=== PATIENT | male | born 1945 | race Hispanic/Latino ===

== ENCOUNTER 2017-01-08 06:14 | Day surgery (SDC) | payer OTHER ==
[2013-12-02 13:08] VITALS: BMI 34.0
[2017-01-08] MEDS ORDERED: Iodixanol 320 mg/ml 150 ml Bottle IV ONE (06:50)
[2017-01-08] MEDS ORDERED: Iohexol 350mgl/ml 50 ML ONE (07:00)
[2017-01-08] MEDS ORDERED: Midazolam 2 MG/2 ML VIAL ONE ×2 (07:29→07:51)
[2017-01-08] MEDS: Lidocaine 2% Inj (20ml) ONE ×2 (07:41→09:14)
[2017-01-08] MEDS ORDERED: Iodixanol 320 MG/ML 100 ML BOTTLE IV ONE (07:55)
[2017-01-08] MEDS: Nitroglycerin 50mg in D5W 50 MG/250 ML BOTTLE IV ONE ×2 (08:04→09:14)
[2017-01-08] MEDS ORDERED: Sodium Chloride 0.9% 1,000 ML IV SCH (08:30)
[2017-01-08 09:04] VITALS: O2SAT 96
--- NOTE | 2017-01-08 10:05 | CARDCATH ---
PROCEDURE DATE: 01/08/2017 CARDIAC CATHETERIZATION INTERVENTION HISTORY OF PRESENT ILLNESS: This is a 71-year-old man with peripheral arterial disease, diabetes, an d hypertension who has had recent exertional chest discomfort. A stress test showed evidence of ante rior ischemia, and cardiac catheterization was advised. PROCEDURES: 1. Selective left and right coronary angiography. 2. Left ventriculography. 3. PCI of mid LAD with drug-eluting stent. 4. Right femoral arteriography. 5. Angio-Seal deployment. FINDINGS: HEMODYNAMICS: The aortic pressure was 160/70 with left ventricular pressure of 160/20. CORONARY ANATOMY: 1. The left main stem was normal. 2. The left anterior descending artery had mild irregularities proximally, and a 70% stenosis in the late mid segment of the vessel. Beyond this, there was a 40% stenosis as well. The diagonal branch es had mild disease. 3. The left circumflex artery had a 40% lesion in its mid portion prior to the takeoff of a large se cond obtuse marginal branch. 4. The obtuse marginal branch had minimal disease. 5. The right coronary artery was large and dominant. There was evidence of distal disease in the po sterolateral branch with minimal disease elsewhere. Coronary circulation was right dominant. LEFT VENTRICULOGRAPHY: Hand injection was performed in the left ventricle revealing normal wall marisabel on with an ejection fraction of 60%. There was no aortic valve gradient noted on the catheter pullba ck. Mitral regurgitation was not assessed. Extensive mitral annular calcification was noted. CORONARY INTERVENTION: Given the above findings, attempted PCI of the LAD lesion was then performed. 5000 units of intravenous heparin was administered, and the ACT was greater than 400 seconds during the procedure. The lesion in the LAD was successfully crossed with the use of a [place] wire. Follo wing this, the lesion was primarily stented with placement of a 2.75 mm x 12 mm Resolute drug-eluting stent. There remained an underexpanded waist in the mid portion of the stent, and the stent balloon was then removed, and a 2.75 mm x 8 mm noncompliant balloon was advanced into the stented segment an d inflated to 14 atmospheres for 45 seconds. This was repeated to 16 atmospheres for 1 minute. Ther e was no significant residual stenosis following intervention. KARIS grade III flow was present befor e and after the intervention as well. RIGHT FEMORAL ARTERIOGRAPHY: Right femoral arteriogram revealed no evidence of significant disease i n the femoral region, and the appropriate level of arterial puncture. The puncture site was then reynaldo sed with deployment of an Angio-Seal device. CONCLUSION: 1. Significant mid LAD stenosis. 2. Mild diffuse 3-vessel coronary artery disease. 3. Normal left ventricular function. 4. Successful PCI of mid LAD. RECOMMENDATIONS: Aspirin and Plavix therapy will be continued for 1 year. Continued risk factor con trol was advised. Eventual evaluation of his recent worsening claudication will be planned as well. Mark Herman MD cc:Ezekiel Kim MD; Jani Hernandez MD 382 TT: 01/08/2017 10:04:18 jn
[2017-01-08 10:50] LABS: BLOOD UREA NITROGEN 14 mg/dL (7-21); CALCIUM 8.6 mg/dL (8.4-10.5); CARBON DIOXIDE 25 mmol/L (21-33); CHLORIDE 104 mmol/L (98-107); GFR AFRICAN-AMERICAN > 60; GLUCOSE,RANDOM 129 mg/dL (70-110); POTASSIUM 4.4 mmol/L (3.6-5.0); SODIUM 137 mmol/L (132-148)
[2017-01-08 13:05] VITALS: TEMP 97.7
[2017-01-08 14:42] VITALS: PULSE 58
[2017-01-08 14:49] VITALS: RESP 18
[2017-01-08 14:53] VITALS: BP 154/86
--- NOTE | 2017-01-08 16:22 | CARD ---
APPROVED REPORT EKG Measurement Heart [id number] <Conclusion> Sinus bradycardia with 1st degree AV block Otherwise normal ECG
== END 2017-01-08 17:05 | disposition home or self-care (01) ==
LOC: CATH 06:14 → 2RSO 09:09 → CATH 17:05
PROVIDERS: ATTEND Internal Medicine Cardiovascular Disease
DX: I25.10 Atherosclerotic heart disease of native coronary artery without angina pectoris (principal); I10 Essential (primary) hypertension; E11.51 Type 2 diabetes mellitus with diabetic peripheral angiopathy without gangrene
CPT/HCPCS: 36415; 80048; 82948; 85175; 86850; 86900; 93005; 93458; 99152; C1725; C1760; C1769 ×2; C1874; C1887; C2629; C9600; J1644 ×2; J2250; J3010; J7040 ×2; Q9967 ×2

== ENCOUNTER 2017-07-06 12:47 | Inpatient (IN) | payer OTHER, MEDICARE ==
--- NOTE | 2017-07-06 12:53 | ED PDOC ---
Arrival/HPI - General Time Seen by Provider: 07/06/17 12:48 Historian: Patient - History of Present Illness Narrative History of Present Illness (Text): 07/06/17 13:01 Patient is a 72 yo male presents with after sudden onset of unsteadiness, left sided weakness and difficulty speaking approximately 12 noon less than one hour prior to arrival. Patient reportedly was his typical self this morning, with no complaints until noon. Patient at this time has difficulty speaking, history supplemented by family. No trauma reported. No chest pain or shortness of breath reported. Patient take aspirin and Plavix, no other blood thinners as per . No recent history of surgery or arterial puncture. No recent trauma. Time/Duration: Prior to Arrival Symptom Onset: Sudden Past Medical History - Provider Review Nursing Documentation Reviewed: Yes - Tetanus Immunization Tetanus Immunization: Unknown - Cardiac Hx Pacemaker: No - Neurological Hx Paralysis: No - Renal Hx Renal Failure: Yes (hx of) - Endocrine/Metabolic Hx Endocrine Disorders: Yes Hx Diabetes Mellitus Type 2: Yes - Hematological/Oncological Hx Blood Transfusions: No Hx Blood Transfusion Reaction: No - Musculoskeletal/Rheumatological Hx Musculoskeletal Disorders: Yes - Gastrointestinal Hx Gastrointestinal Disorders: Yes (COLON CA) - Genitourinary/Gynecological Hx Genitourinary Disorders: Yes (ACUTE RENAL FAILURE) Hx Reproductive Disorders: No - Psychiatric Hx Emotional Abuse: No Hx Physical Abuse: No Hx Substance Use: No - Surgical History Hx Appendectomy: Yes Hx Cholecystectomy: Yes - Anesthesia Hx Anesthesia Reactions: No Hx Malignant Hyperthermia: No - Suicidal Assessment Feels Threatened In Home Enviroment: No Family/Social History - Physician Review Nursing Documentation Reviewed: Yes Family/Social History: Unknown Family HX Smoking Status: Never Smoked Hx Alcohol Use: Yes (SOCIAL) Hx Substance Use: No Hx Substance Use Treatment: No Allergies/Home Meds Allergies/Adverse Reactions: Allergies No Known Allergies Allergy (Verified 04/26/15 12:59) Home Medications: Home Meds Medication Instructions Recorded Confirmed Linagliptin [Tradjenta] 5 mg PO QAM 01/13/13 01/08/17 Bromocriptine Mesylate [Cycloset] 0.8 mg PO QAM 11/30/13 01/08/17 Aspirin [Ecotrin] 81 mg PO DAILY 01/02/17 01/08/17 GlipiZIDE [Glucotrol] 5 mg PO DAILY 01/02/17 01/08/17 Lisinopril [Zestril] 10 mg PO DAILY 01/02/17 01/08/17 Simvastatin 40 mg PO QPM 01/02/17 01/08/17 Clopidogrel [Plavix] 75 mg PO DAILY 01/08/17 01/08/17 Review of Systems - Review of Systems Systems not reviewed;Unavailable: Acuity of Condition Constitutional: absent: Fevers Respiratory: absent: SOB Cardiovascular: absent: Chest Pain Gastrointestinal: absent: Abdominal Pain Genitourinary Male: absent: Dysuria Musculoskeletal: absent: Back Pain Skin: absent: Rash Neurological: Gait Changes, Speech Changes. absent: Headache, Dizziness, Focal Weakness Endocrine: absent: Polyuria Physical Exam - Physical Exam Narrative Physical Exam (Text): 07/06/17 Head: Atraumatic. Normocephalic. Eyes: PERRL. EOMI. Conjunctivae are not pale. ENT: Mucous membranes are moist and intact. Oropharynx is clear and symmetric. Neck: Supple. Full ROM. No JVD. No lymphadenopathy. Cardiovascular: Regular rate. Regular rhythm. No murmurs, rubs, or gallops. Distal pulses are 2+ and symmetric. Pulmonary/Chest: No evidence of respiratory distress. Clear to auscultation bilaterally. No wheezing, rales or rhonchi. Abdominal: Soft and non-distended. There is no tenderness. No rebound, guarding, or rigidity. No organomegaly. Good bowel sounds. Back: No CVA tenderness. Extremities: No edema. No cyanosis. No clubbing. Full range of motion in all extremities. No calf tenderness. Skin: Skin is warm and dry. No petechiae. No purpura. Neurological: Alert, awake, and oriented to person, place, time, and situation. Normal speech. Psychiatric: Good eye contact. Normal interaction, affect, and behavior. Vital Signs Reviewed: Yes Vital Signs Temp Pulse Resp BP Pulse Ox 07/06/17 18:32 88 22 198/71 H 100 07/06/17 18:23 75 18 198/71 H 100 07/06/17 16:34 87 18 184/105 H 100 07/06/17 15:38 72 20 155/94 H 07/06/17 15:03 72 18 155/94 H 97 07/06/17 14:35 95 H 18 114/52 L 98 07/06/17 14:23 95 H 18 181/81 H 98 07/06/17 14:04 74 18 170/79 H 99 07/06/17 13:45 77 18 174/85 H 97 07/06/17 13:28 76 18 182/80 H 98 07/06/17 13:09 98.4 F 82 18 184/96 H 99 Temperature: Afebrile Pulse: Regular Respiratory Rate: Normal Appearance: Positive for: Ill-Appearing Pain Distress: Moderate Medical Decision Making ED Course and Treatment: 07/06/17 Patient seen immediately upon arrival. Patient is present with who witnessed patient's symptoms. She emphasizes patient was well and suddenly developed symptoms at 12 noon. On exam he is noted to have left sided neglect, left arm weakness, facial droop but is alert and answering questions. There is no fever. There is no trauma. CODE STROKE activated upon arrival as patient is noted to have acute onset of symptoms withing one hour of presentation. I discussed case and exam with on-call neurologist Dr. Duval. 07/06/17 13:[address]: Creator : Mervat Chi MD COMPARISON: Comparison is made to the previous CT study 01/30/2012 FINDINGS: HEMORRHAGE: No intracranial hemorrhage. BRAIN: No mass effect or edema. Mild atrophy and mild chronic microvascular white matter ischemic disease are again noted. Focal encephalomalacia at the left coronal radiata is noted new compared to the previous exam. Findings likely represent old lacunar infarct. VENTRICLES: Unremarkable. No hydrocephalus. CALVARIUM: Unremarkable. PARANASAL SINUSES: Unremarkable as visualized. No significant inflammatory changes. MASTOID AIR CELLS: Unremarkable as visualized. No inflammatory changes. OTHER FINDINGS: None. IMPRESSION: No evidence of acute intracranial hemorrhage territorial infarct mass effect or midline shift. Small focal encephalomalacia at the left coronal radiata likely represent old lacunar infarct. Mild atrophy and mild chronic microvascular ischemic disease. On re-exam he remains alert, awake, but no respiratory distress noted. Blood pressure elevated but stable and not over 185/[address] head findings reviewed from radiologist and reviewed with and son Radnall who is present at bedside. Patient exam consistent with CVA. Dr. Duval updated with patient exam and initial head ct. In laymens' terms I discussed indications and reviewed risks of tpa, with patient, and son. They are agreeable to administration of tpa and express understanding of potential serious risks and side effects of tpa. No contraindications noted. No recent surgery. No recent stroke. No active bleeding. BP NOT over 185/110 with serial pressures. No active bleeding. INR and platelet count reviewed. NO hemorrhage noted on head ct. No previous intracranial hemorrhage reported or noted. No recent intracranial or intraspinal surgery. No recent arterial puncture. 07/06/17 14:10 Bolus adminisitered at 14:04 pm. 9mg IV was administered by me over 1 min. 81mg infusion will be given IV over the next hour Risk and benefits of tTPA were discussed with pt, , and son. They were given the opportunity to ask questions and are agreeable to administration of this medication. Dr. Volodymyr Duval has been consulted regarding pts presentation and is agreeable with current treatment plan. The plan is to obtain MRI and MRA of the brain. 07/06/17 14:45 pt is currently complaining of mild sided headache. He is awake and alert, but appears slower to respond. Additionally, pt is nauseous and diaphoretic. Pt denies chest pain, shortness of breath, and abdominal pain. tPA has been discontinued and head ct repeat ordered due to developement of headache. 07/06/17 14:50 Chest X-ray: Creator : Mervat Chi MD COMPARISON: Comparison is made to 06/28/2015 FINDINGS: LUNGS: Clear. PLEURA: No pneumothorax or pleural fluid seen. CARDIOVASCULAR: Normal. OSSEOUS STRUCTURES: No significant abnormalities. VISUALIZED UPPER ABDOMEN: Normal. OTHER FINDINGS: None. IMPRESSION: No active disease. Repeat Head CT reveals no hemorrhage. Dr. Duval updated. Patient admitted to ICU under Dr. Bautista's service, covering for PMD. Patient evaluated by wood veneer taper in ED. Attempt at MRI of brain, patient became agitated in MR as per trace evidence technician unable to lay still. Patient noted to have elevated Creatinine at this time risk for iv contrast given renal insufficiency, risks of iv contrast reviewed with patient family, MRI preferred although stressed urgency of MRI and need to obtain immediately as patient requests "can this be done tomorrow". Indications for MRI reviewed with patient and family, Dr. Cyn Duval updated with current condition. On exam he is alert, conversive, remains with visual deficits, left upper extremity weakness. No respiratory distress noted. Headache improved. NO nausea. Ativan ordered so MRI may be obtained as patient is unable to stay still and attempt to sit up, risks/side effects of MRI reviewed with patient and family. I consulted with neurology prior to administration of Ativan. 07/06/17 18:24 Patient returned from MRI. He is sedated, although will follow commands and answer questions. Saturations 100%. MRI/MRA reviewed by neurology, abnormal findings noted including punctate hemorrhage. This was communicated to patient's family, and ICU team Dr. Pardo. Case was turned over to ICU team at 1830, blood pressure and physical exam directly communicated to ICU staff for reassessment upon arrival to ICU. He is no respiratory distress. There is blood tinged urine in elizalde and minor gingival bleeding noted. Exam and neurology consultation reviewed directly with wood veneer taper team, neurology has also communicated to ICU team. - Lab Interpretations Lab Results: 07/06/17 12:53 07/06/17 12:53 Lab Results 07/06/17 14:45: POC Glucose (mg/dL) 165 H 07/06/17 14:15: pO2 68 H, VBG pH 7.37, VBG pCO2 46.0, VBG HCO3 26.6, VBG Total CO2 28.0, VBG O2 Sat (Calc) 96.5 H, VBG Base Excess 0.8, VBG Potassium 4.1, Glucose 184 H, Lactate 1.6, FiO2 21.0, Sodium 141.0, Chloride 106.0, Venous Blood Potassium 4.1 07/06/17 13:00: PT 11.8, INR 1.07, APTT 27.9 07/06/17 12:53: Blood Type B POSITIVE, Antibody Screen Negative, BBK History Checked Patient has bt 07/06/17 12:53: Sodium 145, Potassium 4.0, Chloride 106, Carbon Dioxide 26, Anion Gap 17, BUN 21, Creatinine 1.7 H, Est GFR ( Amer) 48, Est GFR (Non- Af Amer) 40, Random Glucose 184 H, Calcium 9.9, Total Bilirubin 1.5 H, AST 33, ALT 33, Alkaline Phosphatase 122, Troponin I 0.10 D, Total Protein 7.7, Albumin 4.5, Globulin 3.2, Albumin/Globulin Ratio 1.4, Triglycerides 54, Cholesterol 150, LDL Cholesterol Direct 53, HDL Cholesterol 90 H 07/06/17 12:53: WBC 6.1, RBC 4.39, Hgb 12.9 L, Hct 39.1 L, MCV 89.1, MCH 29.4, MCHC 33.0, RDW 13.8, Plt Count 174, MPV 10.5, Gran % 56.9, Lymph % (Auto) 31.3, [place] % (Auto) 9.5 H, Eos % (Auto) 2.0, Baso % (Auto) 0.3, Gran # 3.46, Lymph # 1.9, [place]ck[place] # 0.6, Eos # 0.1, Baso # 0.02 I have reviewed the lab results: Yes - RAD Interpretation Radiology Orders: 07/06/17 12:50 HEAD W/O (CODE STROKE) [CT] Stat 07/06/17 12:52 CHEST ONE VIEW [RAD] Stat 07/06/17 13:48 BRAIN WITHOUT CONTRAST [MRI] Stat MRA HEAD WITHOUT CONTRAST [MRI] Stat 07/06/17 14:40 HEAD W/O CONTRAST [CT] Stat Disaster Recovery Consultant: Radiologist - EKG Interpretation Interpreted by ED Physician: Yes Type: 12 lead EKG - Medication Orders Current Medication Orders: Discontinued Medications Alteplase, Recombinant (Activase 100 Mg Inj) 81 mg IV ONCE ONE Stop: 07/06/17 13:24 Last Admin: 07/06/17 14:08 Dose: 81 mg eMAR Start Stop Document 07/06/17 14:08 EWO (Rec: 07/06/17 14:08 BONITAO [id number]) Intravenous Solution Start Date 07/06/17 Start Time 14:08 End Date 07/06/17 End time 15:08 Total Infusion Time 60 Alteplase, Recombinant (Activase 100 Mg Inj) 9 mg IV ONCE ONE Stop: 07/06/17 13:24 Last Admin: 07/06/17 14:05 Dose: 9 mg eMAR Start Stop Document 07/06/17 14:05 EWO (Rec: 07/06/17 14:05 EW [id number]) Intravenous Solution Start Date 07/06/17 Start Time 14:05 End Date 07/06/17 End time 14:06 Total Infusion Time 1 Sodium Chloride (Sodium Chloride 0.9%) 1,000 mls @ 1,000 mls/hr IV .Q1H STA Stop: 07/06/17 15:40 Last Admin: 07/06/17 15:10 Dose: 1,000 mls/hr eMAR Start Stop Document 07/06/17 15:10 EWO (Rec: 07/06/17 15:11 EWO [id number]) Intravenous Solution Start Date 07/06/17 Start Time 14:50 End Date 07/06/17 End time 15:50 Total Infusion Time 60 Lorazepam (Ativan) 0.5 mg IVP ONCE ONE PRN Reason: Protocol Stop: 07/06/17 16:37 Last Admin: 07/06/17 18:22 Dose: 0.5 mg IVP Administration Document 07/06/17 18:22 EWO (Rec: 07/06/17 18:22 EWO [id number]) Charges for Administration # of IVP Administrations 1 Lorazepam (Ativan) 0.5 mg IVP ONCE ONE PRN Reason: Protocol Stop: 07/06/17 17:17 Last Admin: 07/06/17 17:17 Dose: 0.5 mg Lorazepam (Ativan) 1 mg IVP ONCE ONE Stop: 07/06/17 17:47 Last Admin: 07/06/17 18:24 Dose: 1 mg IVP Administration Document 07/06/17 18:24 EWO (Rec: 07/06/17 18:24 O [id number]) Charges for Administration # of IVP Administrations 2 NIHSS Scale ([place]) Time Performed: 12:50 - How Severe is the Stoke Baseline Level of Consciousness: 1=Drowsy LOC to Questions: 0=Both comments correct LOC to commands: 0=Obeys both correctly Best Gaze: 1=Partial gaze palsy Visual: 1=Partial hemianopia Facial: 1=Minor asymmetry Motor Arm - Left: 2=Falls before 10 sec Motor Arm - Right: 0=No drift Motor Leg - Left: 0=No drift Motor Leg - Right: 0=No drift Limb Ataxia: 1=Present Upper or Lower Sensory: 0=Normal Best Language: 0=No aphasia Dysarthia: 1=Mild to moderate slurring Extinction & Inattention (Neglect): 1=Partial neglect (mild kaylie-attention) Score: 9 Risk Level: Mod Stroke Risk NIHSS Scale([place]) 2 Time Performed: 14:40 - How Severe is the Stoke Baseline Level of Consciousness: 1=Drowsy LOC to Questions: 0=Both comments correct LOC to commands: 0=Obeys both correctly Best Gaze: 0=Normal Visual: 1=Partial hemianopia Facial: 1=Minor asymmetry Motor Arm - Left: 3=No effort against gravity (falls immediately) Motor Arm - Right: 0=No drift Motor Leg - Left: 0=No drift Motor Leg - Right: 0=No drift Limb Ataxia: 1=Present Upper or Lower Sensory: 0=Normal Best Language: 0=No aphasia Dysarthia: 1=Mild to moderate slurring Extinction & Inattention (Neglect): 1=Partial neglect (mild kaylie-attention) Score: 9 Risk Level: Mod Stroke Risk rTPA Inclusion/Exclusion - Refusal of Treatment Patient Refused Treatment: No - Inclusion Criteria for Altepase Patient is 18 years or Older: Yes The Clinical Diagnosis of Ischemic Stroke That is Causing a Potentially Disabling Neurological Deficit: Yes Time of Onset is Well Established to be Less Than 270 Minute Before Treatment Would Begin: Yes Risk/Benefit Discussed With Patient/Family Member Present: Yes - Exclusion Criteria for Altepase Uncontrolled Hypertension at Time of Treatment (Systolic BP above 185 or Diastolic BP above 110 mmHg): No Active Internal Bleeding: No Known Bleeding Diathesis Including but Not Limited to: Platelets Below 100,000/ mm,PTT Above 40 sec After Heparin Use, Current Use of Oral Anitcoagulant With INR Greater Than 1.7 or PT Greater Than 15 secs: No Evidence of an Intracranial Hemorrhage: No Evidence of Major Acute Infarct With Signs Greater Than 1/3 MCA Territory: No Suspicion of Subarachnoid Hemorrhage on Pretreatment Evaluation Even if CT Head Negative For Hemorrhage: No - Warning to TPA With Conditions Following Conditions Weighed Against Anticipated Benefit: No - Scribe Statement The provider has reviewed the documentation as recorded by the Elías Elmore Provider Scribe Attestation: All medical record entries made by the Elías were at my direction and personally dictated by me. I have reviewed the chart and agree that the record accurately reflects my personal performance of the history, physical exam, medical decision making, and the department course for this patient. I have also personally directed, reviewed, and agree with the discharge instructions and disposition. Disposition/Present on Arrival - Present on Arrival Any Indicators Present on Arrival: Yes History of DVT/PE: No History of Uncontrolled Diabetes: No Urinary Catheter: Yes History Surgical Site Infection Following: None - Disposition Have Diagnosis and Disposition been Completed?: Yes Diagnosis: CVA (cerebral vascular accident) Disposition: HOSPITALIZED Disposition Time: 15:00 Patient Plan: Admission Condition: CRITICAL
[2017-07-06 13:05] LABS: BASO # 0.02 K/mm3 (0.0-2.0); BASO % 0.3 % (0.0-3.0); EOS # 0.1 (0.0-0.7); GRAN # 3.46 (1.4-6.5); GRAN % 56.9 % (50.0-68.0); HEMATOCRIT 39.1 % (42.0-52.0); LYMPH # 1.9 (1.2-3.4); LYMPH % 31.3 % (22.0-35.0); MEAN CELL VOLUME 89.1 fl (80.0-105.0); MEAN CORPUSCULAR HEMOGLOBIN 29.4 pg (25.0-35.0); MEAN PLATELET VOLUME 10.5 fl (7.0-11.0); MONO # 0.6 (0.1-0.6); MONO % 9.5 % (1.0-6.0); RED CELL DISTRIBUTION WIDTH 13.8 % (11.5-14.5); WHITE BLOOD COUNT 6.1 10^3/ul (4.5-11.0)
--- NOTE | 2017-07-06 13:17 | CT ---
PROCEDURE: CT HEAD WITHOUT CONTRAST. HISTORY: code stroke COMPARISON: Comparison is made to the previous CT study 01/30/2012 TECHNIQUE: Axial computed tomography images were obtained through the head/brain without intravenous contrast. Radiation dose: Total exam DLP = 814.48 mGy-cm. This CT exam was performed using one or more of the following dose reduction techniques: Automated exposure control, adjustment of the mA and/or kV according to patient size, and/or use of iterative reconstruction technique. FINDINGS: HEMORRHAGE: No intracranial hemorrhage. BRAIN: No mass effect or edema. Mild atrophy and mild chronic microvascular white matter ischemic disease are again noted. Focal encephalomalacia at the left coronal radiata is noted new compared to the previous exam. Findings likely represent old lacunar infarct. VENTRICLES: Unremarkable. No hydrocephalus. CALVARIUM: Unremarkable. PARANASAL SINUSES: Unremarkable as visualized. No significant inflammatory changes. MASTOID AIR CELLS: Unremarkable as visualized. No inflammatory changes. OTHER FINDINGS: None. IMPRESSION: No evidence of acute intracranial hemorrhage territorial infarct mass effect or midline shift. Small focal encephalomalacia at the left coronal radiata likely represent old lacunar infarct. Mild atrophy and mild chronic microvascular ischemic disease.
[2017-07-06 13:23] LABS: ALB/GLOB RATIO 1.4 (1.1-1.8); BILIRUBIN,TOTAL 1.5 mg/dL (0.2-1.3); CALCIUM 9.9 mg/dL (8.4-10.5); TOTAL PROTEIN 7.7 g/dL (5.8-8.3)
[2017-07-06 13:26] LABS: INR 1.07 (0.93-1.08); PARTIAL THROMBOPLASTIN TIME 27.9 Seconds (25.1-36.5)
[2017-07-06 13:36] LABS: TROPONIN I 0.1 ng/mL
[2017-07-06 14:30] LABS: VENOUS BLOOD GAS BASE EXCESS 0.8 mmol/L (0.0-2.0); VENOUS BLOOD PH 7.37 (7.32-7.43)
[2017-07-06] MEDS ORDERED: Sodium Chloride 0.9% 1,000 ML IV STA (14:41)
--- NOTE | 2017-07-06 14:42 | RAD ---
PROCEDURE: CHEST RADIOGRAPH, 1 VIEW HISTORY: code stroke COMPARISON: Comparison is made to 06/28/2015 FINDINGS: LUNGS: Clear. PLEURA: No pneumothorax or pleural fluid seen. CARDIOVASCULAR: Normal. OSSEOUS STRUCTURES: No significant abnormalities. VISUALIZED UPPER ABDOMEN: Normal. OTHER FINDINGS: None. IMPRESSION: No active disease.
--- NOTE | 2017-07-06 15:07 | CT ---
PROCEDURE: CT HEAD WITHOUT CONTRAST. HISTORY: headache on tpa COMPARISON: None available. TECHNIQUE: Axial computed tomography images were obtained through the head/brain without intravenous contrast. Radiation dose: Total exam DLP = 823.45 mGy-cm. This CT exam was performed using one or more of the following dose reduction techniques: Automated exposure control, adjustment of the mA and/or kV according to patient size, and/or use of iterative reconstruction technique. FINDINGS: HEMORRHAGE: No intracranial hemorrhage. BRAIN: Again seen is small old infarct at the left coronal radiata. No evidence of mass lesion mass effect or midline shift. Mild atrophy and chronic microvascular ischemic disease are again noted VENTRICLES: Unremarkable. No hydrocephalus. CALVARIUM: Unremarkable. PARANASAL SINUSES: Unremarkable as visualized. No significant inflammatory changes. MASTOID AIR CELLS: Unremarkable as visualized. No inflammatory changes. OTHER FINDINGS: None. IMPRESSION: No evidence of acute intracranial hemorrhage no significant interval change noted since the previous exam.
[2017-07-06 15:45] VITALS: BMI 32.7
--- NOTE | 2017-07-06 18:07 | MRI ---
PROCEDURE: MRI BRAIN WITHOUT CONTRAST HISTORY: left upper extremity weakness, left sided neglect COMPARISON: Comparison is made to the previous same-day CT of the head without contrast TECHNIQUE: Multiplanar, multisequence MR images of the brain were obtained without intravenous contrast enhancement. FINDINGS: This study is limited due to the patient's motion. HEMORRHAGE: There are foci of hypointense T2 GRE signal noted at the right posterior parietal occipital lobe. The possibility of small foci of hemorrhage cannot be totally excluded DWI: Diffusion restriction noted at the right frontal temporal parietal lobe extending to the peripheral right occipital lobe suggestive of large right MCA infarct. Foci of diffusion restriction are also noted at the right coronal radiata. . There is a focal hyperintense DW at the left coronal radiata likely represent T2 shine through. BRAIN PARENCHYMA: No mass effect or edema. Mild atrophy and [id number] chronic microvascular ischemic disease. VENTRICLES: Unremarkable. No hydrocephalus. CRANIUM: Unremarkable. ORBITS: Grossly unremarkable. PARANASAL SINUSES/MASTOIDS: Clear VASCULAR SYSTEM: Skull base flow voids intact. OTHER FINDINGS: None. IMPRESSION: Limited study due to patient's motion. Foci of diffuse restriction noted at the right supratentorial brain suggestive of right MCA infarct. Small foci of hyperintense T2 GRE signal noted at the right posterior parietal occipital lobe may represent punctate hemorrhage. Follow-up reassessment by CT is recommended.
--- NOTE | 2017-07-06 18:12 | MRI ---
PROCEDURE: MR Angiography of the neck without contrast HISTORY: left sided weakness COMPARISON: None available. TECHNIQUE: 3D [id number] angiography of the neck was performed. Rotating maximum intensity projection images of the cervical carotid and vertebral arteries were generated. The origins of the common carotid arteries were not visualized, which is a limitation inherent to the non-contrast time of flight technique. FINDINGS: Limited study due to patient's motion. RIGHT CAROTID ARTERIES: Common Carotid Artery: No evidence of significant stenosis Carotid Bifurcation: No evidence of significant stenosis P Internal Carotid Artery:No evidence of significant stenosis External Carotid Artery (proximal branches): Normal. LEFT CAROTID ARTERIES: Common Carotid Artery: No evidence of significant stenosis Carotid Bifurcation: Normal. Internal Carotid Artery:Normal. External Carotid Artery (proximal branches): Normal. VERTEBRAL ARTERIES: Right Vertebral Artery: The right vertebral artery is small in size contains foci of stenosis. Left Vertebral Artery: Normal. OTHER FINDINGS: None. IMPRESSION: Limited study due to patient's motion. No evidence of significant stenosis in the carotid arteries at the neck. Small size of right vertebral artery contains foci of moderate stenosis.
[2017-07-06] MEDS ORDERED: Labetalol 5 mg/ml Inj 20ML IV PRN (20:21)
--- NOTE | 2017-07-06 20:47 | MRI ---
EXAM: MR Angiography Head Without Intravenous Contrast EXAM DATE/TIME: 07/06/2017 1:48 PM CLINICAL HISTORY: The patient age is 72 years old and is male; Signs and symptoms; Syncope and collapse; Additional info: Left sided weakness, left sided neglect Facility exam id and description: Mri mra heads mra head without contrast TECHNIQUE: Magnetic resonance angiography images of the head without intravenous contrast. COMPARISON: CT - HEAD W/O CONTRAST 2017-07-06 14:49 FINDINGS: Artifacts: This MRA of the head is nondiagnostic due to significant motion artifact. Right internal carotid artery: The petrous internal carotid arteries are patent bilaterally. Evaluation of the remaining internal carotid arteries is nondiagnostic due to artifact. Right anterior cerebral artery: Nondiagnostic due to artifact. Right middle cerebral artery: Nondiagnostic due to artifact. Right posterior cerebral artery: Nondiagnostic due to artifact. Right vertebral artery: Nondiagnostic. Left internal carotid artery: See above. Left anterior cerebral artery: Nondiagnostic due to artifact. Left middle cerebral artery: Nondiagnostic due to artifact. Left posterior cerebral artery: Nondiagnostic due to artifact. Left vertebral artery: Nondiagnostic. Basilar artery: Nondiagnostic due to artifact. IMPRESSION: 1. This MRA of the head is nondiagnostic due to significant motion artifact. A repeat MRA or CTA is recommended.
--- NOTE | 2017-07-07 00:45 | CON ---
DATE: 07/06/2017 [employer] REQUESTING PHYSICIAN: Dr. Bautista. CHIEF COMPLAINT: The patient presented with left-sided weakness, felt to have had an acute CVA. HISTORY OF PRESENT ILLNESS: Mr. Villafana is a 72-year-old male that was witnessed to have at home unsteadiness, left-sided weakness, and difficulty speaking. The patient was brought directly to the emergency room and CVA was diagnosed. The patient had TPA. On exam, the patient was awake and alert, speaking in full sentences, very weak on his left upper and lower extremity. No fever, chills. No nausea, vomiting. No diarrhea. No abdominal pain. No chest pain. No headaches. No blurred vision. The patient had MRI that showed right MCA infarct with questionable small hemorrhoids in the right posteroparietal occipital lobe. The patient has past history of coronary artery disease and stents, also acute renal insufficiency, as well as colon CA. PAST MEDICAL HISTORY: As above. ALLERGIES: HE HAS NO KNOWN ALLERGIES. CURRENT MEDICATIONS: Can be evaluated as per the nurses' intake form. SOCIAL HISTORY: He is an occasional ETOH user, nonsmoker. No drug abuse. FAMILY HISTORY: Noncontributory. REVIEW OF SYSTEMS: CONSTITUTIONAL: No fever, chills. RESPIRATORY: All negative. CARDIOVASCULAR: All negative. GASTROINTESTINAL: All negative. GENITOURINARY: All negative. MUSCULOSKELETAL: The patient has weakness in the left upper and lower extremity. SKIN: All negative. NEUROLOGIC: The patient has gait change, speech change, weakness in the upper and lower extremity. ENDOCRINE: All negative. HEMATOLOGIC: All negative. IMMUNOLOGIC: All negative. PHYSICAL EXAM VITAL SIGNS: Temperature is 98.4, pulse is 82, respirations are 18, and blood pressure is 184/96. SKIN: Warm and dry. HEENT: Head is atraumatic, normocephalic. Eyes; reactive to light. Ears, nose, and throat seemed to be within normal limits. NECK: Supple. No JVD. No thyroid enlargement. No lymph nodes. HEART: Regular rate and rhythm. Normal S1, S2. LUNGS: Reveal good breath sounds bilaterally. ABDOMEN: Soft, nontender. Normal bowel sounds. No organomegaly noted. GENITALIA: Deferred. RECTAL: Deferred. MUSCULOSKELETAL: No joint deformities. EXTREMITIES: Reveal no edema. NEUROLOGICAL: He has slight slurred speech with extreme weakness in the left upper and lower extremities. LABORATORY DATA: As far as his laboratories; white count is 6.1, hemoglobin is 12.9, hematocrit 39.1, platelets of 174,000. His sodium is 145, potassium 4.0, chloride 106, CO2 of 26, BUN of 21, creatinine of 1.7, and glucose of 184. As far as the patient's MRI of the brain, head reveals foci of diffuse restriction noted at the right supratentorial brain suggestive of right MRI infarct, small foci of hyperintense T2-GRE signal noted at the right posteroparietal occipital lobe, may represent a punctate hemorrhage. Followup reassessment by CAT scan is recommended. Chest x-ray is negative. IMPRESSION: This patient has an acute right middle cerebral artery infarct, has a questionable small hemorrhagic area at the right posterior parietooccipital lobe. The patient has significant weakness in the left upper and lower extremities. The patient has a history of colon cancer, is noted to have acute renal insufficiency and has a history of coronary artery disease and stents. PLAN: Neurology consult has been called. The patient is recommended for systolic between 175 to 190 and a diastolic between 80 and 90. The patient has neuro checks as per protocol and BP checks as per protocol as well. We will follow his electrolytes and correct as needed. The patient has a consult with neuro and we will follow closely and treat aggressively along with the other consultants and the primary care doctor. Darvin Pardo MD
[2017-07-07] MEDS ORDERED: Nicardipine 20 MG/200 ML 20 MG/200 ML BAG IV PRN ×2 (10:01→14:35)
--- NOTE | 2017-07-07 10:14 | CARD ---
APPROVED REPORT EKG Measurement Heart [id number] <Conclusion> Normal sinus rhythm Cannot rule out Anterior infarct, age undetermined Abnormal ECG
[2017-07-07 10:28] LABS: ARTERIAL BLOOD GAS HCO3 24.3 mmol/L (21-28); ARTERIAL BLOOD GAS PH 7.45 (7.35-7.45)
[2017-07-07 10:33] LABS: BASO # 0.01 K/mm3 (0.0-2.0); BASO % 0.1 % (0.0-3.0); GRAN # 6.07 (1.4-6.5); GRAN % 76.6 % (50.0-68.0); HEMATOCRIT 35.7 % (42.0-52.0); LYMPH # 0.8 (1.2-3.4); LYMPH % 10.3 % (22.0-35.0); MEAN CELL VOLUME 88.1 fl (80.0-105.0); MEAN CORPUSCULAR HEMOGLOBIN 29.1 pg (25.0-35.0); MEAN CORPUSCULAR HGB CONC 33.1 g/dl (31.0-37.0); MEAN PLATELET VOLUME 10.2 fl (7.0-11.0); PH,URINE 5.5 (4.7-8.0); URINE BILIRUBIN NEGATIVE (NEGATIVE); URINE BLOOD LARGE (NEGATIVE); URINE GLUCOSE (UA) 500 mg/dL (NEGATIVE); URINE KETONE NEGATIVE (NEGATIVE); URINE LEUKOCYTE ESTERASE NEGATIVE Leu/uL (NEGATIVE); URINE PROTEIN 100 mg/dL (<30 mg/dL); URINE UROBILINOGEN 0.2 E.U./dL (<1 E.U./dL); WHITE BLOOD COUNT 7.9 10^3/ul (4.5-11.0)
--- NOTE | 2017-07-07 10:34 | CP.PCM.CON ---
<Dom Del Toro - Last Filed: 07/07/17 13:53> History of Present Illness - History of Present Illness History of Present Illness: Neurology consult note for Dr. Duval's service - Gaurang Del Toro PGY2 Reason for consult: Acute CVA HPI: Patient is a 72 year-old male with past medical history of hypertension, hyperlipidemia, CAD s/p stent placement, colon ca s/p partial colectomy that presented to [facility] accompanied by his with complaints of left-sided weakness and difficulty speaking. Per patient's , the symptoms had started at approximately 12pm the day of arrival (one hour prior to arrival) . In the ED, a code stroke was called and a head CT revealed no evidence of acute intracranial hemorrhage, territorial infarct, mass effect or midline shift. The risks, benefits and alternatives to administering tPA were discussed with the patient and his at bedside and decided to proceed with IV tPA administration at approximately 2:04pm. Shortly thereafter, patient began to complain of headache and tPA was discontinued and further imaging was ordered. Neurology consulted for acute CVA. He denied chest pain, pain, palpitations, SOB , abdominal pain, nausea, vomiting. 12point ROS as per HPI above otherwise negative PMH: as stated above PSH: partial colectomy, PCI with stent placement Allergies: NKDA Social Hx: Lives with his ; no illicit drugs or alcohol use Family Hx: Non-contributory Past Patient History - Infectious Disease Hx of Infectious Diseases: None - Tetanus Immunizations Tetanus Immunization: Unknown - Past Social History Smoking Status: Never Smoked - CARDIAC Hx Pacemaker: No - NEUROLOGICAL Hx Paralysis: No - RENAL Hx Renal Failure: Yes (hx of) - ENDOCRINE/METABOLIC Hx Endocrine Disorders: Yes Hx Diabetes Mellitus Type 2: Yes - HEMATOLOGICAL/ONCOLOGICAL Hx Blood Transfusions: No Hx Blood Transfusion Reaction: No - MUSCULOSKELETAL/RHEUMATOLOGICAL Hx Musculoskeletal Disorders: Yes - GASTROINTESTINAL Hx Gastrointestinal Disorders: Yes (COLON CA) - GENITOURINARY/GYNECOLOGICAL Hx Genitourinary Disorders: Yes (ACUTE RENAL FAILURE) Hx Reproductive Disorders: No - PSYCHIATRIC Hx Emotional Abuse: No Hx Physical Abuse: No Hx Substance Use: No - SURGICAL HISTORY Hx Appendectomy: Yes Hx Cholecystectomy: Yes - ANESTHESIA Hx Anesthesia Reactions: No Hx Malignant Hyperthermia: No Meds Allergies/Adverse Reactions: Allergies Allergy/AdvReac Type Severity Reaction Status Date / Time No Known Allergies Allergy Verified 04/26/15 12:59 - Medications Medications: Current Medications Acetaminophen (Ofirmev) 1,000 mg in 100 mls @ 400 mls/hr IVPB Q6H PRN PRN Reason: fever >100.4 Stop: 07/09/17 00:15 Last Admin: 07/07/17 07:12 Dose: 400 mls/hr Labetalol HCl (Trandate) 10 mg IV Q4H PRN PRN Reason: SBP>195, DBP >95 Last Admin: 07/06/17 20:33 Dose: 10 mg Ondansetron HCl (Zofran Inj) 4 mg IVP Q6H PRN PRN Reason: Nausea/Vomiting Last Admin: 07/06/17 21:55 Dose: 4 mg Physical Exam - Constitutional Appears: No Acute Distress - Head Exam Head Exam: ATRAUMATIC, NORMOCEPHALIC - Eye Exam Eye Exam: EOMI, PERRL - ENT Exam ENT Exam: Mucous Membranes Moist - Neck Exam Neck exam: Positive for: Normal Inspection. Negative for: Lymphadenopathy, Tenderness, Thyromegaly - Respiratory Exam Respiratory Exam: Decreased Breath Sounds. absent: Rales, Rhonchi, Wheezes - Cardiovascular Exam Cardiovascular Exam: RRR, +S1, +S2. absent: Gallop, JVD, Rubs - GI/Abdominal Exam GI & Abdominal Exam: Soft. absent: Distended, Firm, Rebound, Tenderness - Extremities Exam Extremities exam: Positive for: normal inspection. Negative for: pedal edema, tenderness - Neurological Exam Additional comments: awake, alert EOMI PERRL left-sided facial droop left-sided upper extremity weakness left-sided neglect RUE, RLE and LLE motor function grossly intact sensory appears intact throughout gait deferred - Skin Skin Exam: Dry, Intact, Normal Color, Warm Results - Vital Signs Recent Vital Signs: Last Vital Signs Temp 101.7 F H 07/07/17 04:00 Pulse 78 07/07/17 08:30 Resp 25 H 07/07/17 08:30 BP 156/58 H 07/07/17 08:30 Pulse Ox 98 07/07/17 08:30 - Labs Result Diagrams: 07/07/17 10:20 07/07/17 10:20 Labs: Laboratory Results - last 24 hr 07/06/17 07/07/17 07/07/17 21:00 04:42 10:26 pCO2 35 pO2 64.0 L HCO3 24.3 ABG pH 7.45 ABG Total CO2 25.4 ABG O2 Saturation 96.3 ABG Base Excess 0.7 ABG Potassium 3.8 Sodium 141.0 Chloride 109.0 H Glucose 212 H Lactate 1.2 FiO2 34.0 POC Glucose (mg/dL) 197 H 180 H Arterial Blood Potassium 3.8 Assessment & Plan - Assessment and Plan (Free Text) Plan: 72yo male with history of colon ca s/p partial colectomy, hypertension and hyperlipidemia presents to [facility] with acute cerebrovascular accident secondary to right MCA infarct 1. Acute CVA 2. Hypertension 3. Hyperlipidemia 4. CAD s/p stent placement 5. Hx of colon ca s/p partial colectomy -Acute CVA secondary to right middle cerebral artery infarct due to diffuse atherosclerotic disease; Drowsiness may be commonly seen post R. MCA infarct -Agree with repeat Head CT which has already been ordered to evaluate for hemorrhage post tPA administration -Brain MRI reviewed; revealed R. MCA infarct and punctate hemorrhage in the right posterior parietal occipital lobe; -Depending on results of repeat head CT, may restart aspirin 81mg PO daily for stroke prevention; recommend cardiology eval for resuming plavix given recent history of coronary stent placement -Monitor blood pressure post tPA administration and keep SBP < 185 -Fever in the setting of acute stroke is correlated with worse outcome, therefore maintain normothermia; continue with IV ofirmev -Monitor closely for signs of increasing ICP -Physical therapy/Occupational therapy evaluation -Speech/Swallow evaluation -Neurochecks q1h -Continue present medical management as per ICU team Patient seen and case discussed/reviewed with attending, Dr. Duval - Date & Time Date: 07/07/17 Time: 11:01 <Volodymyr Duval - Last Filed: 07/07/17 15:43> Meds - Medications Medications: Current Medications Acetaminophen (Ofirmev) 1,000 mg in 100 mls @ 400 mls/hr IVPB Q6H PRN PRN Reason: fever >100.4 Stop: 07/09/17 00:15 Last Admin: 07/07/17 07:12 Dose: 400 mls/hr Levetiracetam 500 mg/ Sodium (Chloride) 105 mls @ 460 mls/hr IV Q12 ANNALEE Nicardipine HCl (Cardene Iv Premix) 20 mg in 200 mls @ 50 mls/hr IV .Q4H PRN; Protocol; 5 MG/HR PRN Reason: TITRATE PER MD ORDER Labetalol HCl (Trandate) 10 mg IV Q4H PRN PRN Reason: SBP>195, DBP >95 Last Admin: 07/06/17 20:33 Dose: 10 mg Ondansetron HCl (Zofran Inj) 4 mg IVP Q6H PRN PRN Reason: Nausea/Vomiting Last Admin: 07/06/17 21:55 Dose: 4 mg Pantoprazole Sodium (Protonix Inj) 40 mg IVP DAILY ANNALEE Last Admin: 07/07/17 15:33 Dose: 40 mg Results - Vital Signs Recent Vital Signs: Last Vital Signs Temp 101.7 F H 07/07/17 04:00 Pulse 85 07/07/17 15:33 Resp 25 H 07/07/17 08:30 BP 156/58 H 07/07/17 08:30 Pulse Ox 98 07/07/17 08:30 - Labs Result Diagrams: 07/07/17 10:20 07/07/17 10:20 Labs: Laboratory Results - last 24 hr 07/06/17 07/07/17 07/07/17 21:00 04:42 07:19 WBC RBC Hgb Hct MCV MCH MCHC RDW Plt Count MPV Gran % Lymph % (Auto) [place] % (Auto) Eos % (Auto) Baso % (Auto) Gran # Lymph # [place] # Eos # Baso # pCO2 pO2 HCO3 ABG pH ABG Total CO2 ABG O2 Saturation ABG Base Excess ABG Potassium Glucose Lactate FiO2 Sodium Potassium Chloride Carbon Dioxide Anion Gap BUN Creatinine Est GFR ( Amer) Est GFR (Non-Af Amer) POC Glucose (mg/dL) 197 H 180 H 210 H Random Glucose Calcium Phosphorus Magnesium Total Bilirubin AST ALT Alkaline Phosphatase Total Protein Albumin Globulin Albumin/Globulin Ratio Arterial Blood Potassium Urine Color Urine Appearance Urine pH Ur Specific [place] Urine Protein Urine Glucose (UA) Urine Ketones Urine Blood Urine Nitrate Urine Bilirubin Urine Urobilinogen Ur Leukocyte Esterase Urine RBC Urine WBC Ur Epithelial Cells Urine Bacteria Influenza Typ A,B (EIA) 07/07/17 07/07/17 07/07/17 10:20 10:20 10:20 WBC 7.9 D RBC 4.05 Hgb 11.8 L Hct 35.7 L MCV 88.1 MCH 29.1 MCHC 33.1 RDW 14.0 Plt Count 145 MPV 10.2 Gran % 76.6 H Lymph % (Auto) 10.3 L [place] % (Auto) 13.0 H Eos % (Auto) 0.0 L Baso % (Auto) 0.1 Gran # 6.07 Lymph # 0.8 L [place] # 1.0 H Eos # 0.0 Baso # 0.01 pCO2 pO2 HCO3 ABG pH ABG Total CO2 ABG O2 Saturation ABG Base Excess ABG Potassium Glucose Lactate FiO2 Sodium 142 Potassium 4.1 Chloride 106 Carbon Dioxide 25 Anion Gap 15 BUN 27 H Creatinine 2.0 H Est GFR ( Amer) 40 Est GFR (Non-Af Amer) 33 POC Glucose (mg/dL) Random Glucose 209 H Calcium 9.5 Phosphorus 3.6 Magnesium 1.8 Total Bilirubin 1.9 H AST 32 ALT 36 Alkaline Phosphatase 96 Total Protein 7.7 Albumin 4.3 Globulin 3.5 Albumin/Globulin Ratio 1.2 Arterial Blood Potassium Urine Color Yellow Urine Appearance Clear Urine pH 5.5 Ur Specific [place] >= 1.030 Urine Protein 100 H Urine Glucose (UA) 500 H Urine Ketones Negative Urine Blood Large H Urine Nitrate Negative Urine Bilirubin Negative Urine Urobilinogen 0.2 Ur Leukocyte Esterase Negative Urine RBC Tntc Urine WBC 0 - 2 Ur Epithelial Cells 0 - 2 Urine Bacteria Small Influenza Typ A,B (EIA) 07/07/17 07/07/17 07/07/17 10:20 10:26 11:19 WBC RBC Hgb Hct MCV MCH MCHC RDW Plt Count MPV Gran % Lymph % (Auto) [place] % (Auto) Eos % (Auto) Baso % (Auto) Gran # Lymph # [place] # Eos # Baso # pCO2 35 pO2 64.0 L HCO3 24.3 ABG pH 7.45 ABG Total CO2 25.4 ABG O2 Saturation 96.3 ABG Base Excess 0.7 ABG Potassium 3.8 Glucose 212 H Lactate 1.2 FiO2 34.0 Sodium 141.0 Potassium Chloride 109.0 H Carbon Dioxide Anion Gap BUN Creatinine Est GFR ( Amer) Est GFR (Non-Af Amer) POC Glucose (mg/dL) 212 H Random Glucose Calcium Phosphorus Magnesium Total Bilirubin AST ALT Alkaline Phosphatase Total Protein Albumin Globulin Albumin/Globulin Ratio Arterial Blood Potassium 3.8 Urine Color Urine Appearance Urine pH Ur Specific [place] Urine Protein Urine Glucose (UA) Urine Ketones Urine Blood Urine Nitrate Urine Bilirubin Urine Urobilinogen Ur Leukocyte Esterase Urine RBC Urine WBC Ur Epithelial Cells Urine Bacteria Influenza Typ A,B (EIA) Negative for flu a/b Attending/Attestation - Attestation I have personally seen and examined this patient.: Yes I have fully participated in the care of the patient.: Yes I have reviewed all pertinent clinical information: Yes Notes (Text): I REVIEWED THE REPEAT CT HEAD WHICH SHOWED HEMORRHAGIC CONVERSION OF THE RIGHT MCA INFARCT SEC TO HYPERTENSIVE DISEASE WITH BOLUS OF TPA GIVEN. RECOMMEND: NO ASA/PLAVIX FOR 3 WEEKS. KEPPRA 500 IV Q12 FOR SEIZURE PROPHYLAXIS. PT/OT/SPEECH THERAPY. ACUTE REHAB EVALUATION ONCE STABLE. THANK YOU. KAREN KASPER. 07/07/17 15:41
[2017-07-07 10:39] LABS: URINE APPEARANCE CLEAR (CLEAR); URINE COLOR YELLOW (YELLOW)
[2017-07-07 10:43] LABS: ALB/GLOB RATIO 1.2 (1.1-1.8); BILIRUBIN,TOTAL 1.9 mg/dL (0.2-1.3); CALCIUM 9.5 mg/dL (8.4-10.5); MAGNESIUM 1.8 mg/dL (1.7-2.2); PHOSPHOROUS 3.6 mg/dL (2.5-4.5); POTASSIUM 4.1 mmol/L (3.6-5.0); TOTAL PROTEIN 7.7 g/dL (5.8-8.3)
--- NOTE | 2017-07-07 10:46 | CP.PCM.CON ---
History of Present Illness - History of Present Illness History of Present Illness: 72 year old male with PMH of DM, chronic renal failure, obesity with BMI 33, history of colon cancer was brought in to [facility] after he was noted to have difficulty speaking (slurred speech), unsteadiness and left sided weakness at around noontime yesterday. He came in within an hour of presentation and was found to have a right MCA infarct and possible small hemorrhages in the right occipital lobe. He was given tPA and is now in the ICU for closer observation. He started developing fevers this morning and Infectious diseases consult is requested to further evaluate and manage. Prior to this, family states he did not have fever or chills, no vomiting, no cough or colds, no diarrhea, no dysuria, was not complaining of abdominal pain, no SOB. Review of Systems - Review of Systems All systems: reviewed and no additional remarkable complaints except (as per HPI ) Past Patient History - Infectious Disease Hx of Infectious Diseases: None - Tetanus Immunizations Tetanus Immunization: Unknown - Past Social History Smoking Status: Never Smoked - CARDIAC Hx Pacemaker: No - NEUROLOGICAL Hx Paralysis: No - RENAL Hx Renal Failure: Yes (hx of) - ENDOCRINE/METABOLIC Hx Endocrine Disorders: Yes Hx Diabetes Mellitus Type 2: Yes - HEMATOLOGICAL/ONCOLOGICAL Hx Blood Transfusions: No Hx Blood Transfusion Reaction: No - MUSCULOSKELETAL/RHEUMATOLOGICAL Hx Musculoskeletal Disorders: Yes - GASTROINTESTINAL Hx Gastrointestinal Disorders: Yes (COLON CA) - GENITOURINARY/GYNECOLOGICAL Hx Genitourinary Disorders: Yes (ACUTE RENAL FAILURE) Hx Reproductive Disorders: No - PSYCHIATRIC Hx Emotional Abuse: No Hx Physical Abuse: No Hx Substance Use: No - SURGICAL HISTORY Hx Appendectomy: Yes Hx Cholecystectomy: Yes - ANESTHESIA Hx Anesthesia Reactions: No Hx Malignant Hyperthermia: No Meds Allergies/Adverse Reactions: Allergies Allergy/AdvReac Type Severity Reaction Status Date / Time No Known Allergies Allergy Verified 04/26/15 12:59 - Medications Medications: Current Medications Acetaminophen (Ofirmev) 1,000 mg in 100 mls @ 400 mls/hr IVPB Q6H PRN PRN Reason: fever >100.4 Stop: 07/09/17 00:15 Last Admin: 07/07/17 07:12 Dose: 400 mls/hr Labetalol HCl (Trandate) 10 mg IV Q4H PRN PRN Reason: SBP>195, DBP >95 Last Admin: 07/06/17 20:33 Dose: 10 mg Ondansetron HCl (Zofran Inj) 4 mg IVP Q6H PRN PRN Reason: Nausea/Vomiting Last Admin: 07/06/17 21:55 Dose: 4 mg Physical Exam - Constitutional Appears: Other (lethargic, slurred speech) - Head Exam Head Exam: NORMAL INSPECTION - ENT Exam ENT Exam: Mucous Membranes Moist - Neck Exam Neck exam: Negative for: Lymphadenopathy, Meningismus - Respiratory Exam Respiratory Exam: Decreased Breath Sounds. absent: Rales - Cardiovascular Exam Cardiovascular Exam: +S1, +S2 - GI/Abdominal Exam GI & Abdominal Exam: Soft. absent: Tenderness - Extremities Exam Extremities exam: Positive for: normal inspection. Negative for: joint swelling , pedal edema Results - Vital Signs Recent Vital Signs: Last Vital Signs Temp 101.7 F H 07/07/17 04:00 Pulse 78 07/07/17 08:30 Resp 25 H 07/07/17 08:30 BP 156/58 H 07/07/17 08:30 Pulse Ox 98 07/07/17 08:30 - Labs Result Diagrams: 07/06/17 12:53 07/06/17 12:53 Labs: Laboratory Results - last 24 hr 07/06/17 07/07/17 21:00 04:42 POC Glucose (mg/dL) 197 H 180 H Assessment & Plan - Assessment and Plan (Free Text) Plan: Assessment Systemic Inflammatory response syndrome (fever and tachycardia), consider due to acute right sided CVA R/O sepsis so far no source of infection identified DM chronic renal failure obesity with BMI 33 history of colon cancer Plan Will get blood cx, urine cx, repeat CXR (CXR from yesterday does not reveal infiltrates); WBC count is normal; will monitor off antibiotics for now and observe
[2017-07-07 10:53] LABS: URINE BACTERIA SMALL (NEG); URINE EPITHELIAL CELLS 0 - 2 /hpf (0-5); URINE RBC TNTC /hpf (0-2); URINE WBC 0 - 2 /hpf (0-6)
--- NOTE | 2017-07-07 10:56 | RAD ---
HISTORY: Shortness of breath COMPARISON: 07/06/2017 FINDINGS: LUNGS: The lungs are well inflated. There is diffuse haziness in the right lung. There is a left retrocardiac opacity. PLEURA: Question of layering right pleural effusion and small left pleural effusion. No pneumothorax. CARDIOVASCULAR: There is mild cardiomegaly. OSSEOUS STRUCTURES: No significant abnormalities. VISUALIZED UPPER ABDOMEN: Normal. OTHER FINDINGS: None. IMPRESSION: Limited portable examination, question of layering right pleural effusion and small left pleural effusion. Left retrocardiac opacity may represent subsegmental atelectasis. Follow-up PA and lateral radiographs are recommended for further evaluation.
--- NOTE | 2017-07-07 10:58 | HP ---
CHIEF COMPLAINT AND HISTORY OF PRESENT ILLNESS: This is a 72-year-old male who is coming into the hospital because of left-sided weakness. The patient had presented because of weakness in the left arm. He was having difficulty in picking up items at home. The patient had left-sided weakness and difficulty speaking. He was brought in by his , who is a telemetry nurse at [facility]. The patient had no issues up until about 12 o'clock yesterday, he had an acute change in his speech and weakness in the left arm. He came in for further evaluation. The patient has been taking aspirin and Plavix for his heart disease. In the emergency room, the patient was within the TPA window and so he had TPA that was started. He started developing bleeding and his blood pressure decreased and so his TPA was not completely given. According to the notes that I reviewed, the patient had been awake and alert. He was speaking full sentences, but very weak on the left arm and leg. The patient had MRI that showed right MCA infarct with questionable small hemorrhage. According to the notes that I reviewed this morning, the patient is not able to give any information. He is sedated because he received sedatives while trying to get an MRI. I did speak to the patient's night nurse as well as the patient's who is at the bedside. REVIEW OF SYMPTOMS: Limited because of the patient's confusion. ALLERGIES: NO KNOWN DRUG ALLERGIES. HOME MEDICATIONS: Linagliptin, bromocriptine, aspirin, glipizide, lisinopril, simvastatin, Plavix. PAST MEDICAL HISTORY: 1. CKD stage III. 2. Diabetes type 2. 3. Hypertension. 4. Dyslipidemia. 5. GERD. 6. Clostridium difficile. 7. Rhabdomyolysis. 8. Colon cancer with partial colectomy. PAST SURGICAL HISTORY: He has colon resection done. SOCIAL HISTORY: The patient had quit smoking yeas ago. He has no history of drug use. PHYSICAL EXAMINATION: VITAL SIGNS: Temperature 101.7, pulse of 78, blood pressure 156/58, respirations 22, O2 saturation 98%. GENERAL: The patient lying in bed, uncomfortable, and in no acute distress. HEENT: Atraumatic and normocephalic. Anicteric sclerae. Moist mucosa. [place] conjunctivae. No oral lesions. NECK: No JVD, anterior and posterior adenopathy, thyromegaly, or bruits. CARDIOVASCULAR: S1 and S2 regular. No murmur, rubs, or gallop. LUNGS: Clear to auscultation bilaterally. No wheezes, rales, or rhonchi. ABDOMEN: Bowel sounds are positive. Soft, nontender and nondistended. No hepatosplenomegaly. No rebound and no guarding. EXTREMITIES: No cyanosis, clubbing, or edema. NEUROLOGIC: There is less facial asymmetry. There is weakness in the left arm grossly and left leg. The patient is not able to move. On observation, he is able to move his right arm and right leg when he gets restless range of motion and flaccid paralysis in the left arm. PSYCHIATRIC: Unable to access because of the patient's underlying illness. GENITOURINARY: No CVA tenderness. VASCULAR: 2+ pulses in the carotid pulses and pedal pulses. SKIN: No erythema or nodules. SPINE: Shows normal curvature. EXTREMITIES: No Cyanosis and clubbing, no edema. LABORATORY DATA: Reviewed. White count of 6.1, hemoglobin 12.9, INR 1.07. ABG shows pH of 7.37, PCO2 46. Chemistry shows creatinine of 1.7, glucose is 165, 197, 180. LDL 53. His MRA done shows no evidence of significant stenosis in the carotid arteries of the neck. There is small size of the right vertebral artery contains foci and moderate stenosis. CT of the head done shows no evidence of acute intracranial hemorrhage. MRA done shows that is nondiagnostic because of the motion artifact. Chest x-ray done shows no active disease. CT head done initially showed small foci, focal encephalomalacia at the left holliday radiata, represents old lacunar infarct. MRI of the brain shows a small foci of hyperintense signaling in the right posterior parietal-occipital lobe. ASSESSMENT: 1. Right middle cerebral artery stroke. 2. Chronic kidney disease stage III. 3. Diabetes type 2. 4. Hypertension. 5. Dyslipidemia. 6. History of colon cancer. 7. Obese with BMI of 32. PLAN: The patient is currently admitted to the ICU. He is going to be on Tylenol for fever. His fevers are most likely essential, but I will need to rule out infection by doing blood cultures, urine cultures. I will get ID consultation. The patient will also need cardiology evaluation. He is on labetalol p.r.n. for hypertension. He is not able to swallow or have swallowing evaluation done. He is currently n.p.o. Dr. Duval will be seeing the patient as well. Overall, prognosis is guarded. He will also need physical therapy. Jani Hernandez MD
--- NOTE | 2017-07-07 11:27 | CP.CCUPN ---
<Flako King - Last Filed: 07/07/17 11:24> CCU Subjective - Physician Review Subjective (Free Text): Patient seen and examined at bedside. Resting comfortably in bed. No acute overnight events. Patient is altered. Family at bedside. 12 point review of systems cannot be ascertained at this time due to altered mental status 07/07/17 11:24 CCU Objective - Vital Signs / Intake & Output Vital Signs (Last 4 hours): Vital Signs Pulse Resp BP Pulse Ox 07/07/17 08:30 78 25 H 156/58 H 98 07/07/17 08:20 75 22 100 07/07/17 08:10 75 22 100 07/07/17 08:00 71 19 162/81 H 100 07/07/17 07:50 72 21 100 07/07/17 07:40 78 27 H 99 07/07/17 07:30 71 26 H 157/67 H 100 Intake and Output (Last 8hrs): Intake & Output 07/06/17 07/07/17 07/07/17 22:59 06:59 14:59 Intake Total 100 Output Total 500 750 Balance -500 -650 Weight 228 lb Intake: IV 100 Right Forearm 100 Oral 0 Output: Urine 500 750 Urethral (Self) 750 Stool 0 - Physical Exam Physical Exam Limitations: Positive for: Altered Mental Status Head: Positive for: Atraumatic, Normocephalic Pupils: Positive for: PERRL Respiratory/Chest: Positive for: Other (bibasilar crackles) Cardiovascular: Positive for: Normal S1, S2 Abdomen: Positive for: Normal Bowel Sounds. Negative for: Distention Upper Extremity: Positive for: Normal Inspection Lower Extremity: Positive for: Normal Inspection Neurological: Positive for: Other (patient is alert, intermittently somnolent, spontaneously moves right upper, right lower, and left upper extremities, does not respond to questions appropriately, does not follow commands) Skin: Positive for: Warm, Dry Psychiatric: Positive for: Alert - Medications Active Medications: Active Medications Generic Name Dose Route Start Last Admin Trade Name Freq PRN Reason Stop Dose Admin Acetaminophen 1,000 mg in 100 mls @ 400 mls/hr 07/07/17 00:14 07/07/17 07:12 Ofirmev IVPB 07/09/17 00:15 400 mls/hr Q6H PRN Administration fever >100.4 Labetalol HCl 10 mg 11/12/17 20:21 07/06/17 20:33 Trandate IV 10 mg Q4H PRN Administration SBP>195, DBP >95 Ondansetron HCl 4 mg 07/06/17 21:36 07/06/17 21:55 Zofran Inj IVP 4 mg Q6H PRN Administration Nausea/Vomiting - Patient Studies Lab Studies: Lab Studies 07/07/17 07/07/17 07/07/17 Range/Units 10:26 10:20 10:20 WBC (4.5-11.0) 10^3/ul RBC (3.5-6.1) 10^6/uL Hgb (14.0-18.0) g/dL Hct (42.0-52.0) % MCV (80.0-105.0) fl MCH (25.0-35.0) pg MCHC (31.0-37.0) g/dl RDW (11.5-14.5) % Plt Count (120.0-450.0) 10^3/uL MPV (7.0-11.0) fl Gran % (50.0-68.0) % Lymph % (Auto) (22.0-35.0) % Sibley % (Auto) (1.0-6.0) % Eos % (Auto) (1.5-5.0) % Baso % (Auto) (0.0-3.0) % Gran # (1.4-6.5) Lymph # (1.2-3.4) Sibley # (0.1-0.6) Eos # (0.0-0.7) Baso # (0.0-2.0) K/mm3 pCO2 35 (35-45) mm/Hg pO2 64.0 L (80-100) mm/Hg HCO3 24.3 (21-28) mmol/L ABG pH 7.45 (7.35-7.45) ABG Total CO2 25.4 (22-28) mmol.L ABG O2 Saturation 96.3 (95-98) % ABG Base Excess 0.7 (-2.0-3.0) mmol/L ABG Potassium 3.8 (3.6-5.2) mmol/L Glucose 212 H (75-110) mg/dl Lactate 1.2 (0.7-2.1) mmol/L FiO2 34.0 % Sodium 141.0 (132-148) mmol/L Potassium (3.6-5.0) mmol/L Chloride 109.0 H (98-107) mmol/L Carbon Dioxide (21-33) mmol/L Anion Gap (10-20) BUN (7-21) mg/dL Creatinine (0.8-1.5) mg/dL Est GFR ( Amer) Est GFR (Non-Af Amer) POC Glucose (mg/dL) (65-110) mg/dL Random Glucose (70-110) mg/dL Calcium (8.4-10.5) mg/dL Phosphorus (2.5-4.5) mg/dL Magnesium (1.7-2.2) mg/dL Total Bilirubin (0.2-1.3) mg/dL AST (17-59) U/L ALT (7-56) U/L Alkaline Phosphatase (38-126) U/L Total Protein (5.8-8.3) g/dL Albumin (3.0-4.8) g/dL Globulin gm/dL Albumin/Globulin Ratio (1.1-1.8) Arterial Blood Potassium 3.8 (3.6-5.2) mmol/L Urine Color Yellow (YELLOW) Urine Appearance Clear (CLEAR) Urine pH 5.5 (4.7-8.0) Ur Specific Miranda >= 1.030 (1.005-1.035) Urine Protein 100 H (<30 mg/dL) mg/dL Urine Glucose (UA) 500 H (NEGATIVE) mg/dL Urine Ketones Negative (NEGATIVE) mg/dL Urine Blood Large H (NEGATIVE) Urine Nitrate Negative (NEGATIVE) Urine Bilirubin Negative (NEGATIVE) Urine Urobilinogen 0.2 (<1 E.U./dL) E.U./dL Ur Leukocyte Esterase Negative (NEGATIVE) Beatriz/uL Urine RBC Tntc (0-2) /hpf Urine WBC 0 - 2 (0-6) /hpf Ur Epithelial Cells 0 - 2 (0-5) /hpf Urine Bacteria Small (NEG) Influenza Typ A,B (EIA) Negative for flu a/b (NEGATIVE) 07/07/17 07/07/17 07/07/17 Range/Units 10:20 10:20 04:42 WBC 7.9 D (4.5-11.0) 10^3/ul RBC 4.05 (3.5-6.1) 10^6/uL Hgb 11.8 L (14.0-18.0) g/dL Hct 35.7 L (42.0-52.0) % MCV 88.1 (80.0-105.0) fl MCH 29.1 (25.0-35.0) pg MCHC 33.1 (31.0-37.0) g/dl RDW 14.0 (11.5-14.5) % Plt Count 145 (120.0-450.0) 10^3/uL MPV 10.2 (7.0-11.0) fl Gran % 76.6 H (50.0-68.0) % Lymph % (Auto) 10.3 L (22.0-35.0) % Sibley % (Auto) 13.0 H (1.0-6.0) % Eos % (Auto) 0.0 L (1.5-5.0) % Baso % (Auto) 0.1 (0.0-3.0) % Gran # 6.07 (1.4-6.5) Lymph # 0.8 L (1.2-3.4) Sibley # 1.0 H (0.1-0.6) Eos # 0.0 (0.0-0.7) Baso # 0.01 (0.0-2.0) K/mm3 pCO2 (35-45) mm/Hg pO2 (80-100) mm/Hg HCO3 (21-28) mmol/L ABG pH (7.35-7.45) ABG Total CO2 (22-28) mmol.L ABG O2 Saturation (95-98) % ABG Base Excess (-2.0-3.0) mmol/L ABG Potassium (3.6-5.2) mmol/L Glucose (75-110) mg/dl Lactate (0.7-2.1) mmol/L FiO2 % Sodium 142 (132-148) mmol/L Potassium 4.1 (3.6-5.0) mmol/L Chloride 106 (98-107) mmol/L Carbon Dioxide 25 (21-33) mmol/L Anion Gap 15 (10-20) BUN 27 H (7-21) mg/dL Creatinine 2.0 H (0.8-1.5) mg/dL Est GFR ( Amer) 40 Est GFR (Non-Af Amer) 33 POC Glucose (mg/dL) 180 H (65-110) mg/dL Random Glucose 209 H (70-110) mg/dL Calcium 9.5 (8.4-10.5) mg/dL Phosphorus 3.6 (2.5-4.5) mg/dL Magnesium 1.8 (1.7-2.2) mg/dL Total Bilirubin 1.9 H (0.2-1.3) mg/dL AST 32 (17-59) U/L ALT 36 (7-56) U/L Alkaline Phosphatase 96 (38-126) U/L Total Protein 7.7 (5.8-8.3) g/dL Albumin 4.3 (3.0-4.8) g/dL Globulin 3.5 gm/dL Albumin/Globulin Ratio 1.2 (1.1-1.8) Arterial Blood Potassium (3.6-5.2) mmol/L Urine Color (YELLOW) Urine Appearance (CLEAR) Urine pH (4.7-8.0) Ur Specific Miranda (1.005-1.035) Urine Protein (<30 mg/dL) mg/dL Urine Glucose (UA) (NEGATIVE) mg/dL Urine Ketones (NEGATIVE) mg/dL Urine Blood (NEGATIVE) Urine Nitrate (NEGATIVE) Urine Bilirubin (NEGATIVE) Urine Urobilinogen (<1 E.U./dL) E.U./dL Ur Leukocyte Esterase (NEGATIVE) Beatriz/uL Urine RBC (0-2) /hpf Urine WBC (0-6) /hpf Ur Epithelial Cells (0-5) /hpf Urine Bacteria (NEG) Influenza Typ A,B (EIA) (NEGATIVE) 07/06/17 Range/Units 21:00 WBC (4.5-11.0) 10^3/ul RBC (3.5-6.1) 10^6/uL Hgb (14.0-18.0) g/dL Hct (42.0-52.0) % MCV (80.0-105.0) fl MCH (25.0-35.0) pg MCHC (31.0-37.0) g/dl RDW (11.5-14.5) % Plt Count (120.0-450.0) 10^3/uL MPV (7.0-11.0) fl Gran % (50.0-68.0) % Lymph % (Auto) (22.0-35.0) % Sibley % (Auto) (1.0-6.0) % Eos % (Auto) (1.5-5.0) % Baso % (Auto) (0.0-3.0) % Gran # (1.4-6.5) Lymph # (1.2-3.4) Sibley # (0.1-0.6) Eos # (0.0-0.7) Baso # (0.0-2.0) K/mm3 pCO2 (35-45) mm/Hg pO2 (80-100) mm/Hg HCO3 (21-28) mmol/L ABG pH (7.35-7.45) ABG Total CO2 (22-28) mmol.L ABG O2 Saturation (95-98) % ABG Base Excess (-2.0-3.0) mmol/L ABG Potassium (3.6-5.2) mmol/L Glucose (75-110) mg/dl Lactate (0.7-2.1) mmol/L FiO2 % Sodium (132-148) mmol/L Potassium (3.6-5.0) mmol/L Chloride (98-107) mmol/L Carbon Dioxide (21-33) mmol/L Anion Gap (10-20) BUN (7-21) mg/dL Creatinine (0.8-1.5) mg/dL Est GFR ( Amer) Est GFR (Non-Af Amer) POC Glucose (mg/dL) 197 H (65-110) mg/dL Random Glucose (70-110) mg/dL Calcium (8.4-10.5) mg/dL Phosphorus (2.5-4.5) mg/dL Magnesium (1.7-2.2) mg/dL Total Bilirubin (0.2-1.3) mg/dL AST (17-59) U/L ALT (7-56) U/L Alkaline Phosphatase (38-126) U/L Total Protein (5.8-8.3) g/dL Albumin (3.0-4.8) g/dL Globulin gm/dL Albumin/Globulin Ratio (1.1-1.8) Arterial Blood Potassium (3.6-5.2) mmol/L Urine Color (YELLOW) Urine Appearance (CLEAR) Urine pH (4.7-8.0) Ur Specific Miranda (1.005-1.035) Urine Protein (<30 mg/dL) mg/dL Urine Glucose (UA) (NEGATIVE) mg/dL Urine Ketones (NEGATIVE) mg/dL Urine Blood (NEGATIVE) Urine Nitrate (NEGATIVE) Urine Bilirubin (NEGATIVE) Urine Urobilinogen (<1 E.U./dL) E.U./dL Ur Leukocyte Esterase (NEGATIVE) Beatriz/uL Urine RBC (0-2) /hpf Urine WBC (0-6) /hpf Ur Epithelial Cells (0-5) /hpf Urine Bacteria (NEG) Influenza Typ A,B (EIA) (NEGATIVE) Laboratory Results - last 24 hr 07/06/17 07/07/17 07/07/17 21:00 04:42 10:20 WBC 7.9 D RBC 4.05 Hgb 11.8 L Hct 35.7 L MCV 88.1 MCH 29.1 MCHC 33.1 RDW 14.0 Plt Count 145 MPV 10.2 Gran % 76.6 H Lymph % (Auto) 10.3 L Sibley % (Auto) 13.0 H Eos % (Auto) 0.0 L Baso % (Auto) 0.1 Gran # 6.07 Lymph # 0.8 L Sibley # 1.0 H Eos # 0.0 Baso # 0.01 pCO2 pO2 HCO3 ABG pH ABG Total CO2 ABG O2 Saturation ABG Base Excess ABG Potassium Glucose Lactate FiO2 Sodium Potassium Chloride Carbon Dioxide Anion Gap BUN Creatinine Est GFR ( Amer) Est GFR (Non-Af Amer) POC Glucose (mg/dL) 197 H 180 H Random Glucose Calcium Phosphorus Magnesium Total Bilirubin AST ALT Alkaline Phosphatase Total Protein Albumin Globulin Albumin/Globulin Ratio Arterial Blood Potassium Urine Color Urine Appearance Urine pH Ur Specific Miranda Urine Protein Urine Glucose (UA) Urine Ketones Urine Blood Urine Nitrate Urine Bilirubin Urine Urobilinogen Ur Leukocyte Esterase Urine RBC Urine WBC Ur Epithelial Cells Urine Bacteria Influenza Typ A,B (EIA) 07/07/17 07/07/17 07/07/17 10:20 10:20 10:20 WBC RBC Hgb Hct MCV MCH MCHC RDW Plt Count MPV Gran % Lymph % (Auto) Sibley % (Auto) Eos % (Auto) Baso % (Auto) Gran # Lymph # Sibley # Eos # Baso # pCO2 pO2 HCO3 ABG pH ABG Total CO2 ABG O2 Saturation ABG Base Excess ABG Potassium Glucose Lactate FiO2 Sodium 142 Potassium 4.1 Chloride 106 Carbon Dioxide 25 Anion Gap 15 BUN 27 H Creatinine 2.0 H Est GFR ( Amer) 40 Est GFR (Non-Af Amer) 33 POC Glucose (mg/dL) Random Glucose 209 H Calcium 9.5 Phosphorus 3.6 Magnesium 1.8 Total Bilirubin 1.9 H AST 32 ALT 36 Alkaline Phosphatase 96 Total Protein 7.7 Albumin 4.3 Globulin 3.5 Albumin/Globulin Ratio 1.2 Arterial Blood Potassium Urine Color Yellow Urine Appearance Clear Urine pH 5.5 Ur Specific Miranda >= 1.030 Urine Protein 100 H Urine Glucose (UA) 500 H Urine Ketones Negative Urine Blood Large H Urine Nitrate Negative Urine Bilirubin Negative Urine Urobilinogen 0.2 Ur Leukocyte Esterase Negative Urine RBC Tntc Urine WBC 0 - 2 Ur Epithelial Cells 0 - 2 Urine Bacteria Small Influenza Typ A,B (EIA) Negative for flu a/b 07/07/17 10:26 WBC RBC Hgb Hct MCV MCH MCHC RDW Plt Count MPV Gran % Lymph % (Auto) Sibley % (Auto) Eos % (Auto) Baso % (Auto) Gran # Lymph # Sibley # Eos # Baso # pCO2 35 pO2 64.0 L HCO3 24.3 ABG pH 7.45 ABG Total CO2 25.4 ABG O2 Saturation 96.3 ABG Base Excess 0.7 ABG Potassium 3.8 Glucose 212 H Lactate 1.2 FiO2 34.0 Sodium 141.0 Potassium Chloride 109.0 H Carbon Dioxide Anion Gap BUN Creatinine Est GFR ( Amer) Est GFR (Non-Af Amer) POC Glucose (mg/dL) Random Glucose Calcium Phosphorus Magnesium Total Bilirubin AST ALT Alkaline Phosphatase Total Protein Albumin Globulin Albumin/Globulin Ratio Arterial Blood Potassium 3.8 Urine Color Urine Appearance Urine pH Ur Specific Miranda Urine Protein Urine Glucose (UA) Urine Ketones Urine Blood Urine Nitrate Urine Bilirubin Urine Urobilinogen Ur Leukocyte Esterase Urine RBC Urine WBC Ur Epithelial Cells Urine Bacteria Influenza Typ A,B (EIA) Fingerstick Blood Sugar Results: 167 Review of Systems - Review of Systems Review of Systems: 12 point review of systems cannot be ascertained at this time due to altered mental status Assessment/Plan - Assessment and Plan (Free Text) Assessment: Patient is a 72 year old male with a pmhx of CAD who was admitted for evaluation and treatment of altered mental status. He was found to have a cerebrovascular accident. Received TPA bolus but infusion was stopped prior to completion due to adverse reaction. Plan: Neuro: - patient is intermittently somnolent but arousable, spontaneously moves right upper, right lower, and left upper extremities, does not respond to questions appropriately, does not follow commands - neurology is consulted- appreciate recommendations - brain MRI- Foci of diffuse restriction noted at the right supratentorial brain suggestive of right MCA infarct; Small foci of hyperintense T2 GRE signal noted at the right posterior parietal occipital lobe may represent punctate hemorrhage - repeat CT of head ordered for 1400- will follow - brain MRA- This MRA of the head is nondiagnostic due to significant motion artifact - neck MRA -Limited study due to patient's motion. No evidence of significant stenosis in the carotid arteries at the neck. Small size of right vertebral artery contains foci of moderate stenosis Cardio: - HR trended, reviewed, and appreciated, will continue to monitor closely - BPs trended, reviewed, and appreciated, will continue to monitor closely- will follow recommended BP control guidelines - continue to monitor vitals - c/w labetolol for blood pressure control - caridiology is consulted- appreciate recommendations Pulm: - keep SaO2 above 92% GI: - prophylaxis with protonix Elevated T. Bili - will monitor closely Renal/Electrolytes: NOÉ - creatinine and BUN trended, reviewed, and appreciated, will continue to monitor closely Endo: - keep patient euglycemic Heme: Anemia - Hgbs trended, reviewed, and appreciated, will continue to monitor closely - DVT prophylaxis via SCDs Patient seen, case discussed with, and plan approved by attending physician, Dr. Garcia. <Issa Garcia - Last Filed: 07/07/17 12:44> CCU Objective - Vital Signs / Intake & Output Intake and Output (Last 8hrs): Intake & Output 07/06/17 07/07/17 07/07/17 22:59 06:59 14:59 Intake Total 100 Output Total 500 750 Balance -500 -650 Weight 228 lb Intake: IV 100 Right Forearm 100 Oral 0 Output: Urine 500 750 Urethral (Self) 750 Stool 0 - Medications Active Medications: Active Medications Generic Name Dose Route Start Last Admin Trade Name Freq PRN Reason Stop Dose Admin Acetaminophen 1,000 mg in 100 mls @ 400 mls/hr 07/07/17 00:14 07/07/17 07:12 Ofirmev IVPB 07/09/17 00:15 400 mls/hr Q6H PRN Administration fever >100.4 Labetalol HCl 10 mg 07/06/17 20:21 07/06/17 20:33 Trandate IV 10 mg Q4H PRN Administration SBP>195, DBP >95 Ondansetron HCl 4 mg 07/06/17 21:36 07/06/17 21:55 Zofran Inj IVP 4 mg Q6H PRN Administration Nausea/Vomiting Pantoprazole Sodium 40 mg 07/07/17 12:00 Protonix Inj IVP DAILY ANNALEE - Patient Studies Lab Studies: Lab Studies 07/07/17 07/07/17 07/07/17 Range/Units 10:26 10:20 10:20 WBC (4.5-11.0) 10^3/ul RBC (3.5-6.1) 10^6/uL Hgb (14.0-18.0) g/dL Hct (42.0-52.0) % MCV (80.0-105.0) fl MCH (25.0-35.0) pg MCHC (31.0-37.0) g/dl RDW (11.5-14.5) % Plt Count (120.0-450.0) 10^3/uL MPV (7.0-11.0) fl Gran % (50.0-68.0) % Lymph % (Auto) (22.0-35.0) % Sibley % (Auto) (1.0-6.0) % Eos % (Auto) (1.5-5.0) % Baso % (Auto) (0.0-3.0) % Gran # (1.4-6.5) Lymph # (1.2-3.4) Sibley # (0.1-0.6) Eos # (0.0-0.7) Baso # (0.0-2.0) K/mm3 pCO2 35 (35-45) mm/Hg pO2 64.0 L (80-100) mm/Hg HCO3 24.3 (21-28) mmol/L ABG pH 7.45 (7.35-7.45) ABG Total CO2 25.4 (22-28) mmol.L ABG O2 Saturation 96.3 (95-98) % ABG Base Excess 0.7 (-2.0-3.0) mmol/L ABG Potassium 3.8 (3.6-5.2) mmol/L Glucose 212 H (75-110) mg/dl Lactate 1.2 (0.7-2.1) mmol/L FiO2 34.0 % Sodium 141.0 (132-148) mmol/L Potassium (3.6-5.0) mmol/L Chloride 109.0 H (98-107) mmol/L Carbon Dioxide (21-33) mmol/L Anion Gap (10-20) BUN (7-21) mg/dL Creatinine (0.8-1.5) mg/dL Est GFR ( Amer) Est GFR (Non-Af Amer) POC Glucose (mg/dL) (65-110) mg/dL Random Glucose (70-110) mg/dL Calcium (8.4-10.5) mg/dL Phosphorus (2.5-4.5) mg/dL Magnesium (1.7-2.2) mg/dL Total Bilirubin (0.2-1.3) mg/dL AST (17-59) U/L ALT (7-56) U/L Alkaline Phosphatase (38-126) U/L Total Protein (5.8-8.3) g/dL Albumin (3.0-4.8) g/dL Globulin gm/dL Albumin/Globulin Ratio (1.1-1.8) Arterial Blood Potassium 3.8 (3.6-5.2) mmol/L Urine Color Yellow (YELLOW) Urine Appearance Clear (CLEAR) Urine pH 5.5 (4.7-8.0) Ur Specific Miranda >= 1.030 (1.005-1.035) Urine Protein 100 H (<30 mg/dL) mg/dL Urine Glucose (UA) 500 H (NEGATIVE) mg/dL Urine Ketones Negative (NEGATIVE) mg/dL Urine Blood Large H (NEGATIVE) Urine Nitrate Negative (NEGATIVE) Urine Bilirubin Negative (NEGATIVE) Urine Urobilinogen 0.2 (<1 E.U./dL) E.U./dL Ur Leukocyte Esterase Negative (NEGATIVE) Beatriz/uL Urine RBC Tntc (0-2) /hpf Urine WBC 0 - 2 (0-6) /hpf Ur Epithelial Cells 0 - 2 (0-5) /hpf Urine Bacteria Small (NEG) Influenza Typ A,B (EIA) Negative for flu a/b (NEGATIVE) 07/07/17 07/07/17 07/07/17 Range/Units 10:20 10:20 04:42 WBC 7.9 D (4.5-11.0) 10^3/ul RBC 4.05 (3.5-6.1) 10^6/uL Hgb 11.8 L (14.0-18.0) g/dL Hct 35.7 L (42.0-52.0) % MCV 88.1 (80.0-105.0) fl MCH 29.1 (25.0-35.0) pg MCHC 33.1 (31.0-37.0) g/dl RDW 14.0 (11.5-14.5) % Plt Count 145 (120.0-450.0) 10^3/uL MPV 10.2 (7.0-11.0) fl Gran % 76.6 H (50.0-68.0) % Lymph % (Auto) 10.3 L (22.0-35.0) % Sibley % (Auto) 13.0 H (1.0-6.0) % Eos % (Auto) 0.0 L (1.5-5.0) % Baso % (Auto) 0.1 (0.0-3.0) % Gran # 6.07 (1.4-6.5) Lymph # 0.8 L (1.2-3.4) Sibley # 1.0 H (0.1-0.6) Eos # 0.0 (0.0-0.7) Baso # 0.01 (0.0-2.0) K/mm3 pCO2 (35-45) mm/Hg pO2 (80-100) mm/Hg HCO3 (21-28) mmol/L ABG pH (7.35-7.45) ABG Total CO2 (22-28) mmol.L ABG O2 Saturation (95-98) % ABG Base Excess (-2.0-3.0) mmol/L ABG Potassium (3.6-5.2) mmol/L Glucose (75-110) mg/dl Lactate (0.7-2.1) mmol/L FiO2 % Sodium 142 (132-148) mmol/L Potassium 4.1 (3.6-5.0) mmol/L Chloride 106 (98-107) mmol/L Carbon Dioxide 25 (21-33) mmol/L Anion Gap 15 (10-20) BUN 27 H (7-21) mg/dL Creatinine 2.0 H (0.8-1.5) mg/dL Est GFR ( Amer) 40 Est GFR (Non-Af Amer) 33 POC Glucose (mg/dL) 180 H (65-110) mg/dL Random Glucose 209 H (70-110) mg/dL Calcium 9.5 (8.4-10.5) mg/dL Phosphorus 3.6 (2.5-4.5) mg/dL Magnesium 1.8 (1.7-2.2) mg/dL Total Bilirubin 1.9 H (0.2-1.3) mg/dL AST 32 (17-59) U/L ALT 36 (7-56) U/L Alkaline Phosphatase 96 (38-126) U/L Total Protein 7.7 (5.8-8.3) g/dL Albumin 4.3 (3.0-4.8) g/dL Globulin 3.5 gm/dL Albumin/Globulin Ratio 1.2 (1.1-1.8) Arterial Blood Potassium (3.6-5.2) mmol/L Urine Color (YELLOW) Urine Appearance (CLEAR) Urine pH (4.7-8.0) Ur Specific Miranda (1.005-1.035) Urine Protein (<30 mg/dL) mg/dL Urine Glucose (UA) (NEGATIVE) mg/dL Urine Ketones (NEGATIVE) mg/dL Urine Blood (NEGATIVE) Urine Nitrate (NEGATIVE) Urine Bilirubin (NEGATIVE) Urine Urobilinogen (<1 E.U./dL) E.U./dL Ur Leukocyte Esterase (NEGATIVE) Beatriz/uL Urine RBC (0-2) /hpf Urine WBC (0-6) /hpf Ur Epithelial Cells (0-5) /hpf Urine Bacteria (NEG) Influenza Typ A,B (EIA) (NEGATIVE) 07/06/17 Range/Units 21:00 WBC (4.5-11.0) 10^3/ul RBC (3.5-6.1) 10^6/uL Hgb (14.0-18.0) g/dL Hct (42.0-52.0) % MCV (80.0-105.0) fl MCH (25.0-35.0) pg MCHC (31.0-37.0) g/dl RDW (11.5-14.5) % Plt Count (120.0-450.0) 10^3/uL MPV (7.0-11.0) fl Gran % (50.0-68.0) % Lymph % (Auto) (22.0-35.0) % Sibley % (Auto) (1.0-6.0) % Eos % (Auto) (1.5-5.0) % Baso % (Auto) (0.0-3.0) % Gran # (1.4-6.5) Lymph # (1.2-3.4) Sibley # (0.1-0.6) Eos # (0.0-0.7) Baso # (0.0-2.0) K/mm3 pCO2 (35-45) mm/Hg pO2 (80-100) mm/Hg HCO3 (21-28) mmol/L ABG pH (7.35-7.45) ABG Total CO2 (22-28) mmol.L ABG O2 Saturation (95-98) % ABG Base Excess (-2.0-3.0) mmol/L ABG Potassium (3.6-5.2) mmol/L Glucose (75-110) mg/dl Lactate (0.7-2.1) mmol/L FiO2 % Sodium (132-148) mmol/L Potassium (3.6-5.0) mmol/L Chloride (98-107) mmol/L Carbon Dioxide (21-33) mmol/L Anion Gap (10-20) BUN (7-21) mg/dL Creatinine (0.8-1.5) mg/dL Est GFR ( Amer) Est GFR (Non-Af Amer) POC Glucose (mg/dL) 197 H (65-110) mg/dL Random Glucose (70-110) mg/dL Calcium (8.4-10.5) mg/dL Phosphorus (2.5-4.5) mg/dL Magnesium (1.7-2.2) mg/dL Total Bilirubin (0.2-1.3) mg/dL AST (17-59) U/L ALT (7-56) U/L Alkaline Phosphatase (38-126) U/L Total Protein (5.8-8.3) g/dL Albumin (3.0-4.8) g/dL Globulin gm/dL Albumin/Globulin Ratio (1.1-1.8) Arterial Blood Potassium (3.6-5.2) mmol/L Urine Color (YELLOW) Urine Appearance (CLEAR) Urine pH (4.7-8.0) Ur Specific Miranda (1.005-1.035) Urine Protein (<30 mg/dL) mg/dL Urine Glucose (UA) (NEGATIVE) mg/dL Urine Ketones (NEGATIVE) mg/dL Urine Blood (NEGATIVE) Urine Nitrate (NEGATIVE) Urine Bilirubin (NEGATIVE) Urine Urobilinogen (<1 E.U./dL) E.U./dL Ur Leukocyte Esterase (NEGATIVE) Beatriz/uL Urine RBC (0-2) /hpf Urine WBC (0-6) /hpf Ur Epithelial Cells (0-5) /hpf Urine Bacteria (NEG) Influenza Typ A,B (EIA) (NEGATIVE) Laboratory Results - last 24 hr 07/06/17 07/07/17 07/07/17 21:00 04:42 10:20 WBC 7.9 D RBC 4.05 Hgb 11.8 L Hct 35.7 L MCV 88.1 MCH 29.1 MCHC 33.1 RDW 14.0 Plt Count 145 MPV 10.2 Gran % 76.6 H Lymph % (Auto) 10.3 L [place] % (Auto) 13.0 H Eos % (Auto) 0.0 L Baso % (Auto) 0.1 Gran # 6.07 Lymph # 0.8 L [place] # 1.0 H Eos # 0.0 Baso # 0.01 pCO2 pO2 HCO3 ABG pH ABG Total CO2 ABG O2 Saturation ABG Base Excess ABG Potassium Glucose Lactate FiO2 Sodium Potassium Chloride Carbon Dioxide Anion Gap BUN Creatinine Est GFR ( Amer) Est GFR (Non-Af Amer) POC Glucose (mg/dL) 197 H 180 H Random Glucose Calcium Phosphorus Magnesium Total Bilirubin AST ALT Alkaline Phosphatase Total Protein Albumin Globulin Albumin/Globulin Ratio Arterial Blood Potassium Urine Color Urine Appearance Urine pH Ur Specific Miranda Urine Protein Urine Glucose (UA) Urine Ketones Urine Blood Urine Nitrate Urine Bilirubin Urine Urobilinogen Ur Leukocyte Esterase Urine RBC Urine WBC Ur Epithelial Cells Urine Bacteria Influenza Typ A,B (EIA) 07/07/17 07/07/17 07/07/17 10:20 10:20 10:20 WBC RBC Hgb Hct MCV MCH MCHC RDW Plt Count MPV Gran % Lymph % (Auto) [place] % (Auto) Eos % (Auto) Baso % (Auto) Gran # Lymph # [place] # Eos # Baso # pCO2 pO2 HCO3 ABG pH ABG Total CO2 ABG O2 Saturation ABG Base Excess ABG Potassium Glucose Lactate FiO2 Sodium 142 Potassium 4.1 Chloride 106 Carbon Dioxide 25 Anion Gap 15 BUN 27 H Creatinine 2.0 H Est GFR ( Amer) 40 Est GFR (Non-Af Amer) 33 POC Glucose (mg/dL) Random Glucose 209 H Calcium 9.5 Phosphorus 3.6 Magnesium 1.8 Total Bilirubin 1.9 H AST 32 ALT 36 Alkaline Phosphatase 96 Total Protein 7.7 Albumin 4.3 Globulin 3.5 Albumin/Globulin Ratio 1.2 Arterial Blood Potassium Urine Color Yellow Urine Appearance Clear Urine pH 5.5 Ur Specific Miranda >= 1.030 Urine Protein 100 H Urine Glucose (UA) 500 H Urine Ketones Negative Urine Blood Large H Urine Nitrate Negative Urine Bilirubin Negative Urine Urobilinogen 0.2 Ur Leukocyte Esterase Negative Urine RBC Tntc Urine WBC 0 - 2 Ur Epithelial Cells 0 - 2 Urine Bacteria Small Influenza Typ A,B (EIA) Negative for flu a/b 07/07/17 10:26 WBC RBC Hgb Hct MCV MCH MCHC RDW Plt Count MPV Gran % Lymph % (Auto) [place] % (Auto) Eos % (Auto) Baso % (Auto) Gran # Lymph # [place] # Eos # Baso # pCO2 35 pO2 64.0 L HCO3 24.3 ABG pH 7.45 ABG Total CO2 25.4 ABG O2 Saturation 96.3 ABG Base Excess 0.7 ABG Potassium 3.8 Glucose 212 H Lactate 1.2 FiO2 34.0 Sodium 141.0 Potassium Chloride 109.0 H Carbon Dioxide Anion Gap BUN Creatinine Est GFR ( Amer) Est GFR (Non-Af Amer) POC Glucose (mg/dL) Random Glucose Calcium Phosphorus Magnesium Total Bilirubin AST ALT Alkaline Phosphatase Total Protein Albumin Globulin Albumin/Globulin Ratio Arterial Blood Potassium 3.8 Urine Color Urine Appearance Urine pH Ur Specific Miranda Urine Protein Urine Glucose (UA) Urine Ketones Urine Blood Urine Nitrate Urine Bilirubin Urine Urobilinogen Ur Leukocyte Esterase Urine RBC Urine WBC Ur Epithelial Cells Urine Bacteria Influenza Typ A,B (EIA) EKG/Cardiology Studies: Cardiology / EKG Studies 07/06/17 15:01 EKG [ELECTROCARDIOGRAM] Stat Comment: Reason For Exam: possible stroke Assessment/Plan - Assessment and Plan (Free Text) Plan: Patient seen and examined, with resident, agree with note, with following additions/exceptions: Patient is 72yo male with PMHx of CAD a/w acute CVA of Right MCA territory, s/p tPA (full dose not give 2/2 allergic reaction). Currently somnolent, but arousable with verbal an dpainful stimuli, protecting airway, sat 100%b on 2LNC , ABG obtained wich shows no CO2 retention, normal pH. All imaging reviewed. Neurology following, repeat CT head pending. BP adequately controlled. Acute CVA CAD recommend: - supp o2 as needed - monitor resp status closely, patient at high risk for resp failure 2/2 stroke - monitor HH - follow up neurology - BP control - follow up cardiology - repeat imaging CT head - PT eval - Speech swallow eval - ECHO - repeat todays labs
--- NOTE | 2017-07-07 11:48 | CON ---
DATE: 07/07/2017 INDICATION: Stroke. 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 He was given TPA in the emergency room, although the dose was not fully given because of an adverse reaction. He is now in the Intensive Care Unit. He is somnolent with left-sided upper extremity weakness and difficulty speaking. His is at the bedside. There was no chest pain or shortness of breath. He was in his usual state of health until he suddenly developed these neurological symptoms at about noontime yesterday. There was no palpitations, orthopnea, PND, edema, fever, chills, cough, sputum production, hemoptysis, abdominal pain, nausea, vomiting, diarrhea, constipation, or melena. PAST MEDICAL HISTORY: Notable for hypertension, diabetes, peripheral vascular disease and coronary artery disease. He underwent a evaluation by Dr. Herman in December of this year. He had an abnormal nuclear stress test and cardiac catheterization, disclosed significant LAD disease, which was stented at that time. He has been on aspirin and Plavix since, has had no cardiac issues since December. There was no history of prior stroke, rheumatic fever, myocardial infarction, arrhythmia, or gout. MEDICATIONS AT THE TIME OF ADMISSION: Aspirin, glipizide, Plavix, simvastatin, Tradjenta, lisinopril. ALLERGIES: THERE ARE NO KNOWN MEDICATION ALLERGIES. SOCIAL HISTORY: He lives at home with his . He is a nonsmoker. He is a social drinker. He was ambulatory. FAMILY HISTORY: Noncontributory. REVIEW OF SYSTEMS: A 10-point review of systems is otherwise unremarkable except as noted above. PHYSICAL EXAMINATION: GENERAL: He is a well-developed male, lying in bed in the Intensive Care Unit with left hemiparesis, difficulty speaking and snoring-type respirations. Apparently, there has been deterioration in his mental status since admission. He is being evaluated by the [facility] at this time. VITAL SIGNS: Sinus rhythm 78 beats per minute, blood pressure 156/58, respirations 20-25, O2 sat 98-100% on nasal cannula. HEENT: Reveals no neck vein distention, thyromegaly, or carotid bruits. Mucous membranes are moist. Conjunctivae are pink. NECK: Supple. LUNGS: Lung christian clear. HEART: Revealed normal first and second heart sounds. ABDOMEN: Soft. Bowel sounds are present. EXTREMITIES: No cyanosis, clubbing or edema. NEUROLOGIC: Responds to questions with slurred speech, snoring-type respirations are noted. He does not move his left arm. SKIN: Warm and dry. No rash or cellulitis. LABORATORY AND IMAGING: CT of the head x2 noted. Brain MRI, head MRA, neck MRA noted. EKG regular sinus rhythm, poor R wave progression, mild nonspecific ST-wave changes. No change from a previous EKG. A portable chest x-ray reveals no active disease. White count normal, platelet count normal, hemoglobin 12.9, hematocrit 39.1. PT, INR, and PTT normal. Blood gas noted. Electrolyte, BUN noted. Creatinine 1.7, blood sugar in the 116 to 197 range. Total bilirubin 1.5. LFT is unremarkable. Troponin 0.10. Cholesterol 150, triglycerides 54, LDL 53, HDL 90. IMPRESSION: Vlad Villafana is a 72-year-old former smoker with coronary artery disease, left anterior descending stenting in December of 2016 who presents with sudden onset neurological deficits consistent with a right middle cerebral artery stroke. He received only a portion of a dose of tissue plasminogen activator in the ER. He is presently in the Intensive Care Unit with some deterioration of his mental status noted with continued speech difficulty and left-sided upper extremity greater than lower extremity weakness. He is undergoing neurologic evaluation by Dr. Duval and the intensivists. His cardiac status seems stable. The issue of aspirin and Plavix needs to be considered given his fairly recent stent in December of this year. For today, having received portion of TPA, I will hold aspirin and Plavix and plan to resume them tomorrow or as soon as possible. I will review his old records. I will follow along with you. I will make additional recommendations based on his clinical course. Thomas Santillan MD [place]
--- NOTE | 2017-07-07 14:33 | CT ---
PROCEDURE: CT HEAD WITHOUT CONTRAST. HISTORY: s/p TPA COMPARISON: 07/06/2017 TECHNIQUE: Axial computed tomography images were obtained through the head/brain without intravenous contrast. Radiation dose: Total exam DLP = 726 mGy-cm. This CT exam was performed using one or more of the following dose reduction techniques: Automated exposure control, adjustment of the mA and/or kV according to patient size, and/or use of iterative reconstruction technique. FINDINGS: HEMORRHAGE: There is an acute hemorrhagic infarct in the right occipital and temporal lobes. There are 2 separate areas of hemorrhage. In the right occipital lobe there is a 21 mm hemorrhage. In the posterior temporal lobe there is a 31 mm hemorrhage. Small foci of hemorrhage can be seen in the anterior temporal lobe. BRAIN: There is edema and swelling of the temporal and occipital lobes with compression of the right temporal horn. There is no midline shift or herniation. VENTRICLES: Unremarkable. No hydrocephalus. CALVARIUM: Unremarkable. PARANASAL SINUSES: Unremarkable as visualized. No significant inflammatory changes. MASTOID AIR CELLS: Unremarkable as visualized. No inflammatory changes. OTHER FINDINGS: I spoke to Dr. Jefferson about these findings at 2:30 p.m. IMPRESSION: New hemorrhagic infarct in the right occipital and temporal lobes.
--- NOTE | 2017-07-07 15:10 | CP.PCM.PN ---
<LiOrville vasquez - Last Filed: 07/07/17 15:05> Subjective - Date & Time of Evaluation Date of Evaluation: 07/07/17 Time of Evaluation: 15:05 - Subjective Subjective: Repeat CT Head findings noted. Discussed case with Dr. Brittny Duval, Neurology. Recommends Neurosurgery consult, IV Keppra 500mg IV BID for seizure pppx. Strict SBP control 120s-130s, with decrease of SBP no more than 20mmHg/hr, Avoid all anti-coagulants and anti- platelets. Discussed case with Dr. Espinoza, Neurosurg covering for Dr. Jerez. He states that he has reviewed imaging of the patient. States that he would like a repeat CT head tomorrow morning and reverse any coagulopathy as soon as possible. No acute neurosurg intervention at this time. He will evaluate the patient. Orville Jefferson PGY1 Objective - Vital Signs/Intake and Output Vital Signs (last 24 hours): Temp Pulse Resp BP Pulse Ox 101.7 F H 78 25 H 156/58 H 98 07/07/17 04:00 07/07/17 08:30 07/07/17 08:30 07/07/17 08:30 07/07/17 08:30 Intake and Output: 07/07/17 07/07/17 06:59 18:59 Intake Total 100 Output Total 750 Balance -650 - Medications Medications: Current Medications Acetaminophen (Ofirmev) 1,000 mg in 100 mls @ 400 mls/hr IVPB Q6H PRN PRN Reason: fever >100.4 Stop: 07/09/17 00:15 Last Admin: 07/07/17 07:12 Dose: 400 mls/hr Levetiracetam 500 mg/ Sodium (Chloride) 105 mls @ 460 mls/hr IV Q12 ANNALEE Nicardipine HCl (Cardene Iv Premix) 20 mg in 200 mls @ 50 mls/hr IV .Q4H PRN; Protocol; 5 MG/HR PRN Reason: TITRATE PER MD ORDER Labetalol HCl (Trandate) 10 mg IV Q4H PRN PRN Reason: SBP>195, DBP >95 Last Admin: 07/06/17 20:33 Dose: 10 mg Ondansetron HCl (Zofran Inj) 4 mg IVP Q6H PRN PRN Reason: Nausea/Vomiting Last Admin: 07/06/17 21:55 Dose: 4 mg Pantoprazole Sodium (Protonix Inj) 40 mg IVP DAILY ANNALEE - Labs Labs: 07/07/17 10:20 07/07/17 10:20 PT 11.8 SECONDS (9.4-12.5) 07/06/17 13:00 INR 1.07 (0.93-1.08) 07/06/17 13:00 APTT 27.9 Seconds (25.1-36.5) 07/06/17 13:00 <Issa Garcia - Last Filed: 07/07/17 15:16> Subjective - Subjective Subjective: Repeat imaging noted: new hemorrhagic infarct in the right occipital and temporal lobes. Neurology made aware, Dr Brittny Duval. Dr Espinoza Neurosurgery discussed case, imaging reviewed, no NSG intervention at this time. Check INR. BP control. IV Keppra for seizure ppx. Monitor resp status closely. Objective - Vital Signs/Intake and Output Vital Signs (last 24 hours): Temp Pulse Resp BP Pulse Ox 101.7 F H 78 25 H 156/58 H 98 07/07/17 04:00 07/07/17 08:30 07/07/17 08:30 07/07/17 08:30 07/07/17 08:30 Intake and Output: 07/07/17 07/07/17 06:59 18:59 Intake Total 100 Output Total 750 Balance -650 - Medications Medications: Current Medications Acetaminophen (Ofirmev) 1,000 mg in 100 mls @ 400 mls/hr IVPB Q6H PRN PRN Reason: fever >100.4 Stop: 07/09/17 00:15 Last Admin: 07/07/17 07:12 Dose: 400 mls/hr Levetiracetam 500 mg/ Sodium (Chloride) 105 mls @ 460 mls/hr IV Q12 ANNALEE Nicardipine HCl (Cardene Iv Premix) 20 mg in 200 mls @ 50 mls/hr IV .Q4H PRN; Protocol; 5 MG/HR PRN Reason: TITRATE PER MD ORDER Labetalol HCl (Trandate) 10 mg IV Q4H PRN PRN Reason: SBP>195, DBP >95 Last Admin: 07/06/17 20:33 Dose: 10 mg Ondansetron HCl (Zofran Inj) 4 mg IVP Q6H PRN PRN Reason: Nausea/Vomiting Last Admin: 07/06/17 21:55 Dose: 4 mg Pantoprazole Sodium (Protonix Inj) 40 mg IVP DAILY ANNALEE - Labs Labs: 07/07/17 10:20 07/07/17 10:20 PT 11.8 SECONDS (9.4-12.5) 07/06/17 13:00 INR 1.07 (0.93-1.08) 07/06/17 13:00 APTT 27.9 Seconds (25.1-36.5) 07/06/17 13:00
[2017-07-07] MEDS: Nicardipine 20 MG/200 ML 20 MG/200 ML BAG IV PRN ×3 (15:33→22:46)
[2017-07-07] MEDS: levETIRAcetam 500mg IVPB 500 MG/100 ML BAG IVPB SCH (16:00)
[2017-07-07] MEDS ORDERED: levETIRAcetam 500 MG in Sodium Chloride 0.9% 100 ML IV SCH ×2 (16:00→22:00)
[2017-07-07 16:02] LABS: INR 1.26 (0.93-1.08); PARTIAL THROMBOPLASTIN TIME 28.9 Seconds (25.1-36.5)
--- NOTE | 2017-07-07 17:16 | CARD ---
APPROVED REPORT EKG Measurement Heart [id number] <Conclusion> Normal sinus rhythm Normal ECG
[2017-07-07] MEDS ORDERED: Etomidate 20 mg/10ml Inj IV ONE (22:37)
[2017-07-07] MEDS ORDERED: Propofol 10 mg/ml Inj (20 ML) IVP ONE (22:38)
[2017-07-07 22:44] LABS: ARTERIAL BLOOD GAS HCO3 22.8 mmol/L (21-28); ARTERIAL BLOOD GAS O2 CAPACITY 16.9 mL/dl (16-24); ARTERIAL BLOOD GAS O2 CONTENT 16.5 ML/dl (15-23); ARTERIAL BLOOD GAS PH 7.41 (7.35-7.45); ARTERIAL BLOOD HGB O2 SAT 94.5 % (95.0-98.0); CARBOXYHEMOGLOBIN 2.4 % (0.5-1.5); METHEMOGLOBIN 1.1 % (0.0-3.0)
--- NOTE | 2017-07-07 23:25 | PCM.PROC ---
Procedures Attestation:: I certify that I have explained the specified Operation(s) or Procedure(s), risks, benefits and reasonable alternatives to the Patient and/or other person responsible. The opportunity was given to ask questions and all questions answered - Intubation Time Out Performed: Yes Sedative: Etomidate Mg Given: 30mg Laryngoscope: Phillip, Glidescope ET Tube Size: 7.5 ET Tube Secured at Depth: 23 ET Tube Secured Locarion: Lips ET Tube Placement Confirmation: Visualized Passing Through Cords, Breath Sounds Equal Bilaterally, No Breath Sounds Over Epigastrum, Confirmation w/Capnometry Patient Tolerated Procedure: Well, No Complications Procedure Immediate Complications: None Additional comments: Decision made for elective intubation due to patient having difficulty protecting his airway. Initial attempt made with glidescope however unable to visualize vocal cords due to moderate amount of bloody debris in the posterior pharynx. Changed to a Mac 3 curved blade and intubated after aggressive suctioning. Patient maintaned adequate hemodynamics throughout the procedure. Awaiting CXR for ETT placement.
[2017-07-07] MEDS ORDERED: Propofol 10 mg/ml 1,000 MG/100 ML VIAL ONE (23:28)
--- NOTE | 2017-07-07 23:30 | CP.PCM.PN ---
<Haritha Sosa - Last Filed: 07/08/17 01:20> Subjective - Date & Time of Evaluation Date of Evaluation: 07/07/17 Time of Evaluation: 23:30 - Subjective Subjective: Was called by the nurse to evaluate patient. Patient became restless, and agitated. SBP was over 200, Cardene drip was increased to 10, decreasing the SBP to 170s. Patient continued to be agitated, climbing out of bed, with tachypnea and tachycardia. Patient started to develop respiratory distress, with gurgling sounds when he takes deep breaths, and appears to be tiring out. On exam, patient had pinpoint pupils, and had coarse breath sounds russell. Patient also appeared obtunded, GCS of 3. Objective - Vital Signs/Intake and Output Vital Signs (last 24 hours): Temp Pulse Resp BP Pulse Ox 100.8 F H 73 21 158/53 H 99 07/07/17 16:10 07/07/17 16:10 07/07/17 16:10 07/07/17 16:01 07/07/17 16:10 Intake and Output: 07/07/17 07/08/17 18:59 06:59 Intake Total 600 400 Output Total 850 Balance -250 400 - Medications Medications: Current Medications Acetaminophen (Ofirmev) 1,000 mg in 100 mls @ 400 mls/hr IVPB Q6H PRN PRN Reason: fever >100.4 Stop: 07/09/17 00:15 Last Admin: 07/07/17 22:49 Dose: 400 mls/hr Nicardipine HCl (Cardene Iv Premix) 20 mg in 200 mls @ 50 mls/hr IV .Q4H PRN; Protocol; 5 MG/HR PRN Reason: TITRATE PER MD ORDER Last Admin: 07/07/17 22:46 Dose: 15 mg/hr, 150 mls/hr Levetiracetam (Keppra 500mg Ivpb) 500 mg in 100 mls @ 200 mls/hr IVPB Q12H ANNALEE Last Admin: 07/07/17 16:00 Dose: 200 mls/hr Propofol (Diprivan) 1,000 mg in 100 mls @ 3.103 mls/hr IV .Q24H PRN; Protocol; 5 MCG/KG/MIN PRN Reason: TITRATE PER MD ORDER Labetalol HCl (Trandate) 10 mg IV Q4H PRN PRN Reason: SBP>195, DBP >95 Last Admin: 07/06/17 20:33 Dose: 10 mg Ondansetron HCl (Zofran Inj) 4 mg IVP Q6H PRN PRN Reason: Nausea/Vomiting Last Admin: 07/06/17 21:55 Dose: 4 mg Pantoprazole Sodium (Protonix Inj) 40 mg IVP DAILY ANNALEE Last Admin: 07/07/17 15:33 Dose: 40 mg - Labs Labs: 07/07/17 10:20 07/07/17 10:20 PT 13.8 SECONDS (9.4-12.5) H 07/07/17 15:35 INR 1.26 (0.93-1.08) H 07/07/17 15:35 APTT 28.9 Seconds (25.1-36.5) 07/07/17 15:35 Assessment and Plan - Assessment and Plan (Free Text) Assessment: 72 y/o admitted with CVA, currently with hemorrhagic conversion post TPA. Patient with abrupt increased in BP, with worsening in mental status, and respiratory distress. ABG revealed hypoxia. Patient to be intubated due to hypoxemic respiratory distress and inability to protect airway. Plan: - S/p intubation - Obtain ABG in 1 hr and adjust settings prn - Started on propfol for sedation - Will obtain CT head w/o contrast to evaluate the hemorrhage - Will contact neurosurgery with any changes on the CT <Darvin Kasper Q - Last Filed: 07/08/17 06:01> Objective - Vital Signs/Intake and Output Vital Signs (last 24 hours): Temp Pulse Resp BP Pulse Ox 99.9 F H 75 17 110/50 L 100 07/08/17 03:50 07/08/17 03:50 07/08/17 03:50 07/08/17 03:30 07/08/17 03:50 Intake and Output: 07/07/17 07/08/17 18:59 06:59 Intake Total 600 525 Output Total 850 Balance -250 525 - Medications Medications: Current Medications Acetaminophen (Ofirmev) 1,000 mg in 100 mls @ 400 mls/hr IVPB Q6H PRN PRN Reason: fever >100.4 Stop: 07/09/17 00:15 Last Admin: 07/07/17 22:49 Dose: 400 mls/hr Nicardipine HCl (Cardene Iv Premix) 20 mg in 200 mls @ 50 mls/hr IV .Q4H PRN; Protocol; 5 MG/HR PRN Reason: TITRATE PER MD ORDER Last Titration: 07/08/17 01:00 Dose: 5 mg/hr, 50 mls/hr Levetiracetam (Keppra 500mg Ivpb) 500 mg in 100 mls @ 200 mls/hr IVPB Q12H [facility] Last Admin: 07/08/17 03:46 Dose: 200 mls/hr Propofol (Diprivan) 1,000 mg in 100 mls @ 3.103 mls/hr IV .Q24H PRN; Protocol; 5 MCG/KG/MIN PRN Reason: TITRATE PER MD ORDER Last Admin: 07/08/17 00:30 Dose: 10 mcg/kg/min, 6.205 mls/hr Labetalol HCl (Trandate) 10 mg IV Q4H PRN PRN Reason: SBP>195, DBP >95 Last Admin: 07/06/17 20:33 Dose: 10 mg Ondansetron HCl (Zofran Inj) 4 mg IVP Q6H PRN PRN Reason: Nausea/Vomiting Last Admin: 07/06/17 21:55 Dose: 4 mg Pantoprazole Sodium (Protonix Inj) [address] [facility] Last Admin: 07/07/17 15:33 Dose: 40 mg - Labs Labs: 07/07/17 10:20 07/07/17 10:20 PT 13.8 SECONDS (9.4-12.5) H 07/07/17 15:35 INR 1.26 (0.93-1.08) H 07/07/17 15:35 APTT 28.9 Seconds (25.1-36.5) 07/07/17 15:35 Attending/Attestation - Attestation I have personally seen and examined this patient.: Yes I have fully participated in the care of the patient.: Yes I have reviewed all pertinent clinical information, including history, physical exam and plan: Yes Notes (Text): 07/08/17 05:59 I agree with the above; patient intubated to protect his airway as he had become tachypnic and unable to protect his posterior oropharynx. Intubated (see procedure note for details) and subsequently sent for a repeat STAT Head CT which showed only a minimal increase in size of his previously identified infarct with hemorrhagic conversion. Will continue to monitor him and provide supportive care. updated of patient's change in status via the telephone.
[2017-07-08] MEDS: Propofol 10 mg/ml 1,000 MG/100 ML VIAL IV PRN ×3 (00:30→20:18)
--- NOTE | 2017-07-08 01:05 | CT ---
EXAM: CT Head Without Intravenous Contrast CLINICAL HISTORY: 72 years old, male; Signs and symptoms; Altered mental status/memory loss; Additional info: Change in mental status TECHNIQUE: Axial computed tomography images of the head/brain without intravenous contrast. All CT scans at this facility use one or more dose reduction techniques, viz.: automated exposure control; ma/kV adjustment per patient size (including targeted exams where dose is matched to indication; i.e. head); or iterative reconstruction technique. COMPARISON: CT - HEAD W/O CONTRAST 2017-07-07 13:58 FINDINGS: Brain: Multiple areas of increased attenuation are identified within the right temporo-occipital lobe, with surrounding vasogenic edema, consistent with hemorrhagic conversion of a cerebral infarction, within the distribution of the posterior cerebral artery. The focus within the right occipital lobe has increased from 21 mm to 24 mm in anterior to posterior dimension. The focus within the posterior right temporal lobe has increased in size from 31 mm to 39 mm. Persistent subcentimeter foci of hemorrhage are again identified within the anterior right temporal lobe. Age-appropriate periventricular white matter disease. No edema. Ventricles: Age-appropriate ventriculomegaly. Bones: No acute displaced fracture. Sinuses: Unremarkable as visualized. No acute sinusitis. Mastoid air cells: Unremarkable as visualized. No mastoid effusion. IMPRESSION: Hemorrhagic conversion of a cerebral infarction within the distribution of the posterior cerebral artery, minimally increased in size from previous examination performed approximately 12 hours earlier.
[2017-07-08 02:26] LABS: ARTERIAL BLOOD GAS HCO3 23.5 mmol/L (21-28); ARTERIAL BLOOD HGB O2 SAT 96.5 % (95.0-98.0); CARBOXYHEMOGLOBIN 2.1 % (0.5-1.5); HHB 0.3 % (0-5); METHEMOGLOBIN 1.1 % (0.0-3.0)
[2017-07-08] MEDS: levETIRAcetam 500mg IVPB 500 MG/100 ML BAG IVPB SCH ×2 (03:46→16:05)
[2017-07-08 06:54] LABS: ALB/GLOB RATIO 1.2 (1.1-1.8); PHOSPHOROUS 2.8 mg/dL (2.5-4.5); POTASSIUM 4.1 mmol/L (3.6-5.0); TOTAL PROTEIN 7.5 g/dL (5.8-8.3)
[2017-07-08 07:24] LABS: BILIRUBIN,TOTAL 2.7 mg/dL (0.2-1.3)
--- NOTE | 2017-07-08 08:02 | CP.PCM.PN ---
Subjective - Date & Time of Evaluation Date of Evaluation: 07/08/17 Time of Evaluation: 07:00 - Subjective Subjective: Now intubated and on vent with sedation, in ICU. I spoke with his bedside nurse. Events of last night noted: agitation, hypertension, intubated. V/S noted. RSR PE: Lungs: clear Cor.: S1S2 Abd.: soft Ext.: no edema Neuro.: sedated I/I=[id number] Labs and ABGs noted. CXR 07/07: not interp yet. Clear lungs. CT head noted. Hem infarct now. Objective - Vital Signs/Intake and Output Vital Signs (last 24 hours): Temp Pulse Resp BP Pulse Ox 99.9 F H 94 H 21 125/65 100 07/08/17 06:59 07/08/17 06:59 07/08/17 06:59 07/08/17 07:00 07/08/17 06:59 Intake and Output: 07/08/17 07/08/17 06:59 18:59 Intake Total 925 Output Total 400 Balance 525 - Medications Medications: Current Medications Acetaminophen (Ofirmev) 1,000 mg in 100 mls @ 400 mls/hr IVPB Q6H PRN PRN Reason: fever >100.4 Stop: 07/09/17 00:15 Last Admin: 07/07/17 22:49 Dose: 400 mls/hr Nicardipine HCl (Cardene Iv Premix) 20 mg in 200 mls @ 50 mls/hr IV .Q4H PRN; Protocol; 5 MG/HR PRN Reason: TITRATE PER MD ORDER Last Titration: 07/08/17 01:00 Dose: 5 mg/hr, 50 mls/hr Levetiracetam (Keppra 500mg Ivpb) 500 mg in 100 mls @ 200 mls/hr IVPB Q12H ANNALEE Last Admin: 07/08/17 03:46 Dose: 200 mls/hr Propofol (Diprivan) 1,000 mg in 100 mls @ 3.103 mls/hr IV .Q24H PRN; Protocol; 5 MCG/KG/MIN PRN Reason: TITRATE PER MD ORDER Last Admin: 07/08/17 00:30 Dose: 10 mcg/kg/min, 6.205 mls/hr Labetalol HCl (Trandate) 10 mg IV Q4H PRN PRN Reason: SBP>195, DBP >95 Last Admin: 07/06/17 20:33 Dose: 10 mg Ondansetron HCl (Zofran Inj) 4 mg IVP Q6H PRN PRN Reason: Nausea/Vomiting Last Admin: 07/06/17 21:55 Dose: 4 mg Pantoprazole Sodium (Protonix Inj) 40 mg IVP DAILY ANNALEE Last Admin: 07/07/17 15:33 Dose: 40 mg - Labs Labs: 07/07/17 10:20 07/08/17 06:00 PT 13.8 SECONDS (9.4-12.5) H 07/07/17 15:35 INR 1.26 (0.93-1.08) H 07/07/17 15:35 APTT 28.9 Seconds (25.1-36.5) 07/07/17 15:35 Assessment and Plan - Assessment and Plan (Free Text) Assessment: Acute stroke, s/p partial TPA dose in ER CAD/PCI 01/08 Diabetes PAD Plan: As per Neuro., Intensivists, Neurosurgey Hold ASA, Plavix for now Monitor: labs, BS's, I/O, neuro status, sats., ABGs, etc. BP management per ICU team Consider IVF.
--- NOTE | 2017-07-08 08:07 | CON ---
DATE: 07/07/2017 HISTORY OF PRESENT ILLNESS: This is a 72-year-old who was admitted yesterday with acute cerebral infarction. Apparently was given TPA. Today a followup CT 24-hour study was performed, which showed some conversion to a hemorrhagic infarct. Neurosurgical evaluation was requested. The CT scan basically showed some relatively small to moderate areas of hemorrhage in the right posterior frontal region and little bit deeper towards the thalamus. There is very little with any mass effect. There is no ventricular compression. There is certainly no midline shift. IMPRESSION: No neurosurgical involvement is required. My strong recommendation is to actually ensure that his platelet count function and coagulation is assured to be normal and corrected if necessary. Andrea Espinoza MD
--- NOTE | 2017-07-08 08:22 | CP.PCM.PN ---
Subjective - Date & Time of Evaluation Date of Evaluation: 07/08/17 Time of Evaluation: 08:21 - Subjective Subjective: reviewed repeat CT minimal change remains wake and alert nothing to do surgically unless there is change in mentation hemiparisis will not improve with surgery call us isf there are any changes Objective - Vital Signs/Intake and Output Vital Signs (last 24 hours): Temp Pulse Resp BP Pulse Ox 99.9 F H 94 H 21 125/65 100 07/08/17 06:59 07/08/17 06:59 07/08/17 06:59 07/08/17 07:00 07/08/17 06:59 Intake and Output: 07/08/17 07/08/17 06:59 18:59 Intake Total 925 Output Total 400 Balance 525 - Medications Medications: Current Medications Acetaminophen (Ofirmev) 1,000 mg in 100 mls @ 400 mls/hr IVPB Q6H PRN PRN Reason: fever >100.4 Stop: 07/09/17 00:15 Last Admin: 07/07/17 22:49 Dose: 400 mls/hr Nicardipine HCl (Cardene Iv Premix) 20 mg in 200 mls @ 50 mls/hr IV .Q4H PRN; Protocol; 5 MG/HR PRN Reason: TITRATE PER MD ORDER Last Titration: 07/08/17 01:00 Dose: 5 mg/hr, 50 mls/hr Levetiracetam (Keppra 500mg Ivpb) 500 mg in 100 mls @ 200 mls/hr IVPB Q12H ANNALEE Last Admin: 07/08/17 03:46 Dose: 200 mls/hr Propofol (Diprivan) 1,000 mg in 100 mls @ 3.103 mls/hr IV .Q24H PRN; Protocol; 5 MCG/KG/MIN PRN Reason: TITRATE PER MD ORDER Last Admin: 07/08/17 00:30 Dose: 10 mcg/kg/min, 6.205 mls/hr Labetalol HCl (Trandate) 10 mg IV Q4H PRN PRN Reason: SBP>195, DBP >95 Last Admin: 07/06/17 20:33 Dose: 10 mg Ondansetron HCl (Zofran Inj) 4 mg IVP Q6H PRN PRN Reason: Nausea/Vomiting Last Admin: 07/06/17 21:55 Dose: 4 mg Pantoprazole Sodium (Protonix Inj) 40 mg IVP DAILY ANNALEE Last Admin: 07/07/17 15:33 Dose: 40 mg - Labs Labs: 07/07/17 10:20 07/08/17 06:00 PT 13.8 SECONDS (9.4-12.5) H 07/07/17 15:35 INR 1.26 (0.93-1.08) H 07/07/17 15:35 APTT 28.9 Seconds (25.1-36.5) 07/07/17 15:35
[2017-07-08] MEDS: Sodium Chloride 0.45% 1,000 ML IV SCH (08:30)
[2017-07-08 08:40] LABS: BASO # 0.02 K/mm3 (0.0-2.0); BASO % 0.2 % (0.0-3.0); EOS % 0.1 % (1.5-5.0); GRAN # 6.72 (1.4-6.5); HEMATOCRIT 36.5 % (42.0-52.0); LYMPH # 1.5 (1.2-3.4); LYMPH % 15.9 % (22.0-35.0); MEAN CORPUSCULAR HEMOGLOBIN 28.5 pg (25.0-35.0); MEAN CORPUSCULAR HGB CONC 32.1 g/dl (31.0-37.0); MEAN PLATELET VOLUME 10.3 fl (7.0-11.0); MONO % 10.8 % (1.0-6.0); RED CELL DISTRIBUTION WIDTH 13.9 % (11.5-14.5); WHITE BLOOD COUNT 9.2 10^3/ul (4.5-11.0)
--- NOTE | 2017-07-08 09:04 | RAD ---
HISTORY: s/p intubation COMPARISON: 07/07/2017 FINDINGS: LUNGS: No active pulmonary disease. PLEURA: No significant pleural effusion identified, no pneumothorax apparent. CARDIOVASCULAR: Normal heart size. New endotracheal tube tip approximately 5.7 cm above the tracheal rocío. No congestive change. OSSEOUS STRUCTURES: No significant abnormalities. VISUALIZED UPPER ABDOMEN: Normal. OTHER FINDINGS: None. IMPRESSION: Endotracheal tube appropriately positioned. No pulmonary infiltrate.
[2017-07-08] MEDS ORDERED: Vancomycin 1gm in NS 250ml 1 GM/250 ML BAG IVPB ONE (09:12)
--- NOTE | 2017-07-08 09:35 | CP.CCUPN ---
<Flako King - Last Filed: 07/08/17 09:32> CCU Subjective - Physician Review Subjective (Free Text): Patient seen and examined at bedside. Resting comfortably in bed. Patient became agitated yesterday evening and found to have to be in respiratory distress. He was intubated and sedated. Patient 12 point review of systems cannot be ascertained at this time due to altered mental status. 07/08/17 09:33 CCU Objective - Vital Signs / Intake & Output Vital Signs (Last 4 hours): Vital Signs Temp Pulse Resp BP Pulse Ox 07/08/17 07:00 125/65 07/08/17 06:59 99.9 F H 94 H 21 100 07/08/17 06:56 99.9 F H 95 H 100 07/08/17 06:50 99.9 F H 96 H 25 H 100 07/08/17 06:46 99.9 F H 98 H 100 07/08/17 06:41 99.9 F H 88 100 07/08/17 06:40 99.9 F H 98 H 18 100 07/08/17 06:30 100.0 F H 85 21 124/60 100 07/08/17 06:20 100.0 F H 70 100 07/08/17 06:10 100.0 F H 68 22 100 07/08/17 06:00 96 H 121/57 L 07/08/17 05:59 100.0 F H 68 22 100 07/08/17 05:50 100.0 F H 67 16 100 07/08/17 05:40 100.0 F H 68 20 100 Intake and Output (Last 8hrs): Intake & Output 07/07/17 07/08/17 07/08/17 22:59 06:59 14:59 Intake Total 1000 525 Output Total 850 400 Balance 150 125 Weight 237 lb 10.533 oz Intake: IV 1000 525 Right Forearm 600 400 Oral 0 Output: Urine 850 400 Urethral (Self) 850 400 Other: # Bowel Movements 0 - Physical Exam Head: Positive for: Atraumatic, Normocephalic Pupils: Positive for: PERRL Mouth: Positive for: Moist Mucous Membranes Respiratory/Chest: Positive for: Other (intubated and sedated, mechanical breath sounds bilaterally) Cardiovascular: Positive for: Normal S1, S2 Abdomen: Positive for: Normal Bowel Sounds. Negative for: Distention Upper Extremity: Positive for: Normal Inspection Lower Extremity: Positive for: Normal Inspection Neurological: Positive for: Other (patient is intubated and sedated, spontaneously moves right upper, right lower, and left upper extremities, does not respond to questions appropriately, does not follow commands) Skin: Positive for: Warm, Dry Psychiatric: Positive for: Other (intubated and sedated) - Medications Active Medications: Active Medications Generic Name Dose Route Start Last Admin Trade Name Freq PRN Reason Stop Dose Admin Acetaminophen 1,000 mg in 100 mls @ 400 mls/hr 07/07/17 00:14 07/07/17 22:49 Ofirmev IVPB 07/09/17 00:15 400 mls/hr Q6H PRN Administration fever >100.4 Nicardipine HCl 20 mg in 200 mls @ 50 mls/hr 07/07/17 15:20 07/08/17 01:00 Cardene Iv Premix IV 5 mg/hr .Q4H PRN 50 mls/hr TITRATE PER MD ORDER Titration Protocol 5 MG/HR Levetiracetam 500 mg in 100 mls @ 200 mls/hr 07/07/17 15:45 07/08/17 03:46 Keppra 500mg Ivpb IVPB 200 mls/hr Q12H ANNALEE Administration Propofol 1,000 mg in 100 mls @ 3.103 mls/hr 07/07/17 23:24 07/08/17 00:30 Diprivan IV 10 mcg/kg/min .Q24H PRN 6.205 mls/hr TITRATE PER MD ORDER Administration Protocol 5 MCG/KG/MIN Sodium Chloride 1,000 mls @ 50 mls/hr 07/08/17 08:30 07/08/17 08:30 Sodium Chloride 0.45% IV 50 mls/hr .Q20H ANNALEE Administration Cefepime HCl 2 gm in 100 mls @ 100 mls/hr 07/08/17 10:00 Maxipime 2gm IVPB 07/13/17 10:01 Q12 ANNALEE Protocol Vancomycin HCl 1 gm in 250 mls @ 167 mls/hr 07/08/17 09:12 Vancomycin 1gm IVPB 07/08/17 10:41 ONCE ONE Protocol Labetalol HCl 10 mg 07/06/17 20:21 07/06/17 20:33 Trandate IV 10 mg Q4H PRN Administration SBP>195, DBP >95 Ondansetron HCl 4 mg 07/06/17 21:36 07/06/17 21:55 Zofran Inj IVP 4 mg Q6H PRN Administration Nausea/Vomiting Pantoprazole Sodium 40 mg 07/07/17 12:00 07/07/17 15:33 Protonix Inj IVP 40 mg DAILY ANNALEE Administration - Patient Studies Lab Studies: Lab Studies 07/08/17 07/08/17 07/08/17 Range/Units 07:31 06:00 06:00 WBC 9.2 (4.5-11.0) 10^3/ul RBC 4.10 (3.5-6.1) 10^6/uL Hgb 11.7 L (14.0-18.0) g/dL Hct 36.5 L (42.0-52.0) % MCV 89.0 (80.0-105.0) fl MCH 28.5 (25.0-35.0) pg MCHC 32.1 (31.0-37.0) g/dl RDW 13.9 (11.5-14.5) % Plt Count 148 (120.0-450.0) 10^3/uL MPV 10.3 (7.0-11.0) fl Gran % 73.0 H (50.0-68.0) % Lymph % (Auto) 15.9 L (22.0-35.0) % [place]corn % (Auto) 10.8 H (1.0-6.0) % Eos % (Auto) 0.1 L (1.5-5.0) % Baso % (Auto) 0.2 (0.0-3.0) % Gran # 6.72 H (1.4-6.5) Lymph # 1.5 (1.2-3.4) Alcorn # 1.0 H (0.1-0.6) Eos # 0.0 (0.0-0.7) Baso # 0.02 (0.0-2.0) K/mm3 PT (9.4-12.5) SECONDS INR (0.93-1.08) APTT (25.1-36.5) Seconds pCO2 (35-45) mm/Hg pO2 (80-100) mm/Hg HCO3 (21-28) mmol/L ABG pH (7.35-7.45) ABG Total CO2 (22-28) mmol.L ABG O2 Saturation (95-98) % ABG O2 Content (15-23) ML/dl ABG Base Excess (-2.0-3.0) mmol/L ABG Hemoglobin (11.7-17.4) g/dL ABG Carboxyhemoglobin (0.5-1.5) % POC ABG HHb (Measured) (0-5) % ABG Methemoglobin (0.0-3.0) % ABG O2 Capacity (16-24) mL/dl ABG Potassium (3.6-5.2) mmol/L Hgb O2 Saturation (95.0-98.0) % Glucose (75-110) mg/dl Lactate (0.7-2.1) mmol/L FiO2 % Sodium 141 (132-148) mmol/L Potassium 4.1 (3.6-5.0) mmol/L Chloride 105 (98-107) mmol/L Carbon Dioxide 29 (21-33) mmol/L Anion Gap 11 (10-20) BUN 31 H (7-21) mg/dL Creatinine 2.1 H (0.8-1.5) mg/dL Est GFR ( Amer) 38 Est GFR (Non-Af Amer) 31 POC Glucose (mg/dL) 154 H (65-110) mg/dL Random Glucose 168 H (70-110) mg/dL Calcium 9.0 (8.4-10.5) mg/dL Phosphorus 2.8 (2.5-4.5) mg/dL Magnesium 2.0 (1.7-2.2) mg/dL Total Bilirubin 2.7 H (0.2-1.3) mg/dL AST 43 (17-59) U/L ALT 36 (7-56) U/L Alkaline Phosphatase 86 (38-126) U/L Total Protein 7.5 (5.8-8.3) g/dL Albumin 4.1 (3.0-4.8) g/dL Globulin 3.4 gm/dL Albumin/Globulin Ratio 1.2 (1.1-1.8) Procalcitonin (0.19-0.49) NG/ML Arterial Blood Potassium (3.6-5.2) mmol/L Urine Color (YELLOW) Urine Appearance (CLEAR) Urine pH (4.7-8.0) Ur Specific [place] (1.005-1.035) Urine Protein (<30 mg/dL) mg/dL Urine Glucose (UA) (NEGATIVE) mg/dL Urine Ketones (NEGATIVE) mg/dL Urine Blood (NEGATIVE) Urine Nitrate (NEGATIVE) Urine Bilirubin (NEGATIVE) Urine Urobilinogen (<1 E.U./dL) E.U./dL Ur Leukocyte Esterase (NEGATIVE) Beatriz/uL Urine RBC (0-2) /hpf Urine WBC (0-6) /hpf Ur Epithelial Cells (0-5) /hpf Urine Bacteria (NEG) Influenza Typ A,B (EIA) (NEGATIVE) 07/08/17 07/07/17 07/07/17 Range/Units 02:15 22:40 22:03 WBC (4.5-11.0) 10^3/ul RBC (3.5-6.1) 10^6/uL Hgb (14.0-18.0) g/dL Hct (42.0-52.0) % MCV (80.0-105.0) fl MCH (25.0-35.0) pg MCHC (31.0-37.0) g/dl RDW (11.5-14.5) % Plt Count (120.0-450.0) 10^3/uL MPV (7.0-11.0) fl Gran % (50.0-68.0) % Lymph % (Auto) (22.0-35.0) % [place] % (Auto) (1.0-6.0) % Eos % (Auto) (1.5-5.0) % Baso % (Auto) (0.0-3.0) % Gran # (1.4-6.5) Lymph # (1.2-3.4) Alcorn # (0.1-0.6) Eos # (0.0-0.7) Baso # (0.0-2.0) K/mm3 PT (9.4-12.5) SECONDS INR (0.93-1.08) APTT (25.1-36.5) Seconds pCO2 38 36 (35-45) mm/Hg pO2 105.0 H 71.0 L (80-100) mm/Hg HCO3 23.5 22.8 (21-28) mmol/L ABG pH 7.40 7.41 (7.35-7.45) ABG Total CO2 24.7 23.9 (22-28) mmol.L ABG O2 Saturation 99.7 H 97.9 (95-98) % ABG O2 Content 16.0 16.5 (15-23) ML/dl ABG Base Excess -1.1 -1.4 (-2.0-3.0) mmol/L ABG Hemoglobin 11.7 12.4 (11.7-17.4) g/dL ABG Carboxyhemoglobin 2.1 H 2.4 H (0.5-1.5) % POC ABG HHb (Measured) 0.3 2.0 (0-5) % ABG Methemoglobin 1.1 1.1 (0.0-3.0) % ABG O2 Capacity 16.0 16.9 (16-24) mL/dl ABG Potassium (3.6-5.2) mmol/L Hgb O2 Saturation 96.5 94.5 L (95.0-98.0) % Glucose (75-110) mg/dl Lactate (0.7-2.1) mmol/L FiO2 60.0 32.0 % Sodium (132-148) mmol/L Potassium (3.6-5.0) mmol/L Chloride (98-107) mmol/L Carbon Dioxide (21-33) mmol/L Anion Gap (10-20) BUN (7-21) mg/dL Creatinine (0.8-1.5) mg/dL Est GFR ( Amer) Est GFR (Non-Af Amer) POC Glucose (mg/dL) 197 H (65-110) mg/dL Random Glucose (70-110) mg/dL Calcium (8.4-10.5) mg/dL Phosphorus (2.5-4.5) mg/dL Magnesium (1.7-2.2) mg/dL Total Bilirubin (0.2-1.3) mg/dL AST (17-59) U/L ALT (7-56) U/L Alkaline Phosphatase (38-126) U/L Total Protein (5.8-8.3) g/dL Albumin (3.0-4.8) g/dL Globulin gm/dL Albumin/Globulin Ratio (1.1-1.8) Procalcitonin (0.19-0.49) NG/ML Arterial Blood Potassium (3.6-5.2) mmol/L Urine Color (YELLOW) Urine Appearance (CLEAR) Urine pH (4.7-8.0) Ur Specific [place] (1.005-1.035) Urine Protein (<30 mg/dL) mg/dL Urine Glucose (UA) (NEGATIVE) mg/dL Urine Ketones (NEGATIVE) mg/dL Urine Blood (NEGATIVE) Urine Nitrate (NEGATIVE) Urine Bilirubin (NEGATIVE) Urine Urobilinogen (<1 E.U./dL) E.U./dL Ur Leukocyte Esterase (NEGATIVE) Beatriz/uL Urine RBC (0-2) /hpf Urine WBC (0-6) /hpf Ur Epithelial Cells (0-5) /hpf Urine Bacteria (NEG) Influenza Typ A,B (EIA) (NEGATIVE) 07/07/17 07/07/17 07/07/17 Range/Units 15:50 15:35 11:19 WBC (4.5-11.0) 10^3/ul RBC (3.5-6.1) 10^6/uL Hgb (14.0-18.0) g/dL Hct (42.0-52.0) % MCV (80.0-105.0) fl MCH (25.0-35.0) pg MCHC (31.0-37.0) g/dl RDW (11.5-14.5) % Plt Count (120.0-450.0) 10^3/uL MPV (7.0-11.0) fl Gran % (50.0-68.0) % Lymph % (Auto) (22.0-35.0) % [place] % (Auto) (1.0-6.0) % Eos % (Auto) (1.5-5.0) % Baso % (Auto) (0.0-3.0) % Gran # (1.4-6.5) Lymph # (1.2-3.4) Alcorn # (0.1-0.6) Eos # (0.0-0.7) Baso # (0.0-2.0) K/mm3 PT 13.8 H (9.4-12.5) SECONDS INR 1.26 H (0.93-1.08) APTT 28.9 (25.1-36.5) Seconds pCO2 (35-45) mm/Hg pO2 (80-100) mm/Hg HCO3 (21-28) mmol/L ABG pH (7.35-7.45) ABG Total CO2 (22-28) mmol.L ABG O2 Saturation (95-98) % ABG O2 Content (15-23) ML/dl ABG Base Excess (-2.0-3.0) mmol/L ABG Hemoglobin (11.7-17.4) g/dL ABG Carboxyhemoglobin (0.5-1.5) % POC ABG HHb (Measured) (0-5) % ABG Methemoglobin (0.0-3.0) % ABG O2 Capacity (16-24) mL/dl ABG Potassium (3.6-5.2) mmol/L Hgb O2 Saturation (95.0-98.0) % Glucose (75-110) mg/dl Lactate (0.7-2.1) mmol/L FiO2 % Sodium (132-148) mmol/L Potassium (3.6-5.0) mmol/L Chloride (98-107) mmol/L Carbon Dioxide (21-33) mmol/L Anion Gap (10-20) BUN (7-21) mg/dL Creatinine (0.8-1.5) mg/dL Est GFR ( Amer) Est GFR (Non-Af Amer) POC Glucose (mg/dL) 210 H 212 H (65-110) mg/dL Random Glucose (70-110) mg/dL Calcium (8.4-10.5) mg/dL Phosphorus (2.5-4.5) mg/dL Magnesium (1.7-2.2) mg/dL Total Bilirubin (0.2-1.3) mg/dL AST (17-59) U/L ALT (7-56) U/L Alkaline Phosphatase (38-126) U/L Total Protein (5.8-8.3) g/dL Albumin (3.0-4.8) g/dL Globulin gm/dL Albumin/Globulin Ratio (1.1-1.8) Procalcitonin (0.19-0.49) NG/ML Arterial Blood Potassium (3.6-5.2) mmol/L Urine Color (YELLOW) Urine Appearance (CLEAR) Urine pH (4.7-8.0) Ur Specific [place] (1.005-1.035) Urine Protein (<30 mg/dL) mg/dL Urine Glucose (UA) (NEGATIVE) mg/dL Urine Ketones (NEGATIVE) mg/dL Urine Blood (NEGATIVE) Urine Nitrate (NEGATIVE) Urine Bilirubin (NEGATIVE) Urine Urobilinogen (<1 E.U./dL) E.U./dL Ur Leukocyte Esterase (NEGATIVE) Beatriz/uL Urine RBC (0-2) /hpf Urine WBC (0-6) /hpf Ur Epithelial Cells (0-5) /hpf Urine Bacteria (NEG) Influenza Typ A,B (EIA) (NEGATIVE) 07/07/17 07/07/17 07/07/17 Range/Units 10:26 10:20 10:20 WBC (4.5-11.0) 10^3/ul RBC (3.5-6.1) 10^6/uL Hgb (14.0-18.0) g/dL Hct (42.0-52.0) % MCV (80.0-105.0) fl MCH (25.0-35.0) pg MCHC (31.0-37.0) g/dl RDW (11.5-14.5) % Plt Count (120.0-450.0) 10^3/uL MPV (7.0-11.0) fl Gran % (50.0-68.0) % Lymph % (Auto) (22.0-35.0) % [place] % (Auto) (1.0-6.0) % Eos % (Auto) (1.5-5.0) % Baso % (Auto) (0.0-3.0) % Gran # (1.4-6.5) Lymph # (1.2-3.4) Alcorn # (0.1-0.6) Eos # (0.0-0.7) Baso # (0.0-2.0) K/mm3 PT (9.4-12.5) SECONDS INR (0.93-1.08) APTT (25.1-36.5) Seconds pCO2 35 (35-45) mm/Hg pO2 64.0 L (80-100) mm/Hg HCO3 24.3 (21-28) mmol/L ABG pH 7.45 (7.35-7.45) ABG Total CO2 25.4 (22-28) mmol.L ABG O2 Saturation 96.3 (95-98) % ABG O2 Content (15-23) ML/dl ABG Base Excess 0.7 (-2.0-3.0) mmol/L ABG Hemoglobin (11.7-17.4) g/dL ABG Carboxyhemoglobin (0.5-1.5) % POC ABG HHb (Measured) (0-5) % ABG Methemoglobin (0.0-3.0) % ABG O2 Capacity (16-24) mL/dl ABG Potassium 3.8 (3.6-5.2) mmol/L Hgb O2 Saturation (95.0-98.0) % Glucose 212 H (75-110) mg/dl Lactate 1.2 (0.7-2.1) mmol/L FiO2 34.0 % Sodium 141.0 (132-148) mmol/L Potassium (3.6-5.0) mmol/L Chloride 109.0 H (98-107) mmol/L Carbon Dioxide (21-33) mmol/L Anion Gap (10-20) BUN (7-21) mg/dL Creatinine (0.8-1.5) mg/dL Est GFR ( Amer) Est GFR (Non-Af Amer) POC Glucose (mg/dL) (65-110) mg/dL Random Glucose (70-110) mg/dL Calcium (8.4-10.5) mg/dL Phosphorus (2.5-4.5) mg/dL Magnesium (1.7-2.2) mg/dL Total Bilirubin (0.2-1.3) mg/dL AST (17-59) U/L ALT (7-56) U/L Alkaline Phosphatase (38-126) U/L Total Protein (5.8-8.3) g/dL Albumin (3.0-4.8) g/dL Globulin gm/dL Albumin/Globulin Ratio (1.1-1.8) Procalcitonin (0.19-0.49) NG/ML Arterial Blood Potassium 3.8 (3.6-5.2) mmol/L Urine Color Yellow (YELLOW) Urine Appearance Clear (CLEAR) Urine pH 5.5 (4.7-8.0) Ur Specific [place] >= 1.030 (1.005-1.035) Urine Protein 100 H (<30 mg/dL) mg/dL Urine Glucose (UA) 500 H (NEGATIVE) mg/dL Urine Ketones Negative (NEGATIVE) mg/dL Urine Blood Large H (NEGATIVE) Urine Nitrate Negative (NEGATIVE) Urine Bilirubin Negative (NEGATIVE) Urine Urobilinogen 0.2 (<1 E.U./dL) E.U./dL Ur Leukocyte Esterase Negative (NEGATIVE) Beatriz/uL Urine RBC Tntc (0-2) /hpf Urine WBC 0 - 2 (0-6) /hpf Ur Epithelial Cells 0 - 2 (0-5) /hpf Urine Bacteria Small (NEG) Influenza Typ A,B (EIA) Negative for flu a/b (NEGATIVE) 07/07/17 07/07/17 07/07/17 Range/Units 10:20 10:20 10:20 WBC 7.9 D (4.5-11.0) 10^3/ul RBC 4.05 (3.5-6.1) 10^6/uL Hgb 11.8 L (14.0-18.0) g/dL Hct 35.7 L (42.0-52.0) % MCV 88.1 (80.0-105.0) fl MCH 29.1 (25.0-35.0) pg MCHC 33.1 (31.0-37.0) g/dl RDW 14.0 (11.5-14.5) % Plt Count 145 (120.0-450.0) 10^3/uL MPV 10.2 (7.0-11.0) fl Gran % 76.6 H (50.0-68.0) % Lymph % (Auto) 10.3 L (22.0-35.0) % [place] % (Auto) 13.0 H (1.0-6.0) % Eos % (Auto) 0.0 L (1.5-5.0) % Baso % (Auto) 0.1 (0.0-3.0) % Gran # 6.07 (1.4-6.5) Lymph # 0.8 L (1.2-3.4) [place] # 1.0 H (0.1-0.6) Eos # 0.0 (0.0-0.7) Baso # 0.01 (0.0-2.0) K/mm3 PT (9.4-12.5) SECONDS INR (0.93-1.08) APTT (25.1-36.5) Seconds pCO2 (35-45) mm/Hg pO2 (80-100) mm/Hg HCO3 (21-28) mmol/L ABG pH (7.35-7.45) ABG Total CO2 (22-28) mmol.L ABG O2 Saturation (95-98) % ABG O2 Content (15-23) ML/dl ABG Base Excess (-2.0-3.0) mmol/L ABG Hemoglobin (11.7-17.4) g/dL ABG Carboxyhemoglobin (0.5-1.5) % POC ABG HHb (Measured) (0-5) % ABG Methemoglobin (0.0-3.0) % ABG O2 Capacity (16-24) mL/dl ABG Potassium (3.6-5.2) mmol/L Hgb O2 Saturation (95.0-98.0) % Glucose (75-110) mg/dl Lactate (0.7-2.1) mmol/L FiO2 % Sodium 142 (132-148) mmol/L Potassium 4.1 (3.6-5.0) mmol/L Chloride 106 (98-107) mmol/L Carbon Dioxide 25 (21-33) mmol/L Anion Gap 15 (10-20) BUN 27 H (7-21) mg/dL Creatinine 2.0 H (0.8-1.5) mg/dL Est GFR ( Amer) 40 Est GFR (Non-Af Amer) 33 POC Glucose (mg/dL) (65-110) mg/dL Random Glucose 209 H (70-110) mg/dL Calcium 9.5 (8.4-10.5) mg/dL Phosphorus 3.6 (2.5-4.5) mg/dL Magnesium 1.8 (1.7-2.2) mg/dL Total Bilirubin 1.9 H (0.2-1.3) mg/dL AST 32 (17-59) U/L ALT 36 (7-56) U/L Alkaline Phosphatase 96 (38-126) U/L Total Protein 7.7 (5.8-8.3) g/dL Albumin 4.3 (3.0-4.8) g/dL Globulin 3.5 gm/dL Albumin/Globulin Ratio 1.2 (1.1-1.8) Procalcitonin 0.20 (0.19-0.49) NG/ML Arterial Blood Potassium (3.6-5.2) mmol/L Urine Color (YELLOW) Urine Appearance (CLEAR) Urine pH (4.7-8.0) Ur Specific [place] (1.005-1.035) Urine Protein (<30 mg/dL) mg/dL Urine Glucose (UA) (NEGATIVE) mg/dL Urine Ketones (NEGATIVE) mg/dL Urine Blood (NEGATIVE) Urine Nitrate (NEGATIVE) Urine Bilirubin (NEGATIVE) Urine Urobilinogen (<1 E.U./dL) E.U./dL Ur Leukocyte Esterase (NEGATIVE) Beatriz/uL Urine RBC (0-2) /hpf Urine WBC (0-6) /hpf Ur Epithelial Cells (0-5) /hpf Urine Bacteria (NEG) Influenza Typ A,B (EIA) (NEGATIVE) 07/07/17 Range/Units 07:19 WBC (4.5-11.0) 10^3/ul RBC (3.5-6.1) 10^6/uL Hgb (14.0-18.0) g/dL Hct (42.0-52.0) % MCV (80.0-105.0) fl MCH (25.0-35.0) pg MCHC (31.0-37.0) g/dl RDW (11.5-14.5) % Plt Count (120.0-450.0) 10^3/uL MPV (7.0-11.0) fl Gran % (50.0-68.0) % Lymph % (Auto) (22.0-35.0) % [place] % (Auto) (1.0-6.0) % Eos % (Auto) (1.5-5.0) % Baso % (Auto) (0.0-3.0) % Gran # (1.4-6.5) Lymph # (1.2-3.4) [place] # (0.1-0.6) Eos # (0.0-0.7) Baso # (0.0-2.0) K/mm3 PT (9.4-12.5) SECONDS INR (0.93-1.08) APTT (25.1-36.5) Seconds pCO2 (35-45) mm/Hg pO2 (80-100) mm/Hg HCO3 (21-28) mmol/L ABG pH (7.35-7.45) ABG Total CO2 (22-28) mmol.L ABG O2 Saturation (95-98) % ABG O2 Content (15-23) ML/dl ABG Base Excess (-2.0-3.0) mmol/L ABG Hemoglobin (11.7-17.4) g/dL ABG Carboxyhemoglobin (0.5-1.5) % POC ABG HHb (Measured) (0-5) % ABG Methemoglobin (0.0-3.0) % ABG O2 Capacity (16-24) mL/dl ABG Potassium (3.6-5.2) mmol/L Hgb O2 Saturation (95.0-98.0) % Glucose (75-110) mg/dl Lactate (0.7-2.1) mmol/L FiO2 % Sodium (132-148) mmol/L Potassium (3.6-5.0) mmol/L Chloride (98-107) mmol/L Carbon Dioxide (21-33) mmol/L Anion Gap (10-20) BUN (7-21) mg/dL Creatinine (0.8-1.5) mg/dL Est GFR ( Amer) Est GFR (Non-Af Amer) POC Glucose (mg/dL) 210 H (65-110) mg/dL Random Glucose (70-110) mg/dL Calcium (8.4-10.5) mg/dL Phosphorus (2.5-4.5) mg/dL Magnesium (1.7-2.2) mg/dL Total Bilirubin (0.2-1.3) mg/dL AST (17-59) U/L ALT (7-56) U/L Alkaline Phosphatase (38-126) U/L Total Protein (5.8-8.3) g/dL Albumin (3.0-4.8) g/dL Globulin gm/dL Albumin/Globulin Ratio (1.1-1.8) Procalcitonin (0.19-0.49) NG/ML Arterial Blood Potassium (3.6-5.2) mmol/L Urine Color (YELLOW) Urine Appearance (CLEAR) Urine pH (4.7-8.0) Ur Specific [place] (1.005-1.035) Urine Protein (<30 mg/dL) mg/dL Urine Glucose (UA) (NEGATIVE) mg/dL Urine Ketones (NEGATIVE) mg/dL Urine Blood (NEGATIVE) Urine Nitrate (NEGATIVE) Urine Bilirubin (NEGATIVE) Urine Urobilinogen (<1 E.U./dL) E.U./dL Ur Leukocyte Esterase (NEGATIVE) Beatriz/uL Urine RBC (0-2) /hpf Urine WBC (0-6) /hpf Ur Epithelial Cells (0-5) /hpf Urine Bacteria (NEG) Influenza Typ A,B (EIA) (NEGATIVE) Laboratory Results - last 24 hr 07/07/17 07/07/17 07/07/17 07:19 10:20 10:20 WBC 7.9 D RBC 4.05 Hgb 11.8 L Hct 35.7 L MCV 88.1 MCH 29.1 MCHC 33.1 RDW 14.0 Plt Count 145 MPV 10.2 Gran % 76.6 H Lymph % (Auto) 10.3 L [place] % (Auto) 13.0 H Eos % (Auto) 0.0 L Baso % (Auto) 0.1 Gran # 6.07 Lymph # 0.8 L [place] # 1.0 H Eos # 0.0 Baso # 0.01 PT INR APTT pCO2 pO2 HCO3 ABG pH ABG Total CO2 ABG O2 Saturation ABG O2 Content ABG Base Excess ABG Hemoglobin ABG Carboxyhemoglobin POC ABG HHb (Measured) ABG Methemoglobin ABG O2 Capacity ABG Potassium Hgb O2 Saturation Glucose Lactate FiO2 Sodium Potassium Chloride Carbon Dioxide Anion Gap BUN Creatinine Est GFR ( Amer) Est GFR (Non-Af Amer) POC Glucose (mg/dL) 210 H Random Glucose Calcium Phosphorus Magnesium Total Bilirubin AST ALT Alkaline Phosphatase Total Protein Albumin Globulin Albumin/Globulin Ratio Procalcitonin 0.20 Arterial Blood Potassium Urine Color Urine Appearance Urine pH Ur Specific [place] Urine Protein Urine Glucose (UA) Urine Ketones Urine Blood Urine Nitrate Urine Bilirubin Urine Urobilinogen Ur Leukocyte Esterase Urine RBC Urine WBC Ur Epithelial Cells Urine Bacteria Influenza Typ A,B (EIA) 07/07/17 07/07/17 07/07/17 10:20 10:20 10:20 WBC RBC Hgb Hct MCV MCH MCHC RDW Plt Count MPV Gran % Lymph % (Auto) [place] % (Auto) Eos % (Auto) Baso % (Auto) Gran # Lymph # [place] # Eos # Baso # PT INR APTT pCO2 pO2 HCO3 ABG pH ABG Total CO2 ABG O2 Saturation ABG O2 Content ABG Base Excess ABG Hemoglobin ABG Carboxyhemoglobin POC ABG HHb (Measured) ABG Methemoglobin ABG O2 Capacity ABG Potassium Hgb O2 Saturation Glucose Lactate FiO2 Sodium 142 Potassium 4.1 Chloride 106 Carbon Dioxide 25 Anion Gap 15 BUN 27 H Creatinine 2.0 H Est GFR ( Amer) 40 Est GFR (Non-Af Amer) 33 POC Glucose (mg/dL) Random Glucose 209 H Calcium 9.5 Phosphorus 3.6 Magnesium 1.8 Total Bilirubin 1.9 H AST 32 ALT 36 Alkaline Phosphatase 96 Total Protein 7.7 Albumin 4.3 Globulin 3.5 Albumin/Globulin Ratio 1.2 Procalcitonin Arterial Blood Potassium Urine Color Yellow Urine Appearance Clear Urine pH 5.5 Ur Specific [place] >= 1.030 Urine Protein 100 H Urine Glucose (UA) 500 H Urine Ketones Negative Urine Blood Large H Urine Nitrate Negative Urine Bilirubin Negative Urine Urobilinogen 0.2 Ur Leukocyte Esterase Negative Urine RBC Tntc Urine WBC 0 - 2 Ur Epithelial Cells 0 - 2 Urine Bacteria Small Influenza Typ A,B (EIA) Negative for flu a/b 07/07/17 07/07/17 07/07/17 10:26 11:19 15:35 WBC RBC Hgb Hct MCV MCH MCHC RDW Plt Count MPV Gran % Lymph % (Auto) [place] % (Auto) Eos % (Auto) Baso % (Auto) Gran # Lymph # [place] # Eos # Baso # PT 13.8 H INR 1.26 H APTT 28.9 pCO2 35 pO2 64.0 L HCO3 24.3 ABG pH 7.45 ABG Total CO2 25.4 ABG O2 Saturation 96.3 ABG O2 Content ABG Base Excess 0.7 ABG Hemoglobin ABG Carboxyhemoglobin POC ABG HHb (Measured) ABG Methemoglobin ABG O2 Capacity ABG Potassium 3.8 Hgb O2 Saturation Glucose 212 H Lactate 1.2 FiO2 34.0 Sodium 141.0 Potassium Chloride 109.0 H Carbon Dioxide Anion Gap BUN Creatinine Est GFR ( Amer) Est GFR (Non-Af Amer) POC Glucose (mg/dL) 212 H Random Glucose Calcium Phosphorus Magnesium Total Bilirubin AST ALT Alkaline Phosphatase Total Protein Albumin Globulin Albumin/Globulin Ratio Procalcitonin Arterial Blood Potassium 3.8 Urine Color Urine Appearance Urine pH Ur Specific [place] Urine Protein Urine Glucose (UA) Urine Ketones Urine Blood Urine Nitrate Urine Bilirubin Urine Urobilinogen Ur Leukocyte Esterase Urine RBC Urine WBC Ur Epithelial Cells Urine Bacteria Influenza Typ A,B (EIA) 07/07/17 07/07/17 07/07/17 15:50 22:03 22:40 WBC RBC Hgb Hct MCV MCH MCHC RDW Plt Count MPV Gran % Lymph % (Auto) [place] % (Auto) Eos % (Auto) Baso % (Auto) Gran # Lymph # [place] # Eos # Baso # PT INR APTT pCO2 36 pO2 71.0 L HCO3 22.8 ABG pH 7.41 ABG Total CO2 23.9 ABG O2 Saturation 97.9 ABG O2 Content 16.5 ABG Base Excess -1.4 ABG Hemoglobin 12.4 ABG Carboxyhemoglobin 2.4 H POC ABG HHb (Measured) 2.0 ABG Methemoglobin 1.1 ABG O2 Capacity 16.9 ABG Potassium Hgb O2 Saturation 94.5 L Glucose Lactate FiO2 32.0 Sodium Potassium Chloride Carbon Dioxide Anion Gap BUN Creatinine Est GFR ( Amer) Est GFR (Non-Af Amer) POC Glucose (mg/dL) 210 H 197 H Random Glucose Calcium Phosphorus Magnesium Total Bilirubin AST ALT Alkaline Phosphatase Total Protein Albumin Globulin Albumin/Globulin Ratio Procalcitonin Arterial Blood Potassium Urine Color Urine Appearance Urine pH Ur Specific [place] Urine Protein Urine Glucose (UA) Urine Ketones Urine Blood Urine Nitrate Urine Bilirubin Urine Urobilinogen Ur Leukocyte Esterase Urine RBC Urine WBC Ur Epithelial Cells Urine Bacteria Influenza Typ A,B (EIA) 07/08/17 07/08/17 07/08/17 02:15 06:00 06:00 WBC 9.2 RBC 4.10 Hgb 11.7 L Hct 36.5 L MCV 89.0 MCH 28.5 MCHC 32.1 RDW 13.9 Plt Count 148 MPV 10.3 Gran % 73.0 H Lymph % (Auto) 15.9 L [place] % (Auto) 10.8 H Eos % (Auto) 0.1 L Baso % (Auto) 0.2 Gran # 6.72 H Lymph # 1.5 [place] # 1.0 H Eos # 0.0 Baso # 0.02 PT INR APTT pCO2 38 pO2 105.0 H HCO3 23.5 ABG pH 7.40 ABG Total CO2 24.7 ABG O2 Saturation 99.7 H ABG O2 Content 16.0 ABG Base Excess -1.1 ABG Hemoglobin 11.7 ABG Carboxyhemoglobin 2.1 H POC ABG HHb (Measured) 0.3 ABG Methemoglobin 1.1 ABG O2 Capacity 16.0 ABG Potassium Hgb O2 Saturation 96.5 Glucose Lactate FiO2 60.0 Sodium 141 Potassium 4.1 Chloride 105 Carbon Dioxide 29 Anion Gap 11 BUN 31 H Creatinine 2.1 H Est GFR ( Amer) 38 Est GFR (Non-Af Amer) 31 POC Glucose (mg/dL) Random Glucose 168 H Calcium 9.0 Phosphorus 2.8 Magnesium 2.0 Total Bilirubin 2.7 H AST 43 ALT 36 Alkaline Phosphatase 86 Total Protein 7.5 Albumin 4.1 Globulin 3.4 Albumin/Globulin Ratio 1.2 Procalcitonin Arterial Blood Potassium Urine Color Urine Appearance Urine pH Ur Specific [place] Urine Protein Urine Glucose (UA) Urine Ketones Urine Blood Urine Nitrate Urine Bilirubin Urine Urobilinogen Ur Leukocyte Esterase Urine RBC Urine WBC Ur Epithelial Cells Urine Bacteria Influenza Typ A,B (EIA) 07/08/17 07:31 WBC RBC Hgb Hct MCV MCH MCHC RDW Plt Count MPV Gran % Lymph % (Auto) [place] % (Auto) Eos % (Auto) Baso % (Auto) Gran # Lymph # [place] # Eos # Baso # PT INR APTT pCO2 pO2 HCO3 ABG pH ABG Total CO2 ABG O2 Saturation ABG O2 Content ABG Base Excess ABG Hemoglobin ABG Carboxyhemoglobin POC ABG HHb (Measured) ABG Methemoglobin ABG O2 Capacity ABG Potassium Hgb O2 Saturation Glucose Lactate FiO2 Sodium Potassium Chloride Carbon Dioxide Anion Gap BUN Creatinine Est GFR ( Amer) Est GFR (Non-Af Amer) POC Glucose (mg/dL) 154 H Random Glucose Calcium Phosphorus Magnesium Total Bilirubin AST ALT Alkaline Phosphatase Total Protein Albumin Globulin Albumin/Globulin Ratio Procalcitonin Arterial Blood Potassium Urine Color Urine Appearance Urine pH Ur Specific [place] Urine Protein Urine Glucose (UA) Urine Ketones Urine Blood Urine Nitrate Urine Bilirubin Urine Urobilinogen Ur Leukocyte Esterase Urine RBC Urine WBC Ur Epithelial Cells Urine Bacteria Influenza Typ A,B (EIA) Fingerstick Blood Sugar Results: 167 Review of Systems - Review of Systems Review of Systems: 12-point review of systems cannot be ascertained at this time due to altered mental status Assessment/Plan - Assessment and Plan (Free Text) Assessment: Patient is a 72 year old male with a pmhx of CAD who was admitted for evaluation and treatment of altered mental status. He was found to have a cerebrovascular accident. Received TPA bolus but infusion was stopped prior to completion due to adverse reaction. Patient developed respiratory distress and was intubated, ventilated, and sedated. Plan: Neuro: - brain MRI- Foci of diffuse restriction noted at the right supratentorial brain suggestive of right MCA infarct; Small foci of hyperintense T2 GRE signal noted at the right posterior parietal occipital lobe may represent punctate hemorrhage - brain MRA- This MRA of the head is nondiagnostic due to significant motion artifact - neck MRA -Limited study due to patient's motion. No evidence of significant stenosis in the carotid arteries at the neck. Small size of right vertebral artery contains foci of moderate stenosis - repeat CT- Hemorrhagic conversion of a cerebral infarction within the distribution of the posterior cerebral artery, minimally increased in size from previous examination performed approximately 12 hours earlier - patient is sedated - spontaneously moves right upper, right lower, and left upper extremities - neurology is consulted- appreciate recommendations- c/w keppra and cardene for tight BP control - neurosurgery consulted- no acute intervention at this time Cardio: - HR trended, reviewed, and appreciated, will continue to monitor closely - BPs trended, reviewed, and appreciated, will continue to monitor closely- will follow recommended BP control guidelines - continue to monitor vitals - c/w labetolol and cardene for blood pressure control - caridiology is consulted- appreciate recommendations Pulm: - intubated and sedated- PRVC FIO2 50/ PEEP 5/ RR 14/ tidal volume 450; abg reviewed and appreciated - keep SaO2 above 92% - continue vancomycin and cefepime as per ID for possible pneumonia GI: - prophylaxis with protonix Elevated T. Bili - will monitor closely Renal/Electrolytes: NOÉ - creatinine and BUN trended, reviewed, and appreciated, will continue to monitor closely - bin packer consulted- appreciate recommendations- continue IVF Endo: - keep patient euglycemic Heme: Anemia - Hgbs trended, reviewed, and appreciated, will continue to monitor closely- stable - DVT prophylaxis via SCDs Patient seen, case discussed with, and plan approved by attending physician, Dr. Garcia. <Issa Garcia - Last Filed: 07/08/17 10:37> CCU Objective - Vital Signs / Intake & Output Vital Signs (Last 4 hours): Vital Signs Temp Pulse Resp BP Pulse Ox 07/08/17 07:00 125/65 07/08/17 06:59 99.9 F H 94 H 21 100 07/08/17 06:56 99.9 F H 95 H 100 07/08/17 06:50 99.9 F H 96 H 25 H 100 07/08/17 06:46 99.9 F H 98 H 100 07/08/17 06:41 99.9 F H 88 100 07/08/17 06:40 99.9 F H 98 H 18 100 Intake and Output (Last 8hrs): Intake & Output 07/07/17 07/08/17 07/08/17 22:59 06:59 14:59 Intake Total 1000 525 Output Total 850 400 Balance 150 125 Weight 237 lb 10.533 oz Intake: IV 1000 525 Right Forearm 600 400 Oral 0 Output: Urine 850 400 Urethral (Self) 850 400 Other: # Bowel Movements 0 - Medications Active Medications: Active Medications Generic Name Dose Route Start Last Admin Trade Name Freq PRN Reason Stop Dose Admin Acetaminophen 1,000 mg in 100 mls @ 400 mls/hr 07/07/17 00:14 07/07/17 22:49 Ofirmev IVPB 07/09/17 00:15 400 mls/hr Q6H PRN Administration fever >100.4 Nicardipine HCl 20 mg in 200 mls @ 50 mls/hr 07/07/17 15:20 07/08/17 01:00 Cardene Iv Premix IV 5 mg/hr .Q4H PRN 50 mls/hr TITRATE PER MD ORDER Titration Protocol 5 MG/HR Levetiracetam 500 mg in 100 mls @ 200 mls/hr 07/07/17 15:45 07/08/17 03:46 Keppra 500mg Ivpb IVPB 200 mls/hr Q12H ANNALEE Administration Propofol 1,000 mg in 100 mls @ 3.103 mls/hr 07/07/17 23:24 07/08/17 00:30 Diprivan IV 10 mcg/kg/min .Q24H PRN 6.205 mls/hr TITRATE PER MD ORDER Administration Protocol 5 MCG/KG/MIN Sodium Chloride 1,000 mls @ 50 mls/hr 07/08/17 08:30 07/08/17 08:30 Sodium Chloride 0.45% IV 50 mls/hr .Q20H ANNALEE Administration Cefepime HCl 2 gm in 100 mls @ 100 mls/hr 07/08/17 10:00 Maxipime 2gm IVPB 07/13/17 10:01 Q12 ANNALEE Protocol Vancomycin HCl 1 gm in 250 mls @ 167 mls/hr 07/08/17 09:12 07/08/17 09:21 Vancomycin 1gm IVPB 07/08/17 10:41 167 mls/hr ONCE ONE Administration Protocol Labetalol HCl 10 mg 07/06/17 20:21 07/06/17 20:33 Trandate IV 10 mg Q4H PRN Administration SBP>195, DBP >95 Ondansetron HCl 4 mg 07/06/17 21:36 07/06/17 21:55 Zofran Inj IVP 4 mg Q6H PRN Administration Nausea/Vomiting Pantoprazole Sodium 40 mg 07/07/17 12:00 07/08/17 09:22 Protonix Inj IVP 40 mg DAILY ANNALEE Administration - Patient Studies Lab Studies: Lab Studies 07/08/17 07/08/17 07/08/17 Range/Units 07:31 06:00 06:00 WBC 9.2 (4.5-11.0) 10^3/ul RBC 4.10 (3.5-6.1) 10^6/uL Hgb 11.7 L (14.0-18.0) g/dL Hct 36.5 L (42.0-52.0) % MCV 89.0 (80.0-105.0) fl MCH 28.5 (25.0-35.0) pg MCHC 32.1 (31.0-37.0) g/dl RDW 13.9 (11.5-14.5) % Plt Count 148 (120.0-450.0) 10^3/uL MPV 10.3 (7.0-11.0) fl Gran % 73.0 H (50.0-68.0) % Lymph % (Auto) 15.9 L (22.0-35.0) % [place] % (Auto) 10.8 H (1.0-6.0) % Eos % (Auto) 0.1 L (1.5-5.0) % Baso % (Auto) 0.2 (0.0-3.0) % Gran # 6.72 H (1.4-6.5) Lymph # 1.5 (1.2-3.4) [place] # 1.0 H (0.1-0.6) Eos # 0.0 (0.0-0.7) Baso # 0.02 (0.0-2.0) K/mm3 PT (9.4-12.5) SECONDS INR (0.93-1.08) APTT (25.1-36.5) Seconds pCO2 (35-45) mm/Hg pO2 (80-100) mm/Hg HCO3 (21-28) mmol/L ABG pH (7.35-7.45) ABG Total CO2 (22-28) mmol.L ABG O2 Saturation (95-98) % ABG O2 Content (15-23) ML/dl ABG Base Excess (-2.0-3.0) mmol/L ABG Hemoglobin (11.7-17.4) g/dL ABG Carboxyhemoglobin (0.5-1.5) % POC ABG HHb (Measured) (0-5) % ABG Methemoglobin (0.0-3.0) % ABG O2 Capacity (16-24) mL/dl Hgb O2 Saturation (95.0-98.0) % FiO2 % Sodium 141 (132-148) mmol/L Potassium 4.1 (3.6-5.0) mmol/L Chloride 105 (98-107) mmol/L Carbon Dioxide 29 (21-33) mmol/L Anion Gap 11 (10-20) BUN 31 H (7-21) mg/dL Creatinine 2.1 H (0.8-1.5) mg/dL Est GFR ( Amer) 38 Est GFR (Non-Af Amer) 31 POC Glucose (mg/dL) 154 H (65-110) mg/dL Random Glucose 168 H (70-110) mg/dL Calcium 9.0 (8.4-10.5) mg/dL Phosphorus 2.8 (2.5-4.5) mg/dL Magnesium 2.0 (1.7-2.2) mg/dL Total Bilirubin 2.7 H (0.2-1.3) mg/dL AST 43 (17-59) U/L ALT 36 (7-56) U/L Alkaline Phosphatase 86 (38-126) U/L Total Protein 7.5 (5.8-8.3) g/dL Albumin 4.1 (3.0-4.8) g/dL Globulin 3.4 gm/dL Albumin/Globulin Ratio 1.2 (1.1-1.8) Procalcitonin (0.19-0.49) NG/ML Urine Color (YELLOW) Urine Appearance (CLEAR) Urine pH (4.7-8.0) Ur Specific [place] (1.005-1.035) Urine Protein (<30 mg/dL) mg/dL Urine Glucose (UA) (NEGATIVE) mg/dL Urine Ketones (NEGATIVE) mg/dL Urine Blood (NEGATIVE) Urine Nitrate (NEGATIVE) Urine Bilirubin (NEGATIVE) Urine Urobilinogen (<1 E.U./dL) E.U./dL Ur Leukocyte Esterase (NEGATIVE) Beatriz/uL Urine RBC (0-2) /hpf Urine WBC (0-6) /hpf Ur Epithelial Cells (0-5) /hpf Urine Bacteria (NEG) Influenza Typ A,B (EIA) (NEGATIVE) 07/08/17 07/07/17 07/07/17 Range/Units 02:15 22:40 22:03 WBC (4.5-11.0) 10^3/ul RBC (3.5-6.1) 10^6/uL Hgb (14.0-18.0) g/dL Hct (42.0-52.0) % MCV (80.0-105.0) fl MCH (25.0-35.0) pg MCHC (31.0-37.0) g/dl RDW (11.5-14.5) % Plt Count (120.0-450.0) 10^3/uL MPV (7.0-11.0) fl Gran % (50.0-68.0) % Lymph % (Auto) (22.0-35.0) % [place] % (Auto) (1.0-6.0) % Eos % (Auto) (1.5-5.0) % Baso % (Auto) (0.0-3.0) % Gran # (1.4-6.5) Lymph # (1.2-3.4) [place] # (0.1-0.6) Eos # (0.0-0.7) Baso # (0.0-2.0) K/mm3 PT (9.4-12.5) SECONDS INR (0.93-1.08) APTT (25.1-36.5) Seconds pCO2 38 36 (35-45) mm/Hg pO2 105.0 H 71.0 L (80-100) mm/Hg HCO3 23.5 22.8 (21-28) mmol/L ABG pH 7.40 7.41 (7.35-7.45) ABG Total CO2 24.7 23.9 (22-28) mmol.L ABG O2 Saturation 99.7 H 97.9 (95-98) % ABG O2 Content 16.0 16.5 (15-23) ML/dl ABG Base Excess -1.1 -1.4 (-2.0-3.0) mmol/L ABG Hemoglobin 11.7 12.4 (11.7-17.4) g/dL ABG Carboxyhemoglobin 2.1 H 2.4 H (0.5-1.5) % POC ABG HHb (Measured) 0.3 2.0 (0-5) % ABG Methemoglobin 1.1 1.1 (0.0-3.0) % ABG O2 Capacity 16.0 16.9 (16-24) mL/dl Hgb O2 Saturation 96.5 94.5 L (95.0-98.0) % FiO2 60.0 32.0 % Sodium (132-148) mmol/L Potassium (3.6-5.0) mmol/L Chloride (98-107) mmol/L Carbon Dioxide (21-33) mmol/L Anion Gap (10-20) BUN (7-21) mg/dL Creatinine (0.8-1.5) mg/dL Est GFR ( Amer) Est GFR (Non-Af Amer) POC Glucose (mg/dL) 197 H (65-110) mg/dL Random Glucose (70-110) mg/dL Calcium (8.4-10.5) mg/dL Phosphorus (2.5-4.5) mg/dL Magnesium (1.7-2.2) mg/dL Total Bilirubin (0.2-1.3) mg/dL AST (17-59) U/L ALT (7-56) U/L Alkaline Phosphatase (38-126) U/L Total Protein (5.8-8.3) g/dL Albumin (3.0-4.8) g/dL Globulin gm/dL Albumin/Globulin Ratio (1.1-1.8) Procalcitonin (0.19-0.49) NG/ML Urine Color (YELLOW) Urine Appearance (CLEAR) Urine pH (4.7-8.0) Ur Specific [place] (1.005-1.035) Urine Protein (<30 mg/dL) mg/dL Urine Glucose (UA) (NEGATIVE) mg/dL Urine Ketones (NEGATIVE) mg/dL Urine Blood (NEGATIVE) Urine Nitrate (NEGATIVE) Urine Bilirubin (NEGATIVE) Urine Urobilinogen (<1 E.U./dL) E.U./dL Ur Leukocyte Esterase (NEGATIVE) Beatriz/uL Urine RBC (0-2) /hpf Urine WBC (0-6) /hpf Ur Epithelial Cells (0-5) /hpf Urine Bacteria (NEG) Influenza Typ A,B (EIA) (NEGATIVE) 07/07/17 07/07/17 07/07/17 Range/Units 15:50 15:35 11:19 WBC (4.5-11.0) 10^3/ul RBC (3.5-6.1) 10^6/uL Hgb (14.0-18.0) g/dL Hct (42.0-52.0) % MCV (80.0-105.0) fl MCH (25.0-35.0) pg MCHC (31.0-37.0) g/dl RDW (11.5-14.5) % Plt Count (120.0-450.0) 10^3/uL MPV (7.0-11.0) fl Gran % (50.0-68.0) % Lymph % (Auto) (22.0-35.0) % [place] % (Auto) (1.0-6.0) % Eos % (Auto) (1.5-5.0) % Baso % (Auto) (0.0-3.0) % Gran # (1.4-6.5) Lymph # (1.2-3.4) [place] # (0.1-0.6) Eos # (0.0-0.7) Baso # (0.0-2.0) K/mm3 PT 13.8 H (9.4-12.5) SECONDS INR 1.26 H (0.93-1.08) APTT 28.9 (25.1-36.5) Seconds pCO2 (35-45) mm/Hg pO2 (80-100) mm/Hg HCO3 (21-28) mmol/L ABG pH (7.35-7.45) ABG Total CO2 (22-28) mmol.L ABG O2 Saturation (95-98) % ABG O2 Content (15-23) ML/dl ABG Base Excess (-2.0-3.0) mmol/L ABG Hemoglobin (11.7-17.4) g/dL ABG Carboxyhemoglobin (0.5-1.5) % POC ABG HHb (Measured) (0-5) % ABG Methemoglobin (0.0-3.0) % ABG O2 Capacity (16-24) mL/dl Hgb O2 Saturation (95.0-98.0) % FiO2 % Sodium (132-148) mmol/L Potassium (3.6-5.0) mmol/L Chloride (98-107) mmol/L Carbon Dioxide (21-33) mmol/L Anion Gap (10-20) BUN (7-21) mg/dL Creatinine (0.8-1.5) mg/dL Est GFR ( Amer) Est GFR (Non-Af Amer) POC Glucose (mg/dL) 210 H 212 H (65-110) mg/dL Random Glucose (70-110) mg/dL Calcium (8.4-10.5) mg/dL Phosphorus (2.5-4.5) mg/dL Magnesium (1.7-2.2) mg/dL Total Bilirubin (0.2-1.3) mg/dL AST (17-59) U/L ALT (7-56) U/L Alkaline Phosphatase (38-126) U/L Total Protein (5.8-8.3) g/dL Albumin (3.0-4.8) g/dL Globulin gm/dL Albumin/Globulin Ratio (1.1-1.8) Procalcitonin (0.19-0.49) NG/ML Urine Color (YELLOW) Urine Appearance (CLEAR) Urine pH (4.7-8.0) Ur Specific [place] (1.005-1.035) Urine Protein (<30 mg/dL) mg/dL Urine Glucose (UA) (NEGATIVE) mg/dL Urine Ketones (NEGATIVE) mg/dL Urine Blood (NEGATIVE) Urine Nitrate (NEGATIVE) Urine Bilirubin (NEGATIVE) Urine Urobilinogen (<1 E.U./dL) E.U./dL Ur Leukocyte Esterase (NEGATIVE) Beatriz/uL Urine RBC (0-2) /hpf Urine WBC (0-6) /hpf Ur Epithelial Cells (0-5) /hpf Urine Bacteria (NEG) Influenza Typ A,B (EIA) (NEGATIVE) 07/07/17 07/07/17 07/07/17 Range/Units 10:20 10:20 10:20 WBC (4.5-11.0) 10^3/ul RBC (3.5-6.1) 10^6/uL Hgb (14.0-18.0) g/dL Hct (42.0-52.0) % MCV (80.0-105.0) fl MCH (25.0-35.0) pg MCHC (31.0-37.0) g/dl RDW (11.5-14.5) % Plt Count (120.0-450.0) 10^3/uL MPV (7.0-11.0) fl Gran % (50.0-68.0) % Lymph % (Auto) (22.0-35.0) % [place] % (Auto) (1.0-6.0) % Eos % (Auto) (1.5-5.0) % Baso % (Auto) (0.0-3.0) % Gran # (1.4-6.5) Lymph # (1.2-3.4) [place] # (0.1-0.6) Eos # (0.0-0.7) Baso # (0.0-2.0) K/mm3 PT (9.4-12.5) SECONDS INR (0.93-1.08) APTT (25.1-36.5) Seconds pCO2 (35-45) mm/Hg pO2 (80-100) mm/Hg HCO3 (21-28) mmol/L ABG pH (7.35-7.45) ABG Total CO2 (22-28) mmol.L ABG O2 Saturation (95-98) % ABG O2 Content (15-23) ML/dl ABG Base Excess (-2.0-3.0) mmol/L ABG Hemoglobin (11.7-17.4) g/dL ABG Carboxyhemoglobin (0.5-1.5) % POC ABG HHb (Measured) (0-5) % ABG Methemoglobin (0.0-3.0) % ABG O2 Capacity (16-24) mL/dl Hgb O2 Saturation (95.0-98.0) % FiO2 % Sodium 142 (132-148) mmol/L Potassium 4.1 (3.6-5.0) mmol/L Chloride 106 (98-107) mmol/L Carbon Dioxide 25 (21-33) mmol/L Anion Gap 15 (10-20) BUN 27 H (7-21) mg/dL Creatinine 2.0 H (0.8-1.5) mg/dL Est GFR ( Amer) 40 Est GFR (Non-Af Amer) 33 POC Glucose (mg/dL) (65-110) mg/dL Random Glucose 209 H (70-110) mg/dL Calcium 9.5 (8.4-10.5) mg/dL Phosphorus 3.6 (2.5-4.5) mg/dL Magnesium 1.8 (1.7-2.2) mg/dL Total Bilirubin 1.9 H (0.2-1.3) mg/dL AST 32 (17-59) U/L ALT 36 (7-56) U/L Alkaline Phosphatase 96 (38-126) U/L Total Protein 7.7 (5.8-8.3) g/dL Albumin 4.3 (3.0-4.8) g/dL Globulin 3.5 gm/dL Albumin/Globulin Ratio 1.2 (1.1-1.8) Procalcitonin (0.19-0.49) NG/ML Urine Color Yellow (YELLOW) Urine Appearance Clear (CLEAR) Urine pH 5.5 (4.7-8.0) Ur Specific [place] >= 1.030 (1.005-1.035) Urine Protein 100 H (<30 mg/dL) mg/dL Urine Glucose (UA) 500 H (NEGATIVE) mg/dL Urine Ketones Negative (NEGATIVE) mg/dL Urine Blood Large H (NEGATIVE) Urine Nitrate Negative (NEGATIVE) Urine Bilirubin Negative (NEGATIVE) Urine Urobilinogen 0.2 (<1 E.U./dL) E.U./dL Ur Leukocyte Esterase Negative (NEGATIVE) Beatriz/uL Urine RBC Tntc (0-2) /hpf Urine WBC 0 - 2 (0-6) /hpf Ur Epithelial Cells 0 - 2 (0-5) /hpf Urine Bacteria Small (NEG) Influenza Typ A,B (EIA) Negative for flu a/b (NEGATIVE) 07/07/17 07/07/17 07/07/17 Range/Units 10:20 10:20 07:19 WBC 7.9 D (4.5-11.0) 10^3/ul RBC 4.05 (3.5-6.1) 10^6/uL Hgb 11.8 L (14.0-18.0) g/dL Hct 35.7 L (42.0-52.0) % MCV 88.1 (80.0-105.0) fl MCH 29.1 (25.0-35.0) pg MCHC 33.1 (31.0-37.0) g/dl RDW 14.0 (11.5-14.5) % Plt Count 145 (120.0-450.0) 10^3/uL MPV 10.2 (7.0-11.0) fl Gran % 76.6 H (50.0-68.0) % Lymph % (Auto) 10.3 L (22.0-35.0) % [place] % (Auto) 13.0 H (1.0-6.0) % Eos % (Auto) 0.0 L (1.5-5.0) % Baso % (Auto) 0.1 (0.0-3.0) % Gran # 6.07 (1.4-6.5) Lymph # 0.8 L (1.2-3.4) [place] # 1.0 H (0.1-0.6) Eos # 0.0 (0.0-0.7) Baso # 0.01 (0.0-2.0) K/mm3 PT (9.4-12.5) SECONDS INR (0.93-1.08) APTT (25.1-36.5) Seconds pCO2 (35-45) mm/Hg pO2 (80-100) mm/Hg HCO3 (21-28) mmol/L ABG pH (7.35-7.45) ABG Total CO2 (22-28) mmol.L ABG O2 Saturation (95-98) % ABG O2 Content (15-23) ML/dl ABG Base Excess (-2.0-3.0) mmol/L ABG Hemoglobin (11.7-17.4) g/dL ABG Carboxyhemoglobin (0.5-1.5) % POC ABG HHb (Measured) (0-5) % ABG Methemoglobin (0.0-3.0) % ABG O2 Capacity (16-24) mL/dl Hgb O2 Saturation (95.0-98.0) % FiO2 % Sodium (132-148) mmol/L Potassium (3.6-5.0) mmol/L Chloride (98-107) mmol/L Carbon Dioxide (21-33) mmol/L Anion Gap (10-20) BUN (7-21) mg/dL Creatinine (0.8-1.5) mg/dL Est GFR ( Amer) Est GFR (Non-Af Amer) POC Glucose (mg/dL) 210 H (65-110) mg/dL Random Glucose (70-110) mg/dL Calcium (8.4-10.5) mg/dL Phosphorus (2.5-4.5) mg/dL Magnesium (1.7-2.2) mg/dL Total Bilirubin (0.2-1.3) mg/dL AST (17-59) U/L ALT (7-56) U/L Alkaline Phosphatase (38-126) U/L Total Protein (5.8-8.3) g/dL Albumin (3.0-4.8) g/dL Globulin gm/dL Albumin/Globulin Ratio (1.1-1.8) Procalcitonin 0.20 (0.19-0.49) NG/ML Urine Color (YELLOW) Urine Appearance (CLEAR) Urine pH (4.7-8.0) Ur Specific [place] (1.005-1.035) Urine Protein (<30 mg/dL) mg/dL Urine Glucose (UA) (NEGATIVE) mg/dL Urine Ketones (NEGATIVE) mg/dL Urine Blood (NEGATIVE) Urine Nitrate (NEGATIVE) Urine Bilirubin (NEGATIVE) Urine Urobilinogen (<1 E.U./dL) E.U./dL Ur Leukocyte Esterase (NEGATIVE) Beatriz/uL Urine RBC (0-2) /hpf Urine WBC (0-6) /hpf Ur Epithelial Cells (0-5) /hpf Urine Bacteria (NEG) Influenza Typ A,B (EIA) (NEGATIVE) Laboratory Results - last 24 hr 07/07/17 07/07/17 07/07/17 07:19 10:20 10:20 WBC 7.9 D RBC 4.05 Hgb 11.8 L Hct 35.7 L MCV 88.1 MCH 29.1 MCHC 33.1 RDW 14.0 Plt Count 145 MPV 10.2 Gran % 76.6 H Lymph % (Auto) 10.3 L [place] % (Auto) 13.0 H Eos % (Auto) 0.0 L Baso % (Auto) 0.1 Gran # 6.07 Lymph # 0.8 L [place] # 1.0 H Eos # 0.0 Baso # 0.01 PT INR APTT pCO2 pO2 HCO3 ABG pH ABG Total CO2 ABG O2 Saturation ABG O2 Content ABG Base Excess ABG Hemoglobin ABG Carboxyhemoglobin POC ABG HHb (Measured) ABG Methemoglobin ABG O2 Capacity Hgb O2 Saturation FiO2 Sodium Potassium Chloride Carbon Dioxide Anion Gap BUN Creatinine Est GFR ( Amer) Est GFR (Non-Af Amer) POC Glucose (mg/dL) 210 H Random Glucose Calcium Phosphorus Magnesium Total Bilirubin AST ALT Alkaline Phosphatase Total Protein Albumin Globulin Albumin/Globulin Ratio Procalcitonin 0.20 Urine Color Urine Appearance Urine pH Ur Specific [place] Urine Protein Urine Glucose (UA) Urine Ketones Urine Blood Urine Nitrate Urine Bilirubin Urine Urobilinogen Ur Leukocyte Esterase Urine RBC Urine WBC Ur Epithelial Cells Urine Bacteria Influenza Typ A,B (EIA) 07/07/17 07/07/17 07/07/17 10:20 10:20 10:20 WBC RBC Hgb Hct MCV MCH MCHC RDW Plt Count MPV Gran % Lymph % (Auto) [place] % (Auto) Eos % (Auto) Baso % (Auto) Gran # Lymph # [place] # Eos # Baso # PT INR APTT pCO2 pO2 HCO3 ABG pH ABG Total CO2 ABG O2 Saturation ABG O2 Content ABG Base Excess ABG Hemoglobin ABG Carboxyhemoglobin POC ABG HHb (Measured) ABG Methemoglobin ABG O2 Capacity Hgb O2 Saturation FiO2 Sodium 142 Potassium 4.1 Chloride 106 Carbon Dioxide 25 Anion Gap 15 BUN 27 H Creatinine 2.0 H Est GFR ( Amer) 40 Est GFR (Non-Af Amer) 33 POC Glucose (mg/dL) Random Glucose 209 H Calcium 9.5 Phosphorus 3.6 Magnesium 1.8 Total Bilirubin 1.9 H AST 32 ALT 36 Alkaline Phosphatase 96 Total Protein 7.7 Albumin 4.3 Globulin 3.5 Albumin/Globulin Ratio 1.2 Procalcitonin Urine Color Yellow Urine Appearance Clear Urine pH 5.5 Ur Specific [place] >= 1.030 Urine Protein 100 H Urine Glucose (UA) 500 H Urine Ketones Negative Urine Blood Large H Urine Nitrate Negative Urine Bilirubin Negative Urine Urobilinogen 0.2 Ur Leukocyte Esterase Negative Urine RBC Tntc Urine WBC 0 - 2 Ur Epithelial Cells 0 - 2 Urine Bacteria Small Influenza Typ A,B (EIA) Negative for flu a/b 07/07/17 07/07/17 07/07/17 11:19 15:35 15:50 WBC RBC Hgb Hct MCV MCH MCHC RDW Plt Count MPV Gran % Lymph % (Auto) [place] % (Auto) Eos % (Auto) Baso % (Auto) Gran # Lymph # [place] # Eos # Baso # PT 13.8 H INR 1.26 H APTT 28.9 pCO2 pO2 HCO3 ABG pH ABG Total CO2 ABG O2 Saturation ABG O2 Content ABG Base Excess ABG Hemoglobin ABG Carboxyhemoglobin POC ABG HHb (Measured) ABG Methemoglobin ABG O2 Capacity Hgb O2 Saturation FiO2 Sodium Potassium Chloride Carbon Dioxide Anion Gap BUN Creatinine Est GFR ( Amer) Est GFR (Non-Af Amer) POC Glucose (mg/dL) 212 H 210 H Random Glucose Calcium Phosphorus Magnesium Total Bilirubin AST ALT Alkaline Phosphatase Total Protein Albumin Globulin Albumin/Globulin Ratio Procalcitonin Urine Color Urine Appearance Urine pH Ur Specific [place] Urine Protein Urine Glucose (UA) Urine Ketones Urine Blood Urine Nitrate Urine Bilirubin Urine Urobilinogen Ur Leukocyte Esterase Urine RBC Urine WBC Ur Epithelial Cells Urine Bacteria Influenza Typ A,B (EIA) 07/07/17 07/07/17 07/08/17 22:03 22:40 02:15 WBC RBC Hgb Hct MCV MCH MCHC RDW Plt Count MPV Gran % Lymph % (Auto) [place] % (Auto) Eos % (Auto) Baso % (Auto) Gran # Lymph # [place] # Eos # Baso # PT INR APTT pCO2 36 38 pO2 71.0 L 105.0 H HCO3 22.8 23.5 ABG pH 7.41 7.40 ABG Total CO2 23.9 24.7 ABG O2 Saturation 97.9 99.7 H ABG O2 Content 16.5 16.0 ABG Base Excess -1.4 -1.1 ABG Hemoglobin 12.4 11.7 ABG Carboxyhemoglobin 2.4 H 2.1 H POC ABG HHb (Measured) 2.0 0.3 ABG Methemoglobin 1.1 1.1 ABG O2 Capacity 16.9 16.0 Hgb O2 Saturation 94.5 L 96.5 FiO2 32.0 60.0 Sodium Potassium Chloride Carbon Dioxide Anion Gap BUN Creatinine Est GFR ( Amer) Est GFR (Non-Af Amer) POC Glucose (mg/dL) 197 H Random Glucose Calcium Phosphorus Magnesium Total Bilirubin AST ALT Alkaline Phosphatase Total Protein Albumin Globulin Albumin/Globulin Ratio Procalcitonin Urine Color Urine Appearance Urine pH Ur Specific [place] Urine Protein Urine Glucose (UA) Urine Ketones Urine Blood Urine Nitrate Urine Bilirubin Urine Urobilinogen Ur Leukocyte Esterase Urine RBC Urine WBC Ur Epithelial Cells Urine Bacteria Influenza Typ A,B (EIA) 07/08/17 07/08/17 07/08/17 06:00 06:00 07:31 WBC 9.2 RBC 4.10 Hgb 11.7 L Hct 36.5 L MCV 89.0 MCH 28.5 MCHC 32.1 RDW 13.9 Plt Count 148 MPV 10.3 Gran % 73.0 H Lymph % (Auto) 15.9 L [place] % (Auto) 10.8 H Eos % (Auto) 0.1 L Baso % (Auto) 0.2 Gran # 6.72 H Lymph # 1.5 [place] # 1.0 H Eos # 0.0 Baso # 0.02 PT INR APTT pCO2 pO2 HCO3 ABG pH ABG Total CO2 ABG O2 Saturation ABG O2 Content ABG Base Excess ABG Hemoglobin ABG Carboxyhemoglobin POC ABG HHb (Measured) ABG Methemoglobin ABG O2 Capacity Hgb O2 Saturation FiO2 Sodium 141 Potassium 4.1 Chloride 105 Carbon Dioxide 29 Anion Gap 11 BUN 31 H Creatinine 2.1 H Est GFR ( Amer) 38 Est GFR (Non-Af Amer) 31 POC Glucose (mg/dL) 154 H Random Glucose 168 H Calcium 9.0 Phosphorus 2.8 Magnesium 2.0 Total Bilirubin 2.7 H AST 43 ALT 36 Alkaline Phosphatase 86 Total Protein 7.5 Albumin 4.1 Globulin 3.4 Albumin/Globulin Ratio 1.2 Procalcitonin Urine Color Urine Appearance Urine pH Ur Specific [place] Urine Protein Urine Glucose (UA) Urine Ketones Urine Blood Urine Nitrate Urine Bilirubin Urine Urobilinogen Ur Leukocyte Esterase Urine RBC Urine WBC Ur Epithelial Cells Urine Bacteria Influenza Typ A,B (EIA) Assessment/Plan - Assessment and Plan (Free Text) Plan: Patient seen and examined, with resident, agree with note, with following additions/exceptions: Patient is 72yo male with PMHx of CAD a/w acute CVA of Right MCA territory, s/p tPA (full dose not give 2/2 allergic reaction). Patient yesterday had repeat CTH x 2, which showed hemorrhagic conversion of CVA, R sided. Neurology and neurosurgery following. Last night, patients mental status worsened, more altered, unable to protect airway, intubated for airway protection. Currently intubated, sedated on FiO2 50%, PEEP 5, afebrile, HD stable, comfortable.CXR reviewed no consolidation Acute CVA CAD Respiratory failure recommend: - cont with ventilatory support, low tidal vol ventilation, goal Plateau<30 - Ghassan PRN - monitor HH - follow up neurology, neurosurgery - BP control - Keppra for seizure ppx - ECHO - penitentiary planning, may require PEG/Trach - GI ppx - DVT ppx, SCDs - FS control - Start feeds critical care time 40 minutes
--- NOTE | 2017-07-08 09:37 | CP.PCM.PN ---
<Dom Del Toro - Last Filed: 07/08/17 10:53> Subjective - Date & Time of Evaluation Date of Evaluation: 07/08/17 Time of Evaluation: 09:34 - Subjective Subjective: Neurology progress note for Dr. Duval's service - Gaurang Del Toro PGY2 Patient seen and examined at bedside this morning. Discussed with ICU team. Patient was intubated overnight. Presently intubated and sedated on propofol drip. Repeat CT Head reviewed. Consistent with hemorrhagic conversion of ischemic CVA post tPA administration. ROS limited due to patient status. Objective - Vital Signs/Intake and Output Vital Signs (last 24 hours): Temp Pulse Resp BP Pulse Ox 99.9 F H 94 H 21 125/65 100 07/08/17 06:59 07/08/17 06:59 07/08/17 06:59 07/08/17 07:00 07/08/17 06:59 Intake and Output: 07/08/17 07/08/17 06:59 18:59 Intake Total 925 Output Total 400 Balance 525 - Medications Medications: Current Medications Acetaminophen (Ofirmev) 1,000 mg in 100 mls @ 400 mls/hr IVPB Q6H PRN PRN Reason: fever >100.4 Stop: 07/09/17 00:15 Last Admin: 07/07/17 22:49 Dose: 400 mls/hr Nicardipine HCl (Cardene Iv Premix) 20 mg in 200 mls @ 50 mls/hr IV .Q4H PRN; Protocol; 5 MG/HR PRN Reason: TITRATE PER MD ORDER Last Titration: 07/08/17 01:00 Dose: 5 mg/hr, 50 mls/hr Levetiracetam (Keppra 500mg Ivpb) 500 mg in 100 mls @ 200 mls/hr IVPB Q12H ANNALEE Last Admin: 07/08/17 03:46 Dose: 200 mls/hr Propofol (Diprivan) 1,000 mg in 100 mls @ 3.103 mls/hr IV .Q24H PRN; Protocol; 5 MCG/KG/MIN PRN Reason: TITRATE PER MD ORDER Last Admin: 07/08/17 00:30 Dose: 10 mcg/kg/min, 6.205 mls/hr Sodium Chloride (Sodium Chloride 0.45%) 1,000 mls @ 50 mls/hr IV .Q20H ANNALEE Last Admin: 07/08/17 08:30 Dose: 50 mls/hr Cefepime HCl (Maxipime 2gm) 2 gm in 100 mls @ 100 mls/hr IVPB Q12 ANNALEE PRN Reason: Protocol Stop: 07/13/17 10:01 Vancomycin HCl (Vancomycin 1gm) 1 gm in 250 mls @ 167 mls/hr IVPB ONCE ONE PRN Reason: Protocol Stop: 07/08/17 10:41 Labetalol HCl (Trandate) 10 mg IV Q4H PRN PRN Reason: SBP>195, DBP >95 Last Admin: 07/06/17 20:33 Dose: 10 mg Ondansetron HCl (Zofran Inj) 4 mg IVP Q6H PRN PRN Reason: Nausea/Vomiting Last Admin: 07/06/17 21:55 Dose: 4 mg Pantoprazole Sodium (Protonix Inj) 40 mg IVP DAILY ANNALEE Last Admin: 07/07/17 15:33 Dose: 40 mg - Labs Labs: 07/08/17 06:00 07/08/17 06:00 PT 13.8 SECONDS (9.4-12.5) H 07/07/17 15:35 INR 1.26 (0.93-1.08) H 07/07/17 15:35 APTT 28.9 Seconds (25.1-36.5) 07/07/17 15:35 - Constitutional Appears: Chronically Ill - Head Exam Head Exam: ATRAUMATIC, NORMOCEPHALIC - Eye Exam Eye Exam: PERRL - ENT Exam ENT Exam: Mucous Membranes Moist - Neck Exam Neck Exam: Normal Inspection. absent: Lymphadenopathy, Thyromegaly - Respiratory Exam Respiratory Exam: Clear to Ausculation Bilateral. absent: Rales, Rhonchi, Wheezes - Cardiovascular Exam Cardiovascular Exam: RRR, +S1, +S2. absent: Gallop, JVD, Rubs - GI/Abdominal Exam GI & Abdominal Exam: Soft. absent: Distended, Firm, Guarding, Rigid, Tenderness , Rebound - Neurological Exam Neurological Exam: absent: Alert, Awake Additional comments: intubated and sedated on propofol drip PERRL spontaneous movement of RUE and RLE - Skin Skin Exam: Dry, Intact, Normal Color, Warm Assessment and Plan - Assessment and Plan (Free Text) Plan: 72yo male with history of colon ca s/p partial colectomy, hypertension and hyperlipidemia presents to [facility] with acute cerebrovascular accident secondary to right MCA infarct 1. Acute CVA 2. Hypertension 3. Hyperlipidemia 4. CAD s/p stent placement 5. Hx of colon ca s/p partial colectomy -Patient originally presented with Acute CVA secondary to right middle cerebral artery infarct due to diffuse atherosclerotic disease -Presently repeat Head CT is consistent with hemorrhagic conversion of the right MCA infarct secondary to hypertensive disease s/p tPA administration -Brain MRI reviewed; revealed R. MCA infarct and punctate hemorrhage in the right posterior parietal occipital lobe; -No aspirin/plavix for 3 weeks -Recommend Keppra 500mg IV q12h for seizure prophylaxis -Recommend follow up neurosurgery recommendations -Monitor closely for signs of increasing ICP -Maintain blood pressure between 120-130's -Recommend echocardiogram for evaluation of underlying cardiomyopathy -Fever in the setting of acute stroke is correlated with worse outcome, therefore maintain normothermia; continue with IV ofirmev -Physical therapy/Occupational therapy evaluation -Speech/Swallow evaluation -Neurochecks q1h -Continue present medical management as per ICU team Patient seen and case discussed/reviewed with attending, Dr. Duval <Volodymyr Duval - Last Filed: 07/08/17 13:31> Objective - Vital Signs/Intake and Output Vital Signs (last 24 hours): Temp Pulse Resp BP Pulse Ox 100.8 F H 87 20 142/65 99 07/08/17 10:30 07/08/17 10:30 07/08/17 10:30 07/08/17 10:30 07/08/17 10:30 Intake and Output: 07/08/17 07/08/17 06:59 18:59 Intake Total 925 100 Output Total 400 Balance 525 100 - Medications Medications: Current Medications Acetaminophen (Ofirmev) 1,000 mg in 100 mls @ 400 mls/hr IVPB Q6H PRN PRN Reason: fever >100.4 Stop: 07/09/17 00:15 Last Admin: 07/08/17 12:03 Dose: 400 mls/hr Nicardipine HCl (Cardene Iv Premix) 20 mg in 200 mls @ 50 mls/hr IV .Q4H PRN; Protocol; 5 MG/HR PRN Reason: TITRATE PER MD ORDER Last Titration: 07/08/17 01:00 Dose: 5 mg/hr, 50 mls/hr Levetiracetam (Keppra 500mg Ivpb) 500 mg in 100 mls @ 200 mls/hr IVPB Q12H ANNALEE Last Admin: 07/08/17 03:46 Dose: 200 mls/hr Propofol (Diprivan) 1,000 mg in 100 mls @ 3.103 mls/hr IV .Q24H PRN; Protocol; 5 MCG/KG/MIN PRN Reason: TITRATE PER MD ORDER Last Admin: 07/08/17 12:13 Dose: 10 mcg/kg/min, 6.205 mls/hr Sodium Chloride (Sodium Chloride 0.45%) 1,000 mls @ 50 mls/hr IV .Q20H ANNALEE Last Admin: 07/08/17 08:30 Dose: 50 mls/hr Cefepime HCl (Maxipime 2gm) 2 gm in 100 mls @ 100 mls/hr IVPB Q12 ANNALEE PRN Reason: Protocol Stop: 07/13/17 10:01 Labetalol HCl (Trandate) 10 mg IV Q4H PRN PRN Reason: SBP>195, DBP >95 Last Admin: 07/06/17 20:33 Dose: 10 mg Ondansetron HCl (Zofran Inj) 4 mg IVP Q6H PRN PRN Reason: Nausea/Vomiting Last Admin: 07/06/17 21:55 Dose: 4 mg Pantoprazole Sodium (Protonix Inj) 40 mg IVP DAILY ANNALEE Last Admin: 07/08/17 09:22 Dose: 40 mg - Labs Labs: 07/08/17 06:00 07/08/17 06:00 PT 13.8 SECONDS (9.4-12.5) H 07/07/17 15:35 INR 1.26 (0.93-1.08) H 07/07/17 15:35 APTT 28.9 Seconds (25.1-36.5) 07/07/17 15:35 Attending/Attestation - Attestation I have personally seen and examined this patient.: Yes I have fully participated in the care of the patient.: Yes I have reviewed all pertinent clinical information, including history, physical exam and plan: Yes
--- NOTE | 2017-07-08 10:25 | CP.PCM.PN ---
Subjective - Date & Time of Evaluation Date of Evaluation: 07/08/17 Time of Evaluation: 09:30 - Subjective Subjective: Still having fevers, now intubated because of agitation and for airway protection. Objective - Vital Signs/Intake and Output Vital Signs (last 24 hours): Temp Pulse Resp BP Pulse Ox 99.9 F H 94 H 21 125/65 100 07/08/17 06:59 07/08/17 06:59 07/08/17 06:59 07/08/17 07:00 07/08/17 06:59 Intake and Output: 07/08/17 07/08/17 06:59 18:59 Intake Total 925 Output Total 400 Balance 525 - Medications Medications: Current Medications Acetaminophen (Ofirmev) 1,000 mg in 100 mls @ 400 mls/hr IVPB Q6H PRN PRN Reason: fever >100.4 Stop: 07/09/17 00:15 Last Admin: 07/07/17 22:49 Dose: 400 mls/hr Nicardipine HCl (Cardene Iv Premix) 20 mg in 200 mls @ 50 mls/hr IV .Q4H PRN; Protocol; 5 MG/HR PRN Reason: TITRATE PER MD ORDER Last Titration: 07/08/17 01:00 Dose: 5 mg/hr, 50 mls/hr Levetiracetam (Keppra 500mg Ivpb) 500 mg in 100 mls @ 200 mls/hr IVPB Q12H ANNALEE Last Admin: 07/08/17 03:46 Dose: 200 mls/hr Propofol (Diprivan) 1,000 mg in 100 mls @ 3.103 mls/hr IV .Q24H PRN; Protocol; 5 MCG/KG/MIN PRN Reason: TITRATE PER MD ORDER Last Admin: 07/08/17 00:30 Dose: 10 mcg/kg/min, 6.205 mls/hr Labetalol HCl (Trandate) 10 mg IV Q4H PRN PRN Reason: SBP>195, DBP >95 Last Admin: 07/06/17 20:33 Dose: 10 mg Ondansetron HCl (Zofran Inj) 4 mg IVP Q6H PRN PRN Reason: Nausea/Vomiting Last Admin: 07/06/17 21:55 Dose: 4 mg Pantoprazole Sodium (Protonix Inj) 40 mg IVP DAILY ANNALEE Last Admin: 07/07/17 15:33 Dose: 40 mg - Labs Labs: 07/07/17 10:20 07/07/17 10:20 PT 13.8 SECONDS (9.4-12.5) H 07/07/17 15:35 INR 1.26 (0.93-1.08) H 07/07/17 15:35 APTT 28.9 Seconds (25.1-36.5) 07/07/17 15:35 - Constitutional Appears: Other (intubated, sedated) - ENT Exam Additional comments: Et tube in place - Neck Exam Neck Exam: absent: Meningismus - Respiratory Exam Respiratory Exam: Decreased Breath Sounds, Rales (scattered) - Cardiovascular Exam Cardiovascular Exam: +S1, +S2 - GI/Abdominal Exam GI & Abdominal Exam: Soft. absent: Tenderness Assessment and Plan - Assessment and Plan (Free Text) Plan: Assessment Systemic Inflammatory response syndrome (fever and tachycardia), consider due to acute right sided CVA R/O pneumonia, aspiration DM chronic renal failure obesity with BMI 33 history of colon cancer Plan follow up blood cx, urine cx; repeat CXR from yesterday suggested some infiltrates which were not clearly seen on the CXR after he was intubated last night (CXR from admission did not reveal infiltrates); WBC count is normal; PCT is 0.2 - in the interim, will give a dose of IV Vancomycin and start Cefepime and will check serial CXR's will monitor clinically
[2017-07-08] MEDS: Cefepime IV 2 gm in NS 2 GM/100 ML BAG IVPB SCH ×2 (13:32→21:36)
--- NOTE | 2017-07-09 00:06 | PN ---
DATE: 07/08/2017 SUBJECTIVE: The patient is intubated. The events from overnight were reviewed. I did speak to the overnight nurse. PHYSICAL EXAMINATION VITAL SIGNS: Temperature 99, pulse of 68, blood pressure 139/68, respirations 13. GENERAL: The patient is lying in bed, flat, comfortable. HEENT: Positive ET tube. NECK: No JVD, adenopathy, or thyromegaly. CARDIOVASCULAR: S1 and S2, regular. No murmurs, rubs, or gallops. LUNGS: Clear to auscultation bilaterally. No wheeze, rales, or rhonchi. ABDOMEN: Bowel sounds are positive, soft, nontender and nondistended. EXTREMITIES: No cyanosis, clubbing or edema. NEUROLOGIC: No movement in the left arm and left leg. ASSESSMENT: 1. Acute right middle cerebral artery stroke. 2. Chronic kidney disease stage III. 3. Respiratory failure, on ventilator. 4. Hypertensive emergency, improved. 5. 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 6. Diabetic type 2. 7. Hypertension. 8. Dyslipidemia. PLAN: The patient is currently comfortable. He is currently on cefepime for antibiotics. The patient has been on nicardipine for blood pressure management. The patient is on Protonix daily. He is not able to get DVT prophylaxis with low-molecular weight heparin because of the hemorrhagic bleed and the patient n.p.o. I did speak to patient's , Carol, who is a nurse, to give an update on the patient's diagnoses and plan of care. The patient is not on aspirin or Plavix because of the bleed as well. He was then started on Keppra for seizure prophylaxis. The patient will need physical therapy. The patient remains critically ill. I appreciate the input from Dr. Duval from Neurology. Overall prognosis is guarded. Jani Hernandez MD
[2017-07-09] MEDS: Propofol 10 mg/ml 1,000 MG/100 ML VIAL IV PRN ×3 (02:30→19:53)
[2017-07-09] MEDS: levETIRAcetam 500mg IVPB 500 MG/100 ML BAG IVPB SCH ×2 (03:46→15:42)
[2017-07-09] MEDS: Sodium Chloride 0.45% 1,000 ML IV SCH (06:02)
[2017-07-09 06:34] LABS: ARTERIAL BLOOD GAS HCO3 25.7 mmol/L (21-28); ARTERIAL BLOOD GAS O2 CAPACITY 13.6 mL/dl (16-24); ARTERIAL BLOOD GAS O2 CONTENT 13.5 ML/dl (15-23); ARTERIAL BLOOD GAS PH 7.45 (7.35-7.45); ARTERIAL BLOOD HGB O2 SAT 96.5 % (95.0-98.0); CARBOXYHEMOGLOBIN 2.1 % (0.5-1.5); HHB 0.5 % (0-5); METHEMOGLOBIN 0.9 % (0.0-3.0)
[2017-07-09 07:10] LABS: BASO # 0.02 K/mm3 (0.0-2.0); BASO % 0.3 % (0.0-3.0); EOS % 0.3 % (1.5-5.0); GRAN # 6.1 (1.4-6.5); GRAN % 76.7 % (50.0-68.0); HEMATOCRIT 37.6 % (42.0-52.0); LYMPH % 13.1 % (22.0-35.0); MEAN CELL VOLUME 89.7 fl (80.0-105.0); MEAN CORPUSCULAR HEMOGLOBIN 28.9 pg (25.0-35.0); MEAN CORPUSCULAR HGB CONC 32.2 g/dl (31.0-37.0); MEAN PLATELET VOLUME 11.1 fl (7.0-11.0); MONO # 0.8 (0.1-0.6); MONO % 9.6 % (1.0-6.0); RED CELL DISTRIBUTION WIDTH 13.9 % (11.5-14.5); WHITE BLOOD COUNT 7.9 10^3/ul (4.5-11.0)
[2017-07-09 07:35] LABS: ALB/GLOB RATIO 1.1 (1.1-1.8); BILIRUBIN,TOTAL 2.2 mg/dL (0.2-1.3); CALCIUM 8.8 mg/dL (8.4-10.5); PHOSPHOROUS 2.6 mg/dL (2.5-4.5); POTASSIUM 4.3 mmol/L (3.6-5.0); TOTAL PROTEIN 7.6 g/dL (5.8-8.3)
--- NOTE | 2017-07-09 09:20 | PN ---
DATE: SUBJECTIVE: The patient has no complaints. The patient is intubated. PHYSICAL EXAMINATION VITAL SIGNS: Temperature is 100.1, pulse is 70, blood pressure is 149/49, and respirations are 20. GENERAL: The patient is lying in bed, flat, comfortable. HEENT: No oral lesion. Anicteric sclerae. Moist mucosa. NECK: No JVD, adenopathy, or thyromegaly. CARDIOVASCULAR: S1 and S2, regular. No murmurs, rubs, or gallops. LUNGS: Clear to auscultation bilaterally. No wheeze, rales, or rhonchi. ABDOMEN: Bowel sounds are positive, soft, nontender and nondistended. EXTREMITIES: No cyanosis, clubbing or edema. LABORATORY DATA: White count is 7.9 and hemoglobin 12.1. Creatinine is 1.6. ASSESSMENT: 1. Right middle cerebral artery stroke. 2. 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 3. Respiratory failure, on ventilator. 4. Chronic kidney disease stage III. 5. Hypertensive emergency, improved. 6. Diabetes type 2. 7. Hypertension. 8. Dyslipidemia. PLAN: The patient continues to have fevers. Blood cultures and urine cultures have been negative. The patient is being followed by ID. The patient is on IV fluids. The creatinine was elevated at 2.1, it has improved to 1.6, which is his baseline. Possibly, the patient is on levetiracetam for prophylaxis seizures. The patient is on cefepime for antibiotics. He is receiving sedation with propofol. The patient is on Protonix IV. He is currently n.p.o. I did fill out paperwork from the patient's for leave in order to take care of her . She is nurse at the hospital. I did speak to the hotel general manager regarding the case. We will continue to follow closely. The patient remains critical. I am concerned that the patient is having central fevers. Fever is consistently associated with worse outcome across multiple outcome measures. Jani Hernandez MD
--- NOTE | 2017-07-09 09:43 | RAD ---
HISTORY: Intubated COMPARISON: 07/07/2017 FINDINGS: LUNGS: No active pulmonary disease. PLEURA: No significant pleural effusion identified, no pneumothorax apparent. CARDIOVASCULAR: Mild cardiomegaly left ventricular enlargement configuration -similar OSSEOUS STRUCTURES: Thoraco lumbar spondylosis VISUALIZED UPPER ABDOMEN: Normal. OTHER FINDINGS: Endotracheal tube tip approximately 5 cm proximal to the rocío -at upper clavicle borders and similar level noted previously IMPRESSION: No interval pathology noted. Endotracheal tube position as a above.
[2017-07-09] MEDS: Cefepime IV 2 gm in NS 2 GM/100 ML BAG IVPB SCH ×2 (10:17→21:11)
--- NOTE | 2017-07-09 10:22 | CP.PCM.PN ---
Subjective - Date & Time of Evaluation Date of Evaluation: 07/09/17 Time of Evaluation: 09:50 - Subjective Subjective: Patient is still having intermittent fevers, still on the ventilator, has voluntary extremity movement but not purposeful and does not respond appropriately to commands. Objective - Vital Signs/Intake and Output Vital Signs (last 24 hours): Temp Pulse Resp BP Pulse Ox 100.1 F H 70 20 149/49 L 100 07/09/17 04:00 07/09/17 06:00 07/09/17 05:40 07/09/17 05:00 07/09/17 05:40 Intake and Output: 07/09/17 07/09/17 06:59 18:59 Intake Total 980 Output Total 900 Balance 80 - Medications Medications: Current Medications Nicardipine HCl (Cardene Iv Premix) 20 mg in 200 mls @ 50 mls/hr IV .Q4H PRN; Protocol; 5 MG/HR PRN Reason: TITRATE PER MD ORDER Last Titration: 07/08/17 01:00 Dose: 5 mg/hr, 50 mls/hr Levetiracetam (Keppra 500mg Ivpb) 500 mg in 100 mls @ 200 mls/hr IVPB Q12H ANNALEE Last Admin: 07/09/17 03:46 Dose: 200 mls/hr Propofol (Diprivan) 1,000 mg in 100 mls @ 3.103 mls/hr IV .Q24H PRN; Protocol; 5 MCG/KG/MIN PRN Reason: TITRATE PER MD ORDER Last Admin: 07/09/17 02:30 Dose: 30 mcg/kg/min, 18.615 mls/hr Sodium Chloride (Sodium Chloride 0.45%) 1,000 mls @ 50 mls/hr IV .Q20H ANNALEE Last Admin: 07/09/17 06:02 Dose: 50 mls/hr Cefepime HCl (Maxipime 2gm) 2 gm in 100 mls @ 100 mls/hr IVPB Q12 ANNALEE PRN Reason: Protocol Stop: 07/13/17 10:01 Last Admin: 07/08/17 21:36 Dose: 100 mls/hr Acetaminophen (Ofirmev) 1,000 mg in 100 mls @ 400 mls/hr IVPB Q8H PRN PRN Reason: Temperature Stop: 07/11/17 05:57 Last Admin: 07/09/17 06:09 Dose: 400 mls/hr Labetalol HCl (Trandate) 10 mg IV Q4H PRN PRN Reason: SBP>195, DBP >95 Last Admin: 07/06/17 20:33 Dose: 10 mg Ondansetron HCl (Zofran Inj) 4 mg IVP Q6H PRN PRN Reason: Nausea/Vomiting Last Admin: 07/06/17 21:55 Dose: 4 mg Pantoprazole Sodium (Protonix Inj) 40 mg IVP DAILY ANNALEE Last Admin: 07/08/17 09:22 Dose: 40 mg - Labs Labs: 07/08/17 06:00 07/08/17 06:00 PT 13.8 SECONDS (9.4-12.5) H 07/07/17 15:35 INR 1.26 (0.93-1.08) H 07/07/17 15:35 APTT 28.9 Seconds (25.1-36.5) 07/07/17 15:35 - Constitutional Appears: Other (intubated and on the ventilator) - ENT Exam Additional comments: ET tube in place - Respiratory Exam Respiratory Exam: Decreased Breath Sounds. absent: Rales, Rhonchi - Cardiovascular Exam Cardiovascular Exam: +S1, +S2 - GI/Abdominal Exam GI & Abdominal Exam: Soft. absent: Tenderness Assessment and Plan - Assessment and Plan (Free Text) Plan: Assessment Systemic Inflammatory response syndrome (fever and tachycardia), consider due to acute right sided CVA with hemorrhage; so far no evidence of pneumonia on serial CXR's; R/O sepsis so far no source infection identified DM chronic renal failure obesity with BMI 33 history of colon cancer Plan follow up final blood cx, urine cx; repeat CXR from today does not show infiltrates; WBC count is normal; PCT is 0.2 - in the interim, we have given a dose of IV Vancomycin and continue Cefepime day 2 and will continue to check serial CXR's will continue to monitor clinically
--- NOTE | 2017-07-09 10:30 | CP.PCM.PN ---
<Dom Del Toro - Last Filed: 07/09/17 13:49> Subjective - Date & Time of Evaluation Date of Evaluation: 07/09/17 Time of Evaluation: 10:26 - Subjective Subjective: Neurology progress note for Dr. Duval's service - Gaurang Del Toro PGY2 Patient seen and examined this morning. No acute overnight events or new complaints reported. Patient has spontaneous movement of right upper and lower extremity. No movement of the left upper or lower extremity. Sensation appears intact. Patient was awake and alert on examination despite propofol drip. Objective - Vital Signs/Intake and Output Vital Signs (last 24 hours): Temp Pulse Resp BP Pulse Ox 100.1 F H 70 20 149/49 L 100 07/09/17 04:00 07/09/17 06:00 07/09/17 05:40 07/09/17 05:00 07/09/17 05:40 Intake and Output: 07/09/17 07/09/17 06:59 18:59 Intake Total 980 100 Output Total 900 Balance 80 100 - Medications Medications: Current Medications Nicardipine HCl (Cardene Iv Premix) 20 mg in 200 mls @ 50 mls/hr IV .Q4H PRN; Protocol; 5 MG/HR PRN Reason: TITRATE PER MD ORDER Last Titration: 07/08/17 01:00 Dose: 5 mg/hr, 50 mls/hr Levetiracetam (Keppra 500mg Ivpb) 500 mg in 100 mls @ 200 mls/hr IVPB Q12H [facility] Last Admin: 07/09/17 03:46 Dose: 200 mls/hr Propofol (Diprivan) 1,000 mg in 100 mls @ 3.103 mls/hr IV .Q24H PRN; Protocol; 5 MCG/KG/MIN PRN Reason: TITRATE PER MD ORDER Last Admin: 07/09/17 07:49 Dose: 30 mcg/kg/min, 18.615 mls/hr Sodium Chloride (Sodium Chloride 0.45%) 1,000 mls @ 50 mls/hr IV .Q20H ANNALEE Last Admin: 07/09/17 06:02 Dose: 50 mls/hr Cefepime HCl (Maxipime 2gm) 2 gm in 100 mls @ 100 mls/hr IVPB Q12 ANNALEE PRN Reason: Protocol Stop: 07/13/17 10:01 Last Admin: 07/09/17 10:17 Dose: 100 mls/hr Acetaminophen (Ofirmev) 1,000 mg in 100 mls @ 400 mls/hr IVPB Q8H PRN PRN Reason: Temperature Stop: 07/11/17 05:57 Last Admin: 07/09/17 06:09 Dose: 400 mls/hr Labetalol HCl (Trandate) 10 mg IV Q4H PRN PRN Reason: SBP>195, DBP >95 Last Admin: 07/06/17 20:33 Dose: 10 mg Ondansetron HCl (Zofran Inj) 4 mg IVP Q6H PRN PRN Reason: Nausea/Vomiting Last Admin: 07/06/17 21:55 Dose: 4 mg Pantoprazole Sodium (Protonix Inj) 40 mg IVP DAILY ANNALEE Last Admin: 07/09/17 10:11 Dose: 40 mg - Labs Labs: 07/09/17 06:50 07/09/17 06:50 PT 13.8 SECONDS (9.4-12.5) H 07/07/17 15:35 INR 1.26 (0.93-1.08) H 07/07/17 15:35 APTT 28.9 Seconds (25.1-36.5) 07/07/17 15:35 - Constitutional Appears: Chronically Ill - Head Exam Head Exam: ATRAUMATIC, NORMOCEPHALIC - Eye Exam Eye Exam: EOMI, PERRL - ENT Exam ENT Exam: Mucous Membranes Moist - Respiratory Exam Respiratory Exam: Decreased Breath Sounds. absent: Rales, Rhonchi, Wheezes - Cardiovascular Exam Cardiovascular Exam: RRR, +S1, +S2. absent: Gallop, JVD, Rubs - GI/Abdominal Exam GI & Abdominal Exam: Soft. absent: Distended, Firm, Guarding, Rigid, Tenderness , Rebound - Neurological Exam Neurological Exam: Alert, Awake, CN II-XII Intact Additional comments: awake, alert, appears to be able to follow simple commands EOMI PERRL moves right upper and lower extremity spontaneously no movement elicited of left upper and lower extremity sensation appears intact - Skin Skin Exam: Dry, Intact, Normal Color, Warm Assessment and Plan - Assessment and Plan (Free Text) Plan: 72yo male with history of colon ca s/p partial colectomy, hypertension and hyperlipidemia presents to [facility] [place] with acute cerebrovascular accident secondary to right MCA infarct 1. Acute CVA complicated by hemorrhagic conversion 2. Hypertension 3. Hyperlipidemia 4. CAD s/p stent placement 5. Hx of colon ca s/p partial colectomy -Patient originally presented with Acute CVA secondary to right middle cerebral artery infarct due to diffuse atherosclerotic disease -Repeat Head CT is consistent with hemorrhagic conversion of the right MCA infarct secondary to hypertensive disease s/p tPA administration -Brain MRI reviewed; revealed R. MCA infarct and punctate hemorrhage in the right posterior parietal occipital lobe -No aspirin/plavix for 3 weeks -Recommend Keppra 500mg IV q12h for seizure prophylaxis -Recommend follow up neurosurgery recommendations -Monitor closely for signs of increasing ICP -Maintain blood pressure between 120-130's -Recommend echocardiogram for evaluation of underlying cardiomyopathy -Fever in the setting of acute stroke is correlated with worse outcome, therefore maintain normothermia; continue with IV ofirmev -Continue with IV antibiotics per ID recommendations -Physical therapy/Occupational therapy evaluation -Speech/Swallow evaluation -Neurochecks q1h -Continue present medical management as per ICU team -Prognosis remains guarded for this critically ill patient Patient seen and case discussed/reviewed with attending, Dr. Duval <Volodymyr Duval - Last Filed: 07/09/17 14:02> Objective - Vital Signs/Intake and Output Vital Signs (last 24 hours): Temp Pulse Resp BP Pulse Ox 100.1 F H 85 20 162/68 H 100 07/09/17 04:00 07/09/17 11:45 07/09/17 05:40 07/09/17 11:45 07/09/17 05:40 Intake and Output: 07/09/17 07/09/17 06:59 18:59 Intake Total 980 100 Output Total 900 Balance 80 100 - Medications Medications: Current Medications Hydralazine HCl (Apresoline) 10 mg IVP Q6 ANNALEE Last Admin: 07/09/17 11:45 Dose: 10 mg Nicardipine HCl (Cardene Iv Premix) 20 mg in 200 mls @ 50 mls/hr IV .Q4H PRN; Protocol; 5 MG/HR PRN Reason: TITRATE PER MD ORDER Last Titration: 07/08/17 01:00 Dose: 5 mg/hr, 50 mls/hr Levetiracetam (Keppra 500mg Ivpb) 500 mg in 100 mls @ 200 mls/hr IVPB Q12H ANNALEE Last Admin: 07/09/17 03:46 Dose: 200 mls/hr Propofol (Diprivan) 1,000 mg in 100 mls @ 3.103 mls/hr IV .Q24H PRN; Protocol; 5 MCG/KG/MIN PRN Reason: TITRATE PER MD ORDER Last Admin: 07/09/17 07:49 Dose: 30 mcg/kg/min, 18.615 mls/hr Sodium Chloride (Sodium Chloride 0.45%) 1,000 mls @ 50 mls/hr IV .Q20H ANNALEE Last Admin: 07/09/17 06:02 Dose: 50 mls/hr Cefepime HCl (Maxipime 2gm) 2 gm in 100 mls @ 100 mls/hr IVPB Q12 ANNALEE PRN Reason: Protocol Stop: 07/13/17 10:01 Last Admin: 07/09/17 10:17 Dose: 100 mls/hr Acetaminophen (Ofirmev) 1,000 mg in 100 mls @ 400 mls/hr IVPB Q8H PRN PRN Reason: Temperature Stop: 07/11/17 05:57 Last Admin: 07/09/17 06:09 Dose: 400 mls/hr Ondansetron HCl (Zofran Inj) 4 mg IVP Q6H PRN PRN Reason: Nausea/Vomiting Last Admin: 07/06/17 21:55 Dose: 4 mg Pantoprazole Sodium (Protonix Inj) 40 mg IVP DAILY [facility] Last Admin: 07/09/17 10:11 Dose: 40 mg - Labs Labs: 07/09/17 06:50 07/09/17 06:50 PT 13.8 SECONDS (9.4-12.5) H 07/07/17 15:35 INR 1.26 (0.93-1.08) H 07/07/17 15:35 APTT 28.9 Seconds (25.1-36.5) 07/07/17 15:35 Attending/Attestation - Attestation I have personally seen and examined this patient.: Yes I have fully participated in the care of the patient.: Yes I have reviewed all pertinent clinical information, including history, physical exam and plan: Yes
--- NOTE | 2017-07-09 12:03 | PN ---
DATE: 07/09/2017 SUBJECTIVE: The patient is seen lying in bed in the ICU. He remains intubated and remains on IV propofol. MEDICATIONS: His current medications include intravenous Cardene, propofol, Keppra, Maxipime, Protonix, labetalol p.r.n. and Zofran p.r.n. OBJECTIVE: GENERAL: He is a middle-aged man who appears sedated and intubated. VITAL SIGNS: His blood pressure is 148/50 with a pulse of 70 and in sinus, and respirations are 16. He currently has temperature of 100.1 and yesterday his maximum temperature was 101.1. HEENT: He is orally intubated. NECK: No JVD. CHEST: Good bilateral breath sounds. HEART: PMI in normal position. No pathological gallops noted. GASTROINTESTINAL: The abdomen is soft with normoactive bowel sounds. EXTREMITIES: No edema. He appears to move his right arm intermittently, as left side appears flaccid, although examination is limited due to his level of sedation. DIAGNOSTIC DATA: Potassium is 4.3. BUN and creatinine are 27 and 1.6 with glucose of 143. White count is 7.9 and hemoglobin and hematocrit of 12.1 and 37.6 with platelet count of 149,000. IMPRESSION: 1. Status post acute cerebrovascular accident with hemorrhagic conversion. 2. Hypertensive emergency clinically improved. 3. Coronary artery disease status remote percutaneous coronary intervention. 4. History of hypertension and diabetes. 5. Chronic renal insufficiency. 6. Respiratory insufficiency, currently with ventilatory support. RECOMMENDATIONS: Current management should be continued. Maintenance of blood pressure in 120 to 140 systolic range would be appropriate. Continue supportive care should be planned, obviously anticoagulant therapy and antiplatelet therapy are contraindicated at this time. His prognosis remains guarded. We will be happy to follow along and make further recommendation as appropriate. Mark Herman MD
--- NOTE | 2017-07-09 14:27 | CP.PCM.CON ---
History of Present Illness - History of Present Illness History of Present Illness: General Surgery Note for Dr. Lima HPI: Pt is a 72 year old male with PMHx of DM, HTN, HLD, colon cancer s/p partial colectomy, and Stage 3 CKD who presents to the ED on 07/16 with left sided weakness, left facial droop, and slurred speech. Pt admitted to ICU for CVA secondary to right middle cerebral artery infarct due to atherosclerotic disease. tPA was given in the ED and pt developed conversion to hemorrhagic infarct. History was obtained from patient's who was present at bedside. Pt's states that on Friday07/06/17 she noticed her was having difficulty picking up coins and grocery items with his left hand. In addition, pt had left sided weakness, a left sided facial droop, and slurred speech. Pt has had no similar episodes in the past and no history of TIA or CVA. As per pt's , pt had no fever, chills, nausea, vomitting, constipation, diarrhea, abdominal pain, chest pain, SOB, lightheadedness, or headache. MRI showed right MCA infarct with questionable small hemorrhage Initial CT scan on 07/07 showed new infarct in right occipital lobe measuring 21 mm and new infarct in the right temporal lobe measuring [address] scan done 12 hours later on 07/07 shows hemorrhagic conversion of right occipital infarct and increase in size from 21 to 24 mm and right temporal lobe infarct increase in size from 31 to 39 mm Medical History: DM, HTN, HLD, Colon cancer s/p hemicolectomy, CKD stage 3 Family History: DM, HTN, and HLD on maternal and paternal sides Surgical History: appendectomy in childhood, laprascopic cholecystectomy in 1991 , LAD cardiac stent in December 2016 Hospitalizations: January 2012, hospitalized after prostate biopsy, developed sepsis and acute renal failure requiring 4 dialysis treatments Allergies: NKDA Medications: Aspirin, Plavix, Lisinopril, Simvastatin, Glyperide, Tradjenta, Cyclocet Social History: former smoker, smoked 1 PPD for 10 to 15 years, quit smoking 35 years ago, drinks alcohol socially, no illicit drug use Review of Systems - Review of Systems Systems not reviewed;Unavailable: Acuity of Condition, Intubated Past Patient History - Infectious Disease Hx of Infectious Diseases: None - Tetanus Immunizations Tetanus Immunization: Unknown - Past Social History Smoking Status: Never Smoked - CARDIAC Hx Pacemaker: No - NEUROLOGICAL Hx Paralysis: No - RENAL Hx Renal Failure: Yes (hx of) - ENDOCRINE/METABOLIC Hx Diabetes Mellitus Type 2: Yes - HEMATOLOGICAL/ONCOLOGICAL Hx Blood Transfusions: No Hx Blood Transfusion Reaction: No - MUSCULOSKELETAL/RHEUMATOLOGICAL Hx Musculoskeletal Disorders: Yes - GASTROINTESTINAL Hx Gastrointestinal Disorders: Yes (COLON CA) - GENITOURINARY/GYNECOLOGICAL Hx Genitourinary Disorders: Yes (ACUTE RENAL FAILURE) Hx Reproductive Disorders: No - PSYCHIATRIC Hx Emotional Abuse: No Hx Physical Abuse: No Hx Substance Use: No - SURGICAL HISTORY Hx Appendectomy: Yes Hx Cholecystectomy: Yes - ANESTHESIA Hx Anesthesia Reactions: No Hx Malignant Hyperthermia: No Meds Allergies/Adverse Reactions: Allergies Allergy/AdvReac Type Severity Reaction Status Date / Time No Known Allergies Allergy Verified 04/26/15 12:59 - Medications Medications: Current Medications Hydralazine HCl (Apresoline) 10 mg IVP Q6 [facility] Last Admin: 07/09/17 11:45 Dose: 10 mg Nicardipine HCl (Cardene Iv Premix) 20 mg in 200 mls @ 50 mls/hr IV .Q4H PRN; Protocol; 5 MG/HR PRN Reason: TITRATE PER MD ORDER Last Titration: 07/08/17 01:00 Dose: 5 mg/hr, 50 mls/hr Levetiracetam (Keppra 500mg Ivpb) 500 mg in 100 mls @ 200 mls/hr IVPB Q12H [facility] Last Admin: 07/09/17 03:46 Dose: 200 mls/hr Propofol (Diprivan) 1,000 mg in 100 mls @ 3.103 mls/hr IV .Q24H PRN; Protocol; 5 MCG/KG/MIN PRN Reason: TITRATE PER MD ORDER Last Admin: 07/09/17 07:49 Dose: 30 mcg/kg/min, 18.615 mls/hr Sodium Chloride (Sodium Chloride 0.45%) 1,000 mls @ 50 mls/hr IV .Q20H [facility] Last Admin: 07/09/17 06:02 Dose: 50 mls/hr Cefepime HCl (Maxipime 2gm) 2 gm in 100 mls @ 100 mls/hr IVPB Q12 ANNALEE PRN Reason: Protocol Stop: 07/13/17 10:01 Last Admin: 07/09/17 10:17 Dose: 100 mls/hr Acetaminophen (Ofirmev) 1,000 mg in 100 mls @ 400 mls/hr IVPB Q8H PRN PRN Reason: Temperature Stop: 07/11/17 05:57 Last Admin: 07/09/17 06:09 Dose: 400 mls/hr Ondansetron HCl (Zofran Inj) 4 mg IVP Q6H PRN PRN Reason: Nausea/Vomiting Last Admin: 07/06/17 21:55 Dose: 4 mg Pantoprazole Sodium (Protonix Inj) 40 mg IVP DAILY ANNALEE Last Admin: 07/09/17 10:11 Dose: 40 mg Physical Exam - Constitutional Appears: No Acute Distress Additional comments: intubated on ventilator - Head Exam Head Exam: ATRAUMATIC, NORMOCEPHALIC - Respiratory Exam Respiratory Exam: Clear to Auscultation Bilateral. absent: Accessory Muscle Use , Rales, Rhonchi, Wheezes, Respiratory Distress Additional comments: intubated and on vent O2 concentration 40%; PEEP 5; RR 23; Ppeak 11 - Cardiovascular Exam Cardiovascular Exam: +S1, +S2. absent: JVD - GI/Abdominal Exam GI & Abdominal Exam: Soft. absent: Distended, Firm, Guarding, Rebound, Rigid Additional comments: NG tube with 400 mL dark, bilious fluid - Exam Additional comments: elizalde catheter with 1100 ml clear yellow urine - Neurological Exam Additional comments: GCS 3T - Skin Skin Exam: Dry, Intact, Warm Results - Vital Signs Recent Vital Signs: Last Vital Signs Temp 100.1 F H 07/09/17 04:00 Pulse 85 07/09/17 11:45 Resp 20 07/09/17 05:40 BP 162/68 H 07/09/17 11:45 Pulse Ox 100 07/09/17 05:40 - Labs Result Diagrams: 07/09/17 06:50 07/09/17 06:50 Labs: Laboratory Results - last 24 hr 07/08/17 07/09/17 07/09/17 22:02 06:15 06:50 WBC 7.9 RBC 4.19 Hgb 12.1 L Hct 37.6 L MCV 89.7 MCH 28.9 MCHC 32.2 RDW 13.9 Plt Count 149 MPV 11.1 H Gran % 76.7 H Lymph % (Auto) 13.1 L [place] % (Auto) 9.6 H Eos % (Auto) 0.3 L Baso % (Auto) 0.3 Gran # 6.10 Lymph # 1.0 L [place] # 0.8 H Eos # 0.0 Baso # 0.02 pCO2 37 pO2 213.0 H HCO3 25.7 ABG pH 7.45 ABG Total CO2 26.8 ABG O2 Saturation 99.5 H ABG O2 Content 13.5 L ABG Base Excess 1.7 ABG Hemoglobin 9.6 L ABG Carboxyhemoglobin 2.1 H POC ABG HHb (Measured) 0.5 ABG Methemoglobin 0.9 ABG O2 Capacity 13.6 L Hgb O2 Saturation 96.5 FiO2 50.0 Sodium Potassium Chloride Carbon Dioxide Anion Gap BUN Creatinine Est GFR ( Amer) Est GFR (Non-Af Amer) POC Glucose (mg/dL) 165 H Random Glucose Calcium Phosphorus Magnesium Total Bilirubin AST ALT Alkaline Phosphatase Total Protein Albumin Globulin Albumin/Globulin Ratio 07/09/17 06:50 WBC RBC Hgb Hct MCV MCH MCHC RDW Plt Count MPV Gran % Lymph % (Auto) [place] % (Auto) Eos % (Auto) Baso % (Auto) Gran # Lymph # [place] # Eos # Baso # pCO2 pO2 HCO3 ABG pH ABG Total CO2 ABG O2 Saturation ABG O2 Content ABG Base Excess ABG Hemoglobin ABG Carboxyhemoglobin POC ABG HHb (Measured) ABG Methemoglobin ABG O2 Capacity Hgb O2 Saturation FiO2 Sodium 141 Potassium 4.3 Chloride 105 Carbon Dioxide 26 Anion Gap 15 BUN 27 H Creatinine 1.6 H Est GFR ( Amer) 52 Est GFR (Non-Af Amer) 43 POC Glucose (mg/dL) Random Glucose 143 H Calcium 8.8 Phosphorus 2.6 Magnesium 2.0 Total Bilirubin 2.2 H AST 47 ALT 39 Alkaline Phosphatase 110 Total Protein 7.6 Albumin 4.0 Globulin 3.6 Albumin/Globulin Ratio 1.1 Assessment & Plan - Assessment and Plan (Free Text) Assessment: 72 year old male with PMHx of DM, HTN, HLD, colon cancer, and CKD stage 3 who presents with a hemorrhagic cerebral infarcct of right temporal and right occipital lobes. Plan: tracheostomy tomorrow Continue present medical management as per ICU team Monitor temperature, maintain normothermia follow up with neurosurgery recommendations continue Keppra as per Neurology recommendations Will Discuss with Dr. Clarence Jose PGY2
--- NOTE | 2017-07-09 15:01 | CP.CCUPN ---
<Gutierrez De La Cruz - Last Filed: 07/09/17 14:58> CCU Subjective - Physician Review Subjective (Free Text): 07/09/17 14:58 Gutierrez De La Cruz D.O. 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 Patient was seen and examined at bedside. Patient continues to be intubated. No acute overnight events. at bedside, case discussed. CCU Objective - Vital Signs / Intake & Output Vital Signs (Last 4 hours): Vital Signs Pulse BP 07/09/17 11:45 85 162/68 H Intake and Output (Last 8hrs): Intake & Output 07/08/17 07/09/17 07/09/17 22:59 06:59 14:59 Intake Total 100 900 100 Output Total 900 Balance 100 0 100 Intake: IV 100 900 100 Right Forearm 600 Right Hand 200 Output: Urine 900 Urethral (Self) 900 Other: # Bowel Movements 1 - Physical Exam Head: Positive for: Atraumatic, Normocephalic Pupils: Positive for: Pinpoint Mouth: Positive for: Moist Mucous Membranes Nose (External): Positive for: Atraumatic Neck: Positive for: Trachea Midline Respiratory/Chest: Positive for: Other (intubated and sedated, mechanical breath sounds bilaterally) Cardiovascular: Positive for: Normal S1, S2. Negative for: Murmurs, Rub, Gallop Abdomen: Positive for: Normal Bowel Sounds. Negative for: Tenderness, Distention, Peritoneal Signs Upper Extremity: Positive for: Normal Inspection Lower Extremity: Positive for: Normal Inspection Neurological: Positive for: Other (intubated and sedated, off sedation folloing commands, spontaneously moves right upper, right lower, and left lower extremities but not left upper, no babinskis, no clonus, cough and corneal reflex present) Skin: Positive for: Warm, Dry - Medications Active Medications: Active Medications Generic Name Dose Route Start Last Admin Trade Name Freq PRN Reason Stop Dose Admin Hydralazine HCl 10 mg 07/09/17 12:00 07/09/17 11:45 Apresoline IVP 10 mg Q6 ANNALEE Administration Nicardipine HCl 20 mg in 200 mls @ 50 mls/hr 07/07/17 15:20 07/08/17 01:00 Cardene Iv Premix IV 5 mg/hr .Q4H PRN 50 mls/hr TITRATE PER MD ORDER Titration Protocol 5 MG/HR Levetiracetam 500 mg in 100 mls @ 200 mls/hr 07/07/17 15:45 07/09/17 03:46 Keppra 500mg Ivpb IVPB 200 mls/hr Q12H ANNALEE Administration Propofol 1,000 mg in 100 mls @ 3.103 mls/hr 07/07/17 23:24 07/09/17 07:49 Diprivan IV 30 mcg/kg/min .Q24H PRN 18.615 mls/hr TITRATE PER MD ORDER Administration Protocol 5 MCG/KG/MIN Sodium Chloride 1,000 mls @ 50 mls/hr 07/08/17 08:30 07/09/17 06:02 Sodium Chloride 0.45% IV 50 mls/hr .Q20H ANNALEE Administration Cefepime HCl 2 gm in 100 mls @ 100 mls/hr 07/08/17 10:00 07/09/17 10:17 Maxipime 2gm IVPB 07/13/17 10:01 100 mls/hr Q12 ANNALEE Administration Protocol Acetaminophen 1,000 mg in 100 mls @ 400 mls/hr 07/09/17 05:56 07/09/17 06:09 Ofirmev IVPB 07/11/17 05:57 400 mls/hr Q8H PRN Administration Temperature Ondansetron HCl 4 mg 07/06/17 21:36 07/06/17 21:55 Zofran Inj IVP 4 mg Q6H PRN Administration Nausea/Vomiting Pantoprazole Sodium 40 mg 07/07/17 12:00 07/09/17 10:11 Protonix Inj IVP 40 mg DAILY ANNALEE Administration - Patient Studies Lab Studies: Microbiology Studies 07/07/17 12:53 Blood Culture - Preliminary Blood-Venous NO GROWTH AFTER 48 HOURS 07/06/17 18:00 MRSA Culture (Admit) - Final Naris MRSA NOT DETECTED 07/07/17 10:20 Urine Culture - Final Urine,Self No Growth (<1,000 CFU/ML) Lab Studies 11/07/09/17 07/09/17 Range/Units 06:50 06:50 06:15 WBC 7.9 (4.5-11.0) 10^3/ul RBC 4.19 (3.5-6.1) 10^6/uL Hgb 12.1 L (14.0-18.0) g/dL Hct 37.6 L (42.0-52.0) % MCV 89.7 (80.0-105.0) fl MCH 28.9 (25.0-35.0) pg MCHC 32.2 (31.0-37.0) g/dl RDW 13.9 (11.5-14.5) % Plt Count 149 (120.0-450.0) 10^3/uL MPV 11.1 H (7.0-11.0) fl Gran % 76.7 H (50.0-68.0) % Lymph % (Auto) 13.1 L (22.0-35.0) % [place] % (Auto) 9.6 H (1.0-6.0) % Eos % (Auto) 0.3 L (1.5-5.0) % Baso % (Auto) 0.3 (0.0-3.0) % Gran # 6.10 (1.4-6.5) Lymph # 1.0 L (1.2-3.4) [place] # 0.8 H (0.1-0.6) Eos # 0.0 (0.0-0.7) Baso # 0.02 (0.0-2.0) K/mm3 pCO2 37 (35-45) mm/Hg pO2 213.0 H (80-100) mm/Hg HCO3 25.7 (21-28) mmol/L ABG pH 7.45 (7.35-7.45) ABG Total CO2 26.8 (22-28) mmol.L ABG O2 Saturation 99.5 H (95-98) % ABG O2 Content 13.5 L (15-23) ML/dl ABG Base Excess 1.7 (-2.0-3.0) mmol/L ABG Hemoglobin 9.6 L (11.7-17.4) g/dL ABG Carboxyhemoglobin 2.1 H (0.5-1.5) % POC ABG HHb (Measured) 0.5 (0-5) % ABG Methemoglobin 0.9 (0.0-3.0) % ABG O2 Capacity 13.6 L (16-24) mL/dl Hgb O2 Saturation 96.5 (95.0-98.0) % FiO2 50.0 % Sodium 141 (132-148) mmol/L Potassium 4.3 (3.6-5.0) mmol/L Chloride 105 (98-107) mmol/L Carbon Dioxide 26 (21-33) mmol/L Anion Gap 15 (10-20) BUN 27 H (7-21) mg/dL Creatinine 1.6 H (0.8-1.5) mg/dl Est GFR ( Amer) 52 Est GFR (Non-Af Amer) 43 POC Glucose (mg/dL) (65-110) mg/dL Random Glucose 143 H (70-110) mg/dL Calcium 8.8 (8.4-10.5) mg/dL Phosphorus 2.6 (2.5-4.5) mg/dL Magnesium 2.0 (1.7-2.2) mg/dL Total Bilirubin 2.2 H (0.2-1.3) mg/dL AST 47 (17-59) U/L ALT 39 (7-56) U/L Alkaline Phosphatase 110 (38-126) U/L Total Protein 7.6 (5.8-8.3) g/dL Albumin 4.0 (3.0-4.8) g/dL Globulin 3.6 gm/dL Albumin/Globulin Ratio 1.1 (1.1-1.8) 07/08/17 Range/Units 22:02 WBC (4.5-11.0) 10^3/ul RBC (3.5-6.1) 10^6/uL Hgb (14.0-18.0) g/dL Hct (42.0-52.0) % MCV (80.0-105.0) fl MCH (25.0-35.0) pg MCHC (31.0-37.0) g/dl RDW (11.5-14.5) % Plt Count (120.0-450.0) 10^3/uL MPV (7.0-11.0) fl Gran % (50.0-68.0) % Lymph % (Auto) (22.0-35.0) % [place] % (Auto) (1.0-6.0) % Eos % (Auto) (1.5-5.0) % Baso % (Auto) (0.0-3.0) % Gran # (1.4-6.5) Lymph # (1.2-3.4) [place] # (0.1-0.6) Eos # (0.0-0.7) Baso # (0.0-2.0) K/mm3 pCO2 (35-45) mm/Hg pO2 (80-100) mm/Hg HCO3 (21-28) mmol/L ABG pH (7.35-7.45) ABG Total CO2 (22-28) mmol.L ABG O2 Saturation (95-98) % ABG O2 Content (15-23) ML/dl ABG Base Excess (-2.0-3.0) mmol/L ABG Hemoglobin (11.7-17.4) g/dL ABG Carboxyhemoglobin (0.5-1.5) % POC ABG HHb (Measured) (0-5) % ABG Methemoglobin (0.0-3.0) % ABG O2 Capacity (16-24) mL/dl Hgb O2 Saturation (95.0-98.0) % FiO2 % Sodium (132-148) mmol/L Potassium (3.6-5.0) mmol/L Chloride (98-107) mmol/L Carbon Dioxide (21-33) mmol/L Anion Gap (10-20) BUN (7-21) mg/dL Creatinine (0.8-1.5) mg/dl Est GFR ( Amer) Est GFR (Non-Af Amer) POC Glucose (mg/dL) 165 H (65-110) mg/dL Random Glucose (70-110) mg/dL Calcium (8.4-10.5) mg/dL Phosphorus (2.5-4.5) mg/dL Magnesium (1.7-2.2) mg/dL Total Bilirubin (0.2-1.3) mg/dL AST (17-59) U/L ALT (7-56) U/L Alkaline Phosphatase (38-126) U/L Total Protein (5.8-8.3) g/dL Albumin (3.0-4.8) g/dL Globulin gm/dL Albumin/Globulin Ratio (1.1-1.8) Laboratory Results - last 24 hr 07/08/17 07/09/17 07/09/17 22:02 06:15 06:50 WBC 7.9 RBC 4.19 Hgb 12.1 L Hct 37.6 L MCV 89.7 MCH 28.9 MCHC 32.2 RDW 13.9 Plt Count 149 MPV 11.1 H Gran % 76.7 H Lymph % (Auto) 13.1 L [place] % (Auto) 9.6 H Eos % (Auto) 0.3 L Baso % (Auto) 0.3 Gran # 6.10 Lymph # 1.0 L [place] # 0.8 H Eos # 0.0 Baso # 0.02 pCO2 37 pO2 213.0 H HCO3 25.7 ABG pH 7.45 ABG Total CO2 26.8 ABG O2 Saturation 99.5 H ABG O2 Content 13.5 L ABG Base Excess 1.7 ABG Hemoglobin 9.6 L ABG Carboxyhemoglobin 2.1 H POC ABG HHb (Measured) 0.5 ABG Methemoglobin 0.9 ABG O2 Capacity 13.6 L Hgb O2 Saturation 96.5 FiO2 50.0 Sodium Potassium Chloride Carbon Dioxide Anion Gap BUN Creatinine Est GFR ( Amer) Est GFR (Non-Af Amer) POC Glucose (mg/dL) 165 H Random Glucose Calcium Phosphorus Magnesium Total Bilirubin AST ALT Alkaline Phosphatase Total Protein Albumin Globulin Albumin/Globulin Ratio 07/09/17 06:50 WBC RBC Hgb Hct MCV MCH MCHC RDW Plt Count MPV Gran % Lymph % (Auto) [place] % (Auto) Eos % (Auto) Baso % (Auto) Gran # Lymph # [place] # Eos # Baso # pCO2 pO2 HCO3 ABG pH ABG Total CO2 ABG O2 Saturation ABG O2 Content ABG Base Excess ABG Hemoglobin ABG Carboxyhemoglobin POC ABG HHb (Measured) ABG Methemoglobin ABG O2 Capacity Hgb O2 Saturation FiO2 Sodium 141 Potassium 4.3 Chloride 105 Carbon Dioxide 26 Anion Gap 15 BUN 27 H Creatinine 1.6 H Est GFR ( Amer) 52 Est GFR (Non-Af Amer) 43 POC Glucose (mg/dL) Random Glucose 143 H Calcium 8.8 Phosphorus 2.6 Magnesium 2.0 Total Bilirubin 2.2 H AST 47 ALT 39 Alkaline Phosphatase 110 Total Protein 7.6 Albumin 4.0 Globulin 3.6 Albumin/Globulin Ratio 1.1 Fingerstick Blood Sugar Results: 167 Assessment/Plan - Assessment and Plan (Free Text) Assessment: 72 year old male with a PMH of CAD who presented with left sided hemiplegia, found to have a cerebrovascular accident, received TPA bolus and started infusion which was later stopped due to hypotension and headache, later found to have hemorrhagic conversion, hospital course complicated by worsening mental status requiring intubation for airway protection. Plan: Neurological Ischemic CVA s/p tpa complicated by hemorrhagic conversion NeuroSx consulted, no intervention indicated Neuro following, recs appreciated Brain MRI showed foci of diffuse restriction noted at the right supratentorial brain suggestive of right MCA infarct; Small foci of hyperintense T2 GRE signal noted at the right posterior parietal occipital lobe may represent punctate hemorrhage Brain MRA- This MRA of the head is nondiagnostic due to significant motion artifact Neck MRA -Limited study due to patient's motion. No evidence of significant stenosis in the carotid arteries at the neck. Small size of right vertebral artery contains foci of moderate stenosis Repeat head CT showed hemorrhagic conversion of a cerebral infarction within the distribution of the posterior cerebral artery, minimally increased in size from previous examination performed approximately 12 hours earlier Intubated PRVC 460/14/5/50% Surgery consulted for trach placement Continue BP control, hydralazine in place Continue keppra for seizure ppx per neuro recs Cardiovascular Hypertensive emergency when moved up to ICU resolved HD stable Cardiology following, recs appreciated Maintain SBP 120s-130s Pulmnologic Intubated and sedated for airway protection PRVC 460/14/5/50% Maintain O2Sat >92% Continue vancomycin and cefepime day 2 as per ID for possible pneumonia GI NPO at this time, plan for trach tomorrow then can begin enteral feeding ID Fevers likely central in origin vs aspiration ID following, recs appreciated Continue vanco/cefepime day 2 No leukocytosis BCx negative day 2 Renal/Electrolytes NOÉ improving, BUN and Cr downtrending Strict IxOs Continue IVF Continue to monitor Endo Maintain euglycemia Heme Mild normocytic anemia, improving HD stable No signs of bleeding GI/DVT ppx: protonix/SCDs no AC given hemorrhage Dispo: plan for trach tomorrow with CT surgery scheduled at 1pm, will discuss with SW about LTAC placement. Patient seen and examined and case was discussed at length with agricultural research technician - Date & Time Date: 07/09/17 Time: 09:00 <Aleksandr Polanco - Last Filed: 07/09/17 17:25> CCU Objective - Vital Signs / Intake & Output Intake and Output (Last 8hrs): Intake & Output 07/09/17 07/09/17 07/09/17 06:59 14:59 22:59 Intake Total 900 100 Output Total 900 Balance 0 100 Intake: IV 900 100 Right Forearm 600 Right Hand 200 Output: Urine 900 Urethral (Self) 900 Other: # Bowel Movements 1 - Medications Active Medications: Active Medications Generic Name Dose Route Start Last Admin Trade Name Freq PRN Reason Stop Dose Admin Hydralazine HCl 10 mg 07/09/17 12:00 07/09/17 11:45 Apresoline IVP 10 mg Q6 ANNALEE Administration Nicardipine HCl 20 mg in 200 mls @ 50 mls/hr 07/07/17 15:20 07/08/17 01:00 Cardene Iv Premix IV 5 mg/hr .Q4H PRN 50 mls/hr TITRATE PER MD ORDER Titration Protocol 5 MG/HR Levetiracetam 500 mg in 100 mls @ 200 mls/hr 07/07/17 15:45 07/09/17 15:42 Keppra 500mg Ivpb IVPB 200 mls/hr Q12H ANNALEE Administration Propofol 1,000 mg in 100 mls @ 3.103 mls/hr 07/07/17 23:24 07/09/17 07:49 Diprivan IV 30 mcg/kg/min .Q24H PRN 18.615 mls/hr TITRATE PER MD ORDER Administration Protocol 5 MCG/KG/MIN Sodium Chloride 1,000 mls @ 50 mls/hr 07/08/17 08:30 07/09/17 06:02 Sodium Chloride 0.45% IV 50 mls/hr .Q20H ANNALEE Administration Cefepime HCl 2 gm in 100 mls @ 100 mls/hr 07/08/17 10:00 07/09/17 10:17 Maxipime 2gm IVPB 07/13/17 10:01 100 mls/hr Q12 ANNALEE Administration Protocol Acetaminophen 1,000 mg in 100 mls @ 400 mls/hr 07/09/17 05:56 07/09/17 15:41 Ofirmev IVPB 07/11/17 05:57 400 mls/hr Q8H PRN Administration Temperature Ondansetron HCl 4 mg 07/06/17 21:36 07/06/17 21:55 Zofran Inj IVP 4 mg Q6H PRN Administration Nausea/Vomiting Pantoprazole Sodium 40 mg 07/07/17 12:00 07/09/17 10:11 Protonix Inj IVP 40 mg DAILY ANNALEE Administration - Patient Studies Lab Studies: Microbiology Studies 07/07/17 12:53 Blood Culture - Preliminary Blood-Venous NO GROWTH AFTER 48 HOURS 07/06/17 18:00 MRSA Culture (Admit) - Final Naris MRSA NOT DETECTED Lab Studies 07/09/17 07/09/17 07/09/17 Range/Units 06:50 06:50 06:15 WBC 7.9 (4.5-11.0) 10^3/ul RBC 4.19 (3.5-6.1) 10^6/uL Hgb 12.1 L (14.0-18.0) g/dL Hct 37.6 L (42.0-52.0) % MCV 89.7 (80.0-105.0) fl MCH 28.9 (25.0-35.0) pg MCHC 32.2 (31.0-37.0) g/dl RDW 13.9 (11.5-14.5) % Plt Count 149 (120.0-450.0) 10^3/uL MPV 11.1 H (7.0-11.0) fl Gran % 76.7 H (50.0-68.0) % Lymph % (Auto) 13.1 L (22.0-35.0) % [place] % (Auto) 9.6 H (1.0-6.0) % Eos % (Auto) 0.3 L (1.5-5.0) % Baso % (Auto) 0.3 (0.0-3.0) % Gran # 6.10 (1.4-6.5) Lymph # 1.0 L (1.2-3.4) [place] # 0.8 H (0.1-0.6) Eos # 0.0 (0.0-0.7) Baso # 0.02 (0.0-2.0) K/mm3 pCO2 37 (35-45) mm/Hg pO2 213.0 H (80-100) mm/Hg HCO3 25.7 (21-28) mmol/L ABG pH 7.45 (7.35-7.45) ABG Total CO2 26.8 (22-28) mmol.L ABG O2 Saturation 99.5 H (95-98) % ABG O2 Content 13.5 L (15-23) ML/dl ABG Base Excess 1.7 (-2.0-3.0) mmol/L ABG Hemoglobin 9.6 L (11.7-17.4) g/dL ABG Carboxyhemoglobin 2.1 H (0.5-1.5) % POC ABG HHb (Measured) 0.5 (0-5) % ABG Methemoglobin 0.9 (0.0-3.0) % ABG O2 Capacity 13.6 L (16-24) mL/dl Hgb O2 Saturation 96.5 (95.0-98.0) % FiO2 50.0 % Sodium 141 (132-148) mmol/L Potassium 4.3 (3.6-5.0) mmol/L Chloride 105 (98-107) mmol/L Carbon Dioxide 26 (21-33) mmol/L Anion Gap 15 (10-20) BUN 27 H (7-21) mg/dL Creatinine 1.6 H (0.8-1.5) mg/dl Est GFR ( Amer) 52 Est GFR (Non-Af Amer) 43 POC Glucose (mg/dL) (65-110) mg/dL Random Glucose 143 H (70-110) mg/dL Calcium 8.8 (8.4-10.5) mg/dL Phosphorus 2.6 (2.5-4.5) mg/dL Magnesium 2.0 (1.7-2.2) mg/dL Total Bilirubin 2.2 H (0.2-1.3) mg/dL AST 47 (17-59) U/L ALT 39 (7-56) U/L Alkaline Phosphatase 110 (38-126) U/L Total Protein 7.6 (5.8-8.3) g/dL Albumin 4.0 (3.0-4.8) g/dL Globulin 3.6 gm/dL Albumin/Globulin Ratio 1.1 (1.1-1.8) 07/08/17 Range/Units 22:02 WBC (4.5-11.0) 10^3/ul RBC (3.5-6.1) 10^6/uL Hgb (14.0-18.0) g/dL Hct (42.0-52.0) % MCV (80.0-105.0) fl MCH (25.0-35.0) pg MCHC (31.0-37.0) g/dl RDW (11.5-14.5) % Plt Count (120.0-450.0) 10^3/uL MPV (7.0-11.0) fl Gran % (50.0-68.0) % Lymph % (Auto) (22.0-35.0) % [place] % (Auto) (1.0-6.0) % Eos % (Auto) (1.5-5.0) % Baso % (Auto) (0.0-3.0) % Gran # (1.4-6.5) Lymph # (1.2-3.4) [place] # (0.1-0.6) Eos # (0.0-0.7) Baso # (0.0-2.0) K/mm3 pCO2 (35-45) mm/Hg pO2 (80-100) mm/Hg HCO3 (21-28) mmol/L ABG pH (7.35-7.45) ABG Total CO2 (22-28) mmol.L ABG O2 Saturation (95-98) % ABG O2 Content (15-23) ML/dl ABG Base Excess (-2.0-3.0) mmol/L ABG Hemoglobin (11.7-17.4) g/dL ABG Carboxyhemoglobin (0.5-1.5) % POC ABG HHb (Measured) (0-5) % ABG Methemoglobin (0.0-3.0) % ABG O2 Capacity (16-24) mL/dl Hgb O2 Saturation (95.0-98.0) % FiO2 % Sodium (132-148) mmol/L Potassium (3.6-5.0) mmol/L Chloride (98-107) mmol/L Carbon Dioxide (21-33) mmol/L Anion Gap (10-20) BUN (7-21) mg/dL Creatinine (0.8-1.5) mg/dl Est GFR ( Amer) Est GFR (Non-Af Amer) POC Glucose (mg/dL) 165 H (65-110) mg/dL Random Glucose (70-110) mg/dL Calcium (8.4-10.5) mg/dL Phosphorus (2.5-4.5) mg/dL Magnesium (1.7-2.2) mg/dL Total Bilirubin (0.2-1.3) mg/dL AST (17-59) U/L ALT (7-56) U/L Alkaline Phosphatase (38-126) U/L Total Protein (5.8-8.3) g/dL Albumin (3.0-4.8) g/dL Globulin gm/dL Albumin/Globulin Ratio (1.1-1.8) Laboratory Results - last 24 hr 07/08/17 07/09/17 07/09/17 22:02 06:15 06:50 WBC 7.9 RBC 4.19 Hgb 12.1 L Hct 37.6 L MCV 89.7 MCH 28.9 MCHC 32.2 RDW 13.9 Plt Count 149 MPV 11.1 H Gran % 76.7 H Lymph % (Auto) 13.1 L [place] % (Auto) 9.6 H Eos % (Auto) 0.3 L Baso % (Auto) 0.3 Gran # 6.10 Lymph # 1.0 L [place] # 0.8 H Eos # 0.0 Baso # 0.02 pCO2 37 pO2 213.0 H HCO3 25.7 ABG pH 7.45 ABG Total CO2 26.8 ABG O2 Saturation 99.5 H ABG O2 Content 13.5 L ABG Base Excess 1.7 ABG Hemoglobin 9.6 L ABG Carboxyhemoglobin 2.1 H POC ABG HHb (Measured) 0.5 ABG Methemoglobin 0.9 ABG O2 Capacity 13.6 L Hgb O2 Saturation 96.5 FiO2 50.0 Sodium Potassium Chloride Carbon Dioxide Anion Gap BUN Creatinine Est GFR ( Amer) Est GFR (Non-Af Amer) POC Glucose (mg/dL) 165 H Random Glucose Calcium Phosphorus Magnesium Total Bilirubin AST ALT Alkaline Phosphatase Total Protein Albumin Globulin Albumin/Globulin Ratio 07/09/17 06:50 WBC RBC Hgb Hct MCV MCH MCHC RDW Plt Count MPV Gran % Lymph % (Auto) [place] % (Auto) Eos % (Auto) Baso % (Auto) Gran # Lymph # [place] # Eos # Baso # pCO2 pO2 HCO3 ABG pH ABG Total CO2 ABG O2 Saturation ABG O2 Content ABG Base Excess ABG Hemoglobin ABG Carboxyhemoglobin POC ABG HHb (Measured) ABG Methemoglobin ABG O2 Capacity Hgb O2 Saturation FiO2 Sodium 141 Potassium 4.3 Chloride 105 Carbon Dioxide 26 Anion Gap 15 BUN 27 H Creatinine 1.6 H Est GFR ( Amer) 52 Est GFR (Non-Af Amer) 43 POC Glucose (mg/dL) Random Glucose 143 H Calcium 8.8 Phosphorus 2.6 Magnesium 2.0 Total Bilirubin 2.2 H AST 47 ALT 39 Alkaline Phosphatase 110 Total Protein 7.6 Albumin 4.0 Globulin 3.6 Albumin/Globulin Ratio 1.1 Attending/Attestation - Attestation I have personally seen and examined this patient.: Yes I have fully participated in the care of the patient.: Yes I have reviewed all pertinent clinical information: Yes Notes (Text): 07/09/17 17:23 72 yo male with ischemic stroke s/p tpa, with subsequent hemorrhagic convertion. Intubated for airway protection. Doing well on PST, but unable to control airways and significant component of anxiety. Trach in am ccm time 40 min
[2017-07-10] MEDS: Propofol 10 mg/ml 1,000 MG/100 ML VIAL IV PRN ×4 (01:40→21:43)
[2017-07-10] MEDS: levETIRAcetam 500mg IVPB 500 MG/100 ML BAG IVPB SCH ×2 (03:07→17:50)
[2017-07-10] MEDS: Sodium Chloride 0.45% 1,000 ML IV SCH (03:08)
[2017-07-10 06:39] LABS: BASO # 0.02 K/mm3 (0.0-2.0); BASO % 0.3 % (0.0-3.0); EOS # 0.1 (0.0-0.7); EOS % 0.9 % (1.5-5.0); GRAN # 6.11 (1.4-6.5); GRAN % 78.3 % (50.0-68.0); HEMATOCRIT 34.6 % (42.0-52.0); LYMPH # 0.9 (1.2-3.4); LYMPH % 11.4 % (22.0-35.0); MEAN CELL VOLUME 88.7 fl (80.0-105.0); MEAN CORPUSCULAR HEMOGLOBIN 29.7 pg (25.0-35.0); MEAN CORPUSCULAR HGB CONC 33.5 g/dl (31.0-37.0); MEAN PLATELET VOLUME 10.9 fl (7.0-11.0); MONO # 0.7 (0.1-0.6); MONO % 9.1 % (1.0-6.0); RED CELL DISTRIBUTION WIDTH 13.9 % (11.5-14.5); WHITE BLOOD COUNT 7.8 10^3/ul (4.5-11.0)
[2017-07-10 06:54] LABS: INR 1.18 (0.93-1.08); PARTIAL THROMBOPLASTIN TIME 28.5 Seconds (25.1-36.5)
[2017-07-10 08:00] LABS: BILIRUBIN,TOTAL 2.1 mg/dL (0.2-1.3); CALCIUM 8.5 mg/dL (8.4-10.5); PHOSPHOROUS 2.8 mg/dL (2.5-4.5); POTASSIUM 3.8 mmol/L (3.6-5.0)
--- NOTE | 2017-07-10 08:49 | RAD ---
HISTORY: interval changes COMPARISON: 07/09/2017 FINDINGS: LUNGS: No active pulmonary disease. Endotracheal tube is unchanged in position at the level of the clavicles. PLEURA: No significant pleural effusion identified, no pneumothorax apparent. CARDIOVASCULAR: Normal. OSSEOUS STRUCTURES: No significant abnormalities. VISUALIZED UPPER ABDOMEN: Normal. OTHER FINDINGS: None. IMPRESSION: No active disease.
[2017-07-10 08:56] LABS: ARTERIAL BLOOD GAS HCO3 22.2 mmol/L (21-28); ARTERIAL BLOOD GAS PH 7.45 (7.35-7.45); ATERIAL BLOOD GAS PEEP 5
[2017-07-10] MEDS: Cefepime IV 2 gm in NS 2 GM/100 ML BAG IVPB SCH ×2 (09:20→21:26)
--- NOTE | 2017-07-10 10:29 | CP.PCM.PN ---
Subjective - Date & Time of Evaluation Date of Evaluation: 07/10/17 Time of Evaluation: 09:30 - Subjective Subjective: Patient continues to be on the ventilator, temperatures are decreasing, no diarrhea. Objective - Vital Signs/Intake and Output Vital Signs (last 24 hours): Temp Pulse Resp BP Pulse Ox 97.5 F L 73 61 H 144/62 100 07/10/17 04:00 07/10/17 06:00 07/09/17 20:00 07/10/17 06:00 07/10/17 06:00 Intake and Output: 07/09/17 07/10/17 18:59 06:59 Intake Total 850 660 Output Total 650 500 Balance 200 160 - Medications Medications: Current Medications Hydralazine HCl (Apresoline) 10 mg IVP Q6 ANNALEE Last Admin: 07/10/17 05:00 Dose: 10 mg Nicardipine HCl (Cardene Iv Premix) 20 mg in 200 mls @ 50 mls/hr IV .Q4H PRN; Protocol; 5 MG/HR PRN Reason: TITRATE PER MD ORDER Last Titration: 07/08/17 01:00 Dose: 5 mg/hr, 50 mls/hr Levetiracetam (Keppra 500mg Ivpb) 500 mg in 100 mls @ 200 mls/hr IVPB Q12H ANNALEE Last Admin: 07/10/17 03:07 Dose: 200 mls/hr Propofol (Diprivan) 1,000 mg in 100 mls @ 3.103 mls/hr IV .Q24H PRN; Protocol; 5 MCG/KG/MIN PRN Reason: TITRATE PER MD ORDER Last Admin: 07/10/17 05:01 Dose: 30 mcg/kg/min, 18.615 mls/hr Sodium Chloride (Sodium Chloride 0.45%) 1,000 mls @ 50 mls/hr IV .Q20H ANNALEE Last Admin: 07/10/17 03:08 Dose: 50 mls/hr Cefepime HCl (Maxipime 2gm) 2 gm in 100 mls @ 100 mls/hr IVPB Q12 ANNALEE PRN Reason: Protocol Stop: 07/13/17 10:01 Last Admin: 07/09/17 21:11 Dose: 100 mls/hr Acetaminophen (Ofirmev) 1,000 mg in 100 mls @ 400 mls/hr IVPB Q8H PRN PRN Reason: Temperature Stop: 07/11/17 05:57 Last Admin: 07/09/17 15:41 Dose: 400 mls/hr Ondansetron HCl (Zofran Inj) 4 mg IVP Q6H PRN PRN Reason: Nausea/Vomiting Last Admin: 07/06/17 21:55 Dose: 4 mg Pantoprazole Sodium (Protonix Inj) 40 mg IVP DAILY ANNALEE Last Admin: 07/09/17 10:11 Dose: 40 mg - Labs Labs: 07/10/17 06:00 07/09/17 06:50 PT 13.8 SECONDS (9.4-12.5) H 07/07/17 15:35 INR 1.26 (0.93-1.08) H 07/07/17 15:35 APTT 28.9 Seconds (25.1-36.5) 07/07/17 15:35 - Constitutional Appears: Other (intubated) - Head Exam Head Exam: NORMAL INSPECTION - Respiratory Exam Respiratory Exam: Decreased Breath Sounds. absent: Rales - Cardiovascular Exam Cardiovascular Exam: +S1, +S2 - GI/Abdominal Exam GI & Abdominal Exam: Soft. absent: Tenderness Assessment and Plan - Assessment and Plan (Free Text) Plan: Assessment Systemic Inflammatory response syndrome (fever and tachycardia), consider due to acute right sided CVA with hemorrhage; so far no evidence of pneumonia on serial CXR's; R/O sepsis so far no source infection identified DM chronic renal failure obesity with BMI 33 history of colon cancer Plan follow up final blood cx, urine cx; repeat CXR from today does not show infiltrates; WBC count is normal; PCT is 0.2 - in the interim, we have given a dose of IV Vancomycin and continue Cefepime day 3 and will continue to check serial CXR's - if CXR's continue to be negative, will d/c antibiotics will continue to monitor clinically
--- NOTE | 2017-07-10 10:58 | CP.CCUPN ---
<LiOrville - Last Filed: 07/10/17 10:54> CCU Subjective - Physician Review Events Since Last Encounter (Free Text): 07/10/17 10:[address] Garcia Pt seen and examined at bedside. No acute events overnight reported by staff. Patient still intubated and sedated. Localizes to painful stimuli. Seems comfortable. No acute distress. CCU Objective - Vital Signs / Intake & Output Vital Signs (Last 4 hours): Vital Signs Pulse Resp BP Pulse Ox 07/10/17 10:30 73 97 07/10/17 10:20 69 99 07/10/17 10:10 70 99 07/10/17 10:00 71 113/44 L 99 07/10/17 09:50 71 98 07/10/17 09:40 69 99 07/10/17 09:30 71 99 07/10/17 09:20 71 99 07/10/17 09:10 72 98 07/10/17 09:00 72 125/50 L 99 07/10/17 08:58 75 98 07/10/17 08:50 75 98 07/10/17 08:40 73 99 07/10/17 08:30 78 99 07/10/17 08:20 69 100 07/10/17 08:10 69 100 07/10/17 08:00 70 117/54 L 100 07/10/17 07:50 74 100 07/10/17 07:40 73 100 07/10/17 07:35 17 100 07/10/17 07:30 73 100 07/10/17 07:20 71 100 07/10/17 07:10 71 100 07/10/17 07:00 72 114/46 L 100 Intake and Output (Last 8hrs): Intake & Output 07/09/17 07/10/17 07/10/17 22:59 06:59 14:59 Intake Total 650 660 Output Total 650 500 Balance 0 160 Weight 237 lb Intake: IV 650 660 Right Forearm 650 60 Right Hand 400 Output: Urine 650 500 Urethral (Self) 650 500 - Physical Exam Head: Positive for: Atraumatic, Normocephalic Pupils: Positive for: Pinpoint Mouth: Positive for: Moist Mucous Membranes Nose (External): Positive for: Atraumatic Neck: Positive for: Trachea Midline Respiratory/Chest: Positive for: Other (intubated and sedated, mechanical breath sounds bilaterally) Cardiovascular: Positive for: Normal S1, S2. Negative for: Murmurs, Rub, Gallop Abdomen: Positive for: Normal Bowel Sounds. Negative for: Tenderness, Distention, Peritoneal Signs, Rebound, Guarding Upper Extremity: Positive for: Normal Inspection Lower Extremity: Positive for: Normal Inspection Neurological: Positive for: Other (intubated and sedated, localizes to painful stimuli, no babinskis, no clonus, corneal reflex present) Skin: Positive for: Warm, Dry Psychiatric: Positive for: Other (intubated and sedated) - Medications Active Medications: Active Medications Generic Name Dose Route Start Last Admin Trade Name Freq PRN Reason Stop Dose Admin Hydralazine HCl 10 mg 07/09/17 12:00 07/10/17 05:00 Apresoline IVP 10 mg Q6 ANNALEE Administration Nicardipine HCl 20 mg in 200 mls @ 50 mls/hr 07/07/17 15:20 07/08/17 01:00 Cardene Iv Premix IV 5 mg/hr .Q4H PRN 50 mls/hr TITRATE PER MD ORDER Titration Protocol 5 MG/HR Levetiracetam 500 mg in 100 mls @ 200 mls/hr 07/07/17 15:45 07/10/17 03:07 Keppra 500mg Ivpb IVPB 200 mls/hr Q12H ANNALEE Administration Propofol 1,000 mg in 100 mls @ 3.103 mls/hr 07/07/17 23:24 07/10/17 05:01 Diprivan IV 30 mcg/kg/min .Q24H PRN 18.615 mls/hr TITRATE PER MD ORDER Administration Protocol 5 MCG/KG/MIN Sodium Chloride 1,000 mls @ 50 mls/hr 07/08/17 08:30 07/10/17 03:08 Sodium Chloride 0.45% IV 50 mls/hr .Q20H ANNALEE Administration Cefepime HCl 2 gm in 100 mls @ 100 mls/hr 07/08/17 10:00 07/10/17 09:20 Maxipime 2gm IVPB 07/13/17 10:01 100 mls/hr Q12 ANNALEE Administration Protocol Acetaminophen 1,000 mg in 100 mls @ 400 mls/hr 07/09/17 05:56 07/09/17 15:41 Ofirmev IVPB 07/11/17 05:57 400 mls/hr Q8H PRN Administration Temperature Ondansetron HCl 4 mg 07/06/17 21:36 07/06/17 21:55 Zofran Inj IVP 4 mg Q6H PRN Administration Nausea/Vomiting Pantoprazole Sodium 40 mg 07/07/17 12:00 07/10/17 09:19 Protonix Inj IVP 40 mg DAILY ANNALEE Administration - Patient Studies Lab Studies: Microbiology Studies 07/07/17 12:53 Blood Culture - Preliminary Blood-Venous NO GROWTH AFTER 48 HOURS Lab Studies 07/10/17 07/10/17 07/10/17 Range/Units 08:53 06:00 06:00 WBC (4.5-11.0) 10^3/ul RBC (3.5-6.1) 10^6/uL Hgb (14.0-18.0) g/dL Hct (42.0-52.0) % MCV (80.0-105.0) fl MCH (25.0-35.0) pg MCHC (31.0-37.0) g/dl RDW (11.5-14.5) % Plt Count (120.0-450.0) 10^3/uL MPV (7.0-11.0) fl Gran % (50.0-68.0) % Lymph % (Auto) (22.0-35.0) % Ritchie % (Auto) (1.0-6.0) % Eos % (Auto) (1.5-5.0) % Baso % (Auto) (0.0-3.0) % Gran # (1.4-6.5) Lymph # (1.2-3.4) Ritchie # (0.1-0.6) Eos # (0.0-0.7) Baso # (0.0-2.0) K/mm3 PT 13.0 H (9.4-12.5) SECONDS INR 1.18 H (0.93-1.08) APTT 28.5 (25.1-36.5) Seconds pCO2 32 L (35-45) mm/Hg pO2 95.0 (80-100) mm/Hg HCO3 22.2 (21-28) mmol/L ABG pH 7.45 (7.35-7.45) ABG Total CO2 23.2 (22-28) mmol.L ABG O2 Saturation 99.3 H (95-98) % ABG Base Excess -1.0 (-2.0-3.0) mmol/L ABG Potassium 3.2 L (3.6-5.2) mmol/L Glucose 146 H (75-110) mg/dl Lactate 0.9 (0.7-2.1) mmol/L FiO2 40.0 % PEEP 5 Sodium 140.0 141 (132-148) mmol/L Potassium 3.8 (3.6-5.0) mmol/L Chloride 111.0 H 106 (98-107) mmol/L Carbon Dioxide 26 (21-33) mmol/L Anion Gap 13 (10-20) BUN 28 H (7-21) mg/dL Creatinine 1.7 H (0.8-1.5) mg/dl Est GFR ( Amer) 48 Est GFR (Non-Af Amer) 40 POC Glucose (mg/dL) (65-110) mg/dL Random Glucose 148 H (70-110) mg/dL Calcium 8.5 (8.4-10.5) mg/dL Phosphorus 2.8 (2.5-4.5) mg/dL Magnesium 2.0 (1.7-2.2) mg/dL Total Bilirubin 2.1 H (0.2-1.3) mg/dL AST 49 (17-59) U/L ALT 41 (7-56) U/L Alkaline Phosphatase 135 H D (38-126) U/L Total Protein 7.0 (5.8-8.3) g/dL Albumin 3.6 (3.0-4.8) g/dL Globulin 3.4 gm/dL Albumin/Globulin Ratio 1.0 L (1.1-1.8) Arterial Blood Potassium 3.2 L (3.6-5.2) mmol/L 07/10/17 07/09/17 07/09/17 Range/Units 06:00 22:11 16:15 WBC 7.8 (4.5-11.0) 10^3/ul RBC 3.90 (3.5-6.1) 10^6/uL Hgb 11.6 L (14.0-18.0) g/dL Hct 34.6 L (42.0-52.0) % MCV 88.7 (80.0-105.0) fl MCH 29.7 (25.0-35.0) pg MCHC 33.5 (31.0-37.0) g/dl RDW 13.9 (11.5-14.5) % Plt Count 140 (120.0-450.0) 10^3/uL MPV 10.9 (7.0-11.0) fl Gran % 78.3 H (50.0-68.0) % Lymph % (Auto) 11.4 L (22.0-35.0) % Ritchie % (Auto) 9.1 H (1.0-6.0) % Eos % (Auto) 0.9 L (1.5-5.0) % Baso % (Auto) 0.3 (0.0-3.0) % Gran # 6.11 (1.4-6.5) Lymph # 0.9 L (1.2-3.4) Ritchie # 0.7 H (0.1-0.6) Eos # 0.1 (0.0-0.7) Baso # 0.02 (0.0-2.0) K/mm3 PT (9.4-12.5) SECONDS INR (0.93-1.08) APTT (25.1-36.5) Seconds pCO2 (35-45) mm/Hg pO2 (80-100) mm/Hg HCO3 (21-28) mmol/L ABG pH (7.35-7.45) ABG Total CO2 (22-28) mmol.L ABG O2 Saturation (95-98) % ABG Base Excess (-2.0-3.0) mmol/L ABG Potassium (3.6-5.2) mmol/L Glucose (75-110) mg/dl Lactate (0.7-2.1) mmol/L FiO2 % PEEP Sodium (132-148) mmol/L Potassium (3.6-5.0) mmol/L Chloride (98-107) mmol/L Carbon Dioxide (21-33) mmol/L Anion Gap (10-20) BUN (7-21) mg/dL Creatinine (0.8-1.5) mg/dl Est GFR ( Amer) Est GFR (Non-Af Amer) POC Glucose (mg/dL) 190 H 169 H (65-110) mg/dL Random Glucose (70-110) mg/dL Calcium (8.4-10.5) mg/dL Phosphorus (2.5-4.5) mg/dL Magnesium (1.7-2.2) mg/dL Total Bilirubin (0.2-1.3) mg/dL AST (17-59) U/L ALT (7-56) U/L Alkaline Phosphatase (38-126) U/L Total Protein (5.8-8.3) g/dL Albumin (3.0-4.8) g/dL Globulin gm/dL Albumin/Globulin Ratio (1.1-1.8) Arterial Blood Potassium (3.6-5.2) mmol/L 07/09/17 07/09/17 Range/Units 11:50 07:13 WBC (4.5-11.0) 10^3/ul RBC (3.5-6.1) 10^6/uL Hgb (14.0-18.0) g/dL Hct (42.0-52.0) % MCV (80.0-105.0) fl MCH (25.0-35.0) pg MCHC (31.0-37.0) g/dl RDW (11.5-14.5) % Plt Count (120.0-450.0) 10^3/uL MPV (7.0-11.0) fl Gran % (50.0-68.0) % Lymph % (Auto) (22.0-35.0) % Ritchie % (Auto) (1.0-6.0) % Eos % (Auto) (1.5-5.0) % Baso % (Auto) (0.0-3.0) % Gran # (1.4-6.5) Lymph # (1.2-3.4) Ritchie # (0.1-0.6) Eos # (0.0-0.7) Baso # (0.0-2.0) K/mm3 PT (9.4-12.5) SECONDS INR (0.93-1.08) APTT (25.1-36.5) Seconds pCO2 (35-45) mm/Hg pO2 (80-100) mm/Hg HCO3 (21-28) mmol/L ABG pH (7.35-7.45) ABG Total CO2 (22-28) mmol.L ABG O2 Saturation (95-98) % ABG Base Excess (-2.0-3.0) mmol/L ABG Potassium (3.6-5.2) mmol/L Glucose (75-110) mg/dl Lactate (0.7-2.1) mmol/L FiO2 % PEEP Sodium (132-148) mmol/L Potassium (3.6-5.0) mmol/L Chloride (98-107) mmol/L Carbon Dioxide (21-33) mmol/L Anion Gap (10-20) BUN (7-21) mg/dL Creatinine (0.8-1.5) mg/dl Est GFR ( Amer) Est GFR (Non-Af Amer) POC Glucose (mg/dL) 171 H 156 H (65-110) mg/dL Random Glucose (70-110) mg/dL Calcium (8.4-10.5) mg/dL Phosphorus (2.5-4.5) mg/dL Magnesium (1.7-2.2) mg/dL Total Bilirubin (0.2-1.3) mg/dL AST (17-59) U/L ALT (7-56) U/L Alkaline Phosphatase (38-126) U/L Total Protein (5.8-8.3) g/dL Albumin (3.0-4.8) g/dL Globulin gm/dL Albumin/Globulin Ratio (1.1-1.8) Arterial Blood Potassium (3.6-5.2) mmol/L Laboratory Results - last 24 hr 07/09/17 07/09/17 07/09/17 07:13 11:50 16:15 WBC RBC Hgb Hct MCV MCH MCHC RDW Plt Count MPV Gran % Lymph % (Auto) Ritchie % (Auto) Eos % (Auto) Baso % (Auto) Gran # Lymph # Ritchie # Eos # Baso # PT INR APTT pCO2 pO2 HCO3 ABG pH ABG Total CO2 ABG O2 Saturation ABG Base Excess ABG Potassium Glucose Lactate FiO2 PEEP Sodium Potassium Chloride Carbon Dioxide Anion Gap BUN Creatinine Est GFR ( Amer) Est GFR (Non-Af Amer) POC Glucose (mg/dL) 156 H 171 H 169 H Random Glucose Calcium Phosphorus Magnesium Total Bilirubin AST ALT Alkaline Phosphatase Total Protein Albumin Globulin Albumin/Globulin Ratio Arterial Blood Potassium 07/09/17 07/10/17 07/10/17 22:11 06:00 06:00 WBC 7.8 RBC 3.90 Hgb 11.6 L Hct 34.6 L MCV 88.7 MCH 29.7 MCHC 33.5 RDW 13.9 Plt Count 140 MPV 10.9 Gran % 78.3 H Lymph % (Auto) 11.4 L Ritchie % (Auto) 9.1 H Eos % (Auto) 0.9 L Baso % (Auto) 0.3 Gran # 6.11 Lymph # 0.9 L Ritchie # 0.7 H Eos # 0.1 Baso # 0.02 PT 13.0 H INR 1.18 H APTT 28.5 pCO2 pO2 HCO3 ABG pH ABG Total CO2 ABG O2 Saturation ABG Base Excess ABG Potassium Glucose Lactate FiO2 PEEP Sodium Potassium Chloride Carbon Dioxide Anion Gap BUN Creatinine Est GFR ( Amer) Est GFR (Non-Af Amer) POC Glucose (mg/dL) 190 H Random Glucose Calcium Phosphorus Magnesium Total Bilirubin AST ALT Alkaline Phosphatase Total Protein Albumin Globulin Albumin/Globulin Ratio Arterial Blood Potassium 07/10/17 07/10/17 06:00 08:53 WBC RBC Hgb Hct MCV MCH MCHC RDW Plt Count MPV Gran % Lymph % (Auto) Ritchie % (Auto) Eos % (Auto) Baso % (Auto) Gran # Lymph # Ritchie # Eos # Baso # PT INR APTT pCO2 32 L pO2 95.0 HCO3 22.2 ABG pH 7.45 ABG Total CO2 23.2 ABG O2 Saturation 99.3 H ABG Base Excess -1.0 ABG Potassium 3.2 L Glucose 146 H Lactate 0.9 FiO2 40.0 PEEP 5 Sodium 141 140.0 Potassium 3.8 Chloride 106 111.0 H Carbon Dioxide 26 Anion Gap 13 BUN 28 H Creatinine 1.7 H Est GFR ( Amer) 48 Est GFR (Non-Af Amer) 40 POC Glucose (mg/dL) Random Glucose 148 H Calcium 8.5 Phosphorus 2.8 Magnesium 2.0 Total Bilirubin 2.1 H AST 49 ALT 41 Alkaline Phosphatase 135 H D Total Protein 7.0 Albumin 3.6 Globulin 3.4 Albumin/Globulin Ratio 1.0 L Arterial Blood Potassium 3.2 L Fingerstick Blood Sugar Results: 167 Assessment/Plan - Assessment and Plan (Free Text) Assessment: 72 yo M with a PMH of CAD, 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 Hospital course complicated by worsening mental status requiring intubation for airway protection. Will obtain Trach today for patient comfort Neurological: Ischemic CVA s/p tpa complicated by hemorrhagic conversion NeuroSx consulted, no intervention indicated Neuro following, recs appreciated Brain MRI showed foci of diffuse restriction noted at the right supratentorial brain suggestive of right MCA infarct; Small foci of hyperintense T2 GRE signal noted at the right posterior parietal occipital lobe may represent punctate hemorrhage Brain MRA- This MRA of the head is nondiagnostic due to significant motion artifact Neck MRA -Limited study due to patient's motion. No evidence of significant stenosis in the carotid arteries at the neck. Small size of right vertebral artery contains foci of moderate stenosis Repeat head CT showed hemorrhagic conversion of a cerebral infarction within the distribution of the posterior cerebral artery, minimally increased in size from previous examination performed approximately 12 hours earlier Intubated and sedated on CPAP overnight Surgery consulted for trach placement today Continue tight BP control, hydralazine in place Continue keppra for seizure ppx per neuro recs Cardiovascular: Hypertensive emergency when moved up to ICU resolved HD stable Cardiology following, recs appreciated Maintain SBP 120s-130s Pulmnologic: Intubated and sedated for airway protection PRVC 460/14/5/50% Maintain O2Sat >92% Continue Cefepime day 3 as per ID for possible pneumonia. Will d/c abx if repeat cxr continue to be unremarkable GI: NPO at this time, plan for trach today May begin enteral feeding after ID: Fevers likely central in origin vs aspiration ID following, recs appreciated Continue Cefepime D3 No leukocytosis BCx negative day 2 Will repeat CXR in the AM Renal/Electrolytes: NOÉ improving, BUN and Cr stable Strict IxOs Continue IVF Continue to monitor Endo: Maintain euglycemia Heme: Mild normocytic anemia, stable HD stable No signs of bleeding Ppx: Protonix SCDs no AC given hemorrhage Dispo: Plan for trach today with CT surgery, will discuss with SW about possible LTAC placement. Discussed case with Dr. Jose Jefferson PGY1 <Issa Garcia - Last Filed: 07/10/17 12:04> CCU Objective - Vital Signs / Intake & Output Vital Signs (Last 4 hours): Vital Signs Pulse BP Pulse Ox 07/10/17 11:48 72 134/53 L 07/10/17 10:30 73 97 07/10/17 10:20 69 99 07/10/17 10:10 70 99 07/10/17 10:00 71 113/44 L 99 07/10/17 09:50 71 98 07/10/17 09:40 69 99 07/10/17 09:30 71 99 07/10/17 09:20 71 99 07/10/17 09:10 72 98 07/10/17 09:00 72 125/50 L 99 07/10/17 08:58 75 98 07/10/17 08:50 75 98 07/10/17 08:40 73 99 07/10/17 08:30 78 99 07/10/17 08:20 69 100 07/10/17 08:10 69 100 Intake and Output (Last 8hrs): Intake & Output 07/09/17 07/10/17 07/10/17 22:59 06:59 14:59 Intake Total 650 660 100 Output Total 650 500 Balance 0 160 100 Weight 237 lb Intake: IV 650 660 100 Right Forearm 650 60 Right Hand 400 Output: Urine 650 500 Urethral (Self) 650 500 - Medications Active Medications: Active Medications Generic Name Dose Route Start Last Admin Trade Name Freq PRN Reason Stop Dose Admin Hydralazine HCl 10 mg 07/09/17 12:00 07/10/17 11:48 Apresoline IVP 10 mg Q6 ANNALEE Administration Nicardipine HCl 20 mg in 200 mls @ 50 mls/hr 07/07/17 15:20 07/08/17 01:00 Cardene Iv Premix IV 5 mg/hr .Q4H PRN 50 mls/hr TITRATE PER MD ORDER Titration Protocol 5 MG/HR Levetiracetam 500 mg in 100 mls @ 200 mls/hr 07/07/17 15:45 07/10/17 03:07 Keppra 500mg Ivpb IVPB 200 mls/hr Q12H ANNALEE Administration Propofol 1,000 mg in 100 mls @ 3.103 mls/hr 07/07/17 23:24 07/10/17 11:48 Diprivan IV 30 mcg/kg/min .Q24H PRN 18.615 mls/hr TITRATE PER MD ORDER Administration Protocol 5 MCG/KG/MIN Sodium Chloride 1,000 mls @ 50 mls/hr 07/08/17 08:30 07/10/17 03:08 Sodium Chloride 0.45% IV 50 mls/hr .Q20H ANNALEE Administration Cefepime HCl 2 gm in 100 mls @ 100 mls/hr 07/08/17 10:00 07/10/17 09:20 Maxipime 2gm IVPB 07/13/17 10:01 100 mls/hr Q12 ANNALEE Administration Protocol Acetaminophen 1,000 mg in 100 mls @ 400 mls/hr 07/09/17 05:56 07/09/17 15:41 Ofirmev IVPB 07/11/17 05:57 400 mls/hr Q8H PRN Administration Temperature Ondansetron HCl 4 mg 07/06/17 21:36 07/06/17 21:55 Zofran Inj IVP 4 mg Q6H PRN Administration Nausea/Vomiting Pantoprazole Sodium 40 mg 07/07/17 12:00 07/10/17 09:19 Protonix Inj IVP 40 mg DAILY ANNALEE Administration - Patient Studies Lab Studies: Microbiology Studies 07/07/17 12:53 Blood Culture - Preliminary Blood-Venous NO GROWTH AFTER 48 HOURS Lab Studies 07/10/17 07/10/17 07/10/17 Range/Units 08:53 06:00 06:00 WBC (4.5-11.0) 10^3/ul RBC (3.5-6.1) 10^6/uL Hgb (14.0-18.0) g/dL Hct (42.0-52.0) % MCV (80.0-105.0) fl MCH (25.0-35.0) pg MCHC (31.0-37.0) g/dl RDW (11.5-14.5) % Plt Count (120.0-450.0) 10^3/uL MPV (7.0-11.0) fl Gran % (50.0-68.0) % Lymph % (Auto) (22.0-35.0) % Ritchie % (Auto) (1.0-6.0) % Eos % (Auto) (1.5-5.0) % Baso % (Auto) (0.0-3.0) % Gran # (1.4-6.5) Lymph # (1.2-3.4) Ritchie # (0.1-0.6) Eos # (0.0-0.7) Baso # (0.0-2.0) K/mm3 PT 13.0 H (9.4-12.5) SECONDS INR 1.18 H (0.93-1.08) APTT 28.5 (25.1-36.5) Seconds pCO2 32 L (35-45) mm/Hg pO2 95.0 (80-100) mm/Hg HCO3 22.2 (21-28) mmol/L ABG pH 7.45 (7.35-7.45) ABG Total CO2 23.2 (22-28) mmol.L ABG O2 Saturation 99.3 H (95-98) % ABG Base Excess -1.0 (-2.0-3.0) mmol/L ABG Potassium 3.2 L (3.6-5.2) mmol/L Glucose 146 H (75-110) mg/dl Lactate 0.9 (0.7-2.1) mmol/L FiO2 40.0 % PEEP 5 Sodium 140.0 141 (132-148) mmol/L Potassium 3.8 (3.6-5.0) mmol/L Chloride 111.0 H 106 (98-107) mmol/L Carbon Dioxide 26 (21-33) mmol/L Anion Gap 13 (10-20) BUN 28 H (7-21) mg/dL Creatinine 1.7 H (0.8-1.5) mg/dl Est GFR ( Amer) 48 Est GFR (Non-Af Amer) 40 POC Glucose (mg/dL) (65-110) mg/dL Random Glucose 148 H (70-110) mg/dL Calcium 8.5 (8.4-10.5) mg/dL Phosphorus 2.8 (2.5-4.5) mg/dL Magnesium 2.0 (1.7-2.2) mg/dL Total Bilirubin 2.1 H (0.2-1.3) mg/dL AST 49 (17-59) U/L ALT 41 (7-56) U/L Alkaline Phosphatase 135 H D (38-126) U/L Total Protein 7.0 (5.8-8.3) g/dL Albumin 3.6 (3.0-4.8) g/dL Globulin 3.4 gm/dL Albumin/Globulin Ratio 1.0 L (1.1-1.8) Arterial Blood Potassium 3.2 L (3.6-5.2) mmol/L 07/10/17 07/09/17 07/09/17 Range/Units 06:00 22:11 16:15 WBC 7.8 (4.5-11.0) 10^3/ul RBC 3.90 (3.5-6.1) 10^6/uL Hgb 11.6 L (14.0-18.0) g/dL Hct 34.6 L (42.0-52.0) % MCV 88.7 (80.0-105.0) fl MCH 29.7 (25.0-35.0) pg MCHC 33.5 (31.0-37.0) g/dl RDW 13.9 (11.5-14.5) % Plt Count 140 (120.0-450.0) 10^3/uL MPV 10.9 (7.0-11.0) fl Gran % 78.3 H (50.0-68.0) % Lymph % (Auto) 11.4 L (22.0-35.0) % Ritchie % (Auto) 9.1 H (1.0-6.0) % Eos % (Auto) 0.9 L (1.5-5.0) % Baso % (Auto) 0.3 (0.0-3.0) % Gran # 6.11 (1.4-6.5) Lymph # 0.9 L (1.2-3.4) Ritchie # 0.7 H (0.1-0.6) Eos # 0.1 (0.0-0.7) Baso # 0.02 (0.0-2.0) K/mm3 PT (9.4-12.5) SECONDS INR (0.93-1.08) APTT (25.1-36.5) Seconds pCO2 (35-45) mm/Hg pO2 (80-100) mm/Hg HCO3 (21-28) mmol/L ABG pH (7.35-7.45) ABG Total CO2 (22-28) mmol.L ABG O2 Saturation (95-98) % ABG Base Excess (-2.0-3.0) mmol/L ABG Potassium (3.6-5.2) mmol/L Glucose (75-110) mg/dl Lactate (0.7-2.1) mmol/L FiO2 % PEEP Sodium (132-148) mmol/L Potassium (3.6-5.0) mmol/L Chloride (98-107) mmol/L Carbon Dioxide (21-33) mmol/L Anion Gap (10-20) BUN (7-21) mg/dL Creatinine (0.8-1.5) mg/dl Est GFR ( Amer) Est GFR (Non-Af Amer) POC Glucose (mg/dL) 190 H 169 H (65-110) mg/dL Random Glucose (70-110) mg/dL Calcium (8.4-10.5) mg/dL Phosphorus (2.5-4.5) mg/dL Magnesium (1.7-2.2) mg/dL Total Bilirubin (0.2-1.3) mg/dL AST (17-59) U/L ALT (7-56) U/L Alkaline Phosphatase (38-126) U/L Total Protein (5.8-8.3) g/dL Albumin (3.0-4.8) g/dL Globulin gm/dL Albumin/Globulin Ratio (1.1-1.8) Arterial Blood Potassium (3.6-5.2) mmol/L 07/09/17 07/09/17 Range/Units 11:50 07:13 WBC (4.5-11.0) 10^3/ul RBC (3.5-6.1) 10^6/uL Hgb (14.0-18.0) g/dL Hct (42.0-52.0) % MCV (80.0-105.0) fl MCH (25.0-35.0) pg MCHC (31.0-37.0) g/dl RDW (11.5-14.5) % Plt Count (120.0-450.0) 10^3/uL MPV (7.0-11.0) fl Gran % (50.0-68.0) % Lymph % (Auto) (22.0-35.0) % Ritchie % (Auto) (1.0-6.0) % Eos % (Auto) (1.5-5.0) % Baso % (Auto) (0.0-3.0) % Gran # (1.4-6.5) Lymph # (1.2-3.4) Ritchie # (0.1-0.6) Eos # (0.0-0.7) Baso # (0.0-2.0) K/mm3 PT (9.4-12.5) SECONDS INR (0.93-1.08) APTT (25.1-36.5) Seconds pCO2 (35-45) mm/Hg pO2 (80-100) mm/Hg HCO3 (21-28) mmol/L ABG pH (7.35-7.45) ABG Total CO2 (22-28) mmol.L ABG O2 Saturation (95-98) % ABG Base Excess (-2.0-3.0) mmol/L ABG Potassium (3.6-5.2) mmol/L Glucose (75-110) mg/dl Lactate (0.7-2.1) mmol/L FiO2 % PEEP Sodium (132-148) mmol/L Potassium (3.6-5.0) mmol/L Chloride (98-107) mmol/L Carbon Dioxide (21-33) mmol/L Anion Gap (10-20) BUN (7-21) mg/dL Creatinine (0.8-1.5) mg/dl Est GFR ( Amer) Est GFR (Non-Af Amer) POC Glucose (mg/dL) 171 H 156 H (65-110) mg/dL Random Glucose (70-110) mg/dL Calcium (8.4-10.5) mg/dL Phosphorus (2.5-4.5) mg/dL Magnesium (1.7-2.2) mg/dL Total Bilirubin (0.2-1.3) mg/dL AST (17-59) U/L ALT (7-56) U/L Alkaline Phosphatase (38-126) U/L Total Protein (5.8-8.3) g/dL Albumin (3.0-4.8) g/dL Globulin gm/dL Albumin/Globulin Ratio (1.1-1.8) Arterial Blood Potassium (3.6-5.2) mmol/L Laboratory Results - last 24 hr 07/09/17 07/09/17 07/09/17 07:13 11:50 16:15 WBC RBC Hgb Hct MCV MCH MCHC RDW Plt Count MPV Gran % Lymph % (Auto) Ritchie % (Auto) Eos % (Auto) Baso % (Auto) Gran # Lymph # Ritchie # Eos # Baso # PT INR APTT pCO2 pO2 HCO3 ABG pH ABG Total CO2 ABG O2 Saturation ABG Base Excess ABG Potassium Glucose Lactate FiO2 PEEP Sodium Potassium Chloride Carbon Dioxide Anion Gap BUN Creatinine Est GFR ( Amer) Est GFR (Non-Af Amer) POC Glucose (mg/dL) 156 H 171 H 169 H Random Glucose Calcium Phosphorus Magnesium Total Bilirubin AST ALT Alkaline Phosphatase Total Protein Albumin Globulin Albumin/Globulin Ratio Arterial Blood Potassium 07/09/17 07/10/17 07/10/17 22:11 06:00 06:00 WBC 7.8 RBC 3.90 Hgb 11.6 L Hct 34.6 L MCV 88.7 MCH 29.7 MCHC 33.5 RDW 13.9 Plt Count 140 MPV 10.9 Gran % 78.3 H Lymph % (Auto) 11.4 L Ritchie % (Auto) 9.1 H Eos % (Auto) 0.9 L Baso % (Auto) 0.3 Gran # 6.11 Lymph # 0.9 L Ritchie # 0.7 H Eos # 0.1 Baso # 0.02 PT 13.0 H INR 1.18 H APTT 28.5 pCO2 pO2 HCO3 ABG pH ABG Total CO2 ABG O2 Saturation ABG Base Excess ABG Potassium Glucose Lactate FiO2 PEEP Sodium Potassium Chloride Carbon Dioxide Anion Gap BUN Creatinine Est GFR ( Amer) Est GFR (Non-Af Amer) POC Glucose (mg/dL) 190 H Random Glucose Calcium Phosphorus Magnesium Total Bilirubin AST ALT Alkaline Phosphatase Total Protein Albumin Globulin Albumin/Globulin Ratio Arterial Blood Potassium 07/10/17 07/10/17 06:00 08:53 WBC RBC Hgb Hct MCV MCH MCHC RDW Plt Count MPV Gran % Lymph % (Auto) Ritchie % (Auto) Eos % (Auto) Baso % (Auto) Gran # Lymph # Ritchie # Eos # Baso # PT INR APTT pCO2 32 L pO2 95.0 HCO3 22.2 ABG pH 7.45 ABG Total CO2 23.2 ABG O2 Saturation 99.3 H ABG Base Excess -1.0 ABG Potassium 3.2 L Glucose 146 H Lactate 0.9 FiO2 40.0 PEEP 5 Sodium 141 140.0 Potassium 3.8 Chloride 106 111.0 H Carbon Dioxide 26 Anion Gap 13 BUN 28 H Creatinine 1.7 H Est GFR ( Amer) 48 Est GFR (Non-Af Amer) 40 POC Glucose (mg/dL) Random Glucose 148 H Calcium 8.5 Phosphorus 2.8 Magnesium 2.0 Total Bilirubin 2.1 H AST 49 ALT 41 Alkaline Phosphatase 135 H D Total Protein 7.0 Albumin 3.6 Globulin 3.4 Albumin/Globulin Ratio 1.0 L Arterial Blood Potassium 3.2 L Assessment/Plan - Assessment and Plan (Free Text) Assessment: Patient seen and examined, with resident, agree with note, with following additions/exceptions: Patient is 72yo male with PMHx of CAD a/w acute CVA of Right MCA territory, s/p tPA (full dose not give 2/2 allergic reaction). Patient developed hemorrhagic conversion of CVA, R sided. Neurology and neurosurgery following. Currently febrile, ID following, HD stable, doing well on PRVC. For trach today. Acute CVA CAD Respiratory failure recommend: - cont with ventilatory support, low tidal vol ventilation, goal Plateau<30 - Duonebs PRN - monitor HH - follow up neurology, neurosurgery - BP control - Keppra for seizure ppx - follow up ID, abx as per ID - correction planning PEG/Trach - GI ppx - DVT ppx, SCDs - FS control - feeds
--- NOTE | 2017-07-10 13:03 | CP.PCM.CON ---
History of Present Illness - History of Present Illness History of Present Illness: Palliative consult requested Dr. Bautista copied 72 year old male with history of HTN, CAD with sent who presented with left sided weakness and difficulty speaking. Initially showed no acute findings Patient was evaluated, deemed a candidate and received tPA. Shortly after, the patient began to complain of a headache and tPA was discontinue. Subsequent MRI revealed a new hemorrhagic infarct in the right occipital and temporal lobes, diffuse arthrosclerotic disease.The patient as intubated to protect airway. PMHx: HTN, HLD, CAD s/p stent, colon cancer, DM,CKD,hematuria. Social History: Non smoker, no alcohol or drug use. Retired. Marred, lives with spouse. Family History:Non contributory. Advance Care planning: Does not have an Advanced Directive. Review of Systems: As per HPI, intubated/ altered unable to obtain. Past Patient History - Infectious Disease Hx of Infectious Diseases: None - Tetanus Immunizations Tetanus Immunization: Unknown - Past Social History Smoking Status: Never Smoked - CARDIAC Hx Pacemaker: No - NEUROLOGICAL Hx Paralysis: No - RENAL Hx Renal Failure: Yes (hx of) - ENDOCRINE/METABOLIC Hx Diabetes Mellitus Type 2: Yes - HEMATOLOGICAL/ONCOLOGICAL Hx Blood Transfusions: No Hx Blood Transfusion Reaction: No - MUSCULOSKELETAL/RHEUMATOLOGICAL Hx Musculoskeletal Disorders: Yes - GASTROINTESTINAL Hx Gastrointestinal Disorders: Yes (COLON CA) - GENITOURINARY/GYNECOLOGICAL Hx Genitourinary Disorders: Yes (ACUTE RENAL FAILURE) Hx Reproductive Disorders: No - PSYCHIATRIC Hx Emotional Abuse: No Hx Physical Abuse: No Hx Substance Use: No - SURGICAL HISTORY Hx Appendectomy: Yes Hx Cholecystectomy: Yes - ANESTHESIA Hx Anesthesia Reactions: No Hx Malignant Hyperthermia: No Meds Allergies/Adverse Reactions: Allergies Allergy/AdvReac Type Severity Reaction Status Date / Time No Known Allergies Allergy Verified 04/26/15 12:59 - Medications Medications: Current Medications Hydralazine HCl (Apresoline) 10 mg IVP Q6 [facility] Last Admin: 07/10/17 11:48 Dose: 10 mg Nicardipine HCl (Cardene Iv Premix) 20 mg in 200 mls @ 50 mls/hr IV .Q4H PRN; Protocol; 5 MG/HR PRN Reason: TITRATE PER MD ORDER Last Titration: 07/08/17 01:00 Dose: 5 mg/hr, 50 mls/hr Levetiracetam (Keppra 500mg Ivpb) 500 mg in 100 mls @ 200 mls/hr IVPB Q12H [facility] TO [facility] Last Admin: 07/10/17 03:07 Dose: 200 mls/hr Propofol (Diprivan) 1,000 mg in 100 mls @ 3.103 mls/hr IV .Q24H PRN; Protocol; 5 MCG/KG/MIN PRN Reason: TITRATE PER MD ORDER Last Admin: 07/10/17 11:48 Dose: 30 mcg/kg/min, 18.615 mls/hr Sodium Chloride (Sodium Chloride 0.45%) 1,000 mls @ 50 mls/hr IV .Q20H [facility] Last Admin: 07/10/17 03:08 Dose: 50 mls/hr Cefepime HCl (Maxipime 2gm) 2 gm in 100 mls @ 100 mls/hr IVPB Q12 [facility] PRN Reason: Protocol Stop: 07/13/17 10:01 Last Admin: 07/10/17 09:20 Dose: 100 mls/hr Acetaminophen (Ofirmev) 1,000 mg in 100 mls @ 400 mls/hr IVPB Q8H PRN PRN Reason: Temperature Stop: 07/11/17 05:57 Last Admin: 07/09/17 15:41 Dose: 400 mls/hr Ondansetron HCl (Zofran Inj) 4 mg IVP Q6H PRN PRN Reason: Nausea/Vomiting Last Admin: 07/06/17 21:55 Dose: 4 mg Pantoprazole Sodium (Protonix Inj) 40 mg IVP DAILY [facility] Last Admin: 07/10/17 09:19 Dose: 40 mg Physical Exam - Constitutional Appears: No Acute Distress - Head Exam Head Exam: NORMAL INSPECTION Additional comments: left sided facial droop - Eye Exam Eye Exam: Normal appearance, PERRL - ENT Exam ENT Exam: Mucous Membranes Moist - Respiratory Exam Respiratory Exam: Clear to Auscultation Bilateral, NORMAL BREATHING PATTERN - Cardiovascular Exam Cardiovascular Exam: REGULAR RHYTHM, +S1, +S2 - GI/Abdominal Exam GI & Abdominal Exam: Normal Bowel Sounds, Soft - Extremities Exam Additional comments: left sided weakness - Back Exam Back exam: NORMAL INSPECTION - Neurological Exam Neurological exam: Altered - Skin Skin Exam: Dry - Additional Findings Additional findings: Palliative performance scale rating 40% Results - Vital Signs Recent Vital Signs: Last Vital Signs Temp 97.5 F L 07/10/17 04:00 Pulse 78 07/10/17 11:59 Resp 17 07/10/17 07:35 BP 122/44 L 07/10/17 12:00 Pulse Ox 100 07/10/17 11:59 - Labs Result Diagrams: 07/10/17 06:00 07/10/17 06:00 Labs: Laboratory Results - last 24 hr 07/09/17 07/09/17 07/09/17 07:13 11:50 16:15 WBC RBC Hgb Hct MCV MCH MCHC RDW Plt Count MPV Gran % Lymph % (Auto) Lyman % (Auto) Eos % (Auto) Baso % (Auto) Gran # Lymph # Lyman # Eos # Baso # PT INR APTT pCO2 pO2 HCO3 ABG pH ABG Total CO2 ABG O2 Saturation ABG Base Excess ABG Potassium Glucose Lactate FiO2 PEEP Sodium Potassium Chloride Carbon Dioxide Anion Gap BUN Creatinine Est GFR ( Amer) Est GFR (Non-Af Amer) POC Glucose (mg/dL) 156 H 171 H 169 H Random Glucose Calcium Phosphorus Magnesium Total Bilirubin AST ALT Alkaline Phosphatase Total Protein Albumin Globulin Albumin/Globulin Ratio Arterial Blood Potassium 07/09/17 07/10/17 07/10/17 22:11 06:00 06:00 WBC 7.8 RBC 3.90 Hgb 11.6 L Hct 34.6 L MCV 88.7 MCH 29.7 MCHC 33.5 RDW 13.9 Plt Count 140 MPV 10.9 Gran % 78.3 H Lymph % (Auto) 11.4 L Lyman % (Auto) 9.1 H Eos % (Auto) 0.9 L Baso % (Auto) 0.3 Gran # 6.11 Lymph # 0.9 L Lyman # 0.7 H Eos # 0.1 Baso # 0.02 PT 13.0 H INR 1.18 H APTT 28.5 pCO2 pO2 HCO3 ABG pH ABG Total CO2 ABG O2 Saturation ABG Base Excess ABG Potassium Glucose Lactate FiO2 PEEP Sodium Potassium Chloride Carbon Dioxide Anion Gap BUN Creatinine Est GFR ( Amer) Est GFR (Non-Af Amer) POC Glucose (mg/dL) 190 H Random Glucose Calcium Phosphorus Magnesium Total Bilirubin AST ALT Alkaline Phosphatase Total Protein Albumin Globulin Albumin/Globulin Ratio Arterial Blood Potassium 07/10/17 07/10/17 06:00 08:53 WBC RBC Hgb Hct MCV MCH MCHC RDW Plt Count MPV Gran % Lymph % (Auto) Lyman % (Auto) Eos % (Auto) Baso % (Auto) Gran # Lymph # Lyman # Eos # Baso # PT INR APTT pCO2 32 L pO2 95.0 HCO3 22.2 ABG pH 7.45 ABG Total CO2 23.2 ABG O2 Saturation 99.3 H ABG Base Excess -1.0 ABG Potassium 3.2 L Glucose 146 H Lactate 0.9 FiO2 40.0 PEEP 5 Sodium 141 140.0 Potassium 3.8 Chloride 106 111.0 H Carbon Dioxide 26 Anion Gap 13 BUN 28 H Creatinine 1.7 H Est GFR ( Amer) 48 Est GFR (Non-Af Amer) 40 POC Glucose (mg/dL) Random Glucose 148 H Calcium 8.5 Phosphorus 2.8 Magnesium 2.0 Total Bilirubin 2.1 H AST 49 ALT 41 Alkaline Phosphatase 135 H D Total Protein 7.0 Albumin 3.6 Globulin 3.4 Albumin/Globulin Ratio 1.0 L Arterial Blood Potassium 3.2 L Assessment & Plan - Assessment and Plan (Free Text) Assessment: 72 year old male with history of HTN,CAD with stent, DM, CKD and colon cancer who was admitted with right MCA. Patient is lethargic, opens eyes when name is called. Intubated but breathing over vent settings. In no acute distress. Patients , Carol at bedside. 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 Carol states she had been struggling with decision to move forward with PEG and trach, but her has been showing signs of improvement. Carol is aware that patient may not return to baseline functional status and that at some point his condition could worsen. She feels that without trach and PEG her has little chance of working towards recovery. She has decided on trach./PEG and aggressive rehab. We did talk about advance care planing for the future. She will consider completing POLST directive prior to discharge. Psychosocial support given. Time spent in goals of care discussion and advance care planning 30 minuets Plan: Palliative support and assistance with establishing goals of care.
[2017-07-10] MEDS ORDERED: Rocuronium 10 mg/ml (5 ml) ONE (13:54)
[2017-07-10] MEDS: Nicardipine 20 MG/200 ML 20 MG/200 ML BAG IV PRN (14:40)
--- NOTE | 2017-07-10 14:48 | PCM.SURG1 ---
Surgeon's Initial Post Op Note - Surgeon's Notes Surgeon: Dr. Lima Front End Technician: Dr. Ray PGY3; Dr. Estrella PGY1 Type of Anesthesia: General Endo Anesthesia Administered By: lupillo Pre-Operative Diagnosis: Respiratory failure Operative Findings: same Post-Operative Diagnosis: same Operation Performed: Open Tracheostomy Specimen/Specimens Removed: portion of trachea Estimated Blood Loss: EBL {In ML}: 1 Blood Products Given: N/A Drains Used: No Drains Post-Op Condition: Good Date of Surgery/Procedure: 07/10/17 Time of Surgery/Procedure: 14:48
[2017-07-10] MEDS: HYDROmorphone 0.5 mg/0.5 ml ISec IVP PRN (14:50)
--- NOTE | 2017-07-10 16:38 | RAD ---
HISTORY: interval changes COMPARISON: 07/10/2017 FINDINGS: LUNGS: There is a new infiltrate in the right lower lobe in the perihilar region. The left diaphragm is also obscured PLEURA: No significant pleural effusion identified, no pneumothorax apparent. CARDIOVASCULAR: Normal. OSSEOUS STRUCTURES: No significant abnormalities. VISUALIZED UPPER ABDOMEN: Normal. OTHER FINDINGS: None. IMPRESSION: There is a new infiltrate in the right lower lobe in the perihilar region. The left diaphragm is also obscured
--- NOTE | 2017-07-10 17:30 | CP.PCM.PN ---
<Dom Del Toro - Last Filed: 07/10/17 17:27> Subjective - Date & Time of Evaluation Date of Evaluation: 07/10/17 Time of Evaluation: 10:00 - Subjective Subjective: Neurology progress note for Dr. Duval's service - Gaurang Del Toro PGY2 Patient seen and examined at bedside. No acute overnight events or new complaints reported by staff. Plan for trach today. Patient still intubated on sedation. Objective - Vital Signs/Intake and Output Vital Signs (last 24 hours): Temp Pulse Resp BP Pulse Ox 99.1 F 114 H 26 H 116/67 92 L 07/10/17 16:45 07/10/17 16:50 07/10/17 14:31 07/10/17 16:45 07/10/17 16:50 Intake and Output: 07/10/17 07/10/17 06:59 18:59 Intake Total 660 125 Output Total 500 Balance 160 125 - Medications Medications: Current Medications Hydralazine HCl (Apresoline) 10 mg IVP Q6 [facility] Last Admin: 07/10/17 17:09 Dose: Not Given Hydromorphone HCl (Dilaudid) 0.5 mg IVP Q4H PRN PRN Reason: Pain, moderate (4-7) Last Admin: 07/10/17 14:50 Dose: 0.5 mg Nicardipine HCl (Cardene Iv Premix) 20 mg in 200 mls @ 50 mls/hr IV .Q4H PRN; Protocol; 5 MG/HR PRN Reason: TITRATE PER MD ORDER Last Titration: 07/10/17 16:56 Dose: 0 mg/hr, 0 mls/hr Levetiracetam (Keppra 500mg Ivpb) 500 mg in 100 mls @ 200 mls/hr IVPB Q12H [facility] Last Admin: 07/10/17 03:07 Dose: 200 mls/hr Propofol (Diprivan) 1,000 mg in 100 mls @ 3.103 mls/hr IV .Q24H PRN; Protocol; 5 MCG/KG/MIN PRN Reason: TITRATE PER MD ORDER Last Admin: 07/10/17 11:48 Dose: 30 mcg/kg/min, 18.615 mls/hr Sodium Chloride (Sodium Chloride 0.45%) 1,000 mls @ 50 mls/hr IV .Q20H [facility] Last Admin: 07/10/17 03:08 Dose: 50 mls/hr Cefepime HCl (Maxipime 2gm) 2 gm in 100 mls @ 100 mls/hr IVPB Q12 [facility] PRN Reason: Protocol Stop: 07/13/17 10:01 Last Admin: 07/10/17 09:20 Dose: 100 mls/hr Acetaminophen (Ofirmev) 1,000 mg in 100 mls @ 400 mls/hr IVPB Q8H PRN PRN Reason: Temperature Stop: 07/11/17 05:57 Last Admin: 07/09/17 15:41 Dose: 400 mls/hr Ondansetron HCl (Zofran Inj) 4 mg IVP Q6H PRN PRN Reason: Nausea/Vomiting Last Admin: 07/06/17 21:55 Dose: 4 mg Pantoprazole Sodium (Protonix Inj) 40 mg IVP DAILY [facility] Last Admin: 07/10/17 09:19 Dose: 40 mg - Labs Labs: 07/10/17 06:00 07/10/17 06:00 PT 13.0 SECONDS (9.4-12.5) H 07/10/17 06:00 INR 1.18 (0.93-1.08) H 07/10/17 06:00 APTT 28.5 Seconds (25.1-36.5) 07/10/17 06:00 - Head Exam Head Exam: ATRAUMATIC, NORMOCEPHALIC - Eye Exam Eye Exam: EOMI, PERRL - ENT Exam ENT Exam: Mucous Membranes Moist - Respiratory Exam Respiratory Exam: Clear to Ausculation Bilateral. absent: Rales, Rhonchi, Wheezes - Cardiovascular Exam Cardiovascular Exam: RRR, +S1, +S2. absent: Gallop, JVD, Rubs - GI/Abdominal Exam GI & Abdominal Exam: Soft. absent: Distended, Firm, Guarding, Rigid, Tenderness , Rebound - Neurological Exam Additional comments: EOMI PERRL moves right upper and lower extremity spontaneously no movement elicited of left upper and lower extremity - Skin Skin Exam: Dry, Intact, Normal Color, Warm Assessment and Plan - Assessment and Plan (Free Text) Plan: 72yo male with history of colon ca s/p partial colectomy, hypertension and hyperlipidemia presents to [facility] with acute cerebrovascular accident secondary to right MCA infarct 1. Acute CVA complicated by hemorrhagic conversion 2. Hypertension 3. Hyperlipidemia 4. CAD s/p stent placement 5. Hx of colon ca s/p partial colectomy -Patient originally presented with Acute CVA secondary to right middle cerebral artery infarct due to diffuse atherosclerotic disease -Repeat Head CT is consistent with hemorrhagic conversion of the right MCA infarct secondary to hypertensive disease s/p tPA administration -Brain MRI reviewed; revealed R. MCA infarct and punctate hemorrhage in the right posterior parietal occipital lobe -Recommend trach and PEG; patient scheduled for trach today -No aspirin/plavix for 3 weeks -Recommend Keppra 500mg IV q12h for seizure prophylaxis -Recommend follow up neurosurgery recommendations -Monitor closely for signs of increasing ICP -Maintain blood pressure between 120-130's -Recommend echocardiogram for evaluation of underlying cardiomyopathy -Fever in the setting of acute stroke is correlated with worse outcome, therefore maintain normothermia; continue with IV ofirmev -Continue with IV antibiotics per ID recommendations -Physical therapy/Occupational therapy evaluation -Speech/Swallow evaluation -Neurochecks q1h -Continue present medical management as per ICU team -Prognosis remains guarded for this critically ill patient Patient seen and case discussed/reviewed with attending, Dr. Duval <Volodymyr Duval - Last Filed: 07/11/17 11:03> Objective - Vital Signs/Intake and Output Vital Signs (last 24 hours): Temp Pulse Resp BP Pulse Ox 99 F 77 16 125/68 99 07/11/17 04:00 07/11/17 09:45 07/11/17 09:45 07/11/17 09:45 07/11/17 09:45 Intake and Output: 07/11/17 07/11/17 06:59 18:59 Intake Total 523 Output Total 800 Balance -277 - Medications Medications: Current Medications Hydralazine HCl (Apresoline) 10 mg IVP Q6 [facility] Last Admin: 07/11/17 07:02 Dose: Not Given Hydromorphone HCl (Dilaudid) 0.5 mg IVP Q4H PRN PRN Reason: Pain, moderate (4-7) Last Admin: 07/10/17 14:50 Dose: 0.5 mg Nicardipine HCl (Cardene Iv Premix) 20 mg in 200 mls @ 50 mls/hr IV .Q4H PRN; Protocol; 5 MG/HR PRN Reason: TITRATE PER MD ORDER Last Titration: 07/10/17 16:56 Dose: 0 mg/hr, 0 mls/hr Levetiracetam (Keppra 500mg Ivpb) 500 mg in 100 mls @ 200 mls/hr IVPB Q12H [facility] Last Admin: 07/11/17 03:17 Dose: 200 mls/hr Propofol (Diprivan) 1,000 mg in 100 mls @ 3.103 mls/hr IV .Q24H PRN; Protocol; 5 MCG/KG/MIN PRN Reason: TITRATE PER MD ORDER Last Admin: 07/11/17 05:58 Dose: 30 mcg/kg/min, 18.615 mls/hr Sodium Chloride (Sodium Chloride 0.45%) 1,000 mls @ 50 mls/hr IV .Q20H [facility] Last Admin: 07/11/17 07:41 Dose: 50 mls/hr Cefepime HCl (Maxipime 2gm) 2 gm in 100 mls @ 100 mls/hr IVPB Q12 [facility] PRN Reason: Protocol Stop: 07/13/17 10:01 Last Admin: 07/11/17 09:58 Dose: 100 mls/hr Linezolid (Zyvox 600mg/300ml D5w) 600 mg in 300 mls @ 200 mls/hr IVPB Q12 [facility] PRN Reason: Protocol Stop: 07/18/17 10:01 Last Admin: 07/11/17 09:57 Dose: 200 mls/hr Ondansetron HCl (Zofran Inj) 4 mg IVP Q6H PRN PRN Reason: Nausea/Vomiting Last Admin: 07/06/17 21:55 Dose: 4 mg Pantoprazole Sodium (Protonix Inj) 40 mg IVP DAILY [facility] Last Admin: 07/11/17 09:57 Dose: 40 mg - Labs Labs: 07/11/17 06:30 07/11/17 06:30 PT 13.0 SECONDS (9.4-12.5) H 07/10/17 06:00 INR 1.18 (0.93-1.08) H 07/10/17 06:00 APTT 28.5 Seconds (25.1-36.5) 07/10/17 06:00 Attending/Attestation - Attestation I have personally seen and examined this patient.: Yes I have fully participated in the care of the patient.: Yes I have reviewed all pertinent clinical information, including history, physical exam and plan: Yes
--- NOTE | 2017-07-10 23:40 | OP ---
PROCEDURE DATE: 07/10/2017 PREOPERATIVE DIAGNOSIS: Respiratory failure. PROCEDURE: Tracheostomy using #6 Shiley. LENS GENERATOR: Becki Ray. TYPE OF ANESTHESIA: General. INDICATIONS: This is an elderly gentleman, came in with a stroke about a week earlier as he had residual and they were trying to wean him to balance. Now, he is status post stroke and now with respiratory failure. The family understood the risks and benefits of surgery and consented for findings, will order the procedure. DESCRIPTION OF PROCEDURE: After general endotracheal anesthesia was applied, neck slightly extended. All pressure points were cushioned. The neck and upper chest wall were washed with Betadine solution and draped in a sterile manner. A tangential incision was made above the manubrium cutting down it to midline, used the cautery for hemostasis. We identified the midline, the pretracheal space, dissected through the upper portion of the trachea, the small portion of one of the tracheal rings, dilated and entered the #6 Shiley that was previously tested under direct vision as we pulled out the ET tube. It was connected to the ventilator with good settings. It was then passed into the skin with silk, and the patient was then sent to recovery room. Nicole Gusman MD
--- NOTE | 2017-07-11 01:07 | PN ---
DATE: 07/10/2017 SUBJECTIVE: The patient is intubated. PHYSICAL EXAMINATION: VITAL SIGNS: Temperature is 99.1, pulse of 115, blood pressure is 123/84, respirations 16 and O2 saturation 95%. GENERAL: The patient is lying in bed, flat, comfortable. HEENT: Positive ET tube. NECK: No JVD, adenopathy, or thyromegaly. CARDIOVASCULAR: S1 and S2, regular. No murmurs, rubs, or gallops. LUNGS: Clear to auscultation bilaterally. No wheeze, rales, or rhonchi. ABDOMEN: Bowel sounds are positive, soft, nontender and nondistended. EXTREMITIES: No cyanosis, clubbing or edema. LABORATORY DATA: Labs have been reviewed. Creatinine is 1.7 and potassium is 3.8. White count is 7.8. ASSESSMENT: 1. Right middle cerebral artery stroke. 2. 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 3. Respiratory failure, on ventilator. 4. Chronic kidney disease, stage III. 5. Hypertensive emergency, improved. 6. Diabetes type 2. 7. Hypertension. 8. Dyslipidemia. 9. Ventilator-associated pneumonia, right lower lobe. PLAN: The patient has no issues overnight. There is a new infiltrate in the right lower lobe. The patient has a new infiltrate on the chest x-ray. The patient is currently on IV fluids with normal saline. He is receiving cefepime for antibiotics. The patient is on Protonix daily. He is on Zofran. The patient is to get a tracheostomy done today. I did leave a voice mail for the patient's Carol to give her an update. We will continue to follow the patient closely. Jani Hernandez MD
[2017-07-11] MEDS: levETIRAcetam 500mg IVPB 500 MG/100 ML BAG IVPB SCH ×2 (03:17→16:33)
[2017-07-11 05:44] LABS: ARTERIAL BLOOD GAS HCO3 19.9 mmol/L (21-28); ARTERIAL BLOOD GAS O2 CAPACITY 14.9 mL/dl (16-24); ARTERIAL BLOOD GAS O2 CONTENT 14.8 ML/dl (15-23); ARTERIAL BLOOD GAS PH 7.43 (7.35-7.45); ARTERIAL BLOOD HGB O2 SAT 96.4 % (95.0-98.0); CARBOXYHEMOGLOBIN 1.9 % (0.5-1.5); HHB 0.5 % (0-5); METHEMOGLOBIN 1.2 % (0.0-3.0)
[2017-07-11] MEDS: Propofol 10 mg/ml 1,000 MG/100 ML VIAL IV PRN (05:58)
[2017-07-11 07:32] LABS: BASO # 0.01 K/mm3 (0.0-2.0); BASO % 0.1 % (0.0-3.0); EOS % 0.3 % (1.5-5.0); GRAN # 8.96 (1.4-6.5); GRAN % 81.3 % (50.0-68.0); HEMATOCRIT 34.7 % (42.0-52.0); MEAN CELL VOLUME 89.2 fl (80.0-105.0); MEAN CORPUSCULAR HGB CONC 32.6 g/dl (31.0-37.0); MONO % 9.3 % (1.0-6.0)
[2017-07-11] MEDS: Sodium Chloride 0.45% 1,000 ML IV SCH (07:41)
[2017-07-11 07:56] LABS: BILIRUBIN,TOTAL 1.5 mg/dL (0.2-1.3); CALCIUM 8.5 mg/dL (8.4-10.5); MAGNESIUM 2.2 mg/dL (1.7-2.2); POTASSIUM 4.2 mmol/L (3.6-5.0); TOTAL PROTEIN 7.4 g/dL (5.8-8.3)
[2017-07-11 09:12] LABS: URINE BILIRUBIN NEGATIVE (NEGATIVE); URINE BLOOD LARGE (NEGATIVE); URINE GLUCOSE (UA) 100 mg/dL (NEGATIVE); URINE KETONE 15 mg/dL (NEGATIVE); URINE LEUKOCYTE ESTERASE TRACE Leu/uL (NEGATIVE); URINE PROTEIN 100 mg/dL (<30 mg/dL); URINE UROBILINOGEN 0.2 E.U./dL (<1 E.U./dL)
[2017-07-11 09:15] LABS: URINE APPEARANCE TURBID (CLEAR); URINE COLOR YELLOW (YELLOW)
[2017-07-11 09:19] LABS: URINE RBC TNTC /hpf (0-2); URINE URIC ACID CRYSTALS FEW /hpf
[2017-07-11] MEDS: Linezolid 600 mg in D5W 300 ml 600 MG/300 ML BAG IVPB SCH ×2 (09:57→21:11)
[2017-07-11] MEDS: Cefepime IV 2 gm in NS 2 GM/100 ML BAG IVPB SCH ×2 (09:58→22:03)
--- NOTE | 2017-07-11 10:54 | CP.PCM.PN ---
Subjective - Date & Time of Evaluation Date of Evaluation: 07/11/17 Time of Evaluation: 10:00 - Subjective Subjective: Now with tracheostomy and now off the ventilator. Still with intermittent fevers overnight. Noted CXR from yesterday which showing possible new right lower lobe infiltrate. Objective - Vital Signs/Intake and Output Vital Signs (last 24 hours): Temp Pulse Resp BP Pulse Ox 99 F 72 26 H 115/57 L 100 07/11/17 04:00 07/11/17 07:02 07/10/17 14:31 07/11/17 07:02 07/11/17 06:20 Intake and Output: 07/11/17 07/11/17 06:59 18:59 Intake Total 523 Output Total 800 Balance -277 - Medications Medications: Current Medications Hydralazine HCl (Apresoline) 10 mg IVP Q6 [facility] Last Admin: 07/11/17 07:02 Dose: Not Given Hydromorphone HCl (Dilaudid) 0.5 mg IVP Q4H PRN PRN Reason: Pain, moderate (4-7) Last Admin: 07/10/17 14:50 Dose: 0.5 mg Nicardipine HCl (Cardene Iv Premix) 20 mg in 200 mls @ 50 mls/hr IV .Q4H PRN; Protocol; 5 MG/HR PRN Reason: TITRATE PER MD ORDER Last Titration: 07/10/17 16:56 Dose: 0 mg/hr, 0 mls/hr Levetiracetam (Keppra 500mg Ivpb) 500 mg in 100 mls @ 200 mls/hr IVPB Q12H [facility] Last Admin: 07/11/17 03:17 Dose: 200 mls/hr Propofol (Diprivan) 1,000 mg in 100 mls @ 3.103 mls/hr IV .Q24H PRN; Protocol; 5 MCG/KG/MIN PRN Reason: TITRATE PER MD ORDER Last Admin: 07/11/17 05:58 Dose: 30 mcg/kg/min, 18.615 mls/hr Sodium Chloride (Sodium Chloride 0.45%) 1,000 mls @ 50 mls/hr IV .Q20H [facility] Last Admin: 07/10/17 03:08 Dose: 50 mls/hr Cefepime HCl (Maxipime 2gm) 2 gm in 100 mls @ 100 mls/hr IVPB Q12 [facility] PRN Reason: Protocol Stop: 07/13/17 10:01 Last Admin: 07/10/17 21:26 Dose: 100 mls/hr Ondansetron HCl (Zofran Inj) 4 mg IVP Q6H PRN PRN Reason: Nausea/Vomiting Last Admin: 07/06/17 21:55 Dose: 4 mg Pantoprazole Sodium (Protonix Inj) 40 mg IVP DAILY [facility] Last Admin: 07/10/17 09:19 Dose: 40 mg - Labs Labs: 07/10/17 06:00 07/10/17 06:00 PT 13.0 SECONDS (9.4-12.5) H 07/10/17 06:00 INR 1.18 (0.93-1.08) H 07/10/17 06:00 APTT 28.5 Seconds (25.1-36.5) 07/10/17 06:00 - Constitutional Appears: Other (spontaneous movement but not purposeful, not following commands) - ENT Exam Additional comments: tracheostomy tube in place - Neck Exam Neck Exam: absent: Meningismus - Respiratory Exam Respiratory Exam: Decreased Breath Sounds - Cardiovascular Exam Cardiovascular Exam: +S1, +S2 - GI/Abdominal Exam GI & Abdominal Exam: Soft. absent: Tenderness Assessment and Plan - Assessment and Plan (Free Text) Plan: Assessment Systemic Inflammatory response syndrome (fever and tachycardia), consider due to acute right sided CVA with hemorrhage; R/O sepsis from right lower lobe healthcare-associated pneumonia DM chronic renal failure obesity with BMI 33 history of colon cancer Plan cultures have been negative; reviewed repeat CXR WBC count is normal; PCT is 0.2 - continue Cefepime day 4 and add Zyvox will continue to monitor clinically
--- NOTE | 2017-07-11 11:01 | CP.CCUPN ---
<LiOrville vasquez - Last Filed: 07/11/17 10:57> CCU Subjective - Physician Review Events Since Last Encounter (Free Text): 07/11/17 10:[address] Garcia Pt seen and examined at bedside. No acute events overnight. Patient doing well with Trach, as obtained yesterday. Tmax of 103.4F last night. No acute distress. CCU Objective - Vital Signs / Intake & Output Vital Signs (Last 4 hours): Vital Signs Pulse Resp BP Pulse Ox 07/11/17 09:45 77 16 125/68 99 07/11/17 09:40 76 13 100 07/11/17 09:30 75 20 122/66 100 07/11/17 09:20 70 100 07/11/17 09:15 69 110/57 L 100 07/11/17 09:10 70 100 07/11/17 09:00 73 127/63 100 07/11/17 08:50 71 100 07/11/17 08:45 88 131/73 100 07/11/17 08:40 73 100 07/11/17 08:30 70 116/58 L 100 07/11/17 08:20 72 100 07/11/17 08:15 70 147/64 100 07/11/17 08:10 71 100 07/11/17 08:00 76 133/66 100 07/11/17 07:50 80 100 07/11/17 07:45 79 110/67 100 07/11/17 07:40 73 100 07/11/17 07:30 72 128/65 100 07/11/17 07:20 71 100 07/11/17 07:15 72 115/60 100 07/11/17 07:13 16 100 07/11/17 07:10 73 100 07/11/17 07:02 72 115/57 L 07/11/17 07:00 72 115/57 L 100 Intake and Output (Last 8hrs): Intake & Output 07/10/17 07/11/17 07/11/17 22:59 06:59 14:59 Intake Total 125 523 Output Total 800 Balance 125 -277 Weight 233 lb 14.4 oz Intake: IV 125 523 Right Forearm 223 Right Hand 200 Output: Urine 800 Urethral (Self) 800 - Physical Exam Head: Positive for: Atraumatic, Normocephalic Pupils: Positive for: Pinpoint Mouth: Positive for: Moist Mucous Membranes Nose (External): Positive for: Atraumatic Neck: Positive for: Trachea Midline, Other (Trach collar placed yesterday, no signs of overt bleeding. ) Respiratory/Chest: Positive for: Other (intubated and sedated, mechanical breath sounds bilaterally) Cardiovascular: Positive for: Normal S1, S2. Negative for: Murmurs, Rub, Gallop Abdomen: Positive for: Normal Bowel Sounds. Negative for: Tenderness, Distention, Peritoneal Signs, Rebound, Guarding Upper Extremity: Positive for: Normal Inspection Lower Extremity: Positive for: Normal Inspection Neurological: Positive for: Other (Trach placed yesterday. Titrating down to come off sedation) Skin: Positive for: Warm, Dry Psychiatric: Positive for: Other (No acute distress.) - Medications Active Medications: Active Medications Generic Name Dose Route Start Last Admin Trade Name Freq PRN Reason Stop Dose Admin Hydralazine HCl 10 mg 07/09/17 12:00 07/11/17 07:02 Apresoline IVP Not Given Q6 ANNALEE Hydromorphone HCl 0.5 mg 07/10/17 14:39 07/10/17 14:50 Dilaudid IVP 0.5 mg Q4H PRN Administration Pain, moderate (4-7) Nicardipine HCl 20 mg in 200 mls @ 50 mls/hr 07/07/17 15:20 07/10/17 16:56 Cardene Iv Premix IV 0 mg/hr .Q4H PRN 0 mls/hr TITRATE PER MD ORDER Titration Protocol 5 MG/HR Levetiracetam 500 mg in 100 mls @ 200 mls/hr 07/07/17 15:45 07/11/17 03:17 Keppra 500mg Ivpb IVPB 200 mls/hr Q12H ANNALEE Administration Propofol 1,000 mg in 100 mls @ 3.103 mls/hr 07/07/17 23:24 07/11/17 05:58 Diprivan IV 30 mcg/kg/min .Q24H PRN 18.615 mls/hr TITRATE PER MD ORDER Administration Protocol 5 MCG/KG/MIN Sodium Chloride 1,000 mls @ 50 mls/hr 07/08/17 08:30 07/11/17 07:41 Sodium Chloride 0.45% IV 50 mls/hr .Q20H ANNALEE Administration Cefepime HCl 2 gm in 100 mls @ 100 mls/hr 07/08/17 10:00 07/11/17 09:58 Maxipime 2gm IVPB 07/13/17 10:01 100 mls/hr Q12 ANNALEE Administration Protocol Linezolid 600 mg in 300 mls @ 200 mls/hr 07/11/17 10:00 07/11/17 09:57 Zyvox 600mg/300ml D5w IVPB 07/18/17 10:01 200 mls/hr Q12 ANNALEE Administration Protocol Ondansetron HCl 4 mg 07/06/17 21:36 07/06/17 21:55 Zofran Inj IVP 4 mg Q6H PRN Administration Nausea/Vomiting Pantoprazole Sodium 40 mg 07/07/17 12:00 07/11/17 09:57 Protonix Inj IVP 40 mg DAILY ANNALEE Administration - Patient Studies Lab Studies: Microbiology Studies 07/07/17 12:53 Blood Culture - Preliminary Blood-Venous NO GROWTH AFTER 3 DAYS Lab Studies 07/11/17 07/11/17 07/11/17 Range/Units 08:40 08:03 06:30 WBC (4.5-11.0) 10^3/ul RBC (3.5-6.1) 10^6/uL Hgb (14.0-18.0) g/dL Hct (42.0-52.0) % MCV (80.0-105.0) fl MCH (25.0-35.0) pg MCHC (31.0-37.0) g/dl RDW (11.5-14.5) % Plt Count (120.0-450.0) 10^3/uL MPV (7.0-11.0) fl Gran % (50.0-68.0) % Lymph % (Auto) (22.0-35.0) % Ida % (Auto) (1.0-6.0) % Eos % (Auto) (1.5-5.0) % Baso % (Auto) (0.0-3.0) % Gran # (1.4-6.5) Lymph # (1.2-3.4) Ida # (0.1-0.6) Eos # (0.0-0.7) Baso # (0.0-2.0) K/mm3 pCO2 (35-45) mm/Hg pO2 (80-100) mm/Hg HCO3 (21-28) mmol/L ABG pH (7.35-7.45) ABG Total CO2 (22-28) mmol.L ABG O2 Saturation (95-98) % ABG O2 Content (15-23) ML/dl ABG Base Excess (-2.0-3.0) mmol/L ABG Hemoglobin (11.7-17.4) g/dL ABG Carboxyhemoglobin (0.5-1.5) % POC ABG HHb (Measured) (0-5) % ABG Methemoglobin (0.0-3.0) % ABG O2 Capacity (16-24) mL/dl Hgb O2 Saturation (95.0-98.0) % FiO2 % Sodium 141 (132-148) mmol/L Potassium 4.2 (3.6-5.0) mmol/L Chloride 108 H (98-107) mmol/L Carbon Dioxide 21 (21-33) mmol/L Anion Gap 17 (10-20) BUN 32 H (7-21) mg/dL Creatinine 1.6 H (0.8-1.5) mg/dl Est GFR ( Amer) 52 Est GFR (Non-Af Amer) 43 POC Glucose (mg/dL) 190 H (65-110) mg/dL Random Glucose 171 H (70-110) mg/dL Calcium 8.5 (8.4-10.5) mg/dL Phosphorus 3.0 (2.5-4.5) mg/dL Magnesium 2.2 (1.7-2.2) mg/dL Total Bilirubin 1.5 H (0.2-1.3) mg/dL AST 38 (17-59) U/L ALT 34 (7-56) U/L Alkaline Phosphatase 154 H (38-126) U/L Total Protein 7.4 (5.8-8.3) g/dL Albumin 3.7 (3.0-4.8) g/dL Globulin 3.7 gm/dL Albumin/Globulin Ratio 1.0 L (1.1-1.8) Urine Color Yellow (YELLOW) Urine Appearance Turbid (CLEAR) Urine pH 6.0 (4.7-8.0) Ur Specific [place] 1.020 (1.005-1.035) Urine Protein 100 H (<30 mg/dL) mg/dL Urine Glucose (UA) 100 H (NEGATIVE) mg/dL Urine Ketones 15 H (NEGATIVE) mg/dL Urine Blood Large H (NEGATIVE) Urine Nitrate Negative (NEGATIVE) Urine Bilirubin Negative (NEGATIVE) Urine Urobilinogen 0.2 (<1 E.U./dL) E.U./dL Ur Leukocyte Esterase Trace H (NEGATIVE) Beatriz/uL Urine RBC Tntc (0-2) /hpf Urine WBC 2 - 5 (0-6) /hpf Uric Acid Crystals Few /hpf Influenza Typ A,B (EIA) (NEGATIVE) 07/11/17 07/11/17 07/10/17 Range/Units 06:30 05:20 22:04 WBC 11.0 D (4.5-11.0) 10^3/ul RBC 3.89 (3.5-6.1) 10^6/uL Hgb 11.3 L (14.0-18.0) g/dL Hct 34.7 L (42.0-52.0) % MCV 89.2 (80.0-105.0) fl MCH 29.0 (25.0-35.0) pg MCHC 32.6 (31.0-37.0) g/dl RDW 14.0 (11.5-14.5) % Plt Count 178 (120.0-450.0) 10^3/uL MPV 11.0 (7.0-11.0) fl Gran % 81.3 H (50.0-68.0) % Lymph % (Auto) 9.0 L (22.0-35.0) % Ida % (Auto) 9.3 H (1.0-6.0) % Eos % (Auto) 0.3 L (1.5-5.0) % Baso % (Auto) 0.1 (0.0-3.0) % Gran # 8.96 H (1.4-6.5) Lymph # 1.0 L (1.2-3.4) Ida # 1.0 H (0.1-0.6) Eos # 0.0 (0.0-0.7) Baso # 0.01 (0.0-2.0) K/mm3 pCO2 30 L (35-45) mm/Hg pO2 115.0 H (80-100) mm/Hg HCO3 19.9 L (21-28) mmol/L ABG pH 7.43 (7.35-7.45) ABG Total CO2 20.8 L (22-28) mmol.L ABG O2 Saturation 99.5 H (95-98) % ABG O2 Content 14.8 L (15-23) ML/dl ABG Base Excess -3.6 L (-2.0-3.0) mmol/L ABG Hemoglobin 10.8 L (11.7-17.4) g/dL ABG Carboxyhemoglobin 1.9 H (0.5-1.5) % POC ABG HHb (Measured) 0.5 (0-5) % ABG Methemoglobin 1.2 (0.0-3.0) % ABG O2 Capacity 14.9 L (16-24) mL/dl Hgb O2 Saturation 96.4 (95.0-98.0) % FiO2 40.0 % Sodium (132-148) mmol/L Potassium (3.6-5.0) mmol/L Chloride (98-107) mmol/L Carbon Dioxide (21-33) mmol/L Anion Gap (10-20) BUN (7-21) mg/dL Creatinine (0.8-1.5) mg/dl Est GFR ( Amer) Est GFR (Non-Af Amer) POC Glucose (mg/dL) 158 H (65-110) mg/dL Random Glucose (70-110) mg/dL Calcium (8.4-10.5) mg/dL Phosphorus (2.5-4.5) mg/dL Magnesium (1.7-2.2) mg/dL Total Bilirubin (0.2-1.3) mg/dL AST (17-59) U/L ALT (7-56) U/L Alkaline Phosphatase (38-126) U/L Total Protein (5.8-8.3) g/dL Albumin (3.0-4.8) g/dL Globulin gm/dL Albumin/Globulin Ratio (1.1-1.8) Urine Color (YELLOW) Urine Appearance (CLEAR) Urine pH (4.7-8.0) Ur Specific [place] (1.005-1.035) Urine Protein (<30 mg/dL) mg/dL Urine Glucose (UA) (NEGATIVE) mg/dL Urine Ketones (NEGATIVE) mg/dL Urine Blood (NEGATIVE) Urine Nitrate (NEGATIVE) Urine Bilirubin (NEGATIVE) Urine Urobilinogen (<1 E.U./dL) E.U./dL Ur Leukocyte Esterase (NEGATIVE) Beatriz/uL Urine RBC (0-2) /hpf Urine WBC (0-6) /hpf Uric Acid Crystals /hpf Influenza Typ A,B (EIA) (NEGATIVE) 07/10/17 07/10/17 07/10/17 Range/Units 20:23 16:27 11:18 WBC (4.5-11.0) 10^3/ul RBC (3.5-6.1) 10^6/uL Hgb (14.0-18.0) g/dL Hct (42.0-52.0) % MCV (80.0-105.0) fl MCH (25.0-35.0) pg MCHC (31.0-37.0) g/dl RDW (11.5-14.5) % Plt Count (120.0-450.0) 10^3/uL MPV (7.0-11.0) fl Gran % (50.0-68.0) % Lymph % (Auto) (22.0-35.0) % Ida % (Auto) (1.0-6.0) % Eos % (Auto) (1.5-5.0) % Baso % (Auto) (0.0-3.0) % Gran # (1.4-6.5) Lymph # (1.2-3.4) Ida # (0.1-0.6) Eos # (0.0-0.7) Baso # (0.0-2.0) K/mm3 pCO2 (35-45) mm/Hg pO2 (80-100) mm/Hg HCO3 (21-28) mmol/L ABG pH (7.35-7.45) ABG Total CO2 (22-28) mmol.L ABG O2 Saturation (95-98) % ABG O2 Content (15-23) ML/dl ABG Base Excess (-2.0-3.0) mmol/L ABG Hemoglobin (11.7-17.4) g/dL ABG Carboxyhemoglobin (0.5-1.5) % POC ABG HHb (Measured) (0-5) % ABG Methemoglobin (0.0-3.0) % ABG O2 Capacity (16-24) mL/dl Hgb O2 Saturation (95.0-98.0) % FiO2 % Sodium (132-148) mmol/L Potassium (3.6-5.0) mmol/L Chloride (98-107) mmol/L Carbon Dioxide (21-33) mmol/L Anion Gap (10-20) BUN (7-21) mg/dL Creatinine (0.8-1.5) mg/dl Est GFR ( Amer) Est GFR (Non-Af Amer) POC Glucose (mg/dL) 203 H 155 H (65-110) mg/dL Random Glucose (70-110) mg/dL Calcium (8.4-10.5) mg/dL Phosphorus (2.5-4.5) mg/dL Magnesium (1.7-2.2) mg/dL Total Bilirubin (0.2-1.3) mg/dL AST (17-59) U/L ALT (7-56) U/L Alkaline Phosphatase (38-126) U/L Total Protein (5.8-8.3) g/dL Albumin (3.0-4.8) g/dL Globulin gm/dL Albumin/Globulin Ratio (1.1-1.8) Urine Color (YELLOW) Urine Appearance (CLEAR) Urine pH (4.7-8.0) Ur Specific [place] (1.005-1.035) Urine Protein (<30 mg/dL) mg/dL Urine Glucose (UA) (NEGATIVE) mg/dL Urine Ketones (NEGATIVE) mg/dL Urine Blood (NEGATIVE) Urine Nitrate (NEGATIVE) Urine Bilirubin (NEGATIVE) Urine Urobilinogen (<1 E.U./dL) E.U./dL Ur Leukocyte Esterase (NEGATIVE) Beatriz/uL Urine RBC (0-2) /hpf Urine WBC (0-6) /hpf Uric Acid Crystals /hpf Influenza Typ A,B (EIA) Negative for flu a/b (NEGATIVE) 07/10/17 Range/Units 07:43 WBC (4.5-11.0) 10^3/ul RBC (3.5-6.1) 10^6/uL Hgb (14.0-18.0) g/dL Hct (42.0-52.0) % MCV (80.0-105.0) fl MCH (25.0-35.0) pg MCHC (31.0-37.0) g/dl RDW (11.5-14.5) % Plt Count (120.0-450.0) 10^3/uL MPV (7.0-11.0) fl Gran % (50.0-68.0) % Lymph % (Auto) (22.0-35.0) % Ida % (Auto) (1.0-6.0) % Eos % (Auto) (1.5-5.0) % Baso % (Auto) (0.0-3.0) % Gran # (1.4-6.5) Lymph # (1.2-3.4) Ida # (0.1-0.6) Eos # (0.0-0.7) Baso # (0.0-2.0) K/mm3 pCO2 (35-45) mm/Hg pO2 (80-100) mm/Hg HCO3 (21-28) mmol/L ABG pH (7.35-7.45) ABG Total CO2 (22-28) mmol.L ABG O2 Saturation (95-98) % ABG O2 Content (15-23) ML/dl ABG Base Excess (-2.0-3.0) mmol/L ABG Hemoglobin (11.7-17.4) g/dL ABG Carboxyhemoglobin (0.5-1.5) % POC ABG HHb (Measured) (0-5) % ABG Methemoglobin (0.0-3.0) % ABG O2 Capacity (16-24) mL/dl Hgb O2 Saturation (95.0-98.0) % FiO2 % Sodium (132-148) mmol/L Potassium (3.6-5.0) mmol/L Chloride (98-107) mmol/L Carbon Dioxide (21-33) mmol/L Anion Gap (10-20) BUN (7-21) mg/dL Creatinine (0.8-1.5) mg/dl Est GFR ( Amer) Est GFR (Non-Af Amer) POC Glucose (mg/dL) 145 H (65-110) mg/dL Random Glucose (70-110) mg/dL Calcium (8.4-10.5) mg/dL Phosphorus (2.5-4.5) mg/dL Magnesium (1.7-2.2) mg/dL Total Bilirubin (0.2-1.3) mg/dL AST (17-59) U/L ALT (7-56) U/L Alkaline Phosphatase (38-126) U/L Total Protein (5.8-8.3) g/dL Albumin (3.0-4.8) g/dL Globulin gm/dL Albumin/Globulin Ratio (1.1-1.8) Urine Color (YELLOW) Urine Appearance (CLEAR) Urine pH (4.7-8.0) Ur Specific [place] (1.005-1.035) Urine Protein (<30 mg/dL) mg/dL Urine Glucose (UA) (NEGATIVE) mg/dL Urine Ketones (NEGATIVE) mg/dL Urine Blood (NEGATIVE) Urine Nitrate (NEGATIVE) Urine Bilirubin (NEGATIVE) Urine Urobilinogen (<1 E.U./dL) E.U./dL Ur Leukocyte Esterase (NEGATIVE) Beatriz/uL Urine RBC (0-2) /hpf Urine WBC (0-6) /hpf Uric Acid Crystals /hpf Influenza Typ A,B (EIA) (NEGATIVE) Laboratory Results - last 24 hr 07/10/17 07/10/17 07/10/17 07:43 11:18 16:27 WBC RBC Hgb Hct MCV MCH MCHC RDW Plt Count MPV Gran % Lymph % (Auto) Ida % (Auto) Eos % (Auto) Baso % (Auto) Gran # Lymph # Ida # Eos # Baso # pCO2 pO2 HCO3 ABG pH ABG Total CO2 ABG O2 Saturation ABG O2 Content ABG Base Excess ABG Hemoglobin ABG Carboxyhemoglobin POC ABG HHb (Measured) ABG Methemoglobin ABG O2 Capacity Hgb O2 Saturation FiO2 Sodium Potassium Chloride Carbon Dioxide Anion Gap BUN Creatinine Est GFR ( Amer) Est GFR (Non-Af Amer) POC Glucose (mg/dL) 145 H 155 H 203 H Random Glucose Calcium Phosphorus Magnesium Total Bilirubin AST ALT Alkaline Phosphatase Total Protein Albumin Globulin Albumin/Globulin Ratio Urine Color Urine Appearance Urine pH Ur Specific [place] Urine Protein Urine Glucose (UA) Urine Ketones Urine Blood Urine Nitrate Urine Bilirubin Urine Urobilinogen Ur Leukocyte Esterase Urine RBC Urine WBC Uric Acid Crystals Influenza Typ A,B (EIA) 07/10/17 07/10/17 07/11/17 20:23 22:04 05:20 WBC RBC Hgb Hct MCV MCH MCHC RDW Plt Count MPV Gran % Lymph % (Auto) Ida % (Auto) Eos % (Auto) Baso % (Auto) Gran # Lymph # Ida # Eos # Baso # pCO2 30 L pO2 115.0 H HCO3 19.9 L ABG pH 7.43 ABG Total CO2 20.8 L ABG O2 Saturation 99.5 H ABG O2 Content 14.8 L ABG Base Excess -3.6 L ABG Hemoglobin 10.8 L ABG Carboxyhemoglobin 1.9 H POC ABG HHb (Measured) 0.5 ABG Methemoglobin 1.2 ABG O2 Capacity 14.9 L Hgb O2 Saturation 96.4 FiO2 40.0 Sodium Potassium Chloride Carbon Dioxide Anion Gap BUN Creatinine Est GFR ( Amer) Est GFR (Non-Af Amer) POC Glucose (mg/dL) 158 H Random Glucose Calcium Phosphorus Magnesium Total Bilirubin AST ALT Alkaline Phosphatase Total Protein Albumin Globulin Albumin/Globulin Ratio Urine Color Urine Appearance Urine pH Ur Specific [place] Urine Protein Urine Glucose (UA) Urine Ketones Urine Blood Urine Nitrate Urine Bilirubin Urine Urobilinogen Ur Leukocyte Esterase Urine RBC Urine WBC Uric Acid Crystals Influenza Typ A,B (EIA) Negative for flu a/b 07/11/17 07/11/17 07/11/17 06:30 06:30 08:03 WBC 11.0 D RBC 3.89 Hgb 11.3 L Hct 34.7 L MCV 89.2 MCH 29.0 MCHC 32.6 RDW 14.0 Plt Count 178 MPV 11.0 Gran % 81.3 H Lymph % (Auto) 9.0 L Ida % (Auto) 9.3 H Eos % (Auto) 0.3 L Baso % (Auto) 0.1 Gran # 8.96 H Lymph # 1.0 L Ida # 1.0 H Eos # 0.0 Baso # 0.01 pCO2 pO2 HCO3 ABG pH ABG Total CO2 ABG O2 Saturation ABG O2 Content ABG Base Excess ABG Hemoglobin ABG Carboxyhemoglobin POC ABG HHb (Measured) ABG Methemoglobin ABG O2 Capacity Hgb O2 Saturation FiO2 Sodium 141 Potassium 4.2 Chloride 108 H Carbon Dioxide 21 Anion Gap 17 BUN 32 H Creatinine 1.6 H Est GFR ( Amer) 52 Est GFR (Non-Af Amer) 43 POC Glucose (mg/dL) 190 H Random Glucose 171 H Calcium 8.5 Phosphorus 3.0 Magnesium 2.2 Total Bilirubin 1.5 H AST 38 ALT 34 Alkaline Phosphatase 154 H Total Protein 7.4 Albumin 3.7 Globulin 3.7 Albumin/Globulin Ratio 1.0 L Urine Color Urine Appearance Urine pH Ur Specific [place] Urine Protein Urine Glucose (UA) Urine Ketones Urine Blood Urine Nitrate Urine Bilirubin Urine Urobilinogen Ur Leukocyte Esterase Urine RBC Urine WBC Uric Acid Crystals Influenza Typ A,B (EIA) 07/11/17 08:40 WBC RBC Hgb Hct MCV MCH MCHC RDW Plt Count MPV Gran % Lymph % (Auto) Ida % (Auto) Eos % (Auto) Baso % (Auto) Gran # Lymph # Ida # Eos # Baso # pCO2 pO2 HCO3 ABG pH ABG Total CO2 ABG O2 Saturation ABG O2 Content ABG Base Excess ABG Hemoglobin ABG Carboxyhemoglobin POC ABG HHb (Measured) ABG Methemoglobin ABG O2 Capacity Hgb O2 Saturation FiO2 Sodium Potassium Chloride Carbon Dioxide Anion Gap BUN Creatinine Est GFR ( Amer) Est GFR (Non-Af Amer) POC Glucose (mg/dL) Random Glucose Calcium Phosphorus Magnesium Total Bilirubin AST ALT Alkaline Phosphatase Total Protein Albumin Globulin Albumin/Globulin Ratio Urine Color Yellow Urine Appearance Turbid Urine pH 6.0 Ur Specific [place] 1.020 Urine Protein 100 H Urine Glucose (UA) 100 H Urine Ketones 15 H Urine Blood Large H Urine Nitrate Negative Urine Bilirubin Negative Urine Urobilinogen 0.2 Ur Leukocyte Esterase Trace H Urine RBC Tntc Urine WBC 2 - 5 Uric Acid Crystals Few Influenza Typ A,B (EIA) Fingerstick Blood Sugar Results: 167 Assessment/Plan - Assessment and Plan (Free Text) Assessment: 72 yo M with a PMH of CAD, 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 Hospital course complicated by worsening mental status requiring intubation for airway protection. Patient obtained trach on 07/10, able to do well on trach collar trials. 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 No evidence of significant stenosis in the carotid arteries at the neck. Small size of right vertebral artery contains foci of moderate stenosis Repeat head CT showed hemorrhagic conversion of a cerebral infarction within the distribution of the posterior cerebral artery, minimally increased in size from previous examination performed approximately 12 hours earlier Intubated and sedated on CPAP overnight Surgery consulted for trach placement today Continue tight BP control, hydralazine in place Continue keppra for seizure ppx per neuro recs Cardiovascular: HD stable Cardiology following, recs appreciated Maintain SBP 120s-130s Pulmnologic: Trach for airway protection. Doing well with Trach Collar trials Maintain O2Sat >92% Repeat CXR with possible RLL infiltrate Continue Cefepime day 4 and add Zyvox as per ID for possible pneumonia. GI: Protonix ppx ID: Fevers likely central in origin vs aspiration ID following, recs appreciated Continue Cefepime D4, add Zyvox No leukocytosis BCx NGTD Will repeat CXR in the AM Renal/Electrolytes: NOÉ improving, BUN and Cr stable Strict IxOs Continue IVF Continue to monitor Endo: Maintain euglycemia Heme: Mild normocytic anemia, stable HD stable No signs of bleeding Ppx: Protonix SCDs no AC given hemorrhage Dispo: Will discuss with SW about possible LTAC placement. Discussed case with Dr. Jose Jefferson PGY1 <Issa Garcia - Last Filed: 07/11/17 11:23> CCU Objective - Vital Signs / Intake & Output Vital Signs (Last 4 hours): Vital Signs Pulse Resp BP Pulse Ox 07/11/17 09:45 77 16 125/68 99 07/11/17 09:40 76 13 100 07/11/17 09:30 75 20 122/66 100 07/11/17 09:20 70 100 07/11/17 09:15 69 110/57 L 100 07/11/17 09:10 70 100 07/11/17 09:00 73 127/63 100 07/11/17 08:50 71 100 07/11/17 08:45 88 131/73 100 07/11/17 08:40 73 100 07/11/17 08:30 70 116/58 L 100 07/11/17 08:20 72 100 07/11/17 08:15 70 147/64 100 07/11/17 08:10 71 100 07/11/17 08:00 76 133/66 100 07/11/17 07:50 80 100 07/11/17 07:45 79 110/67 100 07/11/17 07:40 73 100 07/11/17 07:30 72 128/65 100 Intake and Output (Last 8hrs): Intake & Output 07/10/17 07/11/17 07/11/17 22:59 06:59 14:59 Intake Total 125 523 Output Total 800 Balance 125 -277 Weight 233 lb 14.4 oz Intake: IV 125 523 Right Forearm 223 Right Hand 200 Output: Urine 800 Urethral (Self) 800 - Medications Active Medications: Active Medications Generic Name Dose Route Start Last Admin Trade Name Freq PRN Reason Stop Dose Admin Hydralazine HCl 10 mg 07/09/17 12:00 07/11/17 07:02 Apresoline IVP Not Given Q6 ANNALEE Hydromorphone HCl 0.5 mg 07/10/17 14:39 07/10/17 14:50 Dilaudid IVP 0.5 mg Q4H PRN Administration Pain, moderate (4-7) Nicardipine HCl 20 mg in 200 mls @ 50 mls/hr 07/07/17 15:20 07/10/17 16:56 Cardene Iv Premix IV 0 mg/hr .Q4H PRN 0 mls/hr TITRATE PER MD ORDER Titration Protocol 5 MG/HR Levetiracetam 500 mg in 100 mls @ 200 mls/hr 07/07/17 15:45 07/11/17 03:17 Keppra 500mg Ivpb IVPB 200 mls/hr Q12H ANNALEE Administration Propofol 1,000 mg in 100 mls @ 3.103 mls/hr 07/07/17 23:24 07/11/17 05:58 Diprivan IV 30 mcg/kg/min .Q24H PRN 18.615 mls/hr TITRATE PER MD ORDER Administration Protocol 5 MCG/KG/MIN Sodium Chloride 1,000 mls @ 50 mls/hr 07/08/17 08:30 07/11/17 07:41 Sodium Chloride 0.45% IV 50 mls/hr .Q20H ANNALEE Administration Cefepime HCl 2 gm in 100 mls @ 100 mls/hr 07/08/17 10:00 07/11/17 09:58 Maxipime 2gm IVPB 07/13/17 10:01 100 mls/hr Q12 ANNALEE Administration Protocol Linezolid 600 mg in 300 mls @ 200 mls/hr 07/11/17 10:00 07/11/17 09:57 Zyvox 600mg/300ml D5w IVPB 07/18/17 10:01 200 mls/hr Q12 ANNALEE Administration Protocol Ondansetron HCl 4 mg 07/06/17 21:36 07/06/17 21:55 Zofran Inj IVP 4 mg Q6H PRN Administration Nausea/Vomiting Pantoprazole Sodium 40 mg 07/07/17 12:00 07/11/17 09:57 Protonix Inj IVP 40 mg DAILY ANNALEE Administration - Patient Studies Lab Studies: Microbiology Studies 07/07/17 12:53 Blood Culture - Preliminary Blood-Venous NO GROWTH AFTER 3 DAYS Lab Studies 07/11/17 07/11/17 07/11/17 Range/Units 11:08 08:40 08:03 WBC (4.5-11.0) 10^3/ul RBC (3.5-6.1) 10^6/uL Hgb (14.0-18.0) g/dL Hct (42.0-52.0) % MCV (80.0-105.0) fl MCH (25.0-35.0) pg MCHC (31.0-37.0) g/dl RDW (11.5-14.5) % Plt Count (120.0-450.0) 10^3/uL MPV (7.0-11.0) fl Gran % (50.0-68.0) % Lymph % (Auto) (22.0-35.0) % Ida % (Auto) (1.0-6.0) % Eos % (Auto) (1.5-5.0) % Baso % (Auto) (0.0-3.0) % Gran # (1.4-6.5) Lymph # (1.2-3.4) Ida # (0.1-0.6) Eos # (0.0-0.7) Baso # (0.0-2.0) K/mm3 pCO2 (35-45) mm/Hg pO2 (80-100) mm/Hg HCO3 (21-28) mmol/L ABG pH (7.35-7.45) ABG Total CO2 (22-28) mmol.L ABG O2 Saturation (95-98) % ABG O2 Content (15-23) ML/dl ABG Base Excess (-2.0-3.0) mmol/L ABG Hemoglobin (11.7-17.4) g/dL ABG Carboxyhemoglobin (0.5-1.5) % POC ABG HHb (Measured) (0-5) % ABG Methemoglobin (0.0-3.0) % ABG O2 Capacity (16-24) mL/dl Hgb O2 Saturation (95.0-98.0) % FiO2 % Sodium (132-148) mmol/L Potassium (3.6-5.0) mmol/L Chloride (98-107) mmol/L Carbon Dioxide (21-33) mmol/L Anion Gap (10-20) BUN (7-21) mg/dL Creatinine (0.8-1.5) mg/dl Est GFR ( Amer) Est GFR (Non-Af Amer) POC Glucose (mg/dL) 243 H 190 H (65-110) mg/dL Random Glucose (70-110) mg/dL Calcium (8.4-10.5) mg/dL Phosphorus (2.5-4.5) mg/dL Magnesium (1.7-2.2) mg/dL Total Bilirubin (0.2-1.3) mg/dL AST (17-59) U/L ALT (7-56) U/L Alkaline Phosphatase (38-126) U/L Total Protein (5.8-8.3) g/dL Albumin (3.0-4.8) g/dL Globulin gm/dL Albumin/Globulin Ratio (1.1-1.8) Urine Color Yellow (YELLOW) Urine Appearance Turbid (CLEAR) Urine pH 6.0 (4.7-8.0) Ur Specific [place] 1.020 (1.005-1.035) Urine Protein 100 H (<30 mg/dL) mg/dL Urine Glucose (UA) 100 H (NEGATIVE) mg/dL Urine Ketones 15 H (NEGATIVE) mg/dL Urine Blood Large H (NEGATIVE) Urine Nitrate Negative (NEGATIVE) Urine Bilirubin Negative (NEGATIVE) Urine Urobilinogen 0.2 (<1 E.U./dL) E.U./dL Ur Leukocyte Esterase Trace H (NEGATIVE) Beatriz/uL Urine RBC Tntc (0-2) /hpf Urine WBC 2 - 5 (0-6) /hpf Uric Acid Crystals Few /hpf Influenza Typ A,B (EIA) (NEGATIVE) 07/11/17 07/11/17 07/11/17 Range/Units 06:30 06:30 05:20 WBC 11.0 D (4.5-11.0) 10^3/ul RBC 3.89 (3.5-6.1) 10^6/uL Hgb 11.3 L (14.0-18.0) g/dL Hct 34.7 L (42.0-52.0) % MCV 89.2 (80.0-105.0) fl MCH 29.0 (25.0-35.0) pg MCHC 32.6 (31.0-37.0) g/dl RDW 14.0 (11.5-14.5) % Plt Count 178 (120.0-450.0) 10^3/uL MPV 11.0 (7.0-11.0) fl Gran % 81.3 H (50.0-68.0) % Lymph % (Auto) 9.0 L (22.0-35.0) % Ida % (Auto) 9.3 H (1.0-6.0) % Eos % (Auto) 0.3 L (1.5-5.0) % Baso % (Auto) 0.1 (0.0-3.0) % Gran # 8.96 H (1.4-6.5) Lymph # 1.0 L (1.2-3.4) Ida # 1.0 H (0.1-0.6) Eos # 0.0 (0.0-0.7) Baso # 0.01 (0.0-2.0) K/mm3 pCO2 30 L (35-45) mm/Hg pO2 115.0 H (80-100) mm/Hg HCO3 19.9 L (21-28) mmol/L ABG pH 7.43 (7.35-7.45) ABG Total CO2 20.8 L (22-28) mmol.L ABG O2 Saturation 99.5 H (95-98) % ABG O2 Content 14.8 L (15-23) ML/dl ABG Base Excess -3.6 L (-2.0-3.0) mmol/L ABG Hemoglobin 10.8 L (11.7-17.4) g/dL ABG Carboxyhemoglobin 1.9 H (0.5-1.5) % POC ABG HHb (Measured) 0.5 (0-5) % ABG Methemoglobin 1.2 (0.0-3.0) % ABG O2 Capacity 14.9 L (16-24) mL/dl Hgb O2 Saturation 96.4 (95.0-98.0) % FiO2 40.0 % Sodium 141 (132-148) mmol/L Potassium 4.2 (3.6-5.0) mmol/L Chloride 108 H (98-107) mmol/L Carbon Dioxide 21 (21-33) mmol/L Anion Gap 17 (10-20) BUN 32 H (7-21) mg/dL Creatinine 1.6 H (0.8-1.5) mg/dl Est GFR ( Amer) 52 Est GFR (Non-Af Amer) 43 POC Glucose (mg/dL) (65-110) mg/dL Random Glucose 171 H (70-110) mg/dL Calcium 8.5 (8.4-10.5) mg/dL Phosphorus 3.0 (2.5-4.5) mg/dL Magnesium 2.2 (1.7-2.2) mg/dL Total Bilirubin 1.5 H (0.2-1.3) mg/dL AST 38 (17-59) U/L ALT 34 (7-56) U/L Alkaline Phosphatase 154 H (38-126) U/L Total Protein 7.4 (5.8-8.3) g/dL Albumin 3.7 (3.0-4.8) g/dL Globulin 3.7 gm/dL Albumin/Globulin Ratio 1.0 L (1.1-1.8) Urine Color (YELLOW) Urine Appearance (CLEAR) Urine pH (4.7-8.0) Ur Specific [place] (1.005-1.035) Urine Protein (<30 mg/dL) mg/dL Urine Glucose (UA) (NEGATIVE) mg/dL Urine Ketones (NEGATIVE) mg/dL Urine Blood (NEGATIVE) Urine Nitrate (NEGATIVE) Urine Bilirubin (NEGATIVE) Urine Urobilinogen (<1 E.U./dL) E.U./dL Ur Leukocyte Esterase (NEGATIVE) Beatriz/uL Urine RBC (0-2) /hpf Urine WBC (0-6) /hpf Uric Acid Crystals /hpf Influenza Typ A,B (EIA) (NEGATIVE) 07/10/17 07/10/17 07/10/17 Range/Units 22:04 20:23 16:27 WBC (4.5-11.0) 10^3/ul RBC (3.5-6.1) 10^6/uL Hgb (14.0-18.0) g/dL Hct (42.0-52.0) % MCV (80.0-105.0) fl MCH (25.0-35.0) pg MCHC (31.0-37.0) g/dl RDW (11.5-14.5) % Plt Count (120.0-450.0) 10^3/uL MPV (7.0-11.0) fl Gran % (50.0-68.0) % Lymph % (Auto) (22.0-35.0) % Ida % (Auto) (1.0-6.0) % Eos % (Auto) (1.5-5.0) % Baso % (Auto) (0.0-3.0) % Gran # (1.4-6.5) Lymph # (1.2-3.4) Ida # (0.1-0.6) Eos # (0.0-0.7) Baso # (0.0-2.0) K/mm3 pCO2 (35-45) mm/Hg pO2 (80-100) mm/Hg HCO3 (21-28) mmol/L ABG pH (7.35-7.45) ABG Total CO2 (22-28) mmol.L ABG O2 Saturation (95-98) % ABG O2 Content (15-23) ML/dl ABG Base Excess (-2.0-3.0) mmol/L ABG Hemoglobin (11.7-17.4) g/dL ABG Carboxyhemoglobin (0.5-1.5) % POC ABG HHb (Measured) (0-5) % ABG Methemoglobin (0.0-3.0) % ABG O2 Capacity (16-24) mL/dl Hgb O2 Saturation (95.0-98.0) % FiO2 % Sodium (132-148) mmol/L Potassium (3.6-5.0) mmol/L Chloride (98-107) mmol/L Carbon Dioxide (21-33) mmol/L Anion Gap (10-20) BUN (7-21) mg/dL Creatinine (0.8-1.5) mg/dl Est GFR ( Amer) Est GFR (Non-Af Amer) POC Glucose (mg/dL) 158 H 203 H (65-110) mg/dL Random Glucose (70-110) mg/dL Calcium (8.4-10.5) mg/dL Phosphorus (2.5-4.5) mg/dL Magnesium (1.7-2.2) mg/dL Total Bilirubin (0.2-1.3) mg/dL AST (17-59) U/L ALT (7-56) U/L Alkaline Phosphatase (38-126) U/L Total Protein (5.8-8.3) g/dL Albumin (3.0-4.8) g/dL Globulin gm/dL Albumin/Globulin Ratio (1.1-1.8) Urine Color (YELLOW) Urine Appearance (CLEAR) Urine pH (4.7-8.0) Ur Specific [place] (1.005-1.035) Urine Protein (<30 mg/dL) mg/dL Urine Glucose (UA) (NEGATIVE) mg/dL Urine Ketones (NEGATIVE) mg/dL Urine Blood (NEGATIVE) Urine Nitrate (NEGATIVE) Urine Bilirubin (NEGATIVE) Urine Urobilinogen (<1 E.U./dL) E.U./dL Ur Leukocyte Esterase (NEGATIVE) Beatriz/uL Urine RBC (0-2) /hpf Urine WBC (0-6) /hpf Uric Acid Crystals /hpf Influenza Typ A,B (EIA) Negative for flu a/b (NEGATIVE) 07/10/17 07/10/17 Range/Units 11:18 07:43 WBC (4.5-11.0) 10^3/ul RBC (3.5-6.1) 10^6/uL Hgb (14.0-18.0) g/dL Hct (42.0-52.0) % MCV (80.0-105.0) fl MCH (25.0-35.0) pg MCHC (31.0-37.0) g/dl RDW (11.5-14.5) % Plt Count (120.0-450.0) 10^3/uL MPV (7.0-11.0) fl Gran % (50.0-68.0) % Lymph % (Auto) (22.0-35.0) % Ida % (Auto) (1.0-6.0) % Eos % (Auto) (1.5-5.0) % Baso % (Auto) (0.0-3.0) % Gran # (1.4-6.5) Lymph # (1.2-3.4) Ida # (0.1-0.6) Eos # (0.0-0.7) Baso # (0.0-2.0) K/mm3 pCO2 (35-45) mm/Hg pO2 (80-100) mm/Hg HCO3 (21-28) mmol/L ABG pH (7.35-7.45) ABG Total CO2 (22-28) mmol.L ABG O2 Saturation (95-98) % ABG O2 Content (15-23) ML/dl ABG Base Excess (-2.0-3.0) mmol/L ABG Hemoglobin (11.7-17.4) g/dL ABG Carboxyhemoglobin (0.5-1.5) % POC ABG HHb (Measured) (0-5) % ABG Methemoglobin (0.0-3.0) % ABG O2 Capacity (16-24) mL/dl Hgb O2 Saturation (95.0-98.0) % FiO2 % Sodium (132-148) mmol/L Potassium (3.6-5.0) mmol/L Chloride (98-107) mmol/L Carbon Dioxide (21-33) mmol/L Anion Gap (10-20) BUN (7-21) mg/dL Creatinine (0.8-1.5) mg/dl Est GFR ( Amer) Est GFR (Non-Af Amer) POC Glucose (mg/dL) 155 H 145 H (65-110) mg/dL Random Glucose (70-110) mg/dL Calcium (8.4-10.5) mg/dL Phosphorus (2.5-4.5) mg/dL Magnesium (1.7-2.2) mg/dL Total Bilirubin (0.2-1.3) mg/dL AST (17-59) U/L ALT (7-56) U/L Alkaline Phosphatase (38-126) U/L Total Protein (5.8-8.3) g/dL Albumin (3.0-4.8) g/dL Globulin gm/dL Albumin/Globulin Ratio (1.1-1.8) Urine Color (YELLOW) Urine Appearance (CLEAR) Urine pH (4.7-8.0) Ur Specific [place] (1.005-1.035) Urine Protein (<30 mg/dL) mg/dL Urine Glucose (UA) (NEGATIVE) mg/dL Urine Ketones (NEGATIVE) mg/dL Urine Blood (NEGATIVE) Urine Nitrate (NEGATIVE) Urine Bilirubin (NEGATIVE) Urine Urobilinogen (<1 E.U./dL) E.U./dL Ur Leukocyte Esterase (NEGATIVE) Beatriz/uL Urine RBC (0-2) /hpf Urine WBC (0-6) /hpf Uric Acid Crystals /hpf Influenza Typ A,B (EIA) (NEGATIVE) Laboratory Results - last 24 hr 07/10/17 07/10/17 07/10/17 07:43 11:18 16:27 WBC RBC Hgb Hct MCV MCH MCHC RDW Plt Count MPV Gran % Lymph % (Auto) Ida % (Auto) Eos % (Auto) Baso % (Auto) Gran # Lymph # Ida # Eos # Baso # pCO2 pO2 HCO3 ABG pH ABG Total CO2 ABG O2 Saturation ABG O2 Content ABG Base Excess ABG Hemoglobin ABG Carboxyhemoglobin POC ABG HHb (Measured) ABG Methemoglobin ABG O2 Capacity Hgb O2 Saturation FiO2 Sodium Potassium Chloride Carbon Dioxide Anion Gap BUN Creatinine Est GFR ( Amer) Est GFR (Non-Af Amer) POC Glucose (mg/dL) 145 H 155 H 203 H Random Glucose Calcium Phosphorus Magnesium Total Bilirubin AST ALT Alkaline Phosphatase Total Protein Albumin Globulin Albumin/Globulin Ratio Urine Color Urine Appearance Urine pH Ur Specific [place] Urine Protein Urine Glucose (UA) Urine Ketones Urine Blood Urine Nitrate Urine Bilirubin Urine Urobilinogen Ur Leukocyte Esterase Urine RBC Urine WBC Uric Acid Crystals Influenza Typ A,B (EIA) 07/10/17 07/10/17 07/11/17 20:23 22:04 05:20 WBC RBC Hgb Hct MCV MCH MCHC RDW Plt Count MPV Gran % Lymph % (Auto) Ida % (Auto) Eos % (Auto) Baso % (Auto) Gran # Lymph # Ida # Eos # Baso # pCO2 30 L pO2 115.0 H HCO3 19.9 L ABG pH 7.43 ABG Total CO2 20.8 L ABG O2 Saturation 99.5 H ABG O2 Content 14.8 L ABG Base Excess -3.6 L ABG Hemoglobin 10.8 L ABG Carboxyhemoglobin 1.9 H POC ABG HHb (Measured) 0.5 ABG Methemoglobin 1.2 ABG O2 Capacity 14.9 L Hgb O2 Saturation 96.4 FiO2 40.0 Sodium Potassium Chloride Carbon Dioxide Anion Gap BUN Creatinine Est GFR ( Amer) Est GFR (Non-Af Amer) POC Glucose (mg/dL) 158 H Random Glucose Calcium Phosphorus Magnesium Total Bilirubin AST ALT Alkaline Phosphatase Total Protein Albumin Globulin Albumin/Globulin Ratio Urine Color Urine Appearance Urine pH Ur Specific [place] Urine Protein Urine Glucose (UA) Urine Ketones Urine Blood Urine Nitrate Urine Bilirubin Urine Urobilinogen Ur Leukocyte Esterase Urine RBC Urine WBC Uric Acid Crystals Influenza Typ A,B (EIA) Negative for flu a/b 07/11/17 07/11/17 07/11/17 06:30 06:30 08:03 WBC 11.0 D RBC 3.89 Hgb 11.3 L Hct 34.7 L MCV 89.2 MCH 29.0 MCHC 32.6 RDW 14.0 Plt Count 178 MPV 11.0 Gran % 81.3 H Lymph % (Auto) 9.0 L Ida % (Auto) 9.3 H Eos % (Auto) 0.3 L Baso % (Auto) 0.1 Gran # 8.96 H Lymph # 1.0 L Ida # 1.0 H Eos # 0.0 Baso # 0.01 pCO2 pO2 HCO3 ABG pH ABG Total CO2 ABG O2 Saturation ABG O2 Content ABG Base Excess ABG Hemoglobin ABG Carboxyhemoglobin POC ABG HHb (Measured) ABG Methemoglobin ABG O2 Capacity Hgb O2 Saturation FiO2 Sodium 141 Potassium 4.2 Chloride 108 H Carbon Dioxide 21 Anion Gap 17 BUN 32 H Creatinine 1.6 H Est GFR ( Amer) 52 Est GFR (Non-Af Amer) 43 POC Glucose (mg/dL) 190 H Random Glucose 171 H Calcium 8.5 Phosphorus 3.0 Magnesium 2.2 Total Bilirubin 1.5 H AST 38 ALT 34 Alkaline Phosphatase 154 H Total Protein 7.4 Albumin 3.7 Globulin 3.7 Albumin/Globulin Ratio 1.0 L Urine Color Urine Appearance Urine pH Ur Specific [place] Urine Protein Urine Glucose (UA) Urine Ketones Urine Blood Urine Nitrate Urine Bilirubin Urine Urobilinogen Ur Leukocyte Esterase Urine RBC Urine WBC Uric Acid Crystals Influenza Typ A,B (EIA) 07/11/17 07/11/17 08:40 11:08 WBC RBC Hgb Hct MCV MCH MCHC RDW Plt Count MPV Gran % Lymph % (Auto) Ida % (Auto) Eos % (Auto) Baso % (Auto) Gran # Lymph # Ida # Eos # Baso # pCO2 pO2 HCO3 ABG pH ABG Total CO2 ABG O2 Saturation ABG O2 Content ABG Base Excess ABG Hemoglobin ABG Carboxyhemoglobin POC ABG HHb (Measured) ABG Methemoglobin ABG O2 Capacity Hgb O2 Saturation FiO2 Sodium Potassium Chloride Carbon Dioxide Anion Gap BUN Creatinine Est GFR ( Amer) Est GFR (Non-Af Amer) POC Glucose (mg/dL) 243 H Random Glucose Calcium Phosphorus Magnesium Total Bilirubin AST ALT Alkaline Phosphatase Total Protein Albumin Globulin Albumin/Globulin Ratio Urine Color Yellow Urine Appearance Turbid Urine pH 6.0 Ur Specific [place] 1.020 Urine Protein 100 H Urine Glucose (UA) 100 H Urine Ketones 15 H Urine Blood Large H Urine Nitrate Negative Urine Bilirubin Negative Urine Urobilinogen 0.2 Ur Leukocyte Esterase Trace H Urine RBC Tntc Urine WBC 2 - 5 Uric Acid Crystals Few Influenza Typ A,B (EIA) Assessment/Plan - Assessment and Plan (Free Text) Assessment: Patient seen and examined, with resident, agree with note, with following additions/exceptions: Patient is 72yo male with PMHx of CAD a/w acute CVA of Right MCA territory, s/p tPA (full dose not give 2/2 allergic reaction). Patient developed hemorrhagic conversion of CVA, R sided. Neurology and neurosurgery following. Currently afebrile, HD stable, comfortable, tolerating T collar trials, awake. Acute CVA CAD Respiratory failure s/p trach recommend: - ventilatory support, as needed, otherwise can continue with T collar - Duonebs PRN - monitor HH - follow up neurology, neurosurgery - BP control - Keppra for seizure ppx - follow up ID, abx as per ID - rn long term care planning L tach - GI ppx - DVT ppx, SCDs - FS control - feeds
--- NOTE | 2017-07-11 11:03 | RAD ---
HISTORY: interval changes COMPARISON: 07/10/2017 FINDINGS: LUNGS: No active pulmonary disease. PLEURA: No significant pleural effusion identified, no pneumothorax apparent. CARDIOVASCULAR: Mild cardiomegaly. Mild vascular congestion OSSEOUS STRUCTURES: No significant abnormalities. VISUALIZED UPPER ABDOMEN: Normal. OTHER FINDINGS: Tracheostomy IMPRESSION: No active disease.
--- NOTE | 2017-07-11 12:43 | PN ---
DATE: SUBJECTIVE: The patient is intubated. PHYSICAL EXAMINATION: VITAL SIGNS: Temperature is 99.0, T-max is 103.4, pulse of 72, blood pressure is 115/60, respirations are 16 and O2 saturation is 100%. GENERAL: The patient is lying in bed, flat, comfortable. HEENT: No oral lesion. Anicteric sclerae. Moist mucosa. NECK: No JVD, adenopathy, or thyromegaly. CARDIOVASCULAR: S1 and S2, regular. No murmurs, rubs, or gallops. LUNGS: Clear to auscultation bilaterally. No wheeze, rales, or rhonchi. ABDOMEN: Bowel sounds are positive, soft, nontender and nondistended. EXTREMITIES: No cyanosis, clubbing or edema. LABORATORY DATA: White count of 11 and hemoglobin of 11.3. He has sodium of 141, potassium of 4.2, and creatinine is 1.6. ASSESSMENT: 1. Right middle cerebral artery stroke. 2. 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 3. Respiratory failure, on ventilator. 4. Status post tracheostomy, postoperative day #1. 5. Chronic kidney disease, stage III. 6. Hypertensive emergency, improved. 7. Diabetes type 2. 8. Hypertension. 9. Dyslipidemia. PLAN: The patient is currently comfortable. He is on IV fluids. He is receiving Dilaudid for pain. The patient is receiving propofol for sedation. He is on Zofran and he is on linezolid for antibiotics. Overall prognosis is guarded. I did call to the patient's Carol to give her an update, but I was not able to get in touch with her, so I left her a message. The patient has not been able to move his left arm and left leg. Jani Hernandez MD
--- NOTE | 2017-07-11 14:20 | CP.PCM.PN ---
Subjective - Date & Time of Evaluation Date of Evaluation: 07/11/17 Time of Evaluation: 14:15 - Subjective Subjective: Thoracic surgery - DR. Lima pt S&E. NAEO. Pt on vent to trach w/ 40fio2, 5 peep. sedated. Trach in good position with no bleeding. CXR reviewed. Objective - Vital Signs/Intake and Output Vital Signs (last 24 hours): Temp Pulse Resp BP Pulse Ox 99 F 114 H 26 H 143/81 98 07/11/17 04:00 07/11/17 13:40 07/11/17 13:40 07/11/17 13:30 07/11/17 13:40 Intake and Output: 07/11/17 07/11/17 06:59 18:59 Intake Total 523 Output Total 800 Balance -277 - Medications Medications: Current Medications Hydralazine HCl (Apresoline) 10 mg IVP Q6 ANNAELE Last Admin: 07/11/17 12:32 Dose: 10 mg Hydromorphone HCl (Dilaudid) 0.5 mg IVP Q4H PRN PRN Reason: Pain, moderate (4-7) Last Admin: 07/10/17 14:50 Dose: 0.5 mg Nicardipine HCl (Cardene Iv Premix) 20 mg in 200 mls @ 50 mls/hr IV .Q4H PRN; Protocol; 5 MG/HR PRN Reason: TITRATE PER MD ORDER Last Titration: 07/10/17 16:56 Dose: 0 mg/hr, 0 mls/hr Levetiracetam (Keppra 500mg Ivpb) 500 mg in 100 mls @ 200 mls/hr IVPB Q12H ANNALEE Last Admin: 07/11/17 03:17 Dose: 200 mls/hr Propofol (Diprivan) 1,000 mg in 100 mls @ 3.103 mls/hr IV .Q24H PRN; Protocol; 5 MCG/KG/MIN PRN Reason: TITRATE PER MD ORDER Last Admin: 07/11/17 05:58 Dose: 30 mcg/kg/min, 18.615 mls/hr Sodium Chloride (Sodium Chloride 0.45%) 1,000 mls @ 50 mls/hr IV .Q20H ANNALEE Last Admin: 07/11/17 07:41 Dose: 50 mls/hr Cefepime HCl (Maxipime 2gm) 2 gm in 100 mls @ 100 mls/hr IVPB Q12 ANNALEE PRN Reason: Protocol Stop: 07/13/17 10:01 Last Admin: 07/11/17 09:58 Dose: 100 mls/hr Linezolid (Zyvox 600mg/300ml D5w) 600 mg in 300 mls @ 200 mls/hr IVPB Q12 ANNALEE PRN Reason: Protocol Stop: 07/18/17 10:01 Last Admin: 07/11/17 09:57 Dose: 200 mls/hr Ondansetron HCl (Zofran Inj) 4 mg IVP Q6H PRN PRN Reason: Nausea/Vomiting Last Admin: 07/06/17 21:55 Dose: 4 mg Pantoprazole Sodium (Protonix Inj) 40 mg IVP DAILY [facility] Last Admin: 07/11/17 09:57 Dose: 40 mg - Labs Labs: 07/11/17 06:30 07/11/17 06:30 PT 13.0 SECONDS (9.4-12.5) H 07/10/17 06:00 INR 1.18 (0.93-1.08) H 07/10/17 06:00 APTT 28.5 Seconds (25.1-36.5) 07/10/17 06:00 - Constitutional Appears: No Acute Distress - Head Exam Head Exam: ATRAUMATIC, NORMAL INSPECTION, NORMOCEPHALIC - Respiratory Exam Additional comments: on vent, via trach - Neurological Exam Neurological Exam: absent: Alert, Awake, Oriented x3 - Skin Skin Exam: Dry, Intact Assessment and Plan - Assessment and Plan (Free Text) Assessment: 72 yo M w/ Resp failure s/p CVA, POD #1 s/p open tracheostomy -Trach functioning well, in good position, no signs of bleeding or leak -Continue care as per ICU team -Surgery will sign off, please reconsult PRN -Suture removal in 10days DW Dr Clarence Ray PGY3
[2017-07-11] MEDS: HYDROmorphone 0.5 mg/0.5 ml ISec IVP PRN (17:47)
[2017-07-12] MEDS: levETIRAcetam 500mg IVPB 500 MG/100 ML BAG IVPB SCH ×2 (04:20→17:08)
[2017-07-12 06:17] LABS: BASO # 0.02 K/mm3 (0.0-2.0); BASO % 0.2 % (0.0-3.0); EOS % 0.2 % (1.5-5.0); GRAN # 8.52 (1.4-6.5); GRAN % 81.7 % (50.0-68.0); HEMATOCRIT 34.4 % (42.0-52.0); LYMPH # 0.8 (1.2-3.4); MEAN CELL VOLUME 87.8 fl (80.0-105.0); MEAN CORPUSCULAR HEMOGLOBIN 28.8 pg (25.0-35.0); MEAN CORPUSCULAR HGB CONC 32.8 g/dl (31.0-37.0); MEAN PLATELET VOLUME 10.2 fl (7.0-11.0); MONO % 9.9 % (1.0-6.0); RED CELL DISTRIBUTION WIDTH 13.7 % (11.5-14.5); WHITE BLOOD COUNT 10.4 10^3/ul (4.5-11.0)
[2017-07-12 06:30] LABS: CALCIUM 8.6 mg/dL (8.4-10.5); POTASSIUM 3.5 mmol/L (3.6-5.0); TOTAL PROTEIN 7.4 g/dL (5.8-8.3)
--- NOTE | 2017-07-12 08:58 | RAD ---
HISTORY: interval changes COMPARISON: 07/11/2017 FINDINGS: LUNGS: No active pulmonary disease. PLEURA: No significant pleural effusion identified, no pneumothorax apparent. CARDIOVASCULAR: Normal heart size. Tracheostomy tube noted. OSSEOUS STRUCTURES: No significant abnormalities. VISUALIZED UPPER ABDOMEN: Normal. OTHER FINDINGS: None. IMPRESSION: No active disease.
[2017-07-12] MEDS: Cefepime IV 2 gm in NS 2 GM/100 ML BAG IVPB SCH ×2 (09:35→21:16)
--- NOTE | 2017-07-12 10:38 | CP.PCM.PN ---
Subjective - Date & Time of Evaluation Date of Evaluation: 07/12/17 Time of Evaluation: 10:20 - Subjective Subjective: Still off the ventilator, has spontaneous extremity movements but no specific communication from the patient, still with intermittent fevers overnight. Objective - Vital Signs/Intake and Output Vital Signs (last 24 hours): Temp Pulse Resp BP Pulse Ox 98.6 F 94 H 17 128/87 98 07/12/17 04:00 07/12/17 06:00 07/12/17 06:00 07/12/17 06:00 07/12/17 06:00 Intake and Output: 07/12/17 07/12/17 06:59 18:59 Intake Total 1100 Output Total 1300 Balance -200 - Medications Medications: Current Medications Hydralazine HCl (Apresoline) 10 mg IVP Q6 ANNALEE Last Admin: 07/12/17 05:52 Dose: 10 mg Hydromorphone HCl (Dilaudid) 0.5 mg IVP Q4H PRN PRN Reason: Pain, moderate (4-7) Last Admin: 07/11/17 17:47 Dose: 0.5 mg Nicardipine HCl (Cardene Iv Premix) 20 mg in 200 mls @ 50 mls/hr IV .Q4H PRN; Protocol; 5 MG/HR PRN Reason: TITRATE PER MD ORDER Last Titration: 07/10/17 16:56 Dose: 0 mg/hr, 0 mls/hr Levetiracetam (Keppra 500mg Ivpb) 500 mg in 100 mls @ 200 mls/hr IVPB Q12H [facility] Last Admin: 07/12/17 04:20 Dose: 200 mls/hr Propofol (Diprivan) 1,000 mg in 100 mls @ 3.103 mls/hr IV .Q24H PRN; Protocol; 5 MCG/KG/MIN PRN Reason: TITRATE PER MD ORDER Last Admin: 07/11/17 05:58 Dose: 30 mcg/kg/min, 18.615 mls/hr Sodium Chloride (Sodium Chloride 0.45%) 1,000 mls @ 50 mls/hr IV .Q20H ANNALEE Last Admin: 07/11/17 07:41 Dose: 50 mls/hr Cefepime HCl (Maxipime 2gm) 2 gm in 100 mls @ 100 mls/hr IVPB Q12 ANNALEE PRN Reason: Protocol Stop: 07/13/17 10:01 Last Admin: 07/11/17 22:03 Dose: 100 mls/hr Linezolid (Zyvox 600mg/300ml D5w) 600 mg in 300 mls @ 200 mls/hr IVPB Q12 ANNALEE PRN Reason: Protocol Stop: 07/18/17 10:01 Last Admin: 07/11/17 21:11 Dose: 200 mls/hr Acetaminophen (Ofirmev) 1,000 mg in 100 mls @ 400 mls/hr IVPB Q6H PRN PRN Reason: fever Stop: 07/13/17 21:25 Last Admin: 07/11/17 21:42 Dose: 400 mls/hr Potassium Chloride (Potassium Chloride 10 Meq/100 Ml) 10 meq in 100 mls @ 100 mls/hr IVPB Q2H ANNALEE Stop: 07/12/17 11:59 Ondansetron HCl (Zofran Inj) 4 mg IVP Q6H PRN PRN Reason: Nausea/Vomiting Last Admin: 07/06/17 21:55 Dose: 4 mg Pantoprazole Sodium (Protonix Inj) 40 mg IVP DAILY [facility] Last Admin: 07/11/17 09:57 Dose: 40 mg - Labs Labs: 07/12/17 05:15 07/12/17 05:15 PT 13.0 SECONDS (9.4-12.5) H 07/10/17 06:00 INR 1.18 (0.93-1.08) H 07/10/17 06:00 APTT 28.5 Seconds (25.1-36.5) 07/10/17 06:00 - Constitutional Appears: Other (on trach collar, has spontaneous movements of extremities) - ENT Exam Additional comments: tracheostomy tube in place - Respiratory Exam Additional comments: bronchial breath sounds noted (but patient is mouth breathing) - Cardiovascular Exam Cardiovascular Exam: +S1, +S2 - GI/Abdominal Exam GI & Abdominal Exam: Soft. absent: Tenderness Assessment and Plan - Assessment and Plan (Free Text) Plan: Assessment Systemic Inflammatory response syndrome (fever and tachycardia), consider due to acute right sided CVA with hemorrhage; consider sepsis from right lower lobe healthcare-associated pneumonia as well DM chronic renal failure obesity with BMI 33 history of colon cancer Plan cultures have been negative; reviewed repeat CXR which shows the possible right lower lobe infiltrate; WBC count is normal; PCT is 0.2 - continue Cefepime day 5 and Zyvox (day 2) will continue to monitor clinically discussed with family
--- NOTE | 2017-07-12 10:49 | PN ---
DATE: 07/12/2017 SUBJECTIVE: The patient was seen lying in bed in the CCU. He is arousable, but does not follow commands. He is seen in the presence of his daughter. He is currently off his sedation. He is receiving supplemental oxygen through his tracheostomy at the present time. CURRENT MEDICATIONS: Include hydralazine 10 mg q.6 hours, nicardipine as needed, Dilaudid p.r.n., Keppra 500 mg b.i.d., cefepime, Protonix, Zyvox, and Zofran p.r.n. OBJECTIVE: GENERAL: He is a middle-aged man who appears fairly somnolent. VITAL SIGNS: His blood pressure is 128/86 with a pulse of 94 in sinus; respirations are 16. He is afebrile this morning but has had temperature of 101 last evening. HEENT: Tracheostomy is in place. CHEST: Bilateral scattered rhonchi. HEART: PMI displaced laterally. No pathological gallops noted. ABDOMEN: Soft, nontender. Bowel sounds present. EXTREMITIES: Revealed no edema. Left hemiplegia is present. DIAGNOSTIC DATA: Potassium is 3.5, BUN and creatinine 37 and 1.8, glucose is 244. White count 10.4, hemoglobin and hematocrit 11.3 and 34.4 with a platelet count of 224,000. IMPRESSION: 1. Status post acute cerebrovascular accident with left hemiplegia. 2. Recent hypertensive emergency and now clinically control. 3. Coronary artery disease, status post recent percutaneous coronary intervention of LAD. 4. History of hypertension and diabetes. 5. Chronic renal insufficiency. 6. Recent respiratory insufficiency, status post tracheostomy. RECOMMENDATIONS: 1. Continue supportive care is most appropriate at the present time. Antithrombotic therapy continues to be withheld. His coronary stent was over 6 months ago and this should not pose any significant risk at the present time. 2. Aggressive physical therapy and rehabilitation measures will be necessary. We will be happy to follow along and make further recommendation as appropriate. Mark Herman MD
[2017-07-12] MEDS: Linezolid 600 mg in D5W 300 ml 600 MG/300 ML BAG IVPB SCH ×2 (11:00→21:17)
--- NOTE | 2017-07-12 12:07 | RAD ---
HISTORY: s/p NGT insertion COMPARISON: 07/12/2017 at 6:27 a.m. FINDINGS: LUNGS: Opacity at medial right lung base. Possible atelectasis. Follow-up advised. Tracheostomy noted. Nasogastric feeding tube extends to left upper quadrant of abdomen. PLEURA: No significant pleural effusion identified, no pneumothorax apparent. CARDIOVASCULAR: Normal. OSSEOUS STRUCTURES: No significant abnormalities. VISUALIZED UPPER ABDOMEN: Normal. OTHER FINDINGS: None. IMPRESSION: Feeding tube extends to left upper quadrant of abdomen. Infiltrate versus atelectasis medial right lung base. Tracheostomy.
--- NOTE | 2017-07-12 12:50 | PN ---
DATE: 07/12/2017 SUBJECTIVE: The patient is seen and examined at bedside. He has been for about 24 hours off of ventilator. He is on trach collar. PHYSICAL EXAMINATION: VITAL SIGNS: Blood pressure 162/83, heart rate 94, oxygen saturation 97%, respiratory rate 24, and temperature 98.1. NG tube will be placed, oral and enteral feeds will be started. ENT, HEAD AND NECK: Atraumatic. LUNGS: Clear to auscultation bilaterally. HEART: Regular rate and rhythm. S1 and S2 normal. ABDOMEN: Soft, nontender, and nondistended. MUSCULOSKELETAL: Trace bilateral pedal and ankle edema. NEUROLOGIC: The patient has dense hemiplegia on the left upper and lower extremities and he has 4-5/5 motor strength on the right upper and lower extremity. He is following commands. SKIN: Color moist. PSYCHIATRIC: The patient appears to be alert and awake, but appears to be aphasic. LABORATORY DATA: WBC 10.4, hemoglobin 11.3, and platelet count 224. Sodium 141, potassium 3.5, chloride 108, carbon dioxide 19, BUN 37, creatinine 1.8, up from 1.6. AST 38, ALT 35, glucose 244. Procalcitonin 2.59, up from 0.2. MEDICATIONS: Normal saline 50 mL per hour, hydralazine 10 mg IV q. 6 hours, Dilaudid p.r.n., Keppra, cefepime, Zofran p.r.n., and linezolid. ASSESSMENT AND PLAN: This is a 72-year-old gentleman with bleed in the left middle cerebral artery territory. He recovered his breathing function; however, unable to protect airways and had been tracheostomized two days ago. At the present time, we will proceed with NG tube and if he is unable to recover his swallow function within 7 days, he will be considered for PEG tube placement. The patient appears to be little bit "dry", and we will increase his IV fluids with subsequent monitoring of his urine output. I will put NG tube and also proceed with enteral nutrition as well as enteral hydration. We will continue to target euvolemia, euglycemia, normothermia and oxygen saturation more than 90%. We will continue with DVT and GI prophylaxis. We will continue with head of bed elevated to >35 degrees and we will continue with maintaining normotension. ccm time 40 min Aleksandr Polanco MD [facility]
--- NOTE | 2017-07-12 18:33 | PN ---
DATE: SUBJECTIVE: The patient is intubated. PHYSICAL EXAMINATION: VITAL SIGNS: Temperature is 98.6, pulse of 99, blood pressure 147/87 and respirations 17. GENERAL: The patient is lying in bed, flat, comfortable. HEENT: No oral lesion. Anicteric sclerae. Moist mucosa. NECK: No JVD, adenopathy, or thyromegaly. CARDIOVASCULAR: S1 and S2, regular. No murmurs, rubs, or gallops. LUNGS: Clear to auscultation bilaterally. No wheeze, rales, or rhonchi. ABDOMEN: Bowel sounds are positive, soft, nontender and nondistended. EXTREMITIES: No cyanosis, clubbing or edema. LABORATORY DATA: White count of 10.4 and hemoglobin of 11.3. Creatinine is 1.8 and potassium is 3.5. His chest x-ray done shows no acute disease. ASSESSMENT: 1. Right middle cerebral artery stroke. 2. Respiratory failure, on ventilator. 3. 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 4. Status post tracheostomy, postoperative day #2. 5. Chronic kidney disease, stage III. 6. Hypertensive emergency, resolved. 7. Ventilator-associated pneumonia. PLAN: The patient's blood cultures are negative. Chest x-rays improved. The patient does not had any fevers. The patient had a last fever yesterday of 101. He is continuing on Linezolid. The patient is on Zofran. He is receiving cefepime for antibiotics. He is on Keppra for prophylaxis for his seizures. I did call the patient's , Carol to give an update, but I was not able to get in touch with her, so I left her a message. The patient may need GI intervention to place a PEG. Jani Hernandez MD
[2017-07-12] MEDS: Sodium Chloride 0.45% 1,000 ML IV SCH ×2 (18:34→23:30)
[2017-07-12] MEDS: HYDROmorphone 0.5 mg/0.5 ml ISec IVP PRN (21:16)
[2017-07-13] MEDS: levETIRAcetam 500mg IVPB 500 MG/100 ML BAG IVPB SCH ×2 (04:00→14:56)
[2017-07-13 05:33] LABS: BASO # 0.02 K/mm3 (0.0-2.0); BASO % 0.2 % (0.0-3.0); EOS % 0.4 % (1.5-5.0); GRAN # 6.71 (1.4-6.5); GRAN % 78.3 % (50.0-68.0); HEMATOCRIT 30.7 % (42.0-52.0); LYMPH # 0.8 (1.2-3.4); LYMPH % 9.7 % (22.0-35.0); MEAN CELL VOLUME 87.2 fl (80.0-105.0); MEAN CORPUSCULAR HGB CONC 33.2 g/dl (31.0-37.0); MEAN PLATELET VOLUME 10.1 fl (7.0-11.0); MONO % 11.4 % (1.0-6.0); WHITE BLOOD COUNT 8.6 10^3/ul (4.5-11.0)
[2017-07-13 05:42] LABS: ARTERIAL BLOOD GAS HCO3 17.6 mmol/L (21-28); ARTERIAL BLOOD GAS PH 7.39 (7.35-7.45)
[2017-07-13 05:48] LABS: ALB/GLOB RATIO 0.9 (1.1-1.8); BILIRUBIN,TOTAL 1.9 mg/dL (0.2-1.3); CALCIUM 7.9 mg/dL (8.4-10.5); POTASSIUM 3.4 mmol/L (3.6-5.0); TOTAL PROTEIN 6.9 g/dL (5.8-8.3)
[2017-07-13] MEDS: Sodium Chloride 0.45% 1,000 ML IV SCH (06:45)
[2017-07-13] MEDS: HYDROmorphone 0.5 mg/0.5 ml ISec IVP PRN ×2 (06:48→22:24)
--- NOTE | 2017-07-13 08:05 | PN ---
DATE: 07/13/2017 SUBJECTIVE: The patient is seen lying in bed in the CCU. He appears more awake and alert this morning, he follows commands. A tracheostomy collar remains in place. MEDICATIONS: His current medications include hydralazine 10 mg q. 6 hours., Dilaudid p.r.n. Diprivan p.r.n., Keppra, Maxipime, Protonix, and Zyvox. OBJECTIVE GENERAL: He is a middle-aged man who appears comfortable at the moment. VITAL SIGNS: His blood pressure is 144/74 with pulse of 86 and sinus and respirations are 16. He is afebrile. HEENT: Tracheostomy is in place. CHEST: Few scattered rhonchi heard. HEART: PMI in normal position. No pathological gallops noted. GASTROINTESTINAL: The abdomen is soft and nontender with normoactive bowel sounds. EXTREMITIES: No edema. NEUROLOGIC: Left-sided hemiplegia is present. DIAGNOSTIC DATA: Morning blood work is pending. Chest x-ray is unremarkable. IMPRESSION: 1. Status post large cerebrovascular accident with left-sided hemiplegia. 2. Recent hypertensive urgency. 3. Coronary artery disease status post percutaneous coronary intervention of left anterior descending earlier this year. 4. History of hypertension and diabetes. 5. Chronic renal insufficiency. RECOMMENDATIONS: 1. His current medications should be continued. Continue optimization of his blood pressure control as appropriate. Antithrombotic therapy remains on hold. 2. The plan is being made for gastrostomy tube placement and eventual transfer to rehabilitation facility. We will be happy to follow along as needed. Mark Herman MD
[2017-07-13] MEDS ORDERED: Sodium Chloride 0.45% 1,000 ML IV SCH (09:12)
[2017-07-13] MEDS: Cefepime IV 2 gm in NS 2 GM/100 ML BAG IVPB SCH (09:24)
[2017-07-13] MEDS: Linezolid 600 mg in D5W 300 ml 600 MG/300 ML BAG IVPB SCH ×2 (09:24→21:35)
[2017-07-13] MEDS ORDERED: Potassium Chloride 40 MEQ in Sodium Chloride 0.45% 1,000 ML IV SCH (09:37)
--- NOTE | 2017-07-13 10:37 | PN ---
DATE: 07/13/2017 SUBJECTIVE: The patient is intubated. He is able to open his eyes. PHYSICAL EXAMINATION: VITAL SIGNS: Temperature is 98.8, pulse of 85, blood pressure is 116/65, and respirations are 16. GENERAL: The patient is lying in bed, flat, comfortable. HEENT: No oral lesion. Anicteric sclerae. Moist mucosa. NECK: No JVD, adenopathy, or thyromegaly. CARDIOVASCULAR: S1 and S2, regular. No murmurs, rubs, or gallops. LUNGS: Clear to auscultation bilaterally. No wheeze, rales, or rhonchi. ABDOMEN: Bowel sounds are positive, soft, nontender and nondistended. EXTREMITIES: No cyanosis, clubbing or edema. LABORATORY DATA: White count of 8.6 and hemoglobin of 10.2. Potassium is 3.4 and creatinine is 1.8. DIAGNOSTIC DATA: Chest x-ray done shows no active disease. ASSESSMENT: 1. Right middle cerebral artery stroke. 2. Respiratory failure on ventilator. 3.. Hemorrhagic conversion of cerebral infarction with the posterior cerebral artery. 4. Status post tracheostomy. 5. Chronic kidney disease stage III. 6. Hypertensive emergency improved. 7. Ventilator associate pneumonia. PLAN: The patient is currently comfortable. He is on normal saline for IV fluids. We are going to continue with cefepime for antibiotics. The patient is on hydralazine p.r.n. for blood pressure. He is on Protonix daily. He is on linezolid for his antibiotics. Currently, he is n.p.o., may need feeding tube. We will speak to the patient's . Jani Hernandez MD
--- NOTE | 2017-07-13 11:09 | CP.CCUPN ---
<Gutierrez De La Cruz - Last Filed: 07/13/17 11:05> CCU Subjective - Physician Review Subjective (Free Text): 07/13/17 11:06 Gutierrez De La Cruz D.O. PGY-2, Critical Care Progress Note 72 year old male with a PMH of CAD who presented with left sided hemiplegia, found to have a cerebrovascular accident, received TPA bolus and started infusion which was later stopped due to hypotension and headache, later found to have hemorrhagic conversion, hospital course complicated by worsening mental status requiring intubation for airway protection, now s/p tracheostomy placement. Patient was seen and examined at bedside. Patient clinically improved and doing well with trach collar. Patient appears comfortable. No acute overnight events. CCU Objective - Vital Signs / Intake & Output Vital Signs (Last 4 hours): Vital Signs Temp Pulse Resp Pulse Ox 07/13/17 07:40 98.8 F 85 16 99 07/13/17 07:30 98.6 F 84 22 97 07/13/17 07:20 98.6 F 81 21 97 07/13/17 07:10 98.8 F 82 21 97 Intake and Output (Last 8hrs): Intake & Output 07/12/17 07/13/17 07/13/17 22:59 06:59 14:59 Intake Total 1320 300 Output Total 66333 900 Balance -67083 -600 Weight 107.955 kg Intake: Oral 300 Tube Feeding 120 Other 1200 Output: Urine 88790 700 Urethral (Self) 54295 700 Stool 200 Other: # Bowel Movements 1 1 - Physical Exam Head: Positive for: Atraumatic, Normocephalic Pupils: Positive for: Other (fixed ~1mm, non-reactive) Extroacular Muscles: Positive for: Other (not following commands but seen moving eyes towards right) Conjunctiva: Positive for: Normal Ears: Positive for: Normal Mouth: Positive for: Moist Mucous Membranes Nose (External): Positive for: Atraumatic Neck: Positive for: Trachea Midline, Other (Trach collar in place, no signs of bleeding) Respiratory/Chest: Positive for: Clear to Auscultation. Negative for: Respiratory Distress, Accessory Muscle Use, Wheezes, Rales, Rhonchi Cardiovascular: Positive for: Normal S1, S2. Negative for: Murmurs, Rub, Gallop Abdomen: Positive for: Normal Bowel Sounds. Negative for: Tenderness, Distention, Peritoneal Signs, Rebound, Guarding Back: Positive for: Normal Inspection Upper Extremity: Positive for: Normal Inspection, Capillary Refill < 2s Lower Extremity: Positive for: Normal Inspection, Capillary Refill < 2 s Neurological: Positive for: Other (awake, appears alert, follows simple commands , moving all extremities except left lower, breathing comfortably with trach collar) Skin: Positive for: Warm, Dry - Medications Active Medications: Active Medications Generic Name Dose Route Start Last Admin Trade Name Freq PRN Reason Stop Dose Admin Hydralazine HCl 10 mg 07/09/17 12:00 07/13/17 05:09 Apresoline IVP 10 mg Q6 ANNALEE Administration Hydromorphone HCl 0.5 mg 07/10/17 14:39 07/13/17 06:48 Dilaudid IVP 0.5 mg Q4H PRN Administration Pain, moderate (4-7) Nicardipine HCl 20 mg in 200 mls @ 50 mls/hr 07/07/17 15:20 07/10/17 16:56 Cardene Iv Premix IV 0 mg/hr .Q4H PRN 0 mls/hr TITRATE PER MD ORDER Titration Protocol 5 MG/HR Levetiracetam 500 mg in 100 mls @ 200 mls/hr 07/07/17 15:45 07/13/17 04:00 Keppra 500mg Ivpb IVPB 200 mls/hr Q12H ANNALEE Administration Propofol 1,000 mg in 100 mls @ 3.103 mls/hr 07/07/17 23:24 07/11/17 05:58 Diprivan IV 30 mcg/kg/min .Q24H PRN 18.615 mls/hr TITRATE PER MD ORDER Administration Protocol 5 MCG/KG/MIN Linezolid 600 mg in 300 mls @ 200 mls/hr 07/11/17 10:00 07/13/17 09:24 Zyvox 600mg/300ml D5w IVPB 07/18/17 10:01 200 mls/hr Q12 ANNALEE Administration Protocol Acetaminophen 1,000 mg in 100 mls @ 400 mls/hr 07/11/17 21:24 07/11/17 21:42 Ofirmev IVPB 07/13/17 21:25 400 mls/hr Q6H PRN Administration fever Potassium Chloride 40 meq/ 1,020 mls @ 50 mls/hr 07/13/17 09:37 07/13/17 10: 37 Sodium Chloride IV 50 mls/hr .[id number] ANNALEE Administration Ondansetron HCl 4 mg 07/06/17 21:36 07/06/17 21:55 Zofran Inj IVP 4 mg Q6H PRN Administration Nausea/Vomiting Pantoprazole Sodium 40 mg 07/07/17 12:00 07/13/17 09:26 Protonix Inj IVP 40 mg DAILY ANNALEE Administration Potassium Chloride 40 meq 07/13/17 08:00 Potassium Chloride Oral Soln NG 07/13/17 12:01 Q4 ANNALEE - Patient Studies Lab Studies: Microbiology Studies 07/11/17 08:40 Blood Culture - Preliminary Blood NO GROWTH AFTER 48 HOURS 07/11/17 08:15 Blood Culture - Preliminary Blood NO GROWTH AFTER 48 HOURS 07/07/17 12:53 Blood Culture - Final Blood-Venous NO GROWTH AFTER 5 DAYS Gram Stain - Final TEST NOT PERFORMED 07/11/17 15:45 Gram Stain - Final Trachasp 07/11/17 12:13 Urine Culture - Final Urine,Self No Growth (<1,000 CFU/ML) Lab Studies 07/13/17 07/13/17 07/13/17 Range/Units 05:30 05:00 05:00 WBC 8.6 (4.5-11.0) 10^3/ul RBC 3.52 (3.5-6.1) 10^6/uL Hgb 10.2 L (14.0-18.0) g/dL Hct 30.7 L (42.0-52.0) % MCV 87.2 (80.0-105.0) fl MCH 29.0 (25.0-35.0) pg MCHC 33.2 (31.0-37.0) g/dl RDW 14.0 (11.5-14.5) % Plt Count 232 (120.0-450.0) 10^3/uL MPV 10.1 (7.0-11.0) fl Gran % 78.3 H (50.0-68.0) % Lymph % (Auto) 9.7 L (22.0-35.0) % [place] % (Auto) 11.4 H (1.0-6.0) % Eos % (Auto) 0.4 L (1.5-5.0) % Baso % (Auto) 0.2 (0.0-3.0) % Gran # 6.71 H (1.4-6.5) Lymph # 0.8 L (1.2-3.4) [place] # 1.0 H (0.1-0.6) Eos # 0.0 (0.0-0.7) Baso # 0.02 (0.0-2.0) K/mm3 pCO2 29 L (35-45) mm/Hg pO2 92.0 (80-100) mm/Hg HCO3 17.6 L (21-28) mmol/L ABG pH 7.39 (7.35-7.45) ABG Total CO2 18.5 L (22-28) mmol.L ABG O2 Saturation 98.8 H (95-98) % ABG Base Excess -6.0 L (-2.0-3.0) mmol/L ABG Potassium 3.1 L (3.6-5.2) mmol/L Glucose 296 H (75-110) mg/dl Lactate 1.1 (0.7-2.1) mmol/L FiO2 40.0 % Sodium 137.0 140 (132-148) mmol/L Potassium 3.4 L (3.6-5.0) mmol/L Chloride TEST NOT PERFORMED 108 H (98-107) mmol/L Carbon Dioxide 18 L (21-33) mmol/L Anion Gap 17 (10-20) BUN 47 H (7-21) mg/dL Creatinine 1.8 H (0.8-1.5) mg/dl Est GFR ( Amer) 45 Est GFR (Non-Af Amer) 37 Random Glucose 294 H (70-110) mg/dL Calcium 7.9 L (8.4-10.5) mg/dL Total Bilirubin 1.9 H (0.2-1.3) mg/dL AST 47 (17-59) U/L ALT 38 (7-56) U/L Alkaline Phosphatase 147 H (38-126) U/L Total Protein 6.9 (5.8-8.3) g/dL Albumin 3.2 (3.0-4.8) g/dL Globulin 3.7 gm/dL Albumin/Globulin Ratio 0.9 L (1.1-1.8) Arterial Blood Potassium 3.1 L (3.6-5.2) mmol/L Laboratory Results - last 24 hr 07/13/17 07/13/17 07/13/17 05:00 05:00 05:30 WBC 8.6 RBC 3.52 Hgb 10.2 L Hct 30.7 L MCV 87.2 MCH 29.0 MCHC 33.2 RDW 14.0 Plt Count 232 MPV 10.1 Gran % 78.3 H Lymph % (Auto) 9.7 L [place] % (Auto) 11.4 H Eos % (Auto) 0.4 L Baso % (Auto) 0.2 Gran # 6.71 H Lymph # 0.8 L [place] # 1.0 H Eos # 0.0 Baso # 0.02 pCO2 29 L pO2 92.0 HCO3 17.6 L ABG pH 7.39 ABG Total CO2 18.5 L ABG O2 Saturation 98.8 H ABG Base Excess -6.0 L ABG Potassium 3.1 L Glucose 296 H Lactate 1.1 FiO2 40.0 Sodium 140 137.0 Potassium 3.4 L Chloride 108 H TEST NOT PERFORMED Carbon Dioxide 18 L Anion Gap 17 BUN 47 H Creatinine 1.8 H Est GFR ( Amer) 45 Est GFR (Non-Af Amer) 37 Random Glucose 294 H Calcium 7.9 L Total Bilirubin 1.9 H AST 47 ALT 38 Alkaline Phosphatase 147 H Total Protein 6.9 Albumin 3.2 Globulin 3.7 Albumin/Globulin Ratio 0.9 L Arterial Blood Potassium 3.1 L Fingerstick Blood Sugar Results: 167 Assessment/Plan - Assessment and Plan (Free Text) Assessment: 72 year old male with a PMH of CAD who presented with left sided hemiplegia, found to have a cerebrovascular accident, received TPA bolus and started infusion which was later stopped due to hypotension and headache, later found to have hemorrhagic conversion, hospital course complicated by worsening mental status requiring intubation for airway protection, now s/p tracheostomy placement Plan: Neurological Ischemic CVA s/p tpa complicated by hemorrhagic conversion with intervention indicated per neurosurg Neuro following, recs appreciated Imaging reviewed S/p trach, doing well with collar Continue tight BP control, hydralazine in place Continue keppra for seizure ppx Cardiovascular HD stable Cardiology following, recs appreciated Maintain SBP 120s-130s Pulmnologic S/p Trach and now on collar doing well Maintain O2Sat >92% Poss aspiration PNA on zyvox D3, cefepime discontinued per ID GI Plan for PEG tube placement tomorrow Cont GI ppx with Protonix ID Fevers likely central in origin vs aspiration PNA, last fever 07/11 2000 ID following, recs appreciated Continue Zyvox D3 off cefepime No leukocytosis BCx NGTD Renal/Electrolytes NOÉ improving, BUN and Cr stable Strict IxOs Continue IVF Continue to monitor Heme Mild normocytic anemia, stable HD stable No signs of bleeding Cont to monitor with CBC GI/DVT Ppx: Protonix/SCDs/no AC given hemorrhage Dispo: plan for PEG tomorrow, now that has trach may possibly go to subacute rehab for intensive PT/OT Patient was seen and examined and case was discussed at length with attending physician. - Date & Time Date: 07/13/17 Time: 07:30 <Aleksandr Polanco - Last Filed: 07/13/17 15:05> CCU Objective - Vital Signs / Intake & Output Vital Signs (Last 4 hours): Vital Signs Pulse BP 07/13/17 14:55 84 153/90 H Intake and Output (Last 8hrs): Intake & Output 07/13/17 07/13/17 07/13/17 06:59 14:59 22:59 Intake Total 300 Output Total 900 Balance -600 Weight 238 lb Intake: Oral 300 Output: Urine 700 Urethral (Self) 700 Stool 200 Other: # Bowel Movements 1 - Medications Active Medications: Active Medications Generic Name Dose Route Start Last Admin Trade Name Freq PRN Reason Stop Dose Admin Hydralazine HCl 10 mg 07/09/17 12:00 07/13/17 14:55 Apresoline IVP 10 mg Q6 ANNALEE Administration Hydromorphone HCl 0.5 mg 07/10/17 14:39 07/13/17 06:48 Dilaudid IVP 0.5 mg Q4H PRN Administration Pain, moderate (4-7) Nicardipine HCl 20 mg in 200 mls @ 50 mls/hr 07/07/17 15:20 07/10/17 16:56 Cardene Iv Premix IV 0 mg/hr .Q4H PRN 0 mls/hr TITRATE PER MD ORDER Titration Protocol 5 MG/HR Levetiracetam 500 mg in 100 mls @ 200 mls/hr 07/07/17 15:45 07/13/17 14:56 Keppra 500mg Ivpb IVPB 200 mls/hr Q12H ANNALEE Administration Propofol 1,000 mg in 100 mls @ 3.103 mls/hr 07/07/17 23:24 07/11/17 05:58 Diprivan IV 30 mcg/kg/min .Q24H PRN 18.615 mls/hr TITRATE PER MD ORDER Administration Protocol 5 MCG/KG/MIN Linezolid 600 mg in 300 mls @ 200 mls/hr 07/11/17 10:00 07/13/17 09:24 Zyvox 600mg/300ml D5w IVPB 07/18/17 10:01 200 mls/hr Q12 ANNALEE Administration Protocol Acetaminophen 1,000 mg in 100 mls @ 400 mls/hr 07/11/17 21:24 07/11/17 21:42 Ofirmev IVPB 07/13/17 21:25 400 mls/hr Q6H PRN Administration fever Potassium Chloride 40 meq/ 1,020 mls @ 50 mls/hr 07/13/17 09:37 07/13/17 10: 37 Sodium Chloride IV 50 mls/hr .[id number] ANNALEE Administration Ondansetron HCl 4 mg 07/06/17 21:36 07/06/17 21:55 Zofran Inj IVP 4 mg Q6H PRN Administration Nausea/Vomiting Pantoprazole Sodium 40 mg 07/07/17 12:00 07/13/17 09:26 Protonix Inj IVP 40 mg DAILY ANNALEE Administration - Patient Studies Lab Studies: Microbiology Studies 07/11/17 15:45 Gram Stain - Final Trachasp Sputum Culture - Final NORMAL ORAL WALLY 07/11/17 08:40 Blood Culture - Preliminary Blood NO GROWTH AFTER 48 HOURS 07/11/17 08:15 Blood Culture - Preliminary Blood NO GROWTH AFTER 48 HOURS 07/07/17 12:53 Blood Culture - Final Blood-Venous NO GROWTH AFTER 5 DAYS Gram Stain - Final TEST NOT PERFORMED 07/11/17 12:13 Urine Culture - Final Urine,Self No Growth (<1,000 CFU/ML) Lab Studies 07/13/17 07/13/17 07/13/17 Range/Units 05:30 05:00 05:00 WBC 8.6 (4.5-11.0) 10^3/ul RBC 3.52 (3.5-6.1) 10^6/uL Hgb 10.2 L (14.0-18.0) g/dL Hct 30.7 L (42.0-52.0) % MCV 87.2 (80.0-105.0) fl MCH 29.0 (25.0-35.0) pg MCHC 33.2 (31.0-37.0) g/dl RDW 14.0 (11.5-14.5) % Plt Count 232 (120.0-450.0) 10^3/uL MPV 10.1 (7.0-11.0) fl Gran % 78.3 H (50.0-68.0) % Lymph % (Auto) 9.7 L (22.0-35.0) % [place] % (Auto) 11.4 H (1.0-6.0) % Eos % (Auto) 0.4 L (1.5-5.0) % Baso % (Auto) 0.2 (0.0-3.0) % Gran # 6.71 H (1.4-6.5) Lymph # 0.8 L (1.2-3.4) [place] # 1.0 H (0.1-0.6) Eos # 0.0 (0.0-0.7) Baso # 0.02 (0.0-2.0) K/mm3 pCO2 29 L (35-45) mm/Hg pO2 92.0 (80-100) mm/Hg HCO3 17.6 L (21-28) mmol/L ABG pH 7.39 (7.35-7.45) ABG Total CO2 18.5 L (22-28) mmol.L ABG O2 Saturation 98.8 H (95-98) % ABG Base Excess -6.0 L (-2.0-3.0) mmol/L ABG Potassium 3.1 L (3.6-5.2) mmol/L Glucose 296 H (75-110) mg/dl Lactate 1.1 (0.7-2.1) mmol/L FiO2 40.0 % Sodium 137.0 140 (132-148) mmol/L Potassium 3.4 L (3.6-5.0) mmol/L Chloride TEST NOT PERFORMED 108 H (98-107) mmol/L Carbon Dioxide 18 L (21-33) mmol/L Anion Gap 17 (10-20) BUN 47 H (7-21) mg/dL Creatinine 1.8 H (0.8-1.5) mg/dl Est GFR ( Amer) 45 Est GFR (Non-Af Amer) 37 Random Glucose 294 H (70-110) mg/dL Calcium 7.9 L (8.4-10.5) mg/dL Total Bilirubin 1.9 H (0.2-1.3) mg/dL AST 47 (17-59) U/L ALT 38 (7-56) U/L Alkaline Phosphatase 147 H (38-126) U/L Total Protein 6.9 (5.8-8.3) g/dL Albumin 3.2 (3.0-4.8) g/dL Globulin 3.7 gm/dL Albumin/Globulin Ratio 0.9 L (1.1-1.8) Arterial Blood Potassium 3.1 L (3.6-5.2) mmol/L Laboratory Results - last 24 hr 07/13/17 07/13/17 07/13/17 05:00 05:00 05:30 WBC 8.6 RBC 3.52 Hgb 10.2 L Hct 30.7 L MCV 87.2 MCH 29.0 MCHC 33.2 RDW 14.0 Plt Count 232 MPV 10.1 Gran % 78.3 H Lymph % (Auto) 9.7 L [place] % (Auto) 11.4 H Eos % (Auto) 0.4 L Baso % (Auto) 0.2 Gran # 6.71 H Lymph # 0.8 L [place] # 1.0 H Eos # 0.0 Baso # 0.02 pCO2 29 L pO2 92.0 HCO3 17.6 L ABG pH 7.39 ABG Total CO2 18.5 L ABG O2 Saturation 98.8 H ABG Base Excess -6.0 L ABG Potassium 3.1 L Glucose 296 H Lactate 1.1 FiO2 40.0 Sodium 140 137.0 Potassium 3.4 L Chloride 108 H TEST NOT PERFORMED Carbon Dioxide 18 L Anion Gap 17 BUN 47 H Creatinine 1.8 H Est GFR ( Amer) 45 Est GFR (Non-Af Amer) 37 Random Glucose 294 H Calcium 7.9 L Total Bilirubin 1.9 H AST 47 ALT 38 Alkaline Phosphatase 147 H Total Protein 6.9 Albumin 3.2 Globulin 3.7 Albumin/Globulin Ratio 0.9 L Arterial Blood Potassium 3.1 L Attending/Attestation - Attestation I have personally seen and examined this patient.: Yes I have fully participated in the care of the patient.: Yes I have reviewed all pertinent clinical information: Yes Notes (Text): 07/13/17 15:03 72 yo male with ICH, now s/p trach, on trach color. hemodynamicallya nd respiratory angulo stable. for PEG in am. DVT/GI prophylaxis. ccm time 40 min
--- NOTE | 2017-07-13 14:53 | CP.PCM.PN ---
Subjective - Date & Time of Evaluation Date of Evaluation: 07/13/17 Time of Evaluation: 14:30 - Subjective Subjective: Patient is a little more awake today, fevers have subsided overnight, has spontaneous limb movements. Objective - Vital Signs/Intake and Output Vital Signs (last 24 hours): Temp Pulse Resp BP Pulse Ox 98.8 F 85 16 116/65 99 07/13/17 07:40 07/13/17 07:40 07/13/17 07:40 07/13/17 07:00 07/13/17 07:40 - Medications Medications: Current Medications Hydralazine HCl (Apresoline) 10 mg IVP Q6 ANNALEE Last Admin: 07/13/17 05:09 Dose: 10 mg Hydromorphone HCl (Dilaudid) 0.5 mg IVP Q4H PRN PRN Reason: Pain, moderate (4-7) Last Admin: 07/13/17 06:48 Dose: 0.5 mg Nicardipine HCl (Cardene Iv Premix) 20 mg in 200 mls @ 50 mls/hr IV .Q4H PRN; Protocol; 5 MG/HR PRN Reason: TITRATE PER MD ORDER Last Titration: 07/10/17 16:56 Dose: 0 mg/hr, 0 mls/hr Levetiracetam (Keppra 500mg Ivpb) 500 mg in 100 mls @ 200 mls/hr IVPB Q12H [facility] Last Admin: 07/13/17 04:00 Dose: 200 mls/hr Propofol (Diprivan) 1,000 mg in 100 mls @ 3.103 mls/hr IV .Q24H PRN; Protocol; 5 MCG/KG/MIN PRN Reason: TITRATE PER MD ORDER Last Admin: 07/11/17 05:58 Dose: 30 mcg/kg/min, 18.615 mls/hr Cefepime HCl (Maxipime 2gm) 2 gm in 100 mls @ 100 mls/hr IVPB Q12 ANNALEE PRN Reason: Protocol Stop: 07/13/17 10:01 Last Admin: 07/12/17 21:16 Dose: 100 mls/hr Linezolid (Zyvox 600mg/300ml D5w) 600 mg in 300 mls @ 200 mls/hr IVPB Q12 ANNALEE PRN Reason: Protocol Stop: 07/18/17 10:01 Last Admin: 07/12/17 21:17 Dose: 200 mls/hr Acetaminophen (Ofirmev) 1,000 mg in 100 mls @ 400 mls/hr IVPB Q6H PRN PRN Reason: fever Stop: 07/13/17 21:25 Last Admin: 07/11/17 21:42 Dose: 400 mls/hr Sodium Chloride (Sodium Chloride 0.45%) 1,000 mls @ 150 mls/hr IV .Q6H40M [facility] Last Admin: 07/13/17 06:45 Dose: 150 mls/hr Ondansetron HCl (Zofran Inj) 4 mg IVP Q6H PRN PRN Reason: Nausea/Vomiting Last Admin: 07/06/17 21:55 Dose: 4 mg Pantoprazole Sodium (Protonix Inj) 40 mg IVP DAILY [facility] Last Admin: 07/12/17 09:38 Dose: 40 mg Potassium Chloride (Potassium Chloride Oral Soln) 40 meq NG Q4 [facility] Stop: 07/13/17 12:01 - Labs Labs: 07/13/17 05:00 07/13/17 05:00 PT 13.0 SECONDS (9.4-12.5) H 07/10/17 06:00 INR 1.18 (0.93-1.08) H 07/10/17 06:00 APTT 28.5 Seconds (25.1-36.5) 07/10/17 06:00 - Constitutional Appears: Other (more awake today) - ENT Exam ENT Exam: Mucous Membranes Moist Additional comments: tracheostomy tube in place - Neck Exam Neck Exam: absent: Lymphadenopathy, Meningismus - Respiratory Exam Respiratory Exam: Decreased Breath Sounds (some crackles at the bases) - Cardiovascular Exam Cardiovascular Exam: +S1, +S2 - GI/Abdominal Exam GI & Abdominal Exam: Soft. absent: Tenderness Assessment and Plan - Assessment and Plan (Free Text) Plan: Assessment Systemic Inflammatory response syndrome (fever and tachycardia), consider due to acute right sided CVA with hemorrhage; consider sepsis from right lower lobe healthcare-associated pneumonia as well DM chronic renal failure obesity with BMI 33 history of colon cancer Plan cultures have been negative; reviewed repeat CXR which shows the possible right lower lobe infiltrate; WBC count is normal; PCT is 0.2 - continue Cefepime day 6 and Zyvox (day 3) - complete 7-10 days of therapy will continue to monitor clinically discussed with family previously
[2017-07-13] MEDS: Potassium Chloride 40 mEq/30 ml LIQ UD NG SCH (15:01)
--- NOTE | 2017-07-13 19:00 | CT ---
EXAM: CT Abdomen and Pelvis Without Intravenous Contrast EXAM DATE/TIME: 07/13/2017 5:48 PM CLINICAL HISTORY: 72 years old, male; Signs and symptoms; Other: Pre op eval for feeding tube TECHNIQUE: Axial computed tomography images of the abdomen and pelvis without intravenous contrast. All CT scans at this facility use one or more dose reduction techniques, viz.: automated exposure control; ma/kV adjustment per patient size (including targeted exams where dose is matched to indication; i.e. head); or iterative reconstruction technique. MIP reconstructed images were created and reviewed. Coronal and sagittal reformatted images were created and reviewed. COMPARISON: CT - ABD PELVIS W/O PO OR IV CONT 2012-02-05 14:17 FINDINGS: Artifacts: Motion artifact degrades image quality.Streak artifact degrades image quality. Lower thorax: Heart size is at the upper limits of normal. There are coronary artery calcifications.There is calcification of the mitral annulus.there is apparent thickening of mid and distal esophageal wall. There is bibasilar airspace disease. There is a small left effusion. ABDOMEN: Liver: There is fatty infiltration of the liver. Gallbladder and bile ducts: Gallbladder is surgically absent.Common bile duct measures Pancreas is mildly atrophic. Pancreas: See above. Spleen: unremarkable Adrenals: unremarkable Kidneys and ureters: There are bilateral renovascular calcifications. Right kidney is mildly atrophic. There is focal right renal scarring. Left kidney is normal in size.There is no pelvocaliectasis or ureterectasis. Stomach and bowel: Stomach is partially distended. Rotation is normal. Proximal small bowel is mildly distended. Mid small bowel is dilated. There are air fluid levels. There is an ileal colic anastomosis in the left lower quadrant. Residual colon is dilated with an air-fluid level. There is an air-fluid level in the rectum. There is been subtotal colectomy. Appendix: See above. PELVIS: Bladder: Bladder is empty. There is a Self catheter. There is bladder wall thickening. There is trace air in the bladder. Reproductive: The prostate is enlarged.Seminal vesicles have the expected configuration. ABDOMEN and PELVIS: Intraperitoneal space:There is no free air or free fluid. Bones/joints: There are degenerative changes in the osseus structures. Soft tissues: unremarkable Vasculature: PhlebolithsThere are vascular calcifications. Lymph nodes: There is no pathologic adenopathy. IMPRESSION: Subtotal colectomy with low ileocolic anastomosis, mildly dilated mid and distal small bowel and residual colon with air-fluid levels, findings more suggestive of ileus than obstruction; interval development of right renal atrophy and scarring possibly vascular; atherosclerotic disease with bilateral renovascular calcifications; bibasilar airspace disease atelectasis and/or infiltrate with small left effusion; possible distal esophageal wall thickening Additional findings as described above.
--- NOTE | 2017-07-14 00:01 | CON ---
DATE: 07/13/2017 HISTORY OF PRESENT ILLNESS: This patient was seen and evaluated earlier. This 72-year-old patient with history of coronary artery disease, with past medical history of diabetes mellitus, chronic kidney disease, hypertension, dyslipidemia, history of colon cancer status post extended right hemicolectomy more than 10 years ago admitted with stroke, admitted with left-sided hemiplegia, found to have a cerebrovascular accident, had received TPA, which was not completed as the patient developed hypotension and headache, found to have hemorrhagic conversion. The patient was in the coma. Complicated was the worsening of the mental status. The patient had a tracheostomy for prolonged intubation, status post tracheostomy. GI consult was requested for evaluation of the feeding tube. PAST MEDICAL HISTORY: As above. ALLERGIES: NO KNOWN DRUG ALLERGIES. REVIEW OF SYSTEMS: Positive as above. Other systems reviewed. SOCIAL HISTORY: He is an ex-smoker. No drug use. PAST SURGICAL HISTORY: Extended right hemicolectomy. FAMILY HISTORY: Noncontributory. PHYSICAL EXAMINATION GENERAL: The patient lying on the bed, not in acute distress. VITAL SIGNS: Temperature of 99.1, blood pressure of 163/58, pulse of 90, respirations of 18 and O2 saturation of 98%. HEENT: Atraumatic. NECK: Supple. Tracheostomy is present. HEART: S1 and S2 heard. LUNGS: Bilateral air entry present. ABDOMEN: Soft. There is a midline scar present. EXTREMITIES: No cyanosis. No clubbing. NEUROLOGIC: Awake, left-sided weakness. LABORATORY DATA: Hemoglobin of 10.2, hematocrit of 30.7, WBC of 8.6 and platelets of 232. IMPRESSION: This 72-year-old patient status post cerebrovascular accident, dysphagia, requiring a nutritional support for feeding tube placement. The patient is found to have a midline scar. I did speak with the patient's , has extended right hemicolectomy for colon cancer many years ago. The patient's abdomen also appears to be slightly distended. Other comorbidities include diabetes mellitus, chronic kidney disease, and dyslipidemia. RECOMMENDATIONS: CT of the abdomen and pelvis with no p.o. or IV contrast to assess the reason for the distention and also to evaluate the window for the PEG tube placement in view of the midline scar. The patient has been on antibiotics for right lower lobe pneumonia. Antibiotics as per the Infectious Diseases. The patient has been scheduled for PEG tube placement tomorrow. Thank you very much for allowing us to participate in the care of the patient. Sienna Barton MD
[2017-07-14] MEDS: levETIRAcetam 500mg IVPB 500 MG/100 ML BAG IVPB SCH ×2 (02:51→16:05)
[2017-07-14 07:01] LABS: BASO # 0.02 K/mm3 (0.0-2.0); BASO % 0.3 % (0.0-3.0); EOS # 0.1 (0.0-0.7); EOS % 1.2 % (1.5-5.0); GRAN # 5.02 (1.4-6.5); GRAN % 72.7 % (50.0-68.0); HEMATOCRIT 32.3 % (42.0-52.0); LYMPH # 0.9 (1.2-3.4); LYMPH % 12.3 % (22.0-35.0); MEAN CELL VOLUME 87.3 fl (80.0-105.0); MEAN CORPUSCULAR HEMOGLOBIN 28.4 pg (25.0-35.0); MEAN CORPUSCULAR HGB CONC 32.5 g/dl (31.0-37.0); MEAN PLATELET VOLUME 10.1 fl (7.0-11.0); MONO # 0.9 (0.1-0.6); MONO % 13.5 % (1.0-6.0); RED CELL DISTRIBUTION WIDTH 14.2 % (11.5-14.5); WHITE BLOOD COUNT 6.9 10^3/ul (4.5-11.0)
[2017-07-14 07:31] LABS: INR 1.12 (0.93-1.08); PARTIAL THROMBOPLASTIN TIME 26.2 Seconds (25.1-36.5)
[2017-07-14 07:32] LABS: ALB/GLOB RATIO 0.9 (1.1-1.8); PHOSPHOROUS 2.1 mg/dL (2.5-4.5); POTASSIUM 3.4 mmol/L (3.6-5.0); TOTAL PROTEIN 7.1 g/dL (5.8-8.3)
[2017-07-14] MEDS ORDERED: POTASSIUM PHOSPHATE IV SCH (08:30)
[2017-07-14] MEDS ORDERED: SODIUM CHLORIDE IV SCH (08:30)
[2017-07-14] MEDS ORDERED: Etomidate 20 mg/10ml Inj IV ONE (08:51)
[2017-07-14] MEDS ORDERED: Lidocaine 1% Inj (20ml) ONE (08:51)
[2017-07-14] MEDS ORDERED: Propofol 10 mg/ml Inj (20 ML) ONE (08:53)
--- NOTE | 2017-07-14 09:03 | PN ---
DATE: 07/14/2017 SUBJECTIVE: The patient is sedated. He is able to move spontaneously his right arm and right leg. PHYSICAL EXAMINATION: GENERAL: The patient is lying in bed, flat, comfortable. VITAL SIGNS: Temperature is 98.8, pulse is 83, blood pressure is 124/52, and respirations 20. HEENT: No oral lesion. Anicteric sclerae. Moist mucosa. NECK: No JVD, adenopathy, or thyromegaly. CARDIOVASCULAR: S1 and S2, regular. No murmurs, rubs, or gallops. LUNGS: Clear to auscultation bilaterally. No wheeze, rales, or rhonchi. ABDOMEN: Bowel sounds are positive, soft, nontender and nondistended. EXTREMITIES: No cyanosis, clubbing or edema. LABORATORY DATA: White count of 6.9, hemoglobin of 10.5, potassium of 3.4, and creatinine of 1.8. CT of the abdomen and pelvis shows subtotal colectomy with ileocolic anastomosis, mildly dilated mid and distal small bowel and residual colon with air fluid levels suggestive of ileus. ASSESSMENT: 1. Right middle cerebral artery stroke. 2. Respiratory failure, status post tracheostomy. 3. 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 4. Ileus. 5. Status post tracheostomy. 6. Chronic kidney disease stage III. 7. Hypokalemia. 8. Hypertensive emergency resolved. 9. Ventilator-associated pneumonia. PLAN: The patient is currently comfortable. The patient is on cefepime day #7 with Zyvox day #4. The patient is currently on IV fluids with potassium. The patient's potassium is stable at 3.4. The patient's phosphorous is low at 2.1, we will need to replace the patient's phosphorous. The patient is on Keppra for his seizure prophylaxis. He is on IV Protonix. He is currently n.p.o. and is scheduled for a PEG placement today by Dr. Barton. Jani Hernandez MD
[2017-07-14] MEDS: Linezolid 600 mg in D5W 300 ml 600 MG/300 ML BAG IVPB SCH ×2 (10:11→22:52)
--- NOTE | 2017-07-14 10:26 | CP.PCM.PN ---
Subjective - Date & Time of Evaluation Date of Evaluation: 07/14/17 Time of Evaluation: 10:00 - Subjective Subjective: Resting in bed, comfortable, not in distress, no fevers overnight. Objective - Vital Signs/Intake and Output Vital Signs (last 24 hours): Temp Pulse Resp BP Pulse Ox 99.0 F 75 40 H 149/70 97 07/14/17 05:40 07/14/17 06:17 07/14/17 05:40 07/14/17 06:17 07/14/17 05:33 Intake and Output: 07/13/17 07/14/17 18:59 06:59 Intake Total 1200 Output Total 1000 Balance 200 - Medications Medications: Current Medications Hydralazine HCl (Apresoline) 10 mg IVP Q6 ANNALEE Last Admin: 07/14/17 06:17 Dose: 10 mg Hydromorphone HCl (Dilaudid) 0.5 mg IVP Q4H PRN PRN Reason: Pain, moderate (4-7) Last Admin: 07/13/17 22:24 Dose: 0.5 mg Nicardipine HCl (Cardene Iv Premix) 20 mg in 200 mls @ 50 mls/hr IV .Q4H PRN; Protocol; 5 MG/HR PRN Reason: TITRATE PER MD ORDER Last Titration: 07/10/17 16:56 Dose: 0 mg/hr, 0 mls/hr Levetiracetam (Keppra 500mg Ivpb) 500 mg in 100 mls @ 200 mls/hr IVPB Q12H [facility] Last Admin: 07/14/17 02:51 Dose: 200 mls/hr Propofol (Diprivan) 1,000 mg in 100 mls @ 3.103 mls/hr IV .Q24H PRN; Protocol; 5 MCG/KG/MIN PRN Reason: TITRATE PER MD ORDER Last Admin: 07/11/17 05:58 Dose: 30 mcg/kg/min, 18.615 mls/hr Linezolid (Zyvox 600mg/300ml D5w) 600 mg in 300 mls @ 200 mls/hr IVPB Q12 ANNALEE PRN Reason: Protocol Stop: 07/18/17 10:01 Last Admin: 07/13/17 21:35 Dose: 200 mls/hr Potassium Chloride 40 meq/ (Sodium Chloride) 1,020 mls @ 50 mls/hr IV .[id number] [facility] Last Admin: 07/13/17 10:37 Dose: 50 mls/hr Ondansetron HCl (Zofran Inj) 4 mg IVP Q6H PRN PRN Reason: Nausea/Vomiting Last Admin: 07/06/17 21:55 Dose: 4 mg Pantoprazole Sodium (Protonix Inj) 40 mg IVP DAILY [facility] Last Admin: 07/13/17 09:26 Dose: 40 mg - Labs Labs: 07/13/17 05:00 07/13/17 05:00 PT 13.0 SECONDS (9.4-12.5) H 07/10/17 06:00 INR 1.18 (0.93-1.08) H 07/10/17 06:00 APTT 28.5 Seconds (25.1-36.5) 07/10/17 06:00 - Constitutional Appears: Non-toxic - Head Exam Head Exam: NORMAL INSPECTION - ENT Exam ENT Exam: Mucous Membranes Moist Additional comments: tracheostomy tube in place - Neck Exam Neck Exam: absent: Meningismus - Respiratory Exam Respiratory Exam: Decreased Breath Sounds - Cardiovascular Exam Cardiovascular Exam: +S1, +S2 - GI/Abdominal Exam GI & Abdominal Exam: Soft. absent: Tenderness Assessment and Plan - Assessment and Plan (Free Text) Plan: Assessment Systemic Inflammatory response syndrome (fever and tachycardia), consider due to acute right sided CVA with hemorrhage; consider sepsis from right lower lobe healthcare-associated pneumonia as well DM chronic renal failure obesity with BMI 33 history of colon cancer Plan cultures have been negative; reviewed repeat CXR which shows the possible right lower lobe infiltrate and CT A/P is showing atelectasis / consolidation in both lower lobes; WBC count is normal; continue Cefepime day 7 and Zyvox - complete 7 -10 days of therapy will continue to monitor clinically discussed with family previously
--- NOTE | 2017-07-14 13:11 | CP.PCM.PN ---
Subjective - Date & Time of Evaluation Date of Evaluation: 07/14/17 Time of Evaluation: 08:00 - Subjective Subjective: Patient seen and examined, resting comfortably on T collar. No fevers overnight. Objective - Vital Signs/Intake and Output Vital Signs (last 24 hours): Temp Pulse Resp BP Pulse Ox 98.6 F 76 23 151/88 H 98 07/14/17 12:01 07/14/17 12:18 07/14/17 12:01 07/14/17 12:18 07/14/17 12:01 Intake and Output: 07/14/17 07/14/17 06:59 18:59 Intake Total 2000 Output Total 2800 Balance -800 - Medications Medications: Current Medications Hydralazine HCl (Apresoline) 10 mg IVP Q6 ANNALEE Last Admin: 07/14/17 12:18 Dose: 10 mg Hydromorphone HCl (Dilaudid) 0.5 mg IVP Q4H PRN PRN Reason: Pain, moderate (4-7) Last Admin: 07/13/17 22:24 Dose: 0.5 mg Nicardipine HCl (Cardene Iv Premix) 20 mg in 200 mls @ 50 mls/hr IV .Q4H PRN; Protocol; 5 MG/HR PRN Reason: TITRATE PER MD ORDER Last Titration: 07/10/17 16:56 Dose: 0 mg/hr, 0 mls/hr Levetiracetam (Keppra 500mg Ivpb) 500 mg in 100 mls @ 200 mls/hr IVPB Q12H [facility] Last Admin: 07/14/17 02:51 Dose: 200 mls/hr Propofol (Diprivan) 1,000 mg in 100 mls @ 3.103 mls/hr IV .Q24H PRN; Protocol; 5 MCG/KG/MIN PRN Reason: TITRATE PER MD ORDER Last Admin: 07/11/17 05:58 Dose: 30 mcg/kg/min, 18.615 mls/hr Linezolid (Zyvox 600mg/300ml D5w) 600 mg in 300 mls @ 200 mls/hr IVPB Q12 ANNALEE PRN Reason: Protocol Stop: 07/18/17 10:01 Last Admin: 07/14/17 10:11 Dose: 200 mls/hr Potassium Phosphate 30 mmole/ (Sodium Chloride) 1,010 mls @ 50 mls/hr IV .[id number] [facility] Stop: 07/15/17 04:41 Last Admin: 07/14/17 09:54 Dose: 50 mls/hr Ondansetron HCl (Zofran Inj) 4 mg IVP Q6H PRN PRN Reason: Nausea/Vomiting Last Admin: 07/06/17 21:55 Dose: 4 mg Pantoprazole Sodium (Protonix Inj) 40 mg IVP DAILY [facility] Last Admin: 07/14/17 10:11 Dose: 40 mg - Labs Labs: 07/14/17 06:30 07/14/17 06:30 PT 12.3 SECONDS (9.4-12.5) 07/14/17 06:30 INR 1.12 (0.93-1.08) H 07/14/17 06:30 APTT 26.2 Seconds (25.1-36.5) 07/14/17 06:30 - Constitutional Appears: Well, Non-toxic, No Acute Distress - Head Exam Head Exam: ATRAUMATIC - Eye Exam Eye Exam: Normal appearance - ENT Exam ENT Exam: Mucous Membranes Moist - Respiratory Exam Respiratory Exam: Clear to Ausculation Bilateral, NORMAL BREATHING PATTERN - Cardiovascular Exam Cardiovascular Exam: REGULAR RHYTHM, +S1, +S2 - GI/Abdominal Exam GI & Abdominal Exam: Soft, Normal Bowel Sounds - Neurological Exam Neurological Exam: Awake Assessment and Plan - Assessment and Plan (Free Text) Assessment: Patient is 72yo male with PMHx of CAD a/w acute CVA of Right MCA territory, s/p tPA (full dose not give 2/2 allergic reaction). Patient developed hemorrhagic conversion of CVA, R sided. Neurology and neurosurgery following. Currently afebrile, HD stable, comfortable, tolerating T collar trials, awake. PEG could not be performed today, please refer to surgery's note/. Acute CVA CAD Respiratory failure s/p trach recommend: - ventilatory support, as needed, otherwise can continue with T collar - Duonebs PRN - monitor HH - follow up neurology, - BP control - Keppra for seizure ppx, total of 7 days - follow up ID, 7-10 day course of Abx as per ID - senior care planning L tach vs rehab - GI ppx - DVT ppx, SCDs - FS control - restart feeds
--- NOTE | 2017-07-14 14:32 | CP.PCM.PN ---
<Uzma Lai - Last Filed: 07/14/17 14:49> Subjective - Date & Time of Evaluation Date of Evaluation: 07/14/17 Time of Evaluation: 10:30 - Subjective Subjective: PGY-2 Neurology progress note for Dr. Duval's service Patient seen and examined at bedside in ICU. No acute overnight events reported by staff. Patient is planed for PEG today. Patient have trach placed. Objective - Vital Signs/Intake and Output Vital Signs (last 24 hours): Temp Pulse Resp BP Pulse Ox 98.8 F 91 H 23 120/68 95 07/14/17 14:10 07/14/17 14:10 07/14/17 14:10 07/14/17 14:00 07/14/17 14:10 Intake and Output: 07/14/17 07/14/17 06:59 18:59 Intake Total 2000 Output Total 2800 Balance -800 - Medications Medications: Current Medications Hydralazine HCl (Apresoline) 10 mg IVP Q6 ANNALEE Last Admin: 07/14/17 12:18 Dose: 10 mg Hydromorphone HCl (Dilaudid) 0.5 mg IVP Q4H PRN PRN Reason: Pain, moderate (4-7) Last Admin: 07/13/17 22:24 Dose: 0.5 mg Nicardipine HCl (Cardene Iv Premix) 20 mg in 200 mls @ 50 mls/hr IV .Q4H PRN; Protocol; 5 MG/HR PRN Reason: TITRATE PER MD ORDER Last Titration: 07/10/17 16:56 Dose: 0 mg/hr, 0 mls/hr Levetiracetam (Keppra 500mg Ivpb) 500 mg in 100 mls @ 200 mls/hr IVPB Q12H [facility] Last Admin: 07/14/17 02:51 Dose: 200 mls/hr Propofol (Diprivan) 1,000 mg in 100 mls @ 3.103 mls/hr IV .Q24H PRN; Protocol; 5 MCG/KG/MIN PRN Reason: TITRATE PER MD ORDER Last Admin: 07/11/17 05:58 Dose: 30 mcg/kg/min, 18.615 mls/hr Linezolid (Zyvox 600mg/300ml D5w) 600 mg in 300 mls @ 200 mls/hr IVPB Q12 ANNALEE PRN Reason: Protocol Stop: 07/18/17 10:01 Last Admin: 07/14/17 10:11 Dose: 200 mls/hr Potassium Phosphate 30 mmole/ (Sodium Chloride) 1,010 mls @ 50 mls/hr IV .[id number] [facility] Stop: 07/15/17 04:41 Last Admin: 07/14/17 09:54 Dose: 50 mls/hr Ondansetron HCl (Zofran Inj) 4 mg IVP Q6H PRN PRN Reason: Nausea/Vomiting Last Admin: 07/06/17 21:55 Dose: 4 mg Pantoprazole Sodium (Protonix Inj) 40 mg IVP DAILY [facility] Last Admin: 07/14/17 10:11 Dose: 40 mg - Labs Labs: 07/14/17 06:30 07/14/17 06:30 PT 12.3 SECONDS (9.4-12.5) 07/14/17 06:30 INR 1.12 (0.93-1.08) H 07/14/17 06:30 APTT 26.2 Seconds (25.1-36.5) 07/14/17 06:30 - Constitutional Appears: Well, No Acute Distress - Head Exam Head Exam: ATRAUMATIC, NORMAL INSPECTION, NORMOCEPHALIC - Eye Exam Eye Exam: Normal appearance - ENT Exam ENT Exam: Mucous Membranes Dry Additional comments: trach in place - Respiratory Exam Respiratory Exam: Clear to Ausculation Bilateral, NORMAL BREATHING PATTERN. absent: Rales, Rhonchi, Wheezes, Respiratory Distress - Cardiovascular Exam Cardiovascular Exam: REGULAR RHYTHM, +S1, +S2. absent: Tachycardia, Murmur - GI/Abdominal Exam GI & Abdominal Exam: Soft, Normal Bowel Sounds. absent: Distended, Firm, Tenderness - Extremities Exam Extremities Exam: Normal Inspection - Neurological Exam Additional comments: moves right extremity spontaneous, no movement in left extremity - Skin Skin Exam: Dry, Intact, Normal Color, Warm Assessment and Plan - Assessment and Plan (Free Text) Assessment: 72yo male with history of colon ca s/p partial colectomy, hypertension and hyperlipidemia presents to [facility] [place] with acute cerebrovascular accident secondary to right MCA infarct with hemorrhagic conversion 1. Acute CVA complicated by hemorrhagic conversion 2. Hypertension 3. Hyperlipidemia 4. CAD s/p stent placement 5. Hx of colon ca s/p partial colectomy - Patient originally presented with Acute CVA secondary to right middle cerebral artery infarct due to diffuse atherosclerotic disease - Repeat Head CT is consistent with hemorrhagic conversion of the right MCA infarct secondary to hypertensive disease s/p tPA administration - Brain MRI reviewed; revealed R. MCA infarct and punctate hemorrhage in the right posterior parietal occipital lobe - Recommend trach and PEG; patient recieved trach, pending PEG placement - No aspirin/plavix for 3 weeks - Recommend Keppra 500mg IV q12h for seizure prophylaxis - Recommend follow up neurosurgery recommendations - Monitor closely for signs of increasing ICP - Maintain blood pressure between 120-130's - Recommend echocardiogram for evaluation of underlying cardiomyopathy - Fever in the setting of acute stroke is correlated with worse outcome, therefore maintain normothermia; continue with IV ofirmev - Continue with IV antibiotics per ID recommendations - Physical therapy/Occupational therapy evaluation - Speech/Swallow evaluation - continue Neurochecks q1h - Continue present medical management as per ICU team - Prognosis remains guarded for this critically ill patient Patient seen and case discussed/reviewed with attending, Dr. Duval <Volodymyr Duval - Last Filed: 07/14/17 15:30> Objective - Vital Signs/Intake and Output Vital Signs (last 24 hours): Temp Pulse Resp BP Pulse Ox 99.1 F 82 19 159/74 H 97 07/14/17 15:20 07/14/17 15:20 07/14/17 15:20 07/14/17 15:01 07/14/17 15:20 Intake and Output: 07/14/17 07/14/17 06:59 18:59 Intake Total 2000 Output Total 2800 Balance -800 - Medications Medications: Current Medications Hydralazine HCl (Apresoline) 10 mg IVP Q6 [facility] Last Admin: 07/14/17 12:18 Dose: 10 mg Nicardipine HCl (Cardene Iv Premix) 20 mg in 200 mls @ 50 mls/hr IV .Q4H PRN; Protocol; 5 MG/HR PRN Reason: TITRATE PER MD ORDER Last Titration: 07/10/17 16:56 Dose: 0 mg/hr, 0 mls/hr Levetiracetam (Keppra 500mg Ivpb) 500 mg in 100 mls @ 200 mls/hr IVPB Q12H [facility] Last Admin: 07/14/17 02:51 Dose: 200 mls/hr Propofol (Diprivan) 1,000 mg in 100 mls @ 3.103 mls/hr IV .Q24H PRN; Protocol; 5 MCG/KG/MIN PRN Reason: TITRATE PER MD ORDER Last Admin: 07/11/17 05:58 Dose: 30 mcg/kg/min, 18.615 mls/hr Linezolid (Zyvox 600mg/300ml D5w) 600 mg in 300 mls @ 200 mls/hr IVPB Q12 ANNALEE PRN Reason: Protocol Stop: 07/18/17 10:01 Last Admin: 07/14/17 10:11 Dose: 200 mls/hr Potassium Phosphate 30 mmole/ (Sodium Chloride) 1,010 mls @ 50 mls/hr IV .[id number] [facility] Stop: 07/15/17 04:41 Last Admin: 07/14/17 09:54 Dose: 50 mls/hr Ondansetron HCl (Zofran Inj) 4 mg IVP Q6H PRN PRN Reason: Nausea/Vomiting Last Admin: 07/06/17 21:55 Dose: 4 mg Pantoprazole Sodium (Protonix Inj) 40 mg IVP DAILY [facility] Last Admin: 07/14/17 10:11 Dose: 40 mg - Labs Labs: 07/14/17 06:30 07/14/17 06:30 PT 12.3 SECONDS (9.4-12.5) 07/14/17 06:30 INR 1.12 (0.93-1.08) H 07/14/17 06:30 APTT 26.2 Seconds (25.1-36.5) 07/14/17 06:30 Attending/Attestation - Attestation I have personally seen and examined this patient.: Yes I have fully participated in the care of the patient.: Yes I have reviewed all pertinent clinical information, including history, physical exam and plan: Yes
[2017-07-15] MEDS: levETIRAcetam 500mg IVPB 500 MG/100 ML BAG IVPB SCH ×2 (02:53→17:03)
[2017-07-15 07:22] LABS: BASO # 0.04 K/mm3 (0.0-2.0); BASO % 0.6 % (0.0-3.0); EOS # 0.2 (0.0-0.7); EOS % 2.6 % (1.5-5.0); GRAN # 4.63 (1.4-6.5); GRAN % 67.1 % (50.0-68.0); HEMATOCRIT 32.8 % (42.0-52.0); LYMPH # 1.2 (1.2-3.4); LYMPH % 16.7 % (22.0-35.0); MEAN CELL VOLUME 88.2 fl (80.0-105.0); MEAN CORPUSCULAR HEMOGLOBIN 28.2 pg (25.0-35.0); MEAN PLATELET VOLUME 9.8 fl (7.0-11.0); MONO # 0.9 (0.1-0.6); RED CELL DISTRIBUTION WIDTH 14.4 % (11.5-14.5); WHITE BLOOD COUNT 6.9 10^3/ul (4.5-11.0)
[2017-07-15 07:38] LABS: ALB/GLOB RATIO 0.9 (1.1-1.8); BILIRUBIN,TOTAL 1.6 mg/dL (0.2-1.3); CALCIUM 9.1 mg/dL (8.4-10.5); POTASSIUM 3.8 mmol/L (3.6-5.0); TOTAL PROTEIN 6.8 g/dL (5.8-8.3)
[2017-07-15] MEDS: Linezolid 600 mg in D5W 300 ml 600 MG/300 ML BAG IVPB SCH (09:03)
--- NOTE | 2017-07-15 10:51 | CP.CCUPN ---
<Orville Jefferson - Last Filed: 07/15/17 12:56> CCU Subjective - Physician Review Events Since Last Encounter (Free Text): 07/15/17 12:[address] Garcia Pt seen and examined at bedside. No acute events overnight. GI failed PEG placement yesterday. No Fevers reported overnight. no acute distress. CCU Objective - Vital Signs / Intake & Output Vital Signs (Last 4 hours): Vital Signs Temp Pulse Resp BP Pulse Ox 07/15/17 09:10 98.1 F 82 18 97 07/15/17 09:00 98.1 F 86 18 115/51 L 98 07/15/17 08:50 97.9 F 85 16 96 07/15/17 08:40 97.9 F 89 22 96 07/15/17 08:30 97.9 F 90 21 98 07/15/17 08:29 97.9 F 89 97 07/15/17 08:20 98.1 F 90 18 98 07/15/17 08:16 98.1 F 85 97 07/15/17 08:10 97.9 F 85 15 96 07/15/17 08:00 97.9 F 88 16 128/58 L 96 07/15/17 07:50 97.9 F 90 23 96 07/15/17 07:40 97.9 F 87 17 96 07/15/17 07:30 97.9 F 90 24 96 07/15/17 07:20 97.9 F 90 21 97 07/15/17 07:10 97.9 F 81 21 99 07/15/17 07:06 97.9 F 80 21 140/53 L 96 07/15/17 07:04 208/91 H 07/15/17 07:03 97.9 F 78 18 98 07/15/17 07:00 97.9 F 81 22 208/110 H 98 07/15/17 06:59 80 187/96 H Intake and Output (Last 8hrs): Intake & Output 07/14/17 07/15/17 07/15/17 22:59 06:59 14:59 Intake Total 1000 Output Total 450 800 Balance -450 200 Intake: IV 1000 Right Hand 1000 Oral 0 Output: Urine 450 800 Urethral (Self) 450 800 Other: # Bowel Movements 2 - Physical Exam Head: Positive for: Atraumatic, Normocephalic Pupils: Positive for: Other (fixed ~1mm, non-reactive) Extroacular Muscles: Positive for: Other (Moving eyes towards right) Conjunctiva: Positive for: Normal Ears: Positive for: Normal Mouth: Positive for: Moist Mucous Membranes Nose (External): Positive for: Atraumatic Neck: Positive for: Trachea Midline, Other (Trach collar in place, no signs of bleeding) Respiratory/Chest: Positive for: Clear to Auscultation. Negative for: Respiratory Distress, Accessory Muscle Use, Wheezes, Rales, Rhonchi Cardiovascular: Positive for: Normal S1, S2. Negative for: Murmurs, Rub, Gallop Abdomen: Positive for: Normal Bowel Sounds. Negative for: Tenderness, Distention, Peritoneal Signs, Rebound, Guarding Back: Positive for: Normal Inspection Upper Extremity: Positive for: Normal Inspection, Capillary Refill < 2s Lower Extremity: Positive for: Normal Inspection, Capillary Refill < 2 s Neurological: Positive for: Other (awake, appears alert, follows simple commands , moving right extremities, breathing comfortably with trach collar) Skin: Positive for: Warm, Dry Psychiatric: Positive for: Other (No acute distress.) - Medications Active Medications: Active Medications Generic Name Dose Route Start Last Admin Trade Name Freq PRN Reason Stop Dose Admin Hydralazine HCl 10 mg 07/09/17 12:00 07/15/17 06:59 Apresoline IVP 10 mg Q6 ANNALEE Administration Nicardipine HCl 20 mg in 200 mls @ 50 mls/hr 07/07/17 15:20 07/10/17 16:56 Cardene Iv Premix IV 0 mg/hr .Q4H PRN 0 mls/hr TITRATE PER MD ORDER Titration Protocol 5 MG/HR Levetiracetam 500 mg in 100 mls @ 200 mls/hr 07/07/17 15:45 07/15/17 02:53 Keppra 500mg Ivpb IVPB 200 mls/hr Q12H ANNALEE Administration Propofol 1,000 mg in 100 mls @ 3.103 mls/hr 07/07/17 23:24 07/11/17 05:58 Diprivan IV 30 mcg/kg/min .Q24H PRN 18.615 mls/hr TITRATE PER MD ORDER Administration Protocol 5 MCG/KG/MIN Ondansetron HCl 4 mg 07/06/17 21:36 07/06/17 21:55 Zofran Inj IVP 4 mg Q6H PRN Administration Nausea/Vomiting Pantoprazole Sodium 40 mg 07/07/17 12:00 07/15/17 09:03 Protonix Inj IVP 40 mg DAILY ANNALEE Administration - Patient Studies Lab Studies: Microbiology Studies 07/11/17 08:40 Blood Culture - Preliminary Blood NO GROWTH AFTER 4 DAYS 07/11/17 08:15 Blood Culture - Preliminary Blood NO GROWTH AFTER 4 DAYS Lab Studies 07/15/17 07/15/17 Range/Units 06:30 06:30 WBC 6.9 (4.5-11.0) 10^3/ul RBC 3.72 (3.5-6.1) 10^6/uL Hgb 10.5 L (14.0-18.0) g/dL Hct 32.8 L (42.0-52.0) % MCV 88.2 (80.0-105.0) fl MCH 28.2 (25.0-35.0) pg MCHC 32.0 (31.0-37.0) g/dl RDW 14.4 (11.5-14.5) % Plt Count 287 (120.0-450.0) 10^3/uL MPV 9.8 (7.0-11.0) fl Gran % 67.1 (50.0-68.0) % Lymph % (Auto) 16.7 L (22.0-35.0) % Callaway % (Auto) 13.0 H (1.0-6.0) % Eos % (Auto) 2.6 (1.5-5.0) % Baso % (Auto) 0.6 (0.0-3.0) % Gran # 4.63 (1.4-6.5) Lymph # 1.2 (1.2-3.4) Callaway # 0.9 H (0.1-0.6) Eos # 0.2 (0.0-0.7) Baso # 0.04 (0.0-2.0) K/mm3 Sodium 146 (132-148) mmol/L Potassium 3.8 (3.6-5.0) mmol/L Chloride 116 H (98-107) mmol/L Carbon Dioxide 20 L (21-33) mmol/L Anion Gap 14 (10-20) BUN 41 H (7-21) mg/dL Creatinine 1.6 H (0.8-1.5) mg/dl Est GFR ( Amer) 52 Est GFR (Non-Af Amer) 43 Random Glucose 278 H (70-110) mg/dL Calcium 9.1 (8.4-10.5) mg/dL Total Bilirubin 1.6 H (0.2-1.3) mg/dL AST 55 (17-59) U/L ALT 65 H (7-56) U/L Alkaline Phosphatase 191 H (38-126) U/L Total Protein 6.8 (5.8-8.3) g/dL Albumin 3.2 (3.0-4.8) g/dL Globulin 3.6 gm/dL Albumin/Globulin Ratio 0.9 L (1.1-1.8) Laboratory Results - last 24 hr 07/15/17 07/15/17 06:30 06:30 WBC 6.9 RBC 3.72 Hgb 10.5 L Hct 32.8 L MCV 88.2 MCH 28.2 MCHC 32.0 RDW 14.4 Plt Count 287 MPV 9.8 Gran % 67.1 Lymph % (Auto) 16.7 L Callaway % (Auto) 13.0 H Eos % (Auto) 2.6 Baso % (Auto) 0.6 Gran # 4.63 Lymph # 1.2 Callaway # 0.9 H Eos # 0.2 Baso # 0.04 Sodium 146 Potassium 3.8 Chloride 116 H Carbon Dioxide 20 L Anion Gap 14 BUN 41 H Creatinine 1.6 H Est GFR ( Amer) 52 Est GFR (Non-Af Amer) 43 Random Glucose 278 H Calcium 9.1 Total Bilirubin 1.6 H AST 55 ALT 65 H Alkaline Phosphatase 191 H Total Protein 6.8 Albumin 3.2 Globulin 3.6 Albumin/Globulin Ratio 0.9 L Fingerstick Blood Sugar Results: 167 Assessment/Plan - Assessment and Plan (Free Text) Assessment: 72yo Me with PMHx of CAD, 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 Patient developed hemorrhagic conversion of CVA, R sided. Neurology and neurosurgery following. Failed GI PEG yesterday, will obtain IR guided PEG placement today. NG to be placed today prior to procedure. 1.Acute CVA Continue vent support as needed. Will continue Trach collar No ASA/Plavix for 3 months. Continue Keppra 500mg BID Strict BP control, SBP 120s-130s Neurosurg following, no further surgical intervention Neuro following, appreciate recs monitor H/H Dysphagia eval 2. Hx of CAD Strict BP control Hold ASA/Plavix 3. Respiratory failure s/p trach on trach collar, tolerating well continue trach precautions. Duonebs prn 4. Decreased oral intake NG placed assistance with PEG placement IR to place CT guided PEG today 5. PPx SCDs Protonix Dispo: Palliative care consult appreciated LTAC vs. Rehab PEG to be placed by Dr. Love today Stable to be transferred to Tele today; Please re-consult ICU team if patient's clinical status changes. Discussed case with Dr. Jose Jefferson PGY1 <Issa Garcia - Last Filed: 07/15/17 13:29> CCU Objective - Vital Signs / Intake & Output Vital Signs (Last 4 hours): Vital Signs Temp Pulse Resp BP Pulse Ox 07/15/17 11:10 98.1 F 90 17 98 07/15/17 11:00 98.2 F 89 18 121/59 L 97 07/15/17 10:50 98.2 F 88 18 97 07/15/17 10:43 98.2 F 85 98 07/15/17 10:40 98.2 F 82 17 98 07/15/17 10:33 98.2 F 86 98 07/15/17 10:30 98.2 F 83 17 97 07/15/17 10:20 98.2 F 84 16 98 07/15/17 10:10 98.2 F 82 16 98 07/15/17 10:01 98.1 F 81 18 119/44 L 97 07/15/17 10:00 98.1 F 82 16 97 07/15/17 09:50 98.1 F 82 17 98 07/15/17 09:40 98.1 F 83 17 98 07/15/17 09:30 98.1 F 87 15 97 Intake and Output (Last 8hrs): Intake & Output 07/14/17 07/15/17 07/15/17 22:59 06:59 14:59 Intake Total 1000 Output Total 450 800 Balance -450 200 Weight 247 lb Intake: IV 1000 Right Hand 1000 Oral 0 Output: Urine 450 800 Urethral (Self) 450 800 Other: # Bowel Movements 2 - Medications Active Medications: Active Medications Generic Name Dose Route Start Last Admin Trade Name Freq PRN Reason Stop Dose Admin Hydralazine HCl 10 mg 07/09/17 12:00 07/15/17 12:27 Apresoline IVP Not Given Q6 ANNALEE Nicardipine HCl 20 mg in 200 mls @ 50 mls/hr 07/07/17 15:20 07/10/17 16:56 Cardene Iv Premix IV 0 mg/hr .Q4H PRN 0 mls/hr TITRATE PER MD ORDER Titration Protocol 5 MG/HR Levetiracetam 500 mg in 100 mls @ 200 mls/hr 07/07/17 15:45 07/15/17 02:53 Keppra 500mg Ivpb IVPB 200 mls/hr Q12H ANNALEE Administration Propofol 1,000 mg in 100 mls @ 3.103 mls/hr 07/07/17 23:24 07/11/17 05:58 Diprivan IV 30 mcg/kg/min .Q24H PRN 18.615 mls/hr TITRATE PER MD ORDER Administration Protocol 5 MCG/KG/MIN Sodium Chloride 1,000 mls @ 70 mls/hr 07/15/17 13:30 Sodium Chloride 0.45% IV .[id number] [facility] Insulin Human Regular 0 units 07/15/17 16:30 Humulin R Low SC ACHS [facility] Protocol Ondansetron HCl 4 mg 07/06/17 21:36 07/06/17 21:55 Zofran Inj IVP 4 mg Q6H PRN Administration Nausea/Vomiting Pantoprazole Sodium 40 mg 07/07/17 12:00 07/15/17 09:03 Protonix Inj IVP 40 mg DAILY ANNALEE Administration - Patient Studies Lab Studies: Microbiology Studies 07/11/17 08:40 Blood Culture - Preliminary Blood NO GROWTH AFTER 4 DAYS 07/11/17 08:15 Blood Culture - Preliminary Blood NO GROWTH AFTER 4 DAYS Lab Studies 07/15/17 07/15/17 Range/Units 06:30 06:30 WBC 6.9 (4.5-11.0) 10^3/ul RBC 3.72 (3.5-6.1) 10^6/uL Hgb 10.5 L (14.0-18.0) g/dL Hct 32.8 L (42.0-52.0) % MCV 88.2 (80.0-105.0) fl MCH 28.2 (25.0-35.0) pg MCHC 32.0 (31.0-37.0) g/dl RDW 14.4 (11.5-14.5) % Plt Count 287 (120.0-450.0) 10^3/uL MPV 9.8 (7.0-11.0) fl Gran % 67.1 (50.0-68.0) % Lymph % (Auto) 16.7 L (22.0-35.0) % Callaway % (Auto) 13.0 H (1.0-6.0) % Eos % (Auto) 2.6 (1.5-5.0) % Baso % (Auto) 0.6 (0.0-3.0) % Gran # 4.63 (1.4-6.5) Lymph # 1.2 (1.2-3.4) Callaway # 0.9 H (0.1-0.6) Eos # 0.2 (0.0-0.7) Baso # 0.04 (0.0-2.0) K/mm3 Sodium 146 (132-148) mmol/L Potassium 3.8 (3.6-5.0) mmol/L Chloride 116 H (98-107) mmol/L Carbon Dioxide 20 L (21-33) mmol/L Anion Gap 14 (10-20) BUN 41 H (7-21) mg/dL Creatinine 1.6 H (0.8-1.5) mg/dl Est GFR ( Amer) 52 Est GFR (Non-Af Amer) 43 Random Glucose 278 H (70-110) mg/dL Calcium 9.1 (8.4-10.5) mg/dL Total Bilirubin 1.6 H (0.2-1.3) mg/dL AST 55 (17-59) U/L ALT 65 H (7-56) U/L Alkaline Phosphatase 191 H (38-126) U/L Total Protein 6.8 (5.8-8.3) g/dL Albumin 3.2 (3.0-4.8) g/dL Globulin 3.6 gm/dL Albumin/Globulin Ratio 0.9 L (1.1-1.8) Laboratory Results - last 24 hr 07/15/17 07/15/17 06:30 06:30 WBC 6.9 RBC 3.72 Hgb 10.5 L Hct 32.8 L MCV 88.2 MCH 28.2 MCHC 32.0 RDW 14.4 Plt Count 287 MPV 9.8 Gran % 67.1 Lymph % (Auto) 16.7 L [place] % (Auto) 13.0 H Eos % (Auto) 2.6 Baso % (Auto) 0.6 Gran # 4.63 Lymph # 1.2 Callaway # 0.9 H Eos # 0.2 Baso # 0.04 Sodium 146 Potassium 3.8 Chloride 116 H Carbon Dioxide 20 L Anion Gap 14 BUN 41 H Creatinine 1.6 H Est GFR ( Amer) 52 Est GFR (Non-Af Amer) 43 Random Glucose 278 H Calcium 9.1 Total Bilirubin 1.6 H AST 55 ALT 65 H Alkaline Phosphatase 191 H Total Protein 6.8 Albumin 3.2 Globulin 3.6 Albumin/Globulin Ratio 0.9 L Assessment/Plan - Assessment and Plan (Free Text) Assessment: Patient seen and examined, agree with ntoe with following additions/exceptions: Patient is 72yo male with PMHx of CAD a/w acute CVA of Right MCA territory, s/p tPA (full dose not give 2/2 allergic reaction). Patient developed hemorrhagic conversion of CVA, R sided. Neurology following. Currently afebrile, HD stable, comfortable, tolerating T collar trials, awake. Possible PEG today with IR Acute CVA CAD Respiratory failure s/p trach recommend: - ventilatory support, as needed, otherwise can continue with T collar - Duonebs PRN - monitor HH - follow up neurology, - BP control - Keppra for seizure ppx - follow up ID, 7-10 day course of Abx as per ID - middle or intermediate school principal planning L tach vs rehab - GI ppx - DVT ppx, SCDs - FS control - NPO for possible PEG today with IR
--- NOTE | 2017-07-15 12:20 | CP.PCM.PN ---
<Janiya Oliveira - Last Filed: 07/15/17 12:18> Subjective - Date & Time of Evaluation Date of Evaluation: 07/15/17 Time of Evaluation: 11:55 - Subjective Subjective: S&E at bedside, chart reviewed, has NGTube now, attempted PEG yesterday but unable to find window for PEG. Patient awaiting Ct guided feeding tube. No acute overnight events reported as per nursing staff. Objective - Vital Signs/Intake and Output Vital Signs (last 24 hours): Temp Pulse Resp BP Pulse Ox 98.1 F 90 17 121/59 L 98 07/15/17 11:10 07/15/17 11:10 07/15/17 11:10 07/15/17 11:00 07/15/17 11:10 Intake and Output: 07/15/17 07/15/17 06:59 18:59 Intake Total 1000 Output Total 800 Balance 200 - Medications Medications: Current Medications Hydralazine HCl (Apresoline) 10 mg IVP Q6 ANNALEE Last Admin: 07/15/17 06:59 Dose: 10 mg Nicardipine HCl (Cardene Iv Premix) 20 mg in 200 mls @ 50 mls/hr IV .Q4H PRN; Protocol; 5 MG/HR PRN Reason: TITRATE PER MD ORDER Last Titration: 07/10/17 16:56 Dose: 0 mg/hr, 0 mls/hr Levetiracetam (Keppra 500mg Ivpb) 500 mg in 100 mls @ 200 mls/hr IVPB Q12H [facility] Last Admin: 07/15/17 02:53 Dose: 200 mls/hr Propofol (Diprivan) 1,000 mg in 100 mls @ 3.103 mls/hr IV .Q24H PRN; Protocol; 5 MCG/KG/MIN PRN Reason: TITRATE PER MD ORDER Last Admin: 07/11/17 05:58 Dose: 30 mcg/kg/min, 18.615 mls/hr Ondansetron HCl (Zofran Inj) 4 mg IVP Q6H PRN PRN Reason: Nausea/Vomiting Last Admin: 07/06/17 21:55 Dose: 4 mg Pantoprazole Sodium (Protonix Inj) 40 mg IVP DAILY ANNALEE Last Admin: 07/15/17 09:03 Dose: 40 mg - Labs Labs: 07/15/17 06:30 07/15/17 06:30 PT 12.3 SECONDS (9.4-12.5) 07/14/17 06:30 INR 1.12 (0.93-1.08) H 07/14/17 06:30 APTT 26.2 Seconds (25.1-36.5) 07/14/17 06:30 - Constitutional Appears: No Acute Distress - Eye Exam Eye Exam: Normal appearance. absent: Scleral icterus - ENT Exam ENT Exam: Mucous Membranes Moist - Neck Exam Additional comments: trache - Respiratory Exam Respiratory Exam: NORMAL BREATHING PATTERN. absent: Respiratory Distress - Cardiovascular Exam Cardiovascular Exam: +S1, +S2 - GI/Abdominal Exam GI & Abdominal Exam: Soft, Normal Bowel Sounds. absent: Guarding, Tenderness, Organomegaly, Rebound - Neurological Exam Neurological Exam: Alert, Awake, Oriented x3 Additional comments: left sided weakness - Skin Skin Exam: Dry, Warm Assessment and Plan - Assessment and Plan (Free Text) Assessment: Assessment: CVA Respiratory Failure, s/p trache Oropharyngeal dysphagia, status post EGD with attempted PEG, no window for feeding tube History of colon cancer right hemicolectomy Chronic kidney disease Diabetes mellitus Dyslipidemia Right lower lobe pneumonia Plan: Pending IR CT guided feeding tube continue PPI On Keppra as per ICU team Seen and discussed w/ Dr. Barton. <Sienna Barton V - Last Filed: 07/15/17 20:54> Objective - Vital Signs/Intake and Output Vital Signs (last 24 hours): Temp Pulse Resp BP Pulse Ox 98.2 F 104 H 17 122/64 96 07/15/17 18:03 07/15/17 18:03 07/15/17 18:00 07/15/17 18:00 07/15/17 18:03 Intake and Output: 07/15/17 07/16/17 18:59 06:59 Output Total 2100 Balance -2100 - Medications Medications: Current Medications Hydralazine HCl (Apresoline) 10 mg IVP Q6 ANNALEE Last Admin: 07/15/17 17:03 Dose: 10 mg Nicardipine HCl (Cardene Iv Premix) 20 mg in 200 mls @ 50 mls/hr IV .Q4H PRN; Protocol; 5 MG/HR PRN Reason: TITRATE PER MD ORDER Last Titration: 07/10/17 16:56 Dose: 0 mg/hr, 0 mls/hr Levetiracetam (Keppra 500mg Ivpb) 500 mg in 100 mls @ 200 mls/hr IVPB Q12H ANNALEE Last Admin: 07/15/17 17:03 Dose: 200 mls/hr Sodium Chloride (Sodium Chloride 0.45%) 1,000 mls @ 70 mls/hr IV .[id number] ANNALEE Insulin Human Regular (Humulin R Low) 0 units SC ACHS ANNALEE PRN Reason: Protocol Last Admin: 07/15/17 17:04 Dose: 3 units Ondansetron HCl (Zofran Inj) 4 mg IVP Q6H PRN PRN Reason: Nausea/Vomiting Last Admin: 07/06/17 21:55 Dose: 4 mg Pantoprazole Sodium (Protonix Inj) 40 mg IVP DAILY ANNALEE Last Admin: 07/15/17 09:03 Dose: 40 mg - Labs Labs: 07/15/17 06:30 07/15/17 06:30 PT 12.3 SECONDS (9.4-12.5) 07/14/17 06:30 INR 1.12 (0.93-1.08) H 07/14/17 06:30 APTT 26.2 Seconds (25.1-36.5) 07/14/17 06:30 Attending/Attestation - Attestation I have personally seen and examined this patient.: Yes I have fully participated in the care of the patient.: Yes I have reviewed all pertinent clinical information, including history, physical exam and plan: Yes Notes (Text): this patient was seen and evaluated earlier.. This is an addendum to the GE progress report dictated by Janiya Oliveira APN. Discussed with the patient's was at bedside. On examination abdomen soft nontender midline scar present. Scheduled for CT-guided PEG tube today. Patient did undergo attempted PEG tube. No endoscopy view window available for placement of PEG tube. 07/15/17 20:51
--- NOTE | 2017-07-15 12:59 | RAD ---
HISTORY: s/p NG placement COMPARISON: 07/12/2017 FINDINGS: BOWEL: Normal. No obstruction. No free air. BONES: Normal. OTHER FINDINGS: None. IMPRESSION: The nasogastric tube is in satisfactory position in the gastric fundus.
[2017-07-15] MEDS ORDERED: Sodium Chloride 0.45% 1,000 ML IV SCH (13:30)
--- NOTE | 2017-07-15 14:06 | PN ---
DATE: 07/15/2017 SUBJECTIVE: The patient is seen early this morning in CCU 129, bed 1. The patient is overall in poor condition resting with a T-collar. There has been no fevers reported. The patient had an uneventful night as per nurse taking care of the patient overnight. PHYSICAL EXAMINATION: VITAL SIGNS: The patient's temperature is 98, blood pressure is 128/58, and respiratory rate of 18. HEENT: Unremarkable. NECK: Supple. LUNGS: Decreased breath sounds. HEART: Normal S1 and S2. ABDOMEN: Soft and nontender. LABORATORY DATA: Reveals white count of 6.9, hemoglobin of 10, and platelets of 287. Chemistries reveals BUN of 41 and creatinine of 1.6. LFTs are mildly elevated. Alkaline phosphatase is elevated at 191. Urinalysis is noted and 2-5 wbc's and influenza is negative. Microbiology reveals blood cultures negative, urine cultures negative. Trach cultures normal respiratory lul. Review of medications reveals the patient to be on linezolid. The patient had CAT scan of the abdomen and pelvis on the , which is noted. ASSESSMENT AND PLAN: This is a 72-year-old male who was seen early this morning on 129, bed 1, who appeared to be comfortable trach with systemic inflammatory response syndrome with acute right cerebrovascular accident with hemorrhage with sepsis with right lower lobe healthcare-associated pneumonia in a diabetic, with renal disease, obesity, and history of colon cancer. He has had 7 days of cefepime and Zyvox. Today's day #8,but all cultures negative. Procalcitonin, which is elevated, now comfortable. Cefepime was discontinued yesterday and we will discontinue Zyvox today. The patient is at risk for developing nosocomial infection. Overall, prognosis is quite poor. Paul Romano MD
[2017-07-15] MEDS: Insulin Reg-LOW-Coverage SC SCH ×2 (17:04→21:52)
--- NOTE | 2017-07-15 20:56 | PN ---
DATE: 07/15/2017 SUBJECTIVE: The patient opens eyes and tracks. He tries to speak, but is not able to answer. PHYSICAL EXAMINATION VITAL SIGNS: Temperature is 98.6, pulse of 80, blood pressure is 142/67, and respirations 16. GENERAL: The patient is lying in bed, flat, comfortable. HEENT: No oral lesion. Anicteric sclerae. Moist mucosa. NECK: Positive for tracheostomy. CARDIOVASCULAR: S1 and S2, regular. No murmurs, rubs, or gallops. LUNGS: Clear to auscultation bilaterally. No wheeze, rales, or rhonchi. ABDOMEN: Bowel sounds are positive, soft, nontender and nondistended. EXTREMITIES: No cyanosis, clubbing or edema. NEUROLOGIC: He is not able to move the left arm or the left leg. There is left facial asymmetry. LABS: White count of 6.9 and hemoglobin 10.5. Creatinine is 1.6. ASSESSMENT: 1. Right middle cerebral artery stroke. 2. Respiratory failure, improving, status post tracheostomy. 3. Hemorrhagic conversion of the cerebral infarction at the posterior cerebral artery. 4. Ileus. 5. Chronic kidney stage III. 6. Hypokalemia, improved. 7. Hypertensive emergency, improved. 8. Ventilator-associated pneumonia. PLAN: The patient is currently comfortable. Waiting for Dr. Brendan Love to place a PEG. The patient has NG tube that is in satisfactory position by the chest x-ray that was done yesterday. The patient is on IV antibiotics. He is on IV fluids. He is going to continue with Protonix daily. The patient is not able to get low molecular weight heparin or aspirin because of the bleed. The patient will most likely need to go to a rehab facility such as the LTAC to continue current care. Overall, prognosis is guarded. Jani Hernandez MD
[2017-07-16] MEDS: levETIRAcetam 500mg IVPB 500 MG/100 ML BAG IVPB SCH ×2 (04:00→16:17)
[2017-07-16 06:51] LABS: BASO # 0.04 K/mm3 (0.0-2.0); BASO % 0.5 % (0.0-3.0); EOS # 0.2 (0.0-0.7); EOS % 2.7 % (1.5-5.0); GRAN # 5.1 (1.4-6.5); GRAN % 65.9 % (50.0-68.0); HEMATOCRIT 32.6 % (42.0-52.0); LYMPH # 1.4 (1.2-3.4); LYMPH % 18.5 % (22.0-35.0); MEAN CELL VOLUME 88.6 fl (80.0-105.0); MEAN CORPUSCULAR HEMOGLOBIN 28.3 pg (25.0-35.0); MEAN CORPUSCULAR HGB CONC 31.9 g/dl (31.0-37.0); MEAN PLATELET VOLUME 9.7 fl (7.0-11.0); MONO % 12.4 % (1.0-6.0); RED CELL DISTRIBUTION WIDTH 14.5 % (11.5-14.5); WHITE BLOOD COUNT 7.7 10^3/ul (4.5-11.0)
[2017-07-16 07:13] LABS: ALB/GLOB RATIO 0.9 (1.1-1.8); ALKALINE PHOSPHATASE 197 U/L (38-126); ALT/SGPT 69 U/L (7-56); AST/SGOT 59 U/L (17-59); BILIRUBIN,TOTAL 1.5 mg/dL (0.2-1.3); BLOOD UREA NITROGEN 36 mg/dL (7-21); CALCIUM 9.3 mg/dL (8.4-10.5); CARBON DIOXIDE 18 mmol/L (21-33); CHLORIDE 119 mmol/L (98-107); GFR AFRICAN-AMERICAN > 60; GLUCOSE,RANDOM 231 mg/dL (70-110); MAGNESIUM 2.2 mg/dL (1.7-2.2); PHOSPHOROUS 3.1 mg/dL (2.5-4.5); POTASSIUM 3.9 mmol/L (3.6-5.0); SODIUM 149 mmol/L (132-148)
[2017-07-16] MEDS: Insulin Reg-LOW-Coverage SC SCH ×4 (08:32→22:03)
--- NOTE | 2017-07-16 08:54 | CARD ---
APPROVED REPORT EXAM: Two-dimensional and M-mode echocardiogram with Doppler and color Doppler. INDICATION Cardiomyopathy 2D DIMENSIONS Left Atrium (2D)3.7 (1.6-4.0cm)IVSd1.3 (0.7-1.1cm) LVDd4.0 (3.9-5.9cm)PWd1.3 (0.7-1.1cm) LVDs2.8 (2.5-4.0cm)FS (%) 31.3 % LVEF (%)59.6 (>50%) M-Mode DIMENSIONS Aortic Root3.30 (2.2-3.7cm)Aortic Cusp Exc.1.60 (1.5-2.0cm) Aortic Valve AoV Peak Qrgptdjj374.0cm/Brandie Peak GR.12mmHg Mitral Valve MV E Uaunxvou90.5cm/sMV A Xneckmzp075.0cm/sE/A ratio0.6 TDI Lateral E' Peak V8.68cm/sMedial E' Peak V8.58cm/sE/Lateral E'10.3 E/Medial E'10.4 Pulmonary Valve PV Peak Ijumrhjj702.0cm/sPV Peak Grad.6mmHg Tricuspid Valve TR Peak [id number]/sRAP [id number] Peak Gr.20mmHg [id number] LEFT VENTRICLE The left ventricle is normal size. There is mild concentric left ventricular hypertrophy. The left ventricular function is normal. The left ventricular ejection fraction is within the normal range. There is normal LV segmental wall motion. RIGHT VENTRICLE The right ventricle is normal size. The right ventricular systolic function is normal. ATRIA The left atrium size is normal. The right atrium size is normal. The interatrial septum is intact with no evidence for an atrial septal defect. AORTIC VALVE The aortic valve is normal in structure. No aortic regurgitation is present. There is no aortic valvular stenosis. MITRAL VALVE Mitral annular calcification is mild. There is no mitral valve regurgitation noted. TRICUSPID VALVE The tricuspid valve is normal in structure. There is mild tricuspid regurgitation. PULMONIC VALVE The pulmonary valve is normal in structure. GREAT VESSELS The aortic root is normal in size. The IVC is normal in size and collapses >50% with inspiration. PERICARDIAL EFFUSION There is no pleural effusion. There is no pericardial effusion. <Conclusion> Normal chamber size. Normal LV systolic function. Mild concentric LVH. Midl TR.
--- NOTE | 2017-07-16 09:24 | RAD ---
HISTORY: interval changes COMPARISON: 07/12/2017 FINDINGS: LUNGS: No active pulmonary disease. PLEURA: No significant pleural effusion identified, no pneumothorax apparent. CARDIOVASCULAR: Mild vascular congestion OSSEOUS STRUCTURES: No significant abnormalities. VISUALIZED UPPER ABDOMEN: Nasogastric tube in satisfactory position. OTHER FINDINGS: None. IMPRESSION: Mild vascular congestion
--- NOTE | 2017-07-16 09:58 | CP.CCUPN ---
<Orville Jefferson - Last Filed: 07/16/17 09:57> CCU Subjective - Physician Review Events Since Last Encounter (Free Text): 07/16/17 09:[address] Garcia Pt seen and examined at bedside. No acute events overnight. Patient drowsy, but easily arousable. Follows simple commands. Increased secretions from trach noted. CCU Objective - Vital Signs / Intake & Output Vital Signs (Last 4 hours): Vital Signs Temp Pulse Resp BP Pulse Ox 07/16/17 09:10 83 19 97 07/16/17 09:00 140/69 07/16/17 08:59 83 21 07/16/17 08:58 83 20 07/16/17 08:57 84 21 07/16/17 08:56 85 18 07/16/17 08:55 83 19 07/16/17 08:54 83 19 07/16/17 08:53 84 18 07/16/17 08:52 84 21 07/16/17 08:51 83 20 07/16/17 08:50 84 19 07/16/17 08:49 84 18 07/16/17 08:48 85 20 07/16/17 08:47 85 19 07/16/17 08:46 85 18 07/16/17 08:45 86 19 07/16/17 08:44 82 18 07/16/17 08:43 86 21 07/16/17 08:42 85 22 07/16/17 08:41 84 21 07/16/17 08:40 85 18 07/16/17 08:39 85 22 07/16/17 08:38 84 18 07/16/17 08:37 89 23 07/16/17 08:36 93 H 20 07/16/17 08:35 98 H 40 H 07/16/17 08:34 86 52 H 07/16/17 08:33 86 18 07/16/17 08:32 81 20 07/16/17 08:31 85 18 07/16/17 08:30 85 19 07/16/17 08:29 87 20 07/16/17 08:28 87 18 07/16/17 08:27 88 18 07/16/17 08:26 88 20 07/16/17 08:25 87 19 07/16/17 08:24 88 16 07/16/17 08:23 87 16 07/16/17 08:22 87 31 H 07/16/17 08:21 91 H 26 H 07/16/17 08:20 94 H 18 07/16/17 08:19 96 H 17 07/16/17 08:18 98 H 18 07/16/17 08:17 96 H 16 07/16/17 08:16 92 H 07/16/17 08:15 94 H 07/16/17 08:14 94 H 14 07/16/17 08:13 89 37 H 07/16/17 08:12 95 H 14 07/16/17 08:11 96 H 28 H 07/16/17 08:10 95 H 15 07/16/17 08:09 92 H 17 07/16/17 08:08 95 H 19 07/16/17 08:07 94 H 25 H 07/16/17 08:06 94 H 23 07/16/17 08:05 94 H 20 07/16/17 08:04 95 H 17 07/16/17 08:03 91 H 25 H 07/16/17 08:02 94 H 38 H 07/16/17 08:01 96 H 17 07/16/17 08:00 97.6 F 161/82 H 07/16/17 07:59 98 H 17 07/16/17 07:58 98 H 18 07/16/17 07:57 95 H 15 07/16/17 07:56 93 H 18 07/16/17 07:55 89 23 07/16/17 07:54 95 H 07/16/17 07:53 96 H 23 07/16/17 07:52 96 H 17 07/16/17 07:51 96 H 15 07/16/17 07:50 96 H 20 07/16/17 07:49 96 H 20 07/16/17 07:48 95 H 13 07/16/17 07:47 96 H 21 07/16/17 07:46 99 H 17 07/16/17 07:45 95 H 24 07/16/17 07:44 96 H 13 07/16/17 07:43 93 H 18 07/16/17 07:42 87 07/16/17 07:41 90 17 07/16/17 07:40 93 H 13 07/16/17 07:39 94 H 14 07/16/17 07:38 94 H 18 07/16/17 07:37 93 H 16 07/16/17 07:36 93 H 17 07/16/17 07:35 94 H 19 07/16/17 07:34 94 H 26 H 07/16/17 07:33 94 H 19 07/16/17 07:32 93 H 17 07/16/17 07:31 89 21 07/16/17 07:30 94 H 23 07/16/17 07:29 95 H 24 07/16/17 07:28 95 H 20 07/16/17 07:27 95 H 12 07/16/17 07:26 94 H 17 07/16/17 07:25 95 H 18 07/16/17 07:24 96 H 20 07/16/17 07:23 96 H 17 07/16/17 07:22 95 H 13 07/16/17 07:21 93 H 14 07/16/17 07:20 95 H 16 07/16/17 07:19 96 H 14 07/16/17 07:18 98 H 22 07/16/17 07:17 93 H 21 07/16/17 07:16 93 H 20 07/16/17 07:15 90 17 07/16/17 07:14 95 H 17 07/16/17 07:13 95 H 16 07/16/17 07:12 93 H 14 07/16/17 07:11 91 H 16 07/16/17 07:10 94 H 22 07/16/17 07:09 95 H 20 07/16/17 07:08 95 H 25 H 07/16/17 07:07 96 H 23 07/16/17 07:06 98 H 20 07/16/17 07:05 97 H 07/16/17 07:04 95 H 21 07/16/17 07:03 97 H 15 07/16/17 07:02 96 H 15 07/16/17 07:01 94 H 18 07/16/17 07:00 129/67 07/16/17 06:59 95 H 23 07/16/17 06:58 93 H 10 L 07/16/17 06:57 93 H 20 07/16/17 06:56 94 H 17 07/16/17 06:55 95 H 13 07/16/17 06:49 91 H 19 07/16/17 06:47 91 H 23 07/16/17 06:46 95 H 20 07/16/17 06:45 96 H 22 07/16/17 06:44 98 H 19 07/16/17 06:43 99 H 16 07/16/17 06:42 100 H 19 07/16/17 06:41 103 H 16 07/16/17 06:40 99 H 27 H 07/16/17 06:39 96 H 24 07/16/17 06:38 100 H 15 07/16/17 06:37 96 H 18 07/16/17 06:36 101 H 20 07/16/17 06:30 97 H 21 94 L 07/16/17 06:20 97 H 21 86 L 07/16/17 06:10 95 H 23 94 L 07/16/17 06:00 98 F 93 H 18 116/72 95 Intake and Output (Last 8hrs): Intake & Output 07/15/17 07/16/17 07/16/17 22:59 06:59 14:59 Intake Total 940 Output Total 1300 1000 Balance -1300 -60 Weight 230 lb 1.6 oz Intake: IV 940 Left Forearm 840 Right Forearm 100 Tube Feeding 0 Output: Urine 1300 1000 Urethral (Self) 1300 1000 - Physical Exam Head: Positive for: Atraumatic, Normocephalic Extroacular Muscles: Positive for: Other (Moving eyes towards right) Conjunctiva: Positive for: Normal Ears: Positive for: Normal Mouth: Positive for: Moist Mucous Membranes Nose (External): Positive for: Atraumatic Neck: Positive for: Trachea Midline, Other (Trach collar in place, no signs of bleeding, increased sputum from trach site noted) Respiratory/Chest: Positive for: Clear to Auscultation. Negative for: Respiratory Distress, Accessory Muscle Use, Wheezes, Rales, Rhonchi Cardiovascular: Positive for: Normal S1, S2. Negative for: Murmurs, Rub, Gallop Abdomen: Positive for: Normal Bowel Sounds. Negative for: Tenderness, Distention, Peritoneal Signs, Rebound, Guarding Back: Positive for: Normal Inspection Upper Extremity: Positive for: Normal Inspection, Capillary Refill < 2s Lower Extremity: Positive for: Normal Inspection, Capillary Refill < 2 s Neurological: Positive for: Other (awake, appears alert, follows simple commands , moving right extremities, breathing comfortably with trach collar) Skin: Positive for: Warm, Dry Psychiatric: Positive for: Other (No acute distress.) - Medications Active Medications: Active Medications Generic Name Dose Route Start Last Admin Trade Name Freq PRN Reason Stop Dose Admin Hydralazine HCl 10 mg 07/09/17 12:00 07/16/17 05:31 Apresoline IVP 10 mg Q6 ANNALEE Administration Levetiracetam 500 mg in 100 mls @ 200 mls/hr 07/07/17 15:45 07/16/17 04:00 Keppra 500mg Ivpb IVPB 200 mls/hr Q12H ANNALEE Administration Dextrose 1,000 mls @ 100 mls/hr 07/16/17 08:30 07/16/17 08:35 Dextrose 5% In Water 1000 Ml IV 100 mls/hr .Q10H ANNALEE Administration Insulin Human Regular 0 units 07/15/17 16:30 07/16/17 08:32 Humulin R Low SC 2 units ACHS ANNALEE Administration Protocol Ondansetron HCl 4 mg 07/06/17 21:36 07/06/17 21:55 Zofran Inj IVP 4 mg Q6H PRN Administration Nausea/Vomiting Pantoprazole Sodium 40 mg 07/07/17 12:00 07/15/17 09:03 Protonix Inj IVP 40 mg DAILY ANNALEE Administration - Patient Studies Lab Studies: Microbiology Studies 07/11/17 08:40 Blood Culture - Final Blood NO GROWTH AFTER 5 DAYS Gram Stain - Final TEST NOT PERFORMED 07/11/17 08:15 Blood Culture - Final Blood NO GROWTH AFTER 5 DAYS Gram Stain - Final TEST NOT PERFORMED Lab Studies 07/16/17 07/16/17 07/16/17 Range/Units 07:38 05:30 05:30 WBC 7.7 (4.5-11.0) 10^3/ul RBC 3.68 (3.5-6.1) 10^6/uL Hgb 10.4 L (14.0-18.0) g/dL Hct 32.6 L (42.0-52.0) % MCV 88.6 (80.0-105.0) fl MCH 28.3 (25.0-35.0) pg MCHC 31.9 (31.0-37.0) g/dl RDW 14.5 (11.5-14.5) % Plt Count 308 (120.0-450.0) 10^3/uL MPV 9.7 (7.0-11.0) fl Gran % 65.9 (50.0-68.0) % Lymph % (Auto) 18.5 L (22.0-35.0) % Waller % (Auto) 12.4 H (1.0-6.0) % Eos % (Auto) 2.7 (1.5-5.0) % Baso % (Auto) 0.5 (0.0-3.0) % Gran # 5.10 (1.4-6.5) Lymph # 1.4 (1.2-3.4) Waller # 1.0 H (0.1-0.6) Eos # 0.2 (0.0-0.7) Baso # 0.04 (0.0-2.0) K/mm3 Sodium 149 H (132-148) mmol/L Potassium 3.9 (3.6-5.0) mmol/L Chloride 119 H (98-107) mmol/L Carbon Dioxide 18 L (21-33) mmol/L Anion Gap 17 (10-20) BUN 36 H (7-21) mg/dL Creatinine 1.4 (0.8-1.5) mg/dl Est GFR ( Amer) > 60 Est GFR (Non-Af Amer) 50 POC Glucose (mg/dL) 216 H (65-110) mg/dL Random Glucose 231 H (70-110) mg/dL Calcium 9.3 (8.4-10.5) mg/dL Phosphorus 3.1 (2.5-4.5) mg/dL Magnesium 2.2 (1.7-2.2) mg/dL Total Bilirubin 1.5 H (0.2-1.3) mg/dL AST 59 (17-59) U/L ALT 69 H (7-56) U/L Alkaline Phosphatase 197 H (38-126) U/L Total Protein 7.0 (5.8-8.3) g/dL Albumin 3.4 (3.0-4.8) g/dL Globulin 3.6 gm/dL Albumin/Globulin Ratio 0.9 L (1.1-1.8) 07/15/17 07/15/17 Range/Units 21:04 16:06 WBC (4.5-11.0) 10^3/ul RBC (3.5-6.1) 10^6/uL Hgb (14.0-18.0) g/dL Hct (42.0-52.0) % MCV (80.0-105.0) fl MCH (25.0-35.0) pg MCHC (31.0-37.0) g/dl RDW (11.5-14.5) % Plt Count (120.0-450.0) 10^3/uL MPV (7.0-11.0) fl Gran % (50.0-68.0) % Lymph % (Auto) (22.0-35.0) % Waller % (Auto) (1.0-6.0) % Eos % (Auto) (1.5-5.0) % Baso % (Auto) (0.0-3.0) % Gran # (1.4-6.5) Lymph # (1.2-3.4) Waller # (0.1-0.6) Eos # (0.0-0.7) Baso # (0.0-2.0) K/mm3 Sodium (132-148) mmol/L Potassium (3.6-5.0) mmol/L Chloride (98-107) mmol/L Carbon Dioxide (21-33) mmol/L Anion Gap (10-20) BUN (7-21) mg/dL Creatinine (0.8-1.5) mg/dl Est GFR ( Amer) Est GFR (Non-Af Amer) POC Glucose (mg/dL) 103 250 H (65-110) mg/dL Random Glucose (70-110) mg/dL Calcium (8.4-10.5) mg/dL Phosphorus (2.5-4.5) mg/dL Magnesium (1.7-2.2) mg/dL Total Bilirubin (0.2-1.3) mg/dL AST (17-59) U/L ALT (7-56) U/L Alkaline Phosphatase (38-126) U/L Total Protein (5.8-8.3) g/dL Albumin (3.0-4.8) g/dL Globulin gm/dL Albumin/Globulin Ratio (1.1-1.8) Laboratory Results - last 24 hr 07/15/17 07/15/17 07/16/17 16:06 21:04 05:30 WBC 7.7 RBC 3.68 Hgb 10.4 L Hct 32.6 L MCV 88.6 MCH 28.3 MCHC 31.9 RDW 14.5 Plt Count 308 MPV 9.7 Gran % 65.9 Lymph % (Auto) 18.5 L Waller % (Auto) 12.4 H Eos % (Auto) 2.7 Baso % (Auto) 0.5 Gran # 5.10 Lymph # 1.4 Waller # 1.0 H Eos # 0.2 Baso # 0.04 Sodium Potassium Chloride Carbon Dioxide Anion Gap BUN Creatinine Est GFR ( Amer) Est GFR (Non-Af Amer) POC Glucose (mg/dL) 250 H 103 Random Glucose Calcium Phosphorus Magnesium Total Bilirubin AST ALT Alkaline Phosphatase Total Protein Albumin Globulin Albumin/Globulin Ratio 07/16/17 07/16/17 05:30 07:38 WBC RBC Hgb Hct MCV MCH MCHC RDW Plt Count MPV Gran % Lymph % (Auto) Waller % (Auto) Eos % (Auto) Baso % (Auto) Gran # Lymph # Waller # Eos # Baso # Sodium 149 H Potassium 3.9 Chloride 119 H Carbon Dioxide 18 L Anion Gap 17 BUN 36 H Creatinine 1.4 Est GFR ( Amer) > 60 Est GFR (Non-Af Amer) 50 POC Glucose (mg/dL) 216 H Random Glucose 231 H Calcium 9.3 Phosphorus 3.1 Magnesium 2.2 Total Bilirubin 1.5 H AST 59 ALT 69 H Alkaline Phosphatase 197 H Total Protein 7.0 Albumin 3.4 Globulin 3.6 Albumin/Globulin Ratio 0.9 L Fingerstick Blood Sugar Results: 216 Assessment/Plan - Assessment and Plan (Free Text) Assessment: 72yo Me with PMHx of CAD, 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 Patient developed hemorrhagic conversion of CVA, R sided. Neurology and neurosurgery following. Failed PEG placement by GI, will obtain IR guided PEG placement today by Dr. Love. NGT in place and clamped currently. 1.Acute CVA Continue vent support as needed. Will continue Trach collar No ASA/Plavix for 3 months. Continue Keppra 500mg BID Strict BP control, SBP 120s-130s Neurosurg following, no further surgical intervention Neuro following, appreciate recs monitor H/H Dysphagia eval 2. Hx of CAD Strict BP control Hold ASA/Plavix 3. Respiratory failure s/p trach on trach collar, tolerating well Increased respiratory secretions noted. continue trach precautions. Duonebs prn 4. Decreased oral intake NG placed for assistance with PEG placement IR to place CT guided PEG today, scheduled at 1330 Maintain NPO 5. Mild hypernatremia Started on D5W today Continue to monitor 6. Mild hyperglycemia ISS low dose Accuchecks 6. PPx SCDs Protonix Dispo: Palliative care consult appreciated Awaiting LTAC vs. Rehab PEG to be placed by Dr. Love, IR, today Stable to be transferred to floor today; Please re-consult ICU team if patient' s clinical status changes. Discussed case with Dr. Jose Jefferson PGY1 <Issa Garcia - Last Filed: 07/16/17 11:16> CCU Objective - Vital Signs / Intake & Output Vital Signs (Last 4 hours): Vital Signs Temp Pulse Resp BP Pulse Ox 07/16/17 10:40 85 17 95 07/16/17 10:30 92 H 15 97 07/16/17 10:20 90 21 96 07/16/17 10:10 92 H 14 98 07/16/17 10:00 92 H 16 147/77 99 07/16/17 09:50 90 15 96 07/16/17 09:40 88 28 H 97 07/16/17 09:30 87 14 98 07/16/17 09:20 83 18 99 07/16/17 09:10 83 19 97 07/16/17 09:00 140/69 07/16/17 08:59 83 21 07/16/17 08:58 83 20 07/16/17 08:57 84 21 07/16/17 08:56 85 18 07/16/17 08:55 83 19 07/16/17 08:54 83 19 07/16/17 08:53 84 18 07/16/17 08:52 84 21 07/16/17 08:51 83 20 07/16/17 08:50 84 19 07/16/17 08:49 84 18 07/16/17 08:48 85 20 07/16/17 08:47 85 19 07/16/17 08:46 85 18 07/16/17 08:45 86 19 07/16/17 08:44 82 18 07/16/17 08:43 86 21 07/16/17 08:42 85 22 07/16/17 08:41 84 21 07/16/17 08:40 85 18 07/16/17 08:39 85 22 07/16/17 08:38 84 18 07/16/17 08:37 89 23 07/16/17 08:36 93 H 20 07/16/17 08:35 98 H 40 H 07/16/17 08:34 86 52 H 07/16/17 08:33 86 18 07/16/17 08:32 81 20 07/16/17 08:31 85 18 07/16/17 08:30 85 19 07/16/17 08:29 87 20 07/16/17 08:28 87 18 07/16/17 08:27 88 18 07/16/17 08:26 88 20 07/16/17 08:25 87 19 07/16/17 08:24 88 16 07/16/17 08:23 87 16 07/16/17 08:22 87 31 H 07/16/17 08:21 91 H 26 H 07/16/17 08:20 94 H 18 07/16/17 08:19 96 H 17 07/16/17 08:18 98 H 18 07/16/17 08:17 96 H 16 07/16/17 08:16 92 H 07/16/17 08:15 94 H 07/16/17 08:14 94 H 14 07/16/17 08:13 89 37 H 07/16/17 08:12 95 H 14 07/16/17 08:11 96 H 28 H 07/16/17 08:10 95 H 15 07/16/17 08:09 92 H 17 07/16/17 08:08 95 H 19 07/16/17 08:07 94 H 25 H 07/16/17 08:06 94 H 23 07/16/17 08:05 94 H 20 07/16/17 08:04 95 H 17 07/16/17 08:03 91 H 25 H 07/16/17 08:02 94 H 38 H 07/16/17 08:01 96 H 17 07/16/17 08:00 97.6 F 161/82 H 07/16/17 07:59 98 H 17 07/16/17 07:58 98 H 18 07/16/17 07:57 95 H 15 07/16/17 07:56 93 H 18 07/16/17 07:55 89 23 07/16/17 07:54 95 H 07/16/17 07:53 96 H 23 07/16/17 07:52 96 H 17 07/16/17 07:51 96 H 15 07/16/17 07:50 96 H 20 07/16/17 07:49 96 H 20 07/16/17 07:48 95 H 13 07/16/17 07:47 96 H 21 07/16/17 07:46 99 H 17 07/16/17 07:45 95 H 24 07/16/17 07:44 96 H 13 07/16/17 07:43 93 H 18 07/16/17 07:42 87 07/16/17 07:41 90 17 07/16/17 07:40 93 H 13 07/16/17 07:39 94 H 14 07/16/17 07:38 94 H 18 07/16/17 07:37 93 H 16 07/16/17 07:36 93 H 17 07/16/17 07:35 94 H 19 07/16/17 07:34 94 H 26 H 07/16/17 07:33 94 H 19 07/16/17 07:32 93 H 17 07/16/17 07:31 89 21 07/16/17 07:30 94 H 23 07/16/17 07:29 95 H 24 07/16/17 07:28 95 H 20 07/16/17 07:27 95 H 12 07/16/17 07:26 94 H 17 07/16/17 07:25 95 H 18 07/16/17 07:24 96 H 20 07/16/17 07:23 96 H 17 07/16/17 07:22 95 H 13 07/16/17 07:21 93 H 14 07/16/17 07:20 95 H 16 07/16/17 07:19 96 H 14 07/16/17 07:18 98 H 22 07/16/17 07:17 93 H 21 07/16/17 07:16 93 H 20 Intake and Output (Last 8hrs): Intake & Output 07/15/17 07/16/17 07/16/17 22:59 06:59 14:59 Intake Total 940 Output Total 1300 1000 Balance -1300 -60 Weight 230 lb 1.6 oz 230 lb Intake: IV 940 Left Forearm 840 Right Forearm 100 Tube Feeding 0 Output: Urine 1300 1000 Urethral (Self) 1300 1000 - Medications Active Medications: Active Medications Generic Name Dose Route Start Last Admin Trade Name Freq PRN Reason Stop Dose Admin Hydralazine HCl 10 mg 07/09/17 12:00 07/16/17 05:31 Apresoline IVP 10 mg Q6 ANNALEE Administration Levetiracetam 500 mg in 100 mls @ 200 mls/hr 07/07/17 15:45 07/16/17 04:00 Keppra 500mg Ivpb IVPB 200 mls/hr Q12H ANNALEE Administration Dextrose 1,000 mls @ 100 mls/hr 07/16/17 08:30 07/16/17 08:35 Dextrose 5% In Water 1000 Ml IV 100 mls/hr .Q10H ANNALEE Administration Insulin Human Regular 0 units 07/15/17 16:30 07/16/17 08:32 Humulin R Low SC 2 units ACHS ANNALEE Administration Protocol Ondansetron HCl 4 mg 07/06/17 21:36 07/06/17 21:55 Zofran Inj IVP 4 mg Q6H PRN Administration Nausea/Vomiting Pantoprazole Sodium 40 mg 07/07/17 12:00 07/16/17 09:57 Protonix Inj IVP 40 mg DAILY ANNALEE Administration - Patient Studies Lab Studies: Microbiology Studies 07/11/17 08:40 Blood Culture - Final Blood NO GROWTH AFTER 5 DAYS Gram Stain - Final TEST NOT PERFORMED 07/11/17 08:15 Blood Culture - Final Blood NO GROWTH AFTER 5 DAYS Gram Stain - Final TEST NOT PERFORMED Lab Studies 07/16/17 07/16/17 07/16/17 Range/Units 11:10 07:38 05:30 WBC (4.5-11.0) 10^3/ul RBC (3.5-6.1) 10^6/uL Hgb (14.0-18.0) g/dL Hct (42.0-52.0) % MCV (80.0-105.0) fl MCH (25.0-35.0) pg MCHC (31.0-37.0) g/dl RDW (11.5-14.5) % Plt Count (120.0-450.0) 10^3/uL MPV (7.0-11.0) fl Gran % (50.0-68.0) % Lymph % (Auto) (22.0-35.0) % Waller % (Auto) (1.0-6.0) % Eos % (Auto) (1.5-5.0) % Baso % (Auto) (0.0-3.0) % Gran # (1.4-6.5) Lymph # (1.2-3.4) Waller # (0.1-0.6) Eos # (0.0-0.7) Baso # (0.0-2.0) K/mm3 Sodium 149 H (132-148) mmol/L Potassium 3.9 (3.6-5.0) mmol/L Chloride 119 H (98-107) mmol/L Carbon Dioxide 18 L (21-33) mmol/L Anion Gap 17 (10-20) BUN 36 H (7-21) mg/dL Creatinine 1.4 (0.8-1.5) mg/dl Est GFR ( Amer) > 60 Est GFR (Non-Af Amer) 50 POC Glucose (mg/dL) 219 H 216 H (65-110) mg/dL Random Glucose 231 H (70-110) mg/dL Calcium 9.3 (8.4-10.5) mg/dL Phosphorus 3.1 (2.5-4.5) mg/dL Magnesium 2.2 (1.7-2.2) mg/dL Total Bilirubin 1.5 H (0.2-1.3) mg/dL AST 59 (17-59) U/L ALT 69 H (7-56) U/L Alkaline Phosphatase 197 H (38-126) U/L Total Protein 7.0 (5.8-8.3) g/dL Albumin 3.4 (3.0-4.8) g/dL Globulin 3.6 gm/dL Albumin/Globulin Ratio 0.9 L (1.1-1.8) 07/16/17 07/15/17 07/15/17 Range/Units 05:30 21:04 16:06 WBC 7.7 (4.5-11.0) 10^3/ul RBC 3.68 (3.5-6.1) 10^6/uL Hgb 10.4 L (14.0-18.0) g/dL Hct 32.6 L (42.0-52.0) % MCV 88.6 (80.0-105.0) fl MCH 28.3 (25.0-35.0) pg MCHC 31.9 (31.0-37.0) g/dl RDW 14.5 (11.5-14.5) % Plt Count 308 (120.0-450.0) 10^3/uL MPV 9.7 (7.0-11.0) fl Gran % 65.9 (50.0-68.0) % Lymph % (Auto) 18.5 L (22.0-35.0) % Waller % (Auto) 12.4 H (1.0-6.0) % Eos % (Auto) 2.7 (1.5-5.0) % Baso % (Auto) 0.5 (0.0-3.0) % Gran # 5.10 (1.4-6.5) Lymph # 1.4 (1.2-3.4) Waller # 1.0 H (0.1-0.6) Eos # 0.2 (0.0-0.7) Baso # 0.04 (0.0-2.0) K/mm3 Sodium (132-148) mmol/L Potassium (3.6-5.0) mmol/L Chloride (98-107) mmol/L Carbon Dioxide (21-33) mmol/L Anion Gap (10-20) BUN (7-21) mg/dL Creatinine (0.8-1.5) mg/dl Est GFR ( Amer) Est GFR (Non-Af Amer) POC Glucose (mg/dL) 103 250 H (65-110) mg/dL Random Glucose (70-110) mg/dL Calcium (8.4-10.5) mg/dL Phosphorus (2.5-4.5) mg/dL Magnesium (1.7-2.2) mg/dL Total Bilirubin (0.2-1.3) mg/dL AST (17-59) U/L ALT (7-56) U/L Alkaline Phosphatase (38-126) U/L Total Protein (5.8-8.3) g/dL Albumin (3.0-4.8) g/dL Globulin gm/dL Albumin/Globulin Ratio (1.1-1.8) Laboratory Results - last 24 hr 07/15/17 07/15/17 07/16/17 16:06 21:04 05:30 WBC 7.7 RBC 3.68 Hgb 10.4 L Hct 32.6 L MCV 88.6 MCH 28.3 MCHC 31.9 RDW 14.5 Plt Count 308 MPV 9.7 Gran % 65.9 Lymph % (Auto) 18.5 L Waller % (Auto) 12.4 H Eos % (Auto) 2.7 Baso % (Auto) 0.5 Gran # 5.10 Lymph # 1.4 Waller # 1.0 H Eos # 0.2 Baso # 0.04 Sodium Potassium Chloride Carbon Dioxide Anion Gap BUN Creatinine Est GFR ( Amer) Est GFR (Non-Af Amer) POC Glucose (mg/dL) 250 H 103 Random Glucose Calcium Phosphorus Magnesium Total Bilirubin AST ALT Alkaline Phosphatase Total Protein Albumin Globulin Albumin/Globulin Ratio 07/16/17 07/16/17 07/16/17 05:30 07:38 11:10 WBC RBC Hgb Hct MCV MCH MCHC RDW Plt Count MPV Gran % Lymph % (Auto) Waller % (Auto) Eos % (Auto) Baso % (Auto) Gran # Lymph # Waller # Eos # Baso # Sodium 149 H Potassium 3.9 Chloride 119 H Carbon Dioxide 18 L Anion Gap 17 BUN 36 H Creatinine 1.4 Est GFR ( Amer) > 60 Est GFR (Non-Af Amer) 50 POC Glucose (mg/dL) 216 H 219 H Random Glucose 231 H Calcium 9.3 Phosphorus 3.1 Magnesium 2.2 Total Bilirubin 1.5 H AST 59 ALT 69 H Alkaline Phosphatase 197 H Total Protein 7.0 Albumin 3.4 Globulin 3.6 Albumin/Globulin Ratio 0.9 L Assessment/Plan - Assessment and Plan (Free Text) Assessment: Patient seen and examined, agree with ntoe with following additions/exceptions: Patient is 72yo male with PMHx of CAD a/w acute CVA of Right MCA territory, s/p tPA (full dose not give 2/2 allergic reaction), subsequently developed hemorrhagic conversion of CVA, R sided. Neurology following. Currently afebrile, HD stable, comfortable, tolerating T collar trials, awake. Possible PEG today with IR Acute CVA CAD Respiratory failure s/p trach recommend: - ventilatory support, as needed, otherwise can continue with T collar - Duonebs PRN - follow up neurology, - BP control - Keppra for seizure ppx - follow up ID, Abx as per ID - director long term care planning L tach vs rehab - GI ppx - DVT ppx, SCDs - FS control - NPO for possible PEG today with IR - transfer to telemetry
--- NOTE | 2017-07-16 10:23 | PN ---
DATE: 07/16/2017 SUBJECTIVE: The patient is on tracheostomy. He opens his eyes at times and he has difficult time in speaking. PHYSICAL EXAMINATION: VITAL SIGNS: Temperature is 98, pulse of 99, blood pressure of 129/67, and respirations of 17. GENERAL: The patient is lying in bed, flat, comfortable. HEENT: No oral lesion. Anicteric sclerae. Moist mucosa. NECK: No JVD, adenopathy, or thyromegaly. Tracheostomy. CARDIOVASCULAR: S1 and S2, regular. No murmurs, rubs, or gallops. LUNGS: Clear to auscultation bilaterally. No wheeze, rales, or rhonchi. ABDOMEN: Bowel sounds are positive, soft, nontender and nondistended. EXTREMITIES: No cyanosis, clubbing or edema. LABORATORY DATA: White count of 7.7 and hemoglobin of 10.4. Creatinine is 1.4 with sodium is 149. DIAGNOSTIC DATA: Chest x-ray done. NG tube is in satisfactory position. ASSESSMENT: 1. Right middle cerebral artery stroke. 2. Respiratory failure, improving, status post tracheostomy. 3. 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 4. Ileus. 5. Chronic kidney stage III. 6. Hypokalemia, improved. 7. Hypertensive emergency, improved. 8. Ventilator-associated pneumonia. PLAN: The patient is going for PEG placement by Interventional Radiology. The patient is on IV fluids. The patient is hyponatremic, so I will change the IV fluids to D5W. The patient's LFTs are improving. Hyponatremia is most likely due to free water loses that are insensible. The patient is on Protonix daily and he is on Keppra for seizure prophylaxis. He is not on aspirin or low molecular weight heparin because of cerebral hemorrhage from this hemorrhagic stroke. He is in restraints. I will call the patient's to given an update. Jani Hernandez MD
--- NOTE | 2017-07-16 11:33 | CP.PCM.PN ---
Subjective - Date & Time of Evaluation Date of Evaluation: 07/16/17 Time of Evaluation: 10:10 - Subjective Subjective: Patient is easily arousable, no fevers overnight, awaiting PEG placement. Objective - Vital Signs/Intake and Output Vital Signs (last 24 hours): Temp Pulse Resp BP Pulse Ox 97.6 F 83 19 140/69 97 07/16/17 08:00 07/16/17 09:10 07/16/17 09:10 07/16/17 09:00 07/16/17 09:10 Intake and Output: 07/16/17 07/16/17 06:59 18:59 Intake Total 940 Output Total 1000 Balance -60 - Medications Medications: Current Medications Hydralazine HCl (Apresoline) 10 mg IVP Q6 ANNALEE Last Admin: 07/16/17 05:31 Dose: 10 mg Levetiracetam (Keppra 500mg Ivpb) 500 mg in 100 mls @ 200 mls/hr IVPB Q12H ANNALEE Last Admin: 07/16/17 04:00 Dose: 200 mls/hr Dextrose (Dextrose 5% In Water 1000 Ml) 1,000 mls @ 100 mls/hr IV .Q10H ANNALEE Last Admin: 07/16/17 08:35 Dose: 100 mls/hr Insulin Human Regular (Humulin R Low) 0 units SC ACHS ANNALEE PRN Reason: Protocol Last Admin: 07/16/17 08:32 Dose: 2 units Ondansetron HCl (Zofran Inj) 4 mg IVP Q6H PRN PRN Reason: Nausea/Vomiting Last Admin: 07/06/17 21:55 Dose: 4 mg Pantoprazole Sodium (Protonix Inj) 40 mg IVP DAILY ANNALEE Last Admin: 07/16/17 09:57 Dose: 40 mg - Labs Labs: 07/16/17 05:30 07/16/17 05:30 PT 12.3 SECONDS (9.4-12.5) 07/14/17 06:30 INR 1.12 (0.93-1.08) H 07/14/17 06:30 APTT 26.2 Seconds (25.1-36.5) 07/14/17 06:30 - Constitutional Appears: Chronically Ill - Head Exam Head Exam: NORMAL INSPECTION - ENT Exam Additional comments: tracheostomy tube in place - Respiratory Exam Respiratory Exam: Decreased Breath Sounds - Cardiovascular Exam Cardiovascular Exam: +S1, +S2 - GI/Abdominal Exam GI & Abdominal Exam: Soft. absent: Tenderness Assessment and Plan - Assessment and Plan (Free Text) Plan: Assessment Systemic Inflammatory response syndrome (fever and tachycardia), consider due to acute right sided CVA with hemorrhage; S/P sepsis from right lower lobe healthcare-associated pneumonia DM chronic renal failure obesity with BMI 33 history of colon cancer Plan completed course of Cefepime and Zyvox - will continue to monitor the patient clinically off antibiotics since he is at risk for nosocomial infections discussed with family previously
--- NOTE | 2017-07-16 12:44 | CP.PCM.PN ---
<Janiya Oliveira - Last Filed: 07/16/17 12:44> Subjective - Date & Time of Evaluation Date of Evaluation: 07/16/17 Time of Evaluation: 09:45 - Subjective Subjective: S&E at bedside, chart reviewed, awaiting to have g-tube insertion this am. No acute overnight events reported. Patient in no distress. Objective - Vital Signs/Intake and Output Vital Signs (last 24 hours): Temp Pulse Resp BP Pulse Ox 97.6 F 83 134 H 146/68 98 07/16/17 08:00 07/16/17 12:06 07/16/17 11:30 07/16/17 12:06 07/16/17 11:50 Intake and Output: 07/16/17 07/16/17 06:59 18:59 Intake Total 940 Output Total 1000 Balance -60 - Medications Medications: Current Medications Hydralazine HCl (Apresoline) 10 mg IVP Q6 [facility] Last Admin: 07/16/17 12:06 Dose: 10 mg Levetiracetam (Keppra 500mg Ivpb) 500 mg in 100 mls @ 200 mls/hr IVPB Q12H [facility] Last Admin: 07/16/17 04:00 Dose: 200 mls/hr Dextrose (Dextrose 5% In Water 1000 Ml) 1,000 mls @ 100 mls/hr IV .Q10H [facility] Last Admin: 07/16/17 08:35 Dose: 100 mls/hr Insulin Human Regular (Humulin R Low) 0 units SC ACHS [facility] PRN Reason: Protocol Last Admin: 07/16/17 11:58 Dose: Not Given Ondansetron HCl (Zofran Inj) 4 mg IVP Q6H PRN PRN Reason: Nausea/Vomiting Last Admin: 07/06/17 21:55 Dose: 4 mg Pantoprazole Sodium (Protonix Inj) 40 mg IVP DAILY [facility] Last Admin: 07/16/17 09:57 Dose: 40 mg - Labs Labs: 07/16/17 05:30 07/16/17 05:30 PT 12.3 SECONDS (9.4-12.5) 07/14/17 06:30 INR 1.12 (0.93-1.08) H 07/14/17 06:30 APTT 26.2 Seconds (25.1-36.5) 07/14/17 06:30 - Constitutional Appears: No Acute Distress - Head Exam Head Exam: NORMOCEPHALIC - Eye Exam Eye Exam: Normal appearance. absent: Scleral icterus - ENT Exam ENT Exam: Mucous Membranes Moist - Neck Exam Neck Exam: Normal Inspection Additional comments: trache - Respiratory Exam Respiratory Exam: NORMAL BREATHING PATTERN. absent: Respiratory Distress - Cardiovascular Exam Cardiovascular Exam: +S1, +S2 - GI/Abdominal Exam GI & Abdominal Exam: Soft, Normal Bowel Sounds. absent: Guarding, Tenderness, Organomegaly, Rebound - Extremities Exam Extremities Exam: absent: Calf Tenderness - Neurological Exam Neurological Exam: Alert, Awake Additional comments: left side weakness - Skin Skin Exam: Dry, Warm Assessment and Plan - Assessment and Plan (Free Text) Assessment: Assessment: CVA Respiratory Failure, s/p trache Oropharyngeal dysphagia, status post EGD with attempted PEG, no window for feeding tube History of colon cancer right hemicolectomy Chronic kidney disease Diabetes mellitus Dyslipidemia Right lower lobe pneumonia Plan: Pending IR CT guided feeding tube continue PPI on IVF On Keppra as per ICU team Seen and discussed w/ Dr. Barton. <Sienna Barton V - Last Filed: 07/16/17 23:46> Objective - Vital Signs/Intake and Output Vital Signs (last 24 hours): Temp Pulse Resp BP Pulse Ox 98.6 F 101 H 20 156/36 H 99 07/16/17 20:00 07/16/17 22:00 07/16/17 22:00 07/16/17 22:00 07/16/17 22:00 Intake and Output: 07/16/17 07/17/17 18:59 06:59 Intake Total 175 Output Total 1050 Balance -875 - Medications Medications: Current Medications Hydralazine HCl (Apresoline) 10 mg IVP Q6 [facility] Last Admin: 07/16/17 18:28 Dose: 10 mg Levetiracetam (Keppra 500mg Ivpb) 500 mg in 100 mls @ 200 mls/hr IVPB Q12H [facility] Last Admin: 07/16/17 16:17 Dose: 200 mls/hr Dextrose (Dextrose 5% In Water 1000 Ml) 1,000 mls @ 100 mls/hr IV .Q10H [facility] Last Admin: 07/16/17 08:35 Dose: 100 mls/hr Insulin Human Regular (Humulin R Low) 0 units SC ACHS [facility] PRN Reason: Protocol Last Admin: 07/16/17 22:03 Dose: Not Given Ondansetron HCl (Zofran Inj) 4 mg IVP Q6H PRN PRN Reason: Nausea/Vomiting Last Admin: 07/06/17 21:55 Dose: 4 mg Pantoprazole Sodium (Protonix Inj) 40 mg IVP DAILY [facility] Last Admin: 07/16/17 09:57 Dose: 40 mg - Labs Labs: 07/16/17 05:30 07/16/17 05:30 PT 12.3 SECONDS (9.4-12.5) 07/14/17 06:30 INR 1.12 (0.93-1.08) H 07/14/17 06:30 APTT 26.2 Seconds (25.1-36.5) 07/14/17 06:30 Attending/Attestation - Attestation I have personally seen and examined this patient.: Yes I have fully participated in the care of the patient.: Yes I have reviewed all pertinent clinical information, including history, physical exam and plan: Yes Notes (Text): This patient was seen and evaluated earlier for IR guided G tube placement. This addendum to GI progress report dictated by Janiya Oliveira APN 07/16/17 23:45
[2017-07-16] MEDS ORDERED: Midazolam 2 MG/2 ML VIAL ONE (14:12)
--- NOTE | 2017-07-16 14:14 | PN ---
DATE: 07/16/2017 SUBJECTIVE: The patient was seen lying in bed in CCU. He is arousable and answers some questions appropriately at this time. He is scheduled for a percutaneous gastrostomy tube later today. CURRENT MEDICATIONS: Include intravenous hydralazine, insulin coverage, Keppra, Protonix, and Zofran p.r.n. OBJECTIVE: GENERAL: He is a middle aged man who appears comfortable at rest. VITAL SIGNS: His blood pressure was 146/76, with a pulse of 86 in sinus, and respirations of 16. He is afebrile. HEENT: Tracheostomy is in place with a trach collar supplying supplemental oxygen. CHEST: Few scattered rhonchi. HEART: PMI displaced laterally with a systolic murmur at the left sternal border. ABDOMEN: Soft and nontender with normoactive bowel sounds. EXTREMITIES: Left-sided hemiplegia persists. DIAGNOSTIC DATA: Sodium is 149, potassium is 3.9, BUN and creatinine are 36 and 1.4, and glucose is 231. White count is 7.7, hemoglobin and hematocrit are 10.4 and 32.6, with a platelet count of 308,000. Echocardiogram was performed revealing normal chamber size with normal LV systolic function with mild concentric LVH. Chest x-ray reveals borderline increased vascular congestion. IMPRESSION: 1. Status post large cerebrovascular accident with left-sided hemiplegia. 2. Recent hypertensive urgency. 3. Coronary artery disease status post percutaneous coronary intervention of left anterior descending artery earlier this year. 4. History of hypertension and diabetes. 5. Hypernatremia. RECOMMENDATIONS: His current medications should be continued at the present time. As it is more than 6 months since his PCI was performed, resumption of anticoagulant therapy can be started at this time especially in the setting of his recent stroke. Aggressive rehabilitation should be planned. We will be happy to follow him along as needed. Mark Herman MD
--- NOTE | 2017-07-16 17:15 | CT ---
PROCEDURE: CT-guided gastrostomy tube placement HISTORY: CVA. Needs gastrostomy tube PHYSICIAN(S): Brendan Love MD. TECHNIQUE: The relative risks and indications for the procedure were explained to the patient's and informed consent obtained. The patient was placed in a supine position on the CT scanner and preliminary images through the upper abdomen performed. The stomach was insufflated with air via the nasogastric tube. Conscious sedation monitoring were provided throughout the procedure by a nurse. Tube placement was selected in the body of the stomach. 1 percent xylocaine was used to anesthetize the skin and soft tissues. The stomach was punctured from an anterior approach. Air was aspirated a 0.035 support wire placed in the stomach. Dilatation was performed with placement of a 14 Mohawk pigtail gastrostomy tube. The tube was flushed and secured. The patient tolerated the procedure well. IMPRESSION: 1. CT-guided gastrostomy tube placement as described above.
--- NOTE | 2017-07-16 19:54 | CP.PCM.PN ---
<Uzma Lai - Last Filed: 07/16/17 22:42> Subjective - Date & Time of Evaluation Date of Evaluation: 07/16/17 Time of Evaluation: 10:00 - Subjective Subjective: PGY-2 Neurology progress note for Dr. Duval's service Patient seen and examined at bedside in ICU. No acute overnight events reported by staff. Patient had PEG placed today. Patient had trach placed. Objective - Vital Signs/Intake and Output Vital Signs (last 24 hours): Temp Pulse Resp BP Pulse Ox 97.6 F 92 H 20 192/86 H 98 07/16/17 08:00 07/16/17 18:28 07/16/17 15:05 07/16/17 18:28 07/16/17 15:05 Intake and Output: 07/16/17 07/17/17 18:59 06:59 Intake Total 175 Output Total 1050 Balance -875 - Medications Medications: Current Medications Hydralazine HCl (Apresoline) 10 mg IVP Q6 [facility] Last Admin: 07/16/17 18:28 Dose: 10 mg Levetiracetam (Keppra 500mg Ivpb) 500 mg in 100 mls @ 200 mls/hr IVPB Q12H [facility] Last Admin: 07/16/17 16:17 Dose: 200 mls/hr Dextrose (Dextrose 5% In Water 1000 Ml) 1,000 mls @ 100 mls/hr IV .Q10H [facility] Last Admin: 07/16/17 08:35 Dose: 100 mls/hr Insulin Human Regular (Humulin R Low) 0 units SC ACHS [facility]NA[facility] PRN Reason: Protocol Last Admin: 07/16/17 18:33 Dose: 2 units Ondansetron HCl (Zofran Inj) 4 mg IVP Q6H PRN PRN Reason: Nausea/Vomiting Last Admin: 07/06/17 21:55 Dose: 4 mg Pantoprazole Sodium (Protonix Inj) 40 mg IVP DAILY [facility] Last Admin: 07/16/17 09:57 Dose: 40 mg - Labs Labs: 07/16/17 05:30 07/16/17 05:30 PT 12.3 SECONDS (9.4-12.5) 07/14/17 06:30 INR 1.12 (0.93-1.08) H 07/14/17 06:30 APTT 26.2 Seconds (25.1-36.5) 07/14/17 06:30 - Constitutional Appears: No Acute Distress - Head Exam Head Exam: ATRAUMATIC, NORMAL INSPECTION, NORMOCEPHALIC - Eye Exam Eye Exam: EOMI - ENT Exam ENT Exam: Mucous Membranes Dry Additional comments: Trachea Midline and in place - Respiratory Exam Respiratory Exam: Clear to Ausculation Bilateral, NORMAL BREATHING PATTERN. absent: Rhonchi, Wheezes, Respiratory Distress - Cardiovascular Exam Cardiovascular Exam: REGULAR RHYTHM. absent: Murmur - Neurological Exam Neurological Exam: Alert, Awake, CN II-XII Intact - Skin Skin Exam: Dry, Intact, Normal Color, Warm Assessment and Plan - Assessment and Plan (Free Text) Assessment: 72yo male with history of colon ca s/p partial colectomy, hypertension and hyperlipidemia presents to [facility] with acute cerebrovascular accident secondary to right MCA infarct with hemorrhagic conversion 1. Acute CVA complicated by hemorrhagic conversion 2. Hypertension 3. Hyperlipidemia 4. CAD s/p stent placement 5. Hx of colon ca s/p partial colectomy - Patient originally presented with Acute CVA secondary to right middle cerebral artery infarct due to diffuse atherosclerotic disease - Repeat Head CT is consistent with hemorrhagic conversion of the right MCA infarct secondary to hypertensive disease s/p tPA administration - Brain MRI reviewed; revealed R. MCA infarct and punctate hemorrhage in the right posterior parietal occipital lobe - Recommend trach and PEG; patient recieved trach on 07/11/17, PEG was placed today - No aspirin/plavix for 3 weeks - Recommend Keppra 500mg IV q12h for seizure prophylaxis - Recommend follow up neurosurgery recommendations - Monitor closely for signs of increasing ICP - Maintain blood pressure between 120-130's - Recommend echocardiogram for evaluation of underlying cardiomyopathy - Fever in the setting of acute stroke is correlated with worse outcome, therefore maintain normothermia; continue with IV ofirmev - Continue with IV antibiotics per ID recommendations - Physical therapy/Occupational therapy - Speech/Swallow evaluation - continue Neurochecks q1h - Continue present medical management as per ICU team - Prognosis remains guarded for this critically ill patient Patient seen and case discussed/reviewed with attending, Dr. Duval <Volodymyr Duval - Last Filed: 07/17/17 05:58> Objective - Vital Signs/Intake and Output Vital Signs (last 24 hours): Temp Pulse Resp BP Pulse Ox 98.8 F 90 19 168/65 H 98 07/17/17 00:00 07/17/17 05:38 07/17/17 00:00 07/17/17 05:38 07/17/17 00:00 Intake and Output: 07/16/17 07/17/17 18:59 06:59 Intake Total 175 Output Total 1050 Balance -875 - Medications Medications: Current Medications Hydralazine HCl (Apresoline) 10 mg IVP Q6 [facility] Last Admin: 07/17/17 05:38 Dose: 10 mg Levetiracetam (Keppra 500mg Ivpb) 500 mg in 100 mls @ 200 mls/hr IVPB Q12H [facility] Last Admin: 07/17/17 03:28 Dose: 200 mls/hr Dextrose (Dextrose 5% In Water 1000 Ml) 1,000 mls @ 100 mls/hr IV .Q10H [facility] Last Admin: 07/17/17 05:40 Dose: 100 mls/hr Insulin Human Regular (Humulin R Low) 0 units SC ACHS [facility] PRN Reason: Protocol Last Admin: 07/16/17 22:03 Dose: Not Given Ondansetron HCl (Zofran Inj) 4 mg IVP Q6H PRN PRN Reason: Nausea/Vomiting Last Admin: 07/06/17 21:55 Dose: 4 mg Pantoprazole Sodium (Protonix Inj) 40 mg IVP DAILY [facility] Last Admin: 07/16/17 09:57 Dose: 40 mg - Labs Labs: 07/16/17 05:30 07/16/17 05:30 PT 12.3 SECONDS (9.4-12.5) 07/14/17 06:30 INR 1.12 (0.93-1.08) H 07/14/17 06:30 APTT 26.2 Seconds (25.1-36.5) 07/14/17 06:30 Attending/Attestation - Attestation I have personally seen and examined this patient.: Yes I have fully participated in the care of the patient.: Yes I have reviewed all pertinent clinical information, including history, physical exam and plan: Yes
[2017-07-17] MEDS: levETIRAcetam 500mg IVPB 500 MG/100 ML BAG IVPB SCH (03:28)
[2017-07-17 06:01] VITALS: O2SAT 96
[2017-07-17 06:35] LABS: BASO # 0.03 K/mm3 (0.0-2.0); BASO % 0.4 % (0.0-3.0); EOS # 0.1 (0.0-0.7); EOS % 1.5 % (1.5-5.0); GRAN # 6.62 (1.4-6.5); GRAN % 77.6 % (50.0-68.0); HEMATOCRIT 33.7 % (42.0-52.0); LYMPH % 11.6 % (22.0-35.0); MEAN CELL VOLUME 88.5 fl (80.0-105.0); MEAN CORPUSCULAR HEMOGLOBIN 28.6 pg (25.0-35.0); MEAN CORPUSCULAR HGB CONC 32.3 g/dl (31.0-37.0); MEAN PLATELET VOLUME 9.2 fl (7.0-11.0); MONO # 0.8 (0.1-0.6); MONO % 8.9 % (1.0-6.0); RED CELL DISTRIBUTION WIDTH 14.3 % (11.5-14.5); WHITE BLOOD COUNT 8.5 10^3/ul (4.5-11.0)
[2017-07-17 07:17] LABS: ALB/GLOB RATIO 0.9 (1.1-1.8); ALKALINE PHOSPHATASE 203 U/L (38-126); ALT/SGPT 78 U/L (7-56); AST/SGOT 81 U/L (17-59); BILIRUBIN,TOTAL 1.7 mg/dL (0.2-1.3); BLOOD UREA NITROGEN 29 mg/dL (7-21); CALCIUM 9.1 mg/dL (8.4-10.5); CARBON DIOXIDE 22 mmol/L (21-33); CHLORIDE 116 mmol/L (98-107); GFR AFRICAN-AMERICAN > 60; GLUCOSE,RANDOM 281 mg/dL (70-110); POTASSIUM 4.1 mmol/L (3.6-5.0); SODIUM 147 mmol/L (132-148)
[2017-07-17] MEDS: Insulin Reg-LOW-Coverage SC SCH ×2 (08:17→12:36)
[2017-07-17 12:29] VITALS: BP 164/72; RESP 17
[2017-07-17 12:30] VITALS: TEMP 98.7
--- NOTE | 2017-07-17 16:49 | PN ---
DATE: 07/17/2017 SUBJECTIVE: This patient was seen and evaluated earlier today. He is status post CT-guided G-tube placement. PHYSICAL EXAMINATION VITAL SIGNS: Temperature is 98.7, pulse 79, blood pressure is 169/72. HEENT: Atraumatic. Anicteric. NECK: Supple. Status post tracheostomy. HEART: S1 and S2 heard. LUNGS: Bilateral air entry present. ABDOMEN: Soft. PEG tube in place. EXTREMITIES: No cyanosis or clubbing. LABORATORY DATA: Hemoglobin 10.9, hematocrit 33.7, WBC 8.5, platelets 260. BUN 29, creatinine 1.3. IMPRESSION: This 72-year-old patient who is status post cerebrovascular accident, dysphagia, had attempted endoscopic placement of percutaneous endoscopic gastrostomy, which was not possible because of the previous surgery and small window, unable to obtain a safe site endoscopically for placement. The patient subsequently underwent a CT-guided percutaneous endoscopic gastrostomy tube placement. A 14 Nepali size gastrostomy tube was placed. Discussed with the patient's also. The plan is to start the feeding. The patient is supposed to be transferred to LTAC today. I did discuss with the patient's nurse in the intensive care unit who is taking care of the patient to specifically give the instructions to the LTAC about the size of the feeding tube and need to flush it frequently to keep it open. The patient also needs dilation and subsequent upgrade of the size of the percutaneous endoscopic gastrostomy tube from 14 to 16, 16 to 18 size in a gradual manner. Other comorbidities include chronic kidney disease, diabetes mellitus, status post cerebrovascular accident, pneumonia, history of colon cancer, status post right hemicolectomy. Thank you very much for allowing us to participate in the care of the patient. Sienna Barton MD cc:
[2017-07-17 17:42] VITALS: PULSE 69
--- NOTE | 2017-07-17 22:51 | DS ---
HISTORY OF PRESENT ILLNESS: The patient is a 72-year-old, who was initially admitted on 07/06/2017 because of unsteady gait with left-sided weakness and difficulty talking an hour prior to arrival to the emergency room. So, the patient underwent "stroke" and had TPA given since it was within one-hour of presentation. Postprocedure, the patient was found to have right middle cerebral artery stroke. PAST MEDICAL HISTORY: The patient does have history of: 1. Coronary artery disease. 2. Non-insulin dependant diabetes. 3. Hypertension. 4. Hyperlipidemia. 5. History of CA of colon. Next day of procedure, the patient developed hemorrhagic infarct in the right occipital and the temporal lobe. The patient was admitted and the patient stayed in ICU. Different consultants including government teacher and neurologist has been seeing the patient. He was also evaluated by neurosurgeon on 07/07/2017 and there was no surgical intervention needed. So, the patient remained in the ICU. He was on ventilator, developed sepsis, was on antibiotics. Finally, the patient extubated and having tracheostomy and PEG placed. Now, he is being transferred to LTAC speciality. When I saw the patient this morning, he was sleepy, but arousable, able to communicate, has tracheostomy collar on and has PEG placed. PHYSICAL EXAMINATION: VITAL SIGNS: Afebrile, pulse 79, respirations 17, and blood pressure 164/72. LUNGS: Bilateral good airflow. No rhonchi or crackle. HEART: S1 and S2 audible. ABDOMEN: Soft and nontender. No rebound. No guarding. NEUROLOGIC: The patient is sleepy, but arousable. Has left-sided weakness. MEDICATIONS: WBC is 8.5, hemoglobin 10.9, hematocrit 33.7, and platelets of 260. Chemistry: Sodium 147, potassium 4.1, chloride 116, CO2 of 22, BUN 29, creatinine 1.3, blood sugar 281, total bilirubin 1.7, AST 81, ALT 73, and alkaline phosphatase 203. ASSESSMENT: 1. Status post cerebrovascular accident with left hemapheresis followed by tissue plasminogen activator and developed hemorrhagic stroke. 2. Hypertensive emergency. 3. Coronary artery disease, status post angioplasty. 4. Hypertension. 5. Non-insulin dependant diabetes. 6. Hypernatremia. 7. Chronic kidney disease. 8. Electrolyte imbalance. PLAN: The patient is being transferred to LTAC where he will followed by Acute Care Team in that facility. Nicole Gusman MD
--- NOTE | 2017-07-18 09:26 | PN ---
DATE: 07/17/2017 SUBJECTIVE: The patient is in bed and the patient was seen earlier today in 123, bed 3. No events overnight. Last night, the patient had a PEG placed and trach placed. PHYSICAL EXAMINATION: VITAL SIGNS: The patient's temperature is 98, blood pressure is /60, and respiratory rate of 20. The patient is on a trach collar and he has heart rate of 90. HEENT: Unremarkable. NECK: Supple. LUNGS: Have decreased breath sounds. HEART: Normal S1 and S2. ABDOMEN: Soft and nontender. No organomegaly. No rebound. LABORATORY DATA: Reveals white count of 8.5, hemoglobin of 10, and platelets of 260. Coagulation is noted. Chemistries reveals BUN of 29, creatinine of 1.3, and alk phos is 203. Influenza is negative and blood cultures are negative. Review of orders reveals the patient is off of antibiotics. ASSESSMENT AND PLAN: A 72-year-old male with systemic inflammatory response syndrome with acute right-sided cerebrovascular accident with conversion to hemorrhage and status post sepsis with a right lower lobe healthcare-associated pneumonia and the patient with diabetes mellitus, chronic renal failure, obesity, and history of colon cancer, completed course of Zyvox and cefepime. Currently off of antibiotics, afebrile, normal white count. The patient is at risk for developing nosocomial infections. Paul Romano MD
== END 2017-07-17 14:46 | DRG 4 ==
LOC: ED 12:47 → ERH 15:01 → CCU 19:07
PROVIDERS: ADMIT Internal Medicine Nephrology; ATTEND Internal Medicine Nephrology
PROC: 3E03317 Introduction of Other Thrombolytic into Peripheral Vein, Percutaneous Approach (ICD-10-PCS; 2017-07-06)
PROC: 5A1955Z Respiratory Ventilation, Greater than 96 Consecutive Hours (ICD-10-PCS; 2017-07-07)
PROC: 0BH17EZ Insertion of Endotracheal Airway into Trachea, Via Natural or Artificial Opening (ICD-10-PCS; 2017-07-07)
PROC: 0B110F4 Bypass Trachea to Cutaneous with Tracheostomy Device, Open Approach (ICD-10-PCS; principal; 2017-07-10 12:50)
PROC: 0DJ08ZZ Inspection of Upper Intestinal Tract, Via Natural or Artificial Opening Endoscopic (ICD-10-PCS; 2017-07-14)
PROC: 0DH63UZ Insertion of Feeding Device into Stomach, Percutaneous Approach (ICD-10-PCS; 2017-07-16)
DX: I63.511 Cerebral infarction due to unspecified occlusion or stenosis of right middle cerebral artery (principal); J96.91 Respiratory failure, unspecified with hypoxia; J18.9 Pneumonia, unspecified organism; N17.9 Acute kidney failure, unspecified; A41.9 Sepsis, unspecified organism; D68.9 Coagulation defect, unspecified; E11.22 Type 2 diabetes mellitus with diabetic chronic kidney disease; N18.3 Chronic kidney disease, stage 3 (moderate); E87.0 Hyperosmolality and hypernatremia; J95.851 Ventilator associated pneumonia; M62.82 Rhabdomyolysis; I69.354 Hemiplegia and hemiparesis following cerebral infarction affecting left non-dominant side; K56.7 Ileus, unspecified; I16.1 Hypertensive emergency; A04.72 Enterocolitis due to Clostridium difficile, not specified as recurrent; E11.51 Type 2 diabetes mellitus with diabetic peripheral angiopathy without gangrene; K21.9 Gastro-esophageal reflux disease without esophagitis; I12.9 Hypertensive chronic kidney disease with stage 1 through stage 4 chronic kidney disease, or unspecified chronic kidney disease; I63.539 Cerebral infarction due to unspecified occlusion or stenosis of unspecified posterior cerebral artery; I25.10 Atherosclerotic heart disease of native coronary artery without angina pectoris; G93.89 Other specified disorders of brain; E87.6 Hypokalemia; R13.12 Dysphagia, oropharyngeal phase; D64.9 Anemia, unspecified; E11.65 Type 2 diabetes mellitus with hyperglycemia; E66.9 Obesity, unspecified; Z68.33 Body mass index [BMI] 33.0-33.9, adult; Y84.8 Other medical procedures as the cause of abnormal reaction of the patient, or of later complication, without mention of misadventure at the time of the procedure; E78.5 Hyperlipidemia, unspecified; R29.810 Facial weakness; R31.0 Gross hematuria; R56.9 Unspecified convulsions; Z79.02 Long term (current) use of antithrombotics/antiplatelets; Z79.82 Long term (current) use of aspirin; Z79.899 Other long term (current) drug therapy; Z85.038 Personal history of other malignant neoplasm of large intestine; Z87.891 Personal history of nicotine dependence; Z90.49 Acquired absence of other specified parts of digestive tract; Z95.5 Presence of coronary angioplasty implant and graft